=== PATIENT | female | born 1940 | race Caucasian/White ===

== ENCOUNTER 2016-09-03 09:16 | Day surgery (SDC) | payer OTHER ==
[~2016-09-03] VITALS: Ht 158.8 cm; Wt 51.3 kg
[~2016-09-03 09:16] MED LIST: ATEN50TA PO; CEFAZOLIN 2GM PREMIX 50 ML IV PRN; FENTANYL PF 100 MCG/2 ML VIAL. IV PRN; HYDROMORPHONE 2 MG/ML VIAL. IV PRN; IV RINGERS,LACTATED 1000ML 1,000 ML IV SCH; LIDOCAINE 1% 1 ML SYRINGE. ID PRN; MORPHINE SULFATE 2 MG/ML DISP.SYRIN. IV PRN; ONDANSETRON PF 4 MG/2 ML VIAL. IV PRN; PROCHLORPERAZINE 10 MG/2 ML VIAL. IV PRN
[2016-09-03] MEDS ORDERED: BUPIVAC MPF-EPI 0.5%-1:200000 30 ML VIAL. ONE (09:55)
[2016-09-03] MEDS ORDERED: BUPIVACAINE MPF 0.5% 30 ML VIAL. ONE (09:56)
[2016-09-03] MEDS ORDERED: PROPOFOL 20 ML IV ONE (10:29)
[2016-09-03] MEDS ORDERED: LIDOCAINE 2% 100 MG/5 ML DISP.SYRIN. ONE (10:29)
[2016-09-03] MEDS ORDERED: DEXAMETHASONE SOD PHOS 20 MG/5 ML VIAL. ONE (10:35)
[2016-09-03] MEDS ORDERED: ONDANSETRON PF 4 MG/2 ML VIAL. ONE (10:35)
[2016-09-03] MEDS ORDERED: FENTANYL PF 100 MCG/2 ML VIAL. ONE (10:36)
[2016-09-03] MEDS ORDERED: EPHEDRINE PF IN SALINE 50 MG/5 ML DISP.SYRIN. IV ONE (10:43)
[2016-09-03] MEDS ORDERED: SEVOFLURANE 31 TO 60 MINUTES. IH ONE (11:06)
[2016-09-03] MEDS: FENTANYL PF 100 MCG/2 ML VIAL. IV PRN ×3 (11:27→12:08)
--- NOTE | 2016-09-03 11:55 | PDOC ---
BRIEF OPERATIVE NOTE Date: Sep 03, 2016 Pre-Op Diagnosis skin lesion left forehead Post-Op Diagnosis same Procedure Performed excision Surgeon Rk Anesthesia Type: General Blood Loss 10cc IV Fluid 450cc Specimens Obtained skin 5x1.5x0.5 cm, lesion 1.5x0.8 cm Complications none Additional Remarks # [id number] ANNA LEE MD Sep 03, 2016 11:55
--- NOTE | 2016-09-03 11:56 | DISCH ---
DISCHARGE INSTRUCTIONS Condition on Discharge Condition on Discharge: Stable Activity After Discharge Activity Instructions for Disc: Activity as tolerated, Avoid exertion Lifting Instructions after Dis: No heavy lifting Driving Instructions after Dis: Do not drive today Diet after Discharge Diet after Discharge: Regular Wound Incision Care Wound/Incision Care: Ice to area for comfort Other wound/incision instructi: nancy showbehzad Follow-Up Follow up with: Rk next week ANNA LEE MD Sep 03, 2016 11:56
[2016-09-03] MEDS ORDERED: HYDR-971 PO (12:11)
[2016-09-03] MEDS ORDERED: HYDROCODONE/APAP 5/325MG TABLET. PO ONE (12:15)
--- NOTE | 2016-09-03 12:29 | OP ---
DATE OF SURGERY: 09/03/2016 PREOPERATIVE DIAGNOSIS: Chronic skin lesion, left side of her forehead. POSTOPERATIVE DIAGNOSIS: Chronic skin lesion, left side of her forehead. PROCEDURE: Excision of chronic skin lesion, left side of her forehead.. SURGEON: Anna Lee MD ANESTHESIA: General. ESTIMATED BLOOD LOSS: 10 mL. INTRAVENOUS FLUID: 450. SPECIMEN: 5 x 1.5 x 0.5 cm. The lesion itself is 1.5 x 0.8 cm. DESCRIPTION OF PROCEDURE: The patient was brought to the operating suite, given a general LMA and the forehead and left neck were prepped and draped in the usual sterile fashion. An elliptical incision was outlined with a marking pen to allow for adequate margins around the chronic skin lesion thought to represent a basal cell carcinoma. Marcaine 0.5% plain was infiltrated and the lesion was excised down to the skull. Hemostasis with 3-0 Vicryl stick tie and cautery. When a correct sponge count was obtained, we mobilized the inferior and superior skin flaps with cautery dissection. The wound was then closed with interrupted inverted 3-0 Vicryl in the subcutaneous tissue and a subcuticular 4-0 Monocryl with Steri-Strips in the skin. Sterile dressing applied. The patient awakened from her anesthetic and taken to the recovery room in satisfactory condition. ANNA LEE MD DR: SEBAS/alex JOB#: [id number] / [id number]
[2016-09-03 12:35] VITALS: BP 184/84
--- NOTE | 2016-09-04 16:31 | PATHOLOGY ---
PATHOLOGY REPORT * * * * * * * * FINAL DIAGNOSIS: Skin and subcutaneous adipose and skeletal muscle tissue, left forehead lesion excision: - ULCERATED BASAL CELL CARCINOMA-INKED HISTOLOGIC MARGINS OF EXCISION FREE OF NEOPLASM. (JPM:; d/t: 09/04/16) REPORT ELECTRONICALLY SIGNED BY: Stoney Steven M.D. DATE/TIME: 09/04/2016 16:30 * * * * * * * * GROSS PATHOLOGY: Received in formalin labeled "Ni Winn-skin lesion left forehead silk stitch at medial end," is a 4.8 x 1.7 x 0.5 cm ellipse of skin oriented with a black stitch placed at one tip designated as the medial end, which will be further designated as the 9:00 aspect. The specimen is inked as follows: 9:00 to 12:00-yellow, 12:00 to 3:00-blue, and 3:00 to 9:00 and deep margin-black. The epidermal surface displays a central 1.4 x 1.0 cm red-[place], partially crusted, and ulcer-like lesion. The specimen is sectioned into 17 pieces and entirely submitted in cassettes A1 through A4, with the tips placed in cassette A4. (TTL; 09/03/2016) INITIAL CPT CODE(S): A; 54812 Professional services performed [place] [address] Technical services performed by [facility] at [address] [place] [address]. SPECIMEN(S) RECEIVED: A.Skin lesion left forehead CLINICAL HISTORY: Non healing wound, forehead PATIENT: NI WINN /AGE: 8 1940 (Age: 76) PATIENT #: [id number] ALT CASE #: SPECIMEN COLLECTION DATE: 09/03/2016 SPECIMEN RECEIVED DATE: 09/03/2016 [facility] - [address] [place] [address] - PHONE: [phone] * * * END OF REPORT * * *
== END 2016-09-03 12:52 | disposition home or self-care (01) ==
LOC: SURG 09:16
PROVIDERS: ATTEND Surgery
DX: C44.319 Basal cell carcinoma of skin of other parts of face (principal); H40.9 Unspecified glaucoma; I10 Essential (primary) hypertension; M19.90 Unspecified osteoarthritis, unspecified site; F10.99 Alcohol use, unspecified with unspecified alcohol-induced disorder; Z90.710 Acquired absence of both cervix and uterus
CPT/HCPCS: 11646; 88305; J0690; J1100; J2405; J2704; J3010; J3490

== ENCOUNTER 2016-09-30 11:59 | Inpatient (IN) | payer OTHER ==
[~2016-09-30] VITALS: Ht 158.8 cm; Wt 53.6 kg
[~2016-09-30 11:59] MED LIST changes: -CEFAZOLIN 2GM PREMIX 50 ML IV PRN; -FENTANYL PF 100 MCG/2 ML VIAL. IV PRN; +HYDR-971 PO; -HYDROMORPHONE 2 MG/ML VIAL. IV PRN; -IV RINGERS,LACTATED 1000ML 1,000 ML IV SCH; -LIDOCAINE 1% 1 ML SYRINGE. ID PRN; -MORPHINE SULFATE 2 MG/ML DISP.SYRIN. IV PRN; -ONDANSETRON PF 4 MG/2 ML VIAL. IV PRN; -PROCHLORPERAZINE 10 MG/2 ML VIAL. IV PRN
[2016-09-30] MEDS ORDERED: IPRATRPIUM/ALBUTEROL 0.5/2.5MG 3 ML NEBU. NEB ONE (12:30)
--- NOTE | 2016-09-30 12:46 | RAD ---
Portable chest, 09/30/2016: History: Chest pain, shortness of breath, cough Comparison is made to a study from 02/06/2010. The heart is at the upper limits of normal in size. The pulmonary vascularity is normal. Mild infiltrate has developed laterally in the right upper chest. The left lung is clear. There is no evidence of pleural fluid. A right shoulder prosthesis is in place. IMPRESSION: New mild right upper lobe infiltrate suggesting pneumonia.
[2016-09-30 12:49] LABS: BASO % 0 % (0-3); EOS % 0 % (0-3); HEMATOCRIT 36.5 % (36.0-47.0); HEMOGLOBIN 12.1 g/dL (12.0-15.5); LYMPH % 8 % (24-48); MEAN CORPUSCULAR HEMOGLOBIN 33 pg (25-35); MEAN CORPUSCULAR HGB CONC 33 g/dL (31-37); MEAN CORPUSCULAR VOLUME 100 fL (79-100); MONO % 13 % (0-9); NEUT % 79 % (31-73); PLATELET COUNT 361 x10^3/uL (140-400); RED BLOOD COUNT 3.66 x10^6/uL (3.50-5.40); RED CELL DISTRIBUTION WIDTH 13.8 % (11.5-14.5); WHITE BLOOD COUNT 12.8 x10^3/uL (4.0-11.0)
[2016-09-30 12:59] LABS: CALCIUM 9.2 mg/dL (8.5-10.1); CREATININE 0.6 mg/dL (0.6-1.0); GFR 97.7
[2016-09-30] MEDS ORDERED: AZITHRMYCN 500MG IVPB FOR OMNI 250 ML IV ONE (13:00)
[2016-09-30] MEDS ORDERED: MORPHINE SULFATE 2 MG/ML DISP.SYRIN. IV PRN (13:00)
[2016-09-30] MEDS ORDERED: IV NORMAL SALINE 500ML BAG 500 ML IV ONE (13:00)
[2016-09-30] MEDS ORDERED: CEFTRIAXONE 1GM IVPB FOR OMNI 50 ML IV ONE (13:00)
[2016-09-30] MEDS ORDERED: ONDANSETRON PF 4 MG/2 ML VIAL. IV PRN (13:00)
--- NOTE | 2016-09-30 13:04 | PHYS DOC ---
Past Medical History Past Medical History: Hypertension Past Surgical History: Appendectomy, , Hysterectomy Alcohol Use: Heavy Drug Use: None Adult General Chief Complaint Chief Complaint: SHORTNESS OF BREATH HPI HPI 76-year-old female presenting to the emergency department with a productive cough for the last 3 weeks. She reports fevers chills and rhinorrhea as well. She has pain in her chest when she coughs and has a deep breath. She describes as sharp nonradiating and without alleviating factors. Location lungs. Duration intermittent. No alleviating or exacerbating factors. Worse at night. Review of systems is negative for abdominal pain nausea vomiting. All other review of systems is negative unless otherwise noted in history of present illness. Review of Systems Review of Systems SEE ABOVE. Current Medications Current Medications Current Medications Medications (Trade) Dose Ordered Sig/Chuckie Start Time Stop Time Status Last Admin Dose Admin Albuterol/ Ipratropium (Duoneb) 3 ml 1X ONCE 09/30/16 12:30 09/30/16 12:31 DC 09/30/16 12:43 3 ML Allergies Allergies Allergies Coded Allergies Type Severity Reaction Last Updated Verified ciprofloxacin Allergy Intermediate BROKE OUT WITH WELTS 09/30/16 Yes Physical Exam Physical Exam Constitutional: Well developed, well nourished, no acute distress, non-toxic appearance. HENT: Normocephalic, atraumatic, bilateral external ears normal, oropharynx moist, no oral exudates, nose normal. [] Eyes: PERRLA, EOMI, conjunctiva normal, no discharge. Neck: Normal range of motion, no tenderness, supple, no stridor. [] Cardiovascular:Heart rate regular rhythm, no murmur Lungs & Thorax: Patient has wheezing bilaterally with mild crackles. Not in respiratory distress. Abdomen: Bowel sounds normal, soft, no tenderness, no masses, no pulsatile masses. [] Skin: Warm, dry, no erythema, no rash. [] Back: No tenderness, no CVA tenderness. Extremities: No tenderness, no cyanosis, no clubbing, ROM intact, no edema. [] Neurologic: Alert and oriented X 3, normal motor function, normal sensory function, no focal deficits noted. [] Psychologic: Affect normal, judgement normal, mood normal. [] Current Patient Data Vital Signs Vital Signs Date Time Temp Pulse Resp B/P Pulse Ox O2 Delivery O2 Flow Rate FiO2 09/30/16 12:46 94 Nasal Cannula 2.0 09/30/16 12:05 99.6 86 24 156/73 99.6 Lab Values Laboratory Tests Test 09/30/16 12:30 White Blood Count 12.8x10^3/uL (4.0-11.0) H Red Blood Count 3.66x10^6/uL (3.50-5.40) Hemoglobin 12.1g/dL (12.0-15.5) Hematocrit 36.5% (36.0-47.0) Mean Corpuscular Volume 100fL (79-100) Mean Corpuscular Hemoglobin 33pg (25-35) Mean Corpuscular Hemoglobin Concent 33g/dL (31-37) Red Cell Distribution Width 13.8% (11.5-14.5) Platelet Count 361x10^3/uL (140-400) Neutrophils (%) (Auto) 79% (31-73) H Lymphocytes (%) (Auto) 8% (24-48) L Monocytes (%) (Auto) 13% (0-9) H Eosinophils (%) (Auto) 0% (0-3) Basophils (%) (Auto) 0% (0-3) Neutrophils # (Auto) 10.1x10^3uL (1.8-7.7) H Lymphocytes # (Auto) 1.0x10^3/uL (1.0-4.8) Monocytes # (Auto) 1.7x10^3/uL (0.0-1.1) H Eosinophils # (Auto) 0.0x10^3/uL (0.0-0.7) Basophils # (Auto) 0.0x10^3/uL (0.0-0.2) Laboratory Tests 09/30/16 12:30 EKG EKG EKG shows sinus rhythm with a regular rate. Cove is leftward. ST segments congruent. Intervals show mildly prolonged QRS. [] Radiology/Procedures Radiology/Procedures [] Course & Med Decision Making Course & Med Decision Making Pertinent Labs and Imaging studies reviewed. (See chart for details) [] 76-year-old female presenting to the emergency department today with signs and symptoms suggestive of pneumonia. X-ray confirms pneumonia. Patient was hypoxic in the emergency department and placed on 2 L nasal cannula. IV fluids and antibiotics ordered. Patient was admitted to the hospital for further evaluation treatment and workup and care. Patient also had wheezing on exam which improved with nebulizer. Dragon Disclaimer Dragon Disclaimer This electronic medical record was generated, in whole or in part, using a voice recognition dictation system. Departure Departure Impression: Primary Impression: Community acquired pneumonia Additional Impression: Hypoxia Disposition: ADMITTED INPATIENT Admitting Physician: Other (DR العلي) Condition: STABLE Referrals: ALEJANDRO JOINER MD (PCP) Problem Qualifiers VALERIO RAMÍREZ MD Sep 30, 2016 13:04
[2016-09-30 13:05] LABS: ALBUMIN 2.9 g/dL (3.4-5.0); DIRECT BILIRUBIN 0.4 mg/dL (0.0-0.2); TOTAL BILIRUBIN 1.3 mg/dL (0.2-1.0); TOTAL PROTEIN 7.6 g/dL (6.4-8.2)
--- NOTE | 2016-09-30 13:42 | ACF ---
Admission Forms Criteria PNEUMONIA, COMMUNITY ACQUIRED Clinical Indications for Admission to Inpatient Care ( Place 'X' for any and all applicable criteria): Admission is indicated for ANY ONE of the following (1)(2)(3): [ ]I. Hypoxemia indicated by ANY ONE of the following: [ ]a) Oxygen saturation less than 90% while breathing room air [ ]b) PO2 less than 60 mm Hg (8.0 kPa) while breathing room air [ ]c) Chronic lung disease with significant deterioration from baseline oxygenation [X]II. Appropriate diagnostic testing and treatment unavailable in outpatient or recovery facility (eg,testing or infection control measures unavailable(10) [ ]III. Moderate-risk or high-risk category patients (Pneumonia Severity Index (PSI) class IV or V, or CURB-65 score of 3 or greater). [ ]IV. Outpatient treatment failure as indicated by ANY ONE of the following(9) : [ ]a) Failure to respond to antibiotic (eg, resistant organism) [ ]b) Clinically significant adverse effects from medication (eg, vomiting) [ ]c) Complications of pneumonia (eg, empyema, bacteremia) [ ]d) Significant worsening of comorbid cond necessitating inpatient care (eg, chronic heart failure) [ ]V. Intermediate-risk category patients (eg, PSI class III or CURB-65 score 2) who do not improve with initial therapy and observation. [ ]. Immunocompromised patients (eg, AIDS, chronic steroid use) at moderate or high risk based on clinical evaluation. [ ]VII. Complicated pleural effusions (eg, exudative, loculated) [ ]VIII.Hemodynamic instability [ ] IX. Altered mental status that is severe or persistent. [ ]X. Dehydration that is severe or persistent. [ ]XI. Bacteremia [ ]XII. Respiratory finding (eg. tachypnea) that do not respond to outpatient or observation care treatment Extended stay beyond goal length of stay may be needed for (20) [ ]a) Unclear diagnosis [ ]b) Pleural disease [ ]c) Severe pneumonia or treatment failure (25 [ ]d) Respiratory failure (anticipate invasive or noninvasive ventilatory support) [ ]e) Abnormal serum electrolytes (serum Na concentration less than 135 mEq/L (mmol/L) (32)(33) [ ]f) Clinically significant comorbid illness (eg, heart failure, atrial fibrillation with rapid heart rate, alcohol withdrawal, renal insufficiency)(34)(35) [ ]g) Comorbid acute exacerbation of COPD(36) [ ]h) Concomitant diagnosis of malignancy that may be associated with malnutrition, immunologic impairment, or bronchial obstruction. [ ]i) Concomitant altered mental status [ ]j) Culture-identified Gram-negative or antibiotic-resistant organism (eg, Pseudomonas, methicillin-resistant Staphylococcus aureus)(30) [ ]k) Healthcare-associated pneumonia The original [facility] content created by [employer] has been revised. The portions of the content which have been revised are identified through the use of italic text or in bold, and [facility] has neither reviewed nor approved the modified material. All other unmodified content is copyright [facility]. Please see references footnoted in the original [facility] edition 2016 Admission Criteria Met?: Yes LAILA FIELD Sep 30, 2016 13:42
--- NOTE | 2016-09-30 14:21 | EKG ---
[facility] [address] [place] [address] Test Date: 2016-09-30 Test Time: 12:06:01 Pat Name: NI STAFFORD Department: Room: 582 1 Gender: F 3D Specialist: : 1940 Requested By: VALERIO RAMÍREZ Order Number: [id number] Reading MD: Sascha Gray Measurements Intervals [place] Rate: 87 P: 42 MO: 160 QRS: -31 QRSD: 102 T: -4 QT: 404 QTc: 487 Interpretive Statements SINUS RHYTHM ABNORMAL LEFT AXIS DEVIATION LEFT ANTERIOR FASCICULAR BLOCK LVH WITH REPOLARIZATION ABNORMALITY PROLONGED QT RI6.01 Unconfirmed report No previous ECG available for comparison Electronically Signed On 10-08-2016 10:21:07 AUTOMATIC EDGER by Sascha Gray
[2016-09-30] MEDS: IPRATRPIUM/ALBUTEROL 0.5/2.5MG 3 ML NEBU. NEB SCH ×2 (14:53→20:03)
[2016-09-30 15:12] VITALS: BP 165/82
[2016-09-30] MEDS: ATENOLOL 50 MG TABLET PO SCH (16:14)
[2016-09-30] MEDS: POTASSIUM CHLORIDE 30 MEQ in IV 1/2 NORMAL SALINE 1,000 ML IV SCH (16:33)
[2016-09-30] MEDS: POTASSIUM CHLORIDE 20 MEQ TABLET.ER. PO SCH (16:34)
--- NOTE | 2016-09-30 17:50 | HP ---
ADMIT DATE: 09/30/2016 CHIEF COMPLAINT: Shortness of breath, cough. HISTORY OF PRESENT ILLNESS: The patient is a 76-year-old woman in a very good state of health who presented to the Emergency Room with worsening shortness of breath and a productive cough. She relates that she actually had had upper respiratory symptoms for about 3 weeks and thought she was getting over it, when she suddenly took a turn for the worse over the past couple of days and finally decided to come to the Emergency Room. She reports significant cough with sputum production, had subjective fevers and chills for 1 day, significant rhinorrhea. She has discomfort in her right chest, especially with cough and deep breath. In the Emergency Room, chest x-ray did reveal right pneumonia and she was therefore admitted for IV antibiotics and management. PAST MEDICAL HISTORY: Hypertension. PAST SURGICAL HISTORY: She is status post appendectomy, hysterectomy and a . FAMILY HISTORY: COPD in mother, father had lung cancer. SOCIAL HISTORY: , living with her significant other, quit smoking, significant alcohol use, no drug use. ALLERGIES: Ciprofloxacin. MEDICATIONS: Atenolol at home. REVIEW OF SYSTEMS: Positive as per HPI. PHYSICAL EXAMINATION: VITAL SIGNS: From today show a blood pressure of 165/82, heart rate at 86, respiratory rate at 18, satting 92% on 2 liters, she is afebrile. GENERAL: This is a malnourished, pale-appearing woman, awake, alert, in no acute distress. HEENT: Shows no scleral icterus. NECK: Supple, without any lymphadenopathy. LUNGS: Have rales in right mid field to lower lung. Rest of lung is clear. HEART: Has regular rate and rhythm. ABDOMEN: Has positive bowel sounds, soft, nontender. Organs are within normal limits. EXTREMITIES: Show no edema, no clubbing, no cyanosis. SKIN: Warm, soft and dry without any rash. LABORATORY DATA: CBC from today shows a WBC of 12.8, hemoglobin 12.1, platelets of 369, differential with 79% neutrophils. Chemistries show BUN and creatinine of 5 and 0.6, potassium at 3.0, CO2 at 33, total bilirubin at 1.3. Rest of LFTs within normal limits. BNP at 2600. Initial troponin negative. Albumin 2.9. IMAGING: Chest x-ray shows mild right upper lobe infiltrate suggesting pneumonia. ASSESSMENT AND PLAN: The patient is a 76-year-old woman who had 3 weeks of upper respiratory symptoms, most likely viral in etiology. Now, however, she has clinical symptoms as well as radiographic findings consistent with pneumonia. This is suspicious for bacterial. We will try and obtain a sputum specimen JULIO C. We will start her on empiric antibiotics with azithromycin and ceftriaxone. She will receive supplemental O2, nebulizers and ancillary medications including Mucomyst, etc. Her blood pressure is indeed somewhat elevated. We will continue her home medications, if need be further adjustments will be taken. The patient does have a history of alcohol abuse. We will monitor closely, apparently has not been drinking significantly recently. Nevertheless, worrisome for withdrawal symptoms. The patient will be placed on a PPI prophylaxis as well as Lovenox here in the hospital. Hypokalemia will be repleted p.o. as well as IV. We will continue to monitor with creatinine. CHRISTOS ARGUETA MD DR: JOSEPH/nts JOB#: [id number] / [id number] ALEJANDRO Arriola MD
[2016-09-30 19:00] VITALS: BP 140/64
[2016-09-30] MEDS: GUAIFENESIN DM 600/30MG TAB.ER.12H. PO SCH (20:42)
[2016-09-30] MEDS ORDERED: TEMAZEPAM 15 MG CAPSULE PO PRN (22:30)
[2016-09-30 23:04] VITALS: BP 120/63
[2016-10-01 01:01] LABS: BASO # 0.1 x10^3/uL (0.0-0.2); BASO % 1 % (0-3); EOS % 1 % (0-3); HEMATOCRIT 30.9 % (36.0-47.0); HEMOGLOBIN 10.3 g/dL (12.0-15.5); LYMPH # 1.7 x10^3/uL (1.0-4.8); LYMPH % 15 % (24-48); MEAN CORPUSCULAR HEMOGLOBIN 34 pg (25-35); MEAN CORPUSCULAR HGB CONC 33 g/dL (31-37); MEAN CORPUSCULAR VOLUME 100 fL (79-100); MONO % 13 % (0-9); NEUT % 71 % (31-73); PLATELET COUNT 321 x10^3/uL (140-400); RED BLOOD COUNT 3.08 x10^6/uL (3.50-5.40); RED CELL DISTRIBUTION WIDTH 13.4 % (11.5-14.5); WHITE BLOOD COUNT 11.7 x10^3/uL (4.0-11.0)
[2016-10-01 01:15] LABS: CALCIUM 7.9 mg/dL (8.5-10.1); CREATININE 0.5 mg/dL (0.6-1.0); GFR 120.6; POTASSIUM 3.7 mmol/L (3.5-5.1)
[2016-10-01 03:00] VITALS: BP 144/80
[2016-10-01] MEDS: POTASSIUM CHLORIDE 30 MEQ in IV 1/2 NORMAL SALINE 1,000 ML IV SCH ×2 (06:30→21:22)
[2016-10-01 07:00] VITALS: BP 130/68
[2016-10-01 07:31] LABS: OBC FLU VALID
[2016-10-01] MEDS: IPRATRPIUM/ALBUTEROL 0.5/2.5MG 3 ML NEBU. NEB SCH ×3 (07:34→15:30)
[2016-10-01] MEDS: GUAIFENESIN DM 600/30MG TAB.ER.12H. PO SCH ×2 (08:56→21:22)
[2016-10-01] MEDS: POTASSIUM CHLORIDE 20 MEQ TABLET.ER. PO SCH (08:57)
[2016-10-01] MEDS: ATENOLOL 50 MG TABLET PO SCH (08:57)
[2016-10-01] MEDS ORDERED: ONDANSETRON PF 4 MG/2 ML VIAL. IV PRN (08:59)
[2016-10-01 11:03] VITALS: BP 130/71
--- NOTE | 2016-10-01 11:19 | PDOC ---
PROGRESS NOTES Chief Complaint Chief Complaint CAP SIRS POA no sepsis HTN History of Present Illness History of Present Illness Low grade temps STill coughing WBC 11 from 12 CXR shows RUL PNA BC prelim neg FLu A and B neg PLAN: COnt IV antibiotics PT/OT 6 MW sandrine Send sputum cx If better sandrine, then home sandrine on PO Vitals Vitals Vital Signs Date Time Temp Pulse Resp B/P Pulse Ox O2 Delivery O2 Flow Rate FiO2 10/01/16 11:03 97.7 82 16 130/71 93 Nasal Cannula 2.0 97.7 Labs LABS Laboratory Tests Test 09/30/16 12:04 09/30/16 12:30 09/30/16 13:05 09/30/16 15:00 Influenza Type A Antigen Negative (NEGATIVE) Influenza Type B Antigen Negative (NEGATIVE) White Blood Count 12.8x10^3/uL (4.0-11.0) Red Blood Count 3.66x10^6/uL (3.50-5.40) Hemoglobin 12.1g/dL (12.0-15.5) Hematocrit 36.5% (36.0-47.0) Mean Corpuscular Volume 100fL (79-100) Mean Corpuscular Hemoglobin 33pg (25-35) Mean Corpuscular Hemoglobin Concent 33g/dL (31-37) Red Cell Distribution Width 13.8% (11.5-14.5) Platelet Count 361x10^3/uL (140-400) Neutrophils (%) (Auto) 79% (31-73) Lymphocytes (%) (Auto) 8% (24-48) Monocytes (%) (Auto) 13% (0-9) Eosinophils (%) (Auto) 0% (0-3) Basophils (%) (Auto) 0% (0-3) Neutrophils # (Auto) 10.1x10^3uL (1.8-7.7) Lymphocytes # (Auto) 1.0x10^3/uL (1.0-4.8) Monocytes # (Auto) 1.7x10^3/uL (0.0-1.1) Eosinophils # (Auto) 0.0x10^3/uL (0.0-0.7) Basophils # (Auto) 0.0x10^3/uL (0.0-0.2) Sodium Level 137mmol/L (136-145) Potassium Level 3.0mmol/L (3.5-5.1) Chloride Level 94mmol/L (98-107) Carbon Dioxide Level 33mmol/L (21-32) Anion Gap 10 (6-14) Blood Urea Nitrogen 5mg/dL (7-20) Creatinine 0.6mg/dL (0.6-1.0) Estimated GFR (Cockcroft-Gault) 97.7 Glucose Level 113mg/dL (70-99) Calcium Level 9.2mg/dL (8.5-10.1) Total Bilirubin 1.3mg/dL (0.2-1.0) Direct Bilirubin 0.4mg/dL (0.0-0.2) Aspartate Amino Transf (AST/SGOT) 25U/L (15-37) Alanine Aminotransferase (ALT/SGPT) 24U/L (14-59) Alkaline Phosphatase 79U/L (46-116) Troponin I Quantitative < 0.017ng/mL (0.000-0.055) JR-[id number]-A-Type Natriuretic Peptide 2644pg/mL (0-124) Total Protein 7.6g/dL (6.4-8.2) Albumin 2.9g/dL (3.4-5.0) Lipase 292U/L (73-393) Lactic Acid Level 1.2mmol/L (0.4-2.0) 2.2mmol/L (0.4-2.0) Test 09/30/16 18:45 10/01/16 00:55 10/01/16 06:40 Troponin I Quantitative < 0.017ng/mL (0.000-0.055) < 0.017ng/mL (0.000-0.055) White Blood Count 11.7x10^3/uL (4.0-11.0) Red Blood Count 3.08x10^6/uL (3.50-5.40) Hemoglobin 10.3g/dL (12.0-15.5) Hematocrit 30.9% (36.0-47.0) Mean Corpuscular Volume 100fL (79-100) Mean Corpuscular Hemoglobin 34pg (25-35) Mean Corpuscular Hemoglobin Concent 33g/dL (31-37) Red Cell Distribution Width 13.4% (11.5-14.5) Platelet Count 321x10^3/uL (140-400) Neutrophils (%) (Auto) 71% (31-73) Lymphocytes (%) (Auto) 15% (24-48) Monocytes (%) (Auto) 13% (0-9) Eosinophils (%) (Auto) 1% (0-3) Basophils (%) (Auto) 1% (0-3) Neutrophils # (Auto) 8.3x10^3uL (1.8-7.7) Lymphocytes # (Auto) 1.7x10^3/uL (1.0-4.8) Monocytes # (Auto) 1.5x10^3/uL (0.0-1.1) Eosinophils # (Auto) 0.1x10^3/uL (0.0-0.7) Basophils # (Auto) 0.1x10^3/uL (0.0-0.2) Sodium Level 139mmol/L (136-145) Potassium Level 3.7mmol/L (3.5-5.1) Chloride Level 100mmol/L (98-107) Carbon Dioxide Level 31mmol/L (21-32) Anion Gap 8 (6-14) Blood Urea Nitrogen 4mg/dL (7-20) Creatinine 0.5mg/dL (0.6-1.0) Estimated GFR (Cockcroft-Gault) 120.6 Glucose Level 97mg/dL (70-99) Calcium Level 7.9mg/dL (8.5-10.1) Lactic Acid Level 0.9mmol/L (0.4-2.0) Review of Systems Review of Systems no fevers, positive cough, no inc in soa or cp Assessment and Plan Assessmemt and Plan Problems Medical Problems: (1) Community acquired pneumonia Status: Acute (2) Hypoxia Status: Acute Problems: Comment Review of Relevant I have reviewed the following items pavithra (where applicable) has been applied. Labs Laboratory Tests Test 09/30/16 12:04 09/30/16 12:30 09/30/16 13:05 09/30/16 15:00 Influenza Type A Antigen Negative (NEGATIVE) Influenza Type B Antigen Negative (NEGATIVE) White Blood Count 12.8x10^3/uL (4.0-11.0) Red Blood Count 3.66x10^6/uL (3.50-5.40) Hemoglobin 12.1g/dL (12.0-15.5) Hematocrit 36.5% (36.0-47.0) Mean Corpuscular Volume 100fL (79-100) Mean Corpuscular Hemoglobin 33pg (25-35) Mean Corpuscular Hemoglobin Concent 33g/dL (31-37) Red Cell Distribution Width 13.8% (11.5-14.5) Platelet Count 361x10^3/uL (140-400) Neutrophils (%) (Auto) 79% (31-73) Lymphocytes (%) (Auto) 8% (24-48) Monocytes (%) (Auto) 13% (0-9) Eosinophils (%) (Auto) 0% (0-3) Basophils (%) (Auto) 0% (0-3) Neutrophils # (Auto) 10.1x10^3uL (1.8-7.7) Lymphocytes # (Auto) 1.0x10^3/uL (1.0-4.8) Monocytes # (Auto) 1.7x10^3/uL (0.0-1.1) Eosinophils # (Auto) 0.0x10^3/uL (0.0-0.7) Basophils # (Auto) 0.0x10^3/uL (0.0-0.2) Sodium Level 137mmol/L (136-145) Potassium Level 3.0mmol/L (3.5-5.1) Chloride Level 94mmol/L (98-107) Carbon Dioxide Level 33mmol/L (21-32) Anion Gap 10 (6-14) Blood Urea Nitrogen 5mg/dL (7-20) Creatinine 0.6mg/dL (0.6-1.0) Estimated GFR (Cockcroft-Gault) 97.7 Glucose Level 113mg/dL (70-99) Calcium Level 9.2mg/dL (8.5-10.1) Total Bilirubin 1.3mg/dL (0.2-1.0) Direct Bilirubin 0.4mg/dL (0.0-0.2) Aspartate Amino Transf (AST/SGOT) 25U/L (15-37) Alanine Aminotransferase (ALT/SGPT) 24U/L (14-59) Alkaline Phosphatase 79U/L (46-116) Troponin I Quantitative < 0.017ng/mL (0.000-0.055) JQ-Oli-B-Type Natriuretic Peptide 2644pg/mL (0-124) Total Protein 7.6g/dL (6.4-8.2) Albumin 2.9g/dL (3.4-5.0) Lipase 292U/L (73-393) Lactic Acid Level 1.2mmol/L (0.4-2.0) 2.2mmol/L (0.4-2.0) Test 09/30/16 18:45 10/01/16 00:55 10/01/16 06:40 Troponin I Quantitative < 0.017ng/mL (0.000-0.055) < 0.017ng/mL (0.000-0.055) White Blood Count 11.7x10^3/uL (4.0-11.0) Red Blood Count 3.08x10^6/uL (3.50-5.40) Hemoglobin 10.3g/dL (12.0-15.5) Hematocrit 30.9% (36.0-47.0) Mean Corpuscular Volume 100fL (79-100) Mean Corpuscular Hemoglobin 34pg (25-35) Mean Corpuscular Hemoglobin Concent 33g/dL (31-37) Red Cell Distribution Width 13.4% (11.5-14.5) Platelet Count 321x10^3/uL (140-400) Neutrophils (%) (Auto) 71% (31-73) Lymphocytes (%) (Auto) 15% (24-48) Monocytes (%) (Auto) 13% (0-9) Eosinophils (%) (Auto) 1% (0-3) Basophils (%) (Auto) 1% (0-3) Neutrophils # (Auto) 8.3x10^3uL (1.8-7.7) Lymphocytes # (Auto) 1.7x10^3/uL (1.0-4.8) Monocytes # (Auto) 1.5x10^3/uL (0.0-1.1) Eosinophils # (Auto) 0.1x10^3/uL (0.0-0.7) Basophils # (Auto) 0.1x10^3/uL (0.0-0.2) Sodium Level 139mmol/L (136-145) Potassium Level 3.7mmol/L (3.5-5.1) Chloride Level 100mmol/L (98-107) Carbon Dioxide Level 31mmol/L (21-32) Anion Gap 8 (6-14) Blood Urea Nitrogen 4mg/dL (7-20) Creatinine 0.5mg/dL (0.6-1.0) Estimated GFR (Cockcroft-Gault) 120.6 Glucose Level 97mg/dL (70-99) Calcium Level 7.9mg/dL (8.5-10.1) Lactic Acid Level 0.9mmol/L (0.4-2.0) Laboratory Tests Test 09/30/16 12:04 09/30/16 12:30 09/30/16 13:05 09/30/16 15:00 Influenza Type A Antigen Negative (NEGATIVE) Influenza Type B Antigen Negative (NEGATIVE) White Blood Count 12.8x10^3/uL (4.0-11.0) Red Blood Count 3.66x10^6/uL (3.50-5.40) Hemoglobin 12.1g/dL (12.0-15.5) Hematocrit 36.5% (36.0-47.0) Mean Corpuscular Volume 100fL (79-100) Mean Corpuscular Hemoglobin 33pg (25-35) Mean Corpuscular Hemoglobin Concent 33g/dL (31-37) Red Cell Distribution Width 13.8% (11.5-14.5) Platelet Count 361x10^3/uL (140-400) Neutrophils (%) (Auto) 79% (31-73) Lymphocytes (%) (Auto) 8% (24-48) Monocytes (%) (Auto) 13% (0-9) Eosinophils (%) (Auto) 0% (0-3) Basophils (%) (Auto) 0% (0-3) Neutrophils # (Auto) 10.1x10^3uL (1.8-7.7) Lymphocytes # (Auto) 1.0x10^3/uL (1.0-4.8) Monocytes # (Auto) 1.7x10^3/uL (0.0-1.1) Eosinophils # (Auto) 0.0x10^3/uL (0.0-0.7) Basophils # (Auto) 0.0x10^3/uL (0.0-0.2) Sodium Level 137mmol/L (136-145) Potassium Level 3.0mmol/L (3.5-5.1) Chloride Level 94mmol/L (98-107) Carbon Dioxide Level 33mmol/L (21-32) Anion Gap 10 (6-14) Blood Urea Nitrogen 5mg/dL (7-20) Creatinine 0.6mg/dL (0.6-1.0) Estimated GFR (Cockcroft-Gault) 97.7 Glucose Level 113mg/dL (70-99) Calcium Level 9.2mg/dL (8.5-10.1) Total Bilirubin 1.3mg/dL (0.2-1.0) Direct Bilirubin 0.4mg/dL (0.0-0.2) Aspartate Amino Transf (AST/SGOT) 25U/L (15-37) Alanine Aminotransferase (ALT/SGPT) 24U/L (14-59) Alkaline Phosphatase 79U/L (46-116) Troponin I Quantitative < 0.017ng/mL (0.000-0.055) PE-Wln-C-Type Natriuretic Peptide 2644pg/mL (0-124) Total Protein 7.6g/dL (6.4-8.2) Albumin 2.9g/dL (3.4-5.0) Lipase 292U/L (73-393) Lactic Acid Level 1.2mmol/L (0.4-2.0) 2.2mmol/L (0.4-2.0) Test 09/30/16 18:45 10/01/16 00:55 10/01/16 06:40 Troponin I Quantitative < 0.017ng/mL (0.000-0.055) < 0.017ng/mL (0.000-0.055) White Blood Count 11.7x10^3/uL (4.0-11.0) Red Blood Count 3.08x10^6/uL (3.50-5.40) Hemoglobin 10.3g/dL (12.0-15.5) Hematocrit 30.9% (36.0-47.0) Mean Corpuscular Volume 100fL (79-100) Mean Corpuscular Hemoglobin 34pg (25-35) Mean Corpuscular Hemoglobin Concent 33g/dL (31-37) Red Cell Distribution Width 13.4% (11.5-14.5) Platelet Count 321x10^3/uL (140-400) Neutrophils (%) (Auto) 71% (31-73) Lymphocytes (%) (Auto) 15% (24-48) Monocytes (%) (Auto) 13% (0-9) Eosinophils (%) (Auto) 1% (0-3) Basophils (%) (Auto) 1% (0-3) Neutrophils # (Auto) 8.3x10^3uL (1.8-7.7) Lymphocytes # (Auto) 1.7x10^3/uL (1.0-4.8) Monocytes # (Auto) 1.5x10^3/uL (0.0-1.1) Eosinophils # (Auto) 0.1x10^3/uL (0.0-0.7) Basophils # (Auto) 0.1x10^3/uL (0.0-0.2) Sodium Level 139mmol/L (136-145) Potassium Level 3.7mmol/L (3.5-5.1) Chloride Level 100mmol/L (98-107) Carbon Dioxide Level 31mmol/L (21-32) Anion Gap 8 (6-14) Blood Urea Nitrogen 4mg/dL (7-20) Creatinine 0.5mg/dL (0.6-1.0) Estimated GFR (Cockcroft-Gault) 120.6 Glucose Level 97mg/dL (70-99) Calcium Level 7.9mg/dL (8.5-10.1) Lactic Acid Level 0.9mmol/L (0.4-2.0) Medications Current Medications Albuterol/ Ipratropium 3 ml 3 ml 1X ONCE NEB Last administered on 09/30/16 12 :43; Start 09/30/16 at 12:30; Stop 09/30/16 at 12:31; Status DC Sodium Chloride 500 ml @ 500 mls/hr 1X ONCE IV Last administered on 13:14; Start 09/30/16 at 13:00; Stop 09/30/16 at 13:59; Status DC Azithromycin 250 ml @ 250 mls/hr 1X ONCE IV Last administered on 09/30/16 14 :25; Start 09/30/16 at 13:00; Stop 09/30/16 at 13:59; Status DC Ceftriaxone Sodium (Rocephin 1gm Ivpb For Omni) 50 ml @ 100 mls/hr 1X ONCE IV Last administered on 09/30/16 13:21; Start 09/30/16 at 13:00; Stop 09/30/16 at 13:29; Status DC Ondansetron HCl (Zofran) 4 mg PRN Q8HRS PRN IV NAUSEA/VOMITING Last administered on 09/30/16 13:16; Start 09/30/16 at 13:00; Stop 10/01/16 at 09:01 ; Status DC Morphine Sulfate 2 mg PRN Q2HR PRN IV PAIN Last administered on 09/30/16 13:19 ; Start 09/30/16 at 13:00; Stop 10/01/16 at 12:59 Albuterol/ Ipratropium (Duoneb) 3 ml RTQID NEB Last administered on 10/01/16 07:34; Start 09/30/16 at 16:00; Stop 10/01/16 at 15:59 Atenolol (Tenormin) 50 mg DAILY PO Last administered on 10/01/16 08:57; Start 09/30/16 at 17:00 Guaifenesin (MUCINEX ER with DM) 1 tab BID PO Last administered on 10/01/16 08 :56; Start 09/30/16 at 21:00 Acetaminophen 650 mg 650 mg PRN Q6HRS PRN PO MILD PAIN / TEMP; Start 09/30/16 at 16:15 Potassium Chloride/Sodium Chloride (Iv Sodium Chloride 0.45%) 1,015 ml @ 75 mls /hr [id number] IV Last administered on 10/01/16 06:30; Start 09/30/16 at 16:15 Potassium Chloride (Klor-Con) 20 meq BIDWMEALS PO Last administered on 08:57; Start 09/30/16 at 17:00; Stop 10/01/16 at 16:59 Temazepam (Restoril) 15 mg PRN QHS PRN PO INSOMNIA; Start 09/30/16 at 22:30 Ondansetron HCl 4 mg 4 mg PRN Q6HRS PRN IV NAUSEA/VOMITING; Start 10/01/16 at 08:59 Ceftriaxone Sodium 1 gm/ Sodium Chloride 50 ml @ 100 mls/hr Q24H IV ; Start at 13:00 Azithromycin/ Sodium Chloride (Zithromax/Iv Sodium Chloride 0.9% 250ml) 250 ml @ 250 mls/hr Q24H IV ; Start 10/01/16 at 13:00 Active Scripts Active Reported Atenolol 50 Mg Tablet 1 Tab PO DAILY Vitals/I & O Vital Sign - Last 24 Hours 09/30/16 09/30/16 09/30/16 09/30/16 12:05 12:30 12:44 12:46 Temp 99.6 99.6 Pulse 86 82 Resp 24 24 B/P 156/73 167/74 Pulse Ox 93 93 92 94 O2 Delivery Nasal Cannula Nasal Cannula Nasal Cannula Nasal Cannula O2 Flow Rate 2 2 2.0 2.0 09/30/16 09/30/16 09/30/16 09/30/16 13:19 13:30 13:35 14:00 Pulse 80 Resp 20 18 B/P 152/72 Pulse Ox 94 94 94 O2 Delivery Nasal Cannula Nasal Cannula Nasal Cannula Nasal Cannula O2 Flow Rate 2.0 2 2.0 2.0 09/30/16 09/30/16 09/30/16 09/30/16 14:56 15:12 19:00 20:05 Temp 98.3 99.7 98.3 99.7 Pulse 86 84 Resp 18 16 B/P 165/82 140/64 Pulse Ox 96 92 94 93 O2 Delivery Nasal Cannula Nasal Cannula Nasal Cannula Nasal Cannula O2 Flow Rate 2.0 2.0 2.0 2.0 09/30/16 09/30/16 10/01/16 10/01/16 20:22 23:04 03:00 07:00 Temp 99.7 98.8 97.9 99.7 98.8 97.9 Pulse 85 91 78 Resp 19 20 16 B/P 120/63 144/80 130/68 Pulse Ox 95 92 92 O2 Delivery Nasal Cannula Nasal Cannula Nasal Cannula Nasal Cannula O2 Flow Rate 2.0 2.0 2.0 2.0 10/01/16 10/01/16 10/01/16 07:34 08:57 11:03 Temp 97.7 97.7 Pulse 78 82 Resp 16 B/P 130/68 130/71 Pulse Ox 92 93 O2 Delivery Nasal Cannula Nasal Cannula O2 Flow Rate 2.0 2.0 Intake and Output 09/30/16 09/30/16 10/01/16 15:01 23:01 07:01 Intake Total 480 ml 1020 ml Output Total 150 ml 500 ml Balance 330 ml 520 ml GREGORY LOZANO MD Oct 01, 2016 11:19
[2016-10-01] MEDS ORDERED: AZITHROMYCIN 250 MG in IV NORMAL SALINE 250ML 250 ML IV SCH (13:00)
[2016-10-01] MEDS: CEFTRIAXONE SODIUM 1 GM in IV NORMAL SALINE 50ML 50 ML IV SCH (13:17)
[2016-10-01 14:40] VITALS: BP 133/75
[2016-10-01 19:00] VITALS: BP 125/65
[2016-10-01 23:00] VITALS: BP 128/75
[2016-10-02 03:00] VITALS: BP 142/75
[2016-10-02 04:15] LABS: BASO # 0.1 x10^3/uL (0.0-0.2); BASO % 1 % (0-3); EOS % 1 % (0-3); HEMATOCRIT 30.3 % (36.0-47.0); LYMPH # 1.2 x10^3/uL (1.0-4.8); LYMPH % 10 % (24-48); MEAN CORPUSCULAR HEMOGLOBIN 33 pg (25-35); MEAN CORPUSCULAR HGB CONC 33 g/dL (31-37); MEAN CORPUSCULAR VOLUME 101 fL (79-100); MONO % 10 % (0-9); NEUT % 78 % (31-73); PLATELET COUNT 330 x10^3/uL (140-400); RED BLOOD COUNT 3.01 x10^6/uL (3.50-5.40); RED CELL DISTRIBUTION WIDTH 13.5 % (11.5-14.5); WHITE BLOOD COUNT 12.3 x10^3/uL (4.0-11.0)
[2016-10-02 07:00] VITALS: BP 151/81
[2016-10-02] MEDS: IPRATRPIUM/ALBUTEROL 0.5/2.5MG 3 ML NEBU. NEB SCH ×3 (08:25→16:58)
[2016-10-02] MEDS: POTASSIUM CHLORIDE 30 MEQ in IV 1/2 NORMAL SALINE 1,000 ML IV SCH ×2 (08:51→21:48)
[2016-10-02] MEDS: GUAIFENESIN DM 600/30MG TAB.ER.12H. PO SCH ×2 (09:01→21:47)
[2016-10-02] MEDS: ATENOLOL 50 MG TABLET PO SCH (09:02)
[2016-10-02 10:48] VITALS: BP 129/70
--- NOTE | 2016-10-02 12:39 | PDOC ---
PROGRESS NOTES Chief Complaint Chief Complaint CAP SIRS POA no sepsis HTN History of Present Illness History of Present Illness NOt feeling better Numbers also not better WBC up to 12 with predom of neutrophils NOt more soa though Just sent down sputum CXR shows RUL PNA BC prelim neg FLu A and B neg PLAN: COnsult pulmo Need to adjust antibiotics - inc azithro to 500 mg iV qD Rechck labs sandrine check lactate cont PT/OT Await sputum cx Vitals Vitals Vital Signs Date Time Temp Pulse Resp B/P Pulse Ox O2 Delivery O2 Flow Rate FiO2 10/02/16 10:48 97.7 79 16 129/70 93 Nasal Cannula 2.0 97.7 Labs LABS Laboratory Tests Test 10/02/16 03:58 White Blood Count 12.3x10^3/uL (4.0-11.0) Red Blood Count 3.01x10^6/uL (3.50-5.40) Hemoglobin 10.0g/dL (12.0-15.5) Hematocrit 30.3% (36.0-47.0) Mean Corpuscular Volume 101fL (79-100) Mean Corpuscular Hemoglobin 33pg (25-35) Mean Corpuscular Hemoglobin Concent 33g/dL (31-37) Red Cell Distribution Width 13.5% (11.5-14.5) Platelet Count 330x10^3/uL (140-400) Neutrophils (%) (Auto) 78% (31-73) Lymphocytes (%) (Auto) 10% (24-48) Monocytes (%) (Auto) 10% (0-9) Eosinophils (%) (Auto) 1% (0-3) Basophils (%) (Auto) 1% (0-3) Neutrophils # (Auto) 9.6x10^3uL (1.8-7.7) Lymphocytes # (Auto) 1.2x10^3/uL (1.0-4.8) Monocytes # (Auto) 1.3x10^3/uL (0.0-1.1) Eosinophils # (Auto) 0.1x10^3/uL (0.0-0.7) Basophils # (Auto) 0.1x10^3/uL (0.0-0.2) Review of Systems Review of Systems cough, weak, R back pain, site of PNA Assessment and Plan Assessmemt and Plan Problems Medical Problems: (1) Community acquired pneumonia Status: Acute (2) Hypoxia Status: Acute Problems: Comment Review of Relevant I have reviewed the following items pavithra (where applicable) has been applied. Labs Laboratory Tests Test 09/30/16 13:05 09/30/16 15:00 09/30/16 18:45 10/01/16 00:55 Lactic Acid Level 1.2mmol/L (0.4-2.0) 2.2mmol/L (0.4-2.0) Troponin I Quantitative < 0.017ng/mL (0.000-0.055) < 0.017ng/mL (0.000-0.055) White Blood Count 11.7x10^3/uL (4.0-11.0) Red Blood Count 3.08x10^6/uL (3.50-5.40) Hemoglobin 10.3g/dL (12.0-15.5) Hematocrit 30.9% (36.0-47.0) Mean Corpuscular Volume 100fL (79-100) Mean Corpuscular Hemoglobin 34pg (25-35) Mean Corpuscular Hemoglobin Concent 33g/dL (31-37) Red Cell Distribution Width 13.4% (11.5-14.5) Platelet Count 321x10^3/uL (140-400) Neutrophils (%) (Auto) 71% (31-73) Lymphocytes (%) (Auto) 15% (24-48) Monocytes (%) (Auto) 13% (0-9) Eosinophils (%) (Auto) 1% (0-3) Basophils (%) (Auto) 1% (0-3) Neutrophils # (Auto) 8.3x10^3uL (1.8-7.7) Lymphocytes # (Auto) 1.7x10^3/uL (1.0-4.8) Monocytes # (Auto) 1.5x10^3/uL (0.0-1.1) Eosinophils # (Auto) 0.1x10^3/uL (0.0-0.7) Basophils # (Auto) 0.1x10^3/uL (0.0-0.2) Sodium Level 139mmol/L (136-145) Potassium Level 3.7mmol/L (3.5-5.1) Chloride Level 100mmol/L (98-107) Carbon Dioxide Level 31mmol/L (21-32) Anion Gap 8 (6-14) Blood Urea Nitrogen 4mg/dL (7-20) Creatinine 0.5mg/dL (0.6-1.0) Estimated GFR (Cockcroft-Gault) 120.6 Glucose Level 97mg/dL (70-99) Calcium Level 7.9mg/dL (8.5-10.1) Test 10/01/16 06:40 10/02/16 03:58 Lactic Acid Level 0.9mmol/L (0.4-2.0) White Blood Count 12.3x10^3/uL (4.0-11.0) Red Blood Count 3.01x10^6/uL (3.50-5.40) Hemoglobin 10.0g/dL (12.0-15.5) Hematocrit 30.3% (36.0-47.0) Mean Corpuscular Volume 101fL (79-100) Mean Corpuscular Hemoglobin 33pg (25-35) Mean Corpuscular Hemoglobin Concent 33g/dL (31-37) Red Cell Distribution Width 13.5% (11.5-14.5) Platelet Count 330x10^3/uL (140-400) Neutrophils (%) (Auto) 78% (31-73) Lymphocytes (%) (Auto) 10% (24-48) Monocytes (%) (Auto) 10% (0-9) Eosinophils (%) (Auto) 1% (0-3) Basophils (%) (Auto) 1% (0-3) Neutrophils # (Auto) 9.6x10^3uL (1.8-7.7) Lymphocytes # (Auto) 1.2x10^3/uL (1.0-4.8) Monocytes # (Auto) 1.3x10^3/uL (0.0-1.1) Eosinophils # (Auto) 0.1x10^3/uL (0.0-0.7) Basophils # (Auto) 0.1x10^3/uL (0.0-0.2) Laboratory Tests Test 10/02/16 03:58 White Blood Count 12.3x10^3/uL (4.0-11.0) Red Blood Count 3.01x10^6/uL (3.50-5.40) Hemoglobin 10.0g/dL (12.0-15.5) Hematocrit 30.3% (36.0-47.0) Mean Corpuscular Volume 101fL (79-100) Mean Corpuscular Hemoglobin 33pg (25-35) Mean Corpuscular Hemoglobin Concent 33g/dL (31-37) Red Cell Distribution Width 13.5% (11.5-14.5) Platelet Count 330x10^3/uL (140-400) Neutrophils (%) (Auto) 78% (31-73) Lymphocytes (%) (Auto) 10% (24-48) Monocytes (%) (Auto) 10% (0-9) Eosinophils (%) (Auto) 1% (0-3) Basophils (%) (Auto) 1% (0-3) Neutrophils # (Auto) 9.6x10^3uL (1.8-7.7) Lymphocytes # (Auto) 1.2x10^3/uL (1.0-4.8) Monocytes # (Auto) 1.3x10^3/uL (0.0-1.1) Eosinophils # (Auto) 0.1x10^3/uL (0.0-0.7) Basophils # (Auto) 0.1x10^3/uL (0.0-0.2) Microbiology 09/30/16 Blood Culture - Preliminary, Resulted NO GROWTH AFTER 1 DAY Medications Current Medications Albuterol/ Ipratropium 3 ml 3 ml 1X ONCE NEB Last administered on 09/30/16 12 :43; Start 09/30/16 at 12:30; Stop 09/30/16 at 12:31; Status DC Sodium Chloride 500 ml @ 500 mls/hr 1X ONCE IV Last administered on 13:14; Start 09/30/16 at 13:00; Stop 09/30/16 at 13:59; Status DC Azithromycin 250 ml @ 250 mls/hr 1X ONCE IV Last administered on 09/30/16 14 :25; Start 09/30/16 at 13:00; Stop 09/30/16 at 13:59; Status DC Ceftriaxone Sodium (Rocephin 1gm Ivpb For Omni) 50 ml @ 100 mls/hr 1X ONCE IV Last administered on 09/30/16 13:21; Start 09/30/16 at 13:00; Stop 09/30/16 at 13:29; Status DC Ondansetron HCl (Zofran) 4 mg PRN Q8HRS PRN IV NAUSEA/VOMITING Last administered on 09/30/16 13:16; Start 09/30/16 at 13:00; Stop 10/01/16 at 09:01 ; Status DC Morphine Sulfate 2 mg PRN Q2HR PRN IV PAIN Last administered on 09/30/16 13:19 ; Start 09/30/16 at 13:00; Stop 10/01/16 at 12:59; Status DC Albuterol/ Ipratropium (Duoneb) 3 ml RTQID NEB Last administered on 10/01/16 15:30; Start 09/30/16 at 16:00; Stop 10/01/16 at 15:59; Status DC Atenolol (Tenormin) 50 mg DAILY PO Last administered on 10/02/16 09:02; Start 09/30/16 at 17:00 Guaifenesin (MUCINEX ER with DM) 1 tab BID PO Last administered on 10/02/16 09 :01; Start 09/30/16 at 21:00 Acetaminophen 650 mg 650 mg PRN Q6HRS PRN PO MILD PAIN / TEMP; Start 09/30/16 at 16:15 Potassium Chloride/Sodium Chloride (Iv Sodium Chloride 0.45%) 1,015 ml @ 75 mls /hr [id number] IV Last administered on 10/02/16 08:51; Start 09/30/16 at 16:15 Potassium Chloride (Klor-Con) 20 meq BIDWMEALS PO Last administered on 08:57; Start 09/30/16 at 17:00; Stop 10/01/16 at 16:59; Status DC Temazepam (Restoril) 15 mg PRN QHS PRN PO INSOMNIA; Start 09/30/16 at 22:30 Ondansetron HCl 4 mg 4 mg PRN Q6HRS PRN IV NAUSEA/VOMITING; Start 10/01/16 at 08:59 Ceftriaxone Sodium 1 gm/ Sodium Chloride 50 ml @ 100 mls/hr Q24H IV Last administered on 2/27/17at 13:17; Start 10/01/16 at 13:00 Azithromycin/ Sodium Chloride (Zithromax/Iv Sodium Chloride 0.9% 250ml) 250 ml @ 250 mls/hr Q24H IV Last administered on 10/01/16 14:11; Start 10/01/16 at 13:00; Stop 10/02/16 at 09:03; Status DC Albuterol/ Ipratropium 3 ml 3 ml RTQID NEB Last administered on 10/02/16 08:25 ; Start 10/02/16 at 08:00 Azithromycin/ Sodium Chloride (Zithromax/Iv Sodium Chloride 0.9% 250ml) 250 ml @ 250 mls/hr Q24H IV ; Start 10/02/16 at 13:00 Active Scripts Active Reported Atenolol 50 Mg Tablet 1 Tab PO DAILY Vitals/I & O Vital Sign - Last 24 Hours 10/01/16 10/01/16 10/01/16 10/01/16 13:34 14:40 15:30 19:00 Temp 97.7 99.8 97.7 99.8 Pulse 97 93 Resp 16 20 B/P 133/75 125/65 Pulse Ox 96 93 91 O2 Delivery Nasal Cannula Nasal Cannula Nasal Cannula Nasal Cannula O2 Flow Rate 2.0 2.0 2.0 2.0 10/01/16 10/01/16 10/02/16 10/02/16 19:53 23:00 03:00 07:00 Temp 99.5 100.1 97.7 99.5 100.1 97.7 Pulse 88 82 94 Resp 20 20 16 B/P 128/75 142/75 151/81 Pulse Ox 95 94 92 O2 Delivery Nasal Cannula Nasal Cannula Nasal Cannula Nasal Cannula O2 Flow Rate 2.0 2.0 2.0 2.0 10/02/16 10/02/16 10/02/16 10/02/16 08:00 08:26 09:02 10:48 Temp 97.7 97.7 Pulse 94 79 Resp 16 B/P 151/81 129/70 Pulse Ox 98 93 O2 Delivery Nasal Cannula Nasal Cannula Nasal Cannula O2 Flow Rate 2.0 2.0 2.0 Intake and Output 10/01/16 10/01/16 10/02/16 15:00 23:00 07:00 Intake Total 240 ml 660 ml 1020 ml Balance 240 ml 660 ml 1020 ml TERMULO,GREGORY Y MD Oct 02, 2016 12:39
[2016-10-02] MEDS: CEFTRIAXONE SODIUM 1 GM in IV NORMAL SALINE 50ML 50 ML IV SCH (13:01)
[2016-10-02] MEDS: AZITHROMYCIN 500 MG in IV NORMAL SALINE 250ML 250 ML IV SCH (13:41)
[2016-10-02 15:00] VITALS: BP 130/75
[2016-10-02 19:00] VITALS: BP 150/85
--- NOTE | 2016-10-02 19:14 | PDOC ---
PULMONARY PROGRESS NOTES Vitals Vital Signs Date Time Temp Pulse Resp B/P Pulse Ox O2 Delivery O2 Flow Rate FiO2 10/02/16 16:59 Nasal Cannula 2.0 10/02/16 15:00 97.7 80 16 130/75 100 97.7 Labs Laboratory Tests Test 10/01/16 00:55 10/01/16 06:40 10/02/16 03:58 White Blood Count 11.7x10^3/uL (4.0-11.0) 12.3x10^3/uL (4.0-11.0) Red Blood Count 3.08x10^6/uL (3.50-5.40) 3.01x10^6/uL (3.50-5.40) Hemoglobin 10.3g/dL (12.0-15.5) 10.0g/dL (12.0-15.5) Hematocrit 30.9% (36.0-47.0) 30.3% (36.0-47.0) Mean Corpuscular Volume 100fL (79-100) 101fL (79-100) Mean Corpuscular Hemoglobin 34pg (25-35) 33pg (25-35) Mean Corpuscular Hemoglobin Concent 33g/dL (31-37) 33g/dL (31-37) Red Cell Distribution Width 13.4% (11.5-14.5) 13.5% (11.5-14.5) Platelet Count 321x10^3/uL (140-400) 330x10^3/uL (140-400) Neutrophils (%) (Auto) 71% (31-73) 78% (31-73) Lymphocytes (%) (Auto) 15% (24-48) 10% (24-48) Monocytes (%) (Auto) 13% (0-9) 10% (0-9) Eosinophils (%) (Auto) 1% (0-3) 1% (0-3) Basophils (%) (Auto) 1% (0-3) 1% (0-3) Neutrophils # (Auto) 8.3x10^3uL (1.8-7.7) 9.6x10^3uL (1.8-7.7) Lymphocytes # (Auto) 1.7x10^3/uL (1.0-4.8) 1.2x10^3/uL (1.0-4.8) Monocytes # (Auto) 1.5x10^3/uL (0.0-1.1) 1.3x10^3/uL (0.0-1.1) Eosinophils # (Auto) 0.1x10^3/uL (0.0-0.7) 0.1x10^3/uL (0.0-0.7) Basophils # (Auto) 0.1x10^3/uL (0.0-0.2) 0.1x10^3/uL (0.0-0.2) Sodium Level 139mmol/L (136-145) Potassium Level 3.7mmol/L (3.5-5.1) Chloride Level 100mmol/L (98-107) Carbon Dioxide Level 31mmol/L (21-32) Anion Gap 8 (6-14) Blood Urea Nitrogen 4mg/dL (7-20) Creatinine 0.5mg/dL (0.6-1.0) Estimated GFR (Cockcroft-Gault) 120.6 Glucose Level 97mg/dL (70-99) Calcium Level 7.9mg/dL (8.5-10.1) Troponin I Quantitative < 0.017ng/mL (0.000-0.055) Lactic Acid Level 0.9mmol/L (0.4-2.0) Laboratory Tests Test 10/02/16 03:58 White Blood Count 12.3x10^3/uL (4.0-11.0) Red Blood Count 3.01x10^6/uL (3.50-5.40) Hemoglobin 10.0g/dL (12.0-15.5) Hematocrit 30.3% (36.0-47.0) Mean Corpuscular Volume 101fL (79-100) Mean Corpuscular Hemoglobin 33pg (25-35) Mean Corpuscular Hemoglobin Concent 33g/dL (31-37) Red Cell Distribution Width 13.5% (11.5-14.5) Platelet Count 330x10^3/uL (140-400) Neutrophils (%) (Auto) 78% (31-73) Lymphocytes (%) (Auto) 10% (24-48) Monocytes (%) (Auto) 10% (0-9) Eosinophils (%) (Auto) 1% (0-3) Basophils (%) (Auto) 1% (0-3) Neutrophils # (Auto) 9.6x10^3uL (1.8-7.7) Lymphocytes # (Auto) 1.2x10^3/uL (1.0-4.8) Monocytes # (Auto) 1.3x10^3/uL (0.0-1.1) Eosinophils # (Auto) 0.1x10^3/uL (0.0-0.7) Basophils # (Auto) 0.1x10^3/uL (0.0-0.2) Medications Active Scripts Medications Dose Route/Sig Days Date Category Atenolol 50 Mg Tablet 1 Tab PO DAILY 08/30/16 Reported Impression . consult dicated home in am if not febrile will check 6 min walk repeat cxr in 6-8 weeks follow up with CORBY Hinds MD Oct 02, 2016 19:14
[2016-10-02 23:00] VITALS: BP 142/81
[2016-10-03 03:00] VITALS: BP 140/82
[2016-10-03 07:00] VITALS: BP 148/66
[2016-10-03 07:27] LABS: BASO # 0.1 x10^3/uL (0.0-0.2); BASO % 1 % (0-3); EOS % 2 % (0-3); HEMOGLOBIN 10.1 g/dL (12.0-15.5); LYMPH # 1.1 x10^3/uL (1.0-4.8); LYMPH % 9 % (24-48); MEAN CORPUSCULAR HEMOGLOBIN 34 pg (25-35); MEAN CORPUSCULAR HGB CONC 34 g/dL (31-37); MEAN CORPUSCULAR VOLUME 100 fL (79-100); MONO % 9 % (0-9); NEUT % 79 % (31-73); PLATELET COUNT 346 x10^3/uL (140-400); RED CELL DISTRIBUTION WIDTH 13.3 % (11.5-14.5); WHITE BLOOD COUNT 12.2 x10^3/uL (4.0-11.0)
[2016-10-03] MEDS: ACETAMINOPHEN 325 MG TABLET. PO PRN ×2 (07:54→14:11)
[2016-10-03] MEDS: IPRATRPIUM/ALBUTEROL 0.5/2.5MG 3 ML NEBU. NEB SCH ×4 (08:42→19:51)
--- NOTE | 2016-10-03 08:42 | RAD ---
Right RIBS, 2 views, 10/03/2016: History: Fall, pain and bruising The bony structures are demineralized. No acute fracture or rib abnormality is detected. There is mild infiltrate in the right upper lobe abutting the minor fissure. This appears to have worsened since 09/30/2016. No pneumothorax or hemothorax is evident. A right shoulder prosthesis is in place. IMPRESSION: 1. No acute bony abnormality is detected. 2. Worsening mild right pulmonary infiltrate.
[2016-10-03] MEDS: GUAIFENESIN DM 600/30MG TAB.ER.12H. PO SCH ×2 (10:14→20:11)
[2016-10-03] MEDS: ATENOLOL 50 MG TABLET PO SCH (10:15)
[2016-10-03 11:00] VITALS: BP 154/58
--- NOTE | 2016-10-03 11:16 | RAD ---
PQRS Compliance Statement: One or more of the following individualized dose reduction techniques were utilized for this examination: 1. Automated exposure control 2. Adjustment of the mA and/or kV according to patient size 3. Use of iterative reconstruction technique CT of the head without contrast, 10/03/2016: History: Fall, head trauma Comparison is made to a study from 02/06/2010. The ventricles are within normal limits in size. There is no shift of the midline structures. There is no evidence of acute intracranial hemorrhage or mass effect. There is minimal mucosal thickening or fluid along the posterior wall of the left maxillary sinus. IMPRESSION: No acute intracranial abnormality is detected.
--- NOTE | 2016-10-03 12:24 | PDOC ---
PROGRESS NOTES Chief Complaint Chief Complaint a/p CAP SIRS POA no sepsis HTN Fevers Plans on Zithromax on Rocephin fevers this AM Blood cx no growth , if symptoms persists, call ID clinically better per pt fall last night CT head and cxr ribs pending spoke with son at bedside, all questions answered. History of Present Illness History of Present Illness fevers times 2 Vitals Vitals Vital Signs Date Time Temp Pulse Resp B/P Pulse Ox O2 Delivery O2 Flow Rate FiO2 10/03/16 11:43 Nasal Cannula 2.0 10/03/16 11:00 97.6 82 18 154/58 95 97.6 Physical Exam General: Alert, Oriented X3 Heart: Normal S1, Normal S2 Lungs: Clear Abdomen: Normal bowel sounds, Soft Extremities: No clubbing Labs LABS Laboratory Tests Test 10/03/16 06:50 10/03/16 06:55 White Blood Count 12.2x10^3/uL (4.0-11.0) Red Blood Count 3.00x10^6/uL (3.50-5.40) Hemoglobin 10.1g/dL (12.0-15.5) Hematocrit 30.0% (36.0-47.0) Mean Corpuscular Volume 100fL (79-100) Mean Corpuscular Hemoglobin 34pg (25-35) Mean Corpuscular Hemoglobin Concent 34g/dL (31-37) Red Cell Distribution Width 13.3% (11.5-14.5) Platelet Count 346x10^3/uL (140-400) Neutrophils (%) (Auto) 79% (31-73) Lymphocytes (%) (Auto) 9% (24-48) Monocytes (%) (Auto) 9% (0-9) Eosinophils (%) (Auto) 2% (0-3) Basophils (%) (Auto) 1% (0-3) Neutrophils # (Auto) 9.7x10^3uL (1.8-7.7) Lymphocytes # (Auto) 1.1x10^3/uL (1.0-4.8) Monocytes # (Auto) 1.1x10^3/uL (0.0-1.1) Eosinophils # (Auto) 0.3x10^3/uL (0.0-0.7) Basophils # (Auto) 0.1x10^3/uL (0.0-0.2) Lactic Acid Level 0.7mmol/L (0.4-2.0) Assessment and Plan Assessmemt and Plan Problems Medical Problems: (1) Community acquired pneumonia Status: Acute (2) Hypoxia Status: Acute Problems: Comment Review of Relevant I have reviewed the following items pavithra (where applicable) has been applied. Labs Laboratory Tests Test 10/02/16 03:58 10/03/16 06:50 10/03/16 06:55 White Blood Count 12.3x10^3/uL (4.0-11.0) 12.2x10^3/uL (4.0-11.0) Red Blood Count 3.01x10^6/uL (3.50-5.40) 3.00x10^6/uL (3.50-5.40) Hemoglobin 10.0g/dL (12.0-15.5) 10.1g/dL (12.0-15.5) Hematocrit 30.3% (36.0-47.0) 30.0% (36.0-47.0) Mean Corpuscular Volume 101fL (79-100) 100fL (79-100) Mean Corpuscular Hemoglobin 33pg (25-35) 34pg (25-35) Mean Corpuscular Hemoglobin Concent 33g/dL (31-37) 34g/dL (31-37) Red Cell Distribution Width 13.5% (11.5-14.5) 13.3% (11.5-14.5) Platelet Count 330x10^3/uL (140-400) 346x10^3/uL (140-400) Neutrophils (%) (Auto) 78% (31-73) 79% (31-73) Lymphocytes (%) (Auto) 10% (24-48) 9% (24-48) Monocytes (%) (Auto) 10% (0-9) 9% (0-9) Eosinophils (%) (Auto) 1% (0-3) 2% (0-3) Basophils (%) (Auto) 1% (0-3) 1% (0-3) Neutrophils # (Auto) 9.6x10^3uL (1.8-7.7) 9.7x10^3uL (1.8-7.7) Lymphocytes # (Auto) 1.2x10^3/uL (1.0-4.8) 1.1x10^3/uL (1.0-4.8) Monocytes # (Auto) 1.3x10^3/uL (0.0-1.1) 1.1x10^3/uL (0.0-1.1) Eosinophils # (Auto) 0.1x10^3/uL (0.0-0.7) 0.3x10^3/uL (0.0-0.7) Basophils # (Auto) 0.1x10^3/uL (0.0-0.2) 0.1x10^3/uL (0.0-0.2) Lactic Acid Level 0.7mmol/L (0.4-2.0) Laboratory Tests Test 10/03/16 06:50 10/03/16 06:55 White Blood Count 12.2x10^3/uL (4.0-11.0) Red Blood Count 3.00x10^6/uL (3.50-5.40) Hemoglobin 10.1g/dL (12.0-15.5) Hematocrit 30.0% (36.0-47.0) Mean Corpuscular Volume 100fL (79-100) Mean Corpuscular Hemoglobin 34pg (25-35) Mean Corpuscular Hemoglobin Concent 34g/dL (31-37) Red Cell Distribution Width 13.3% (11.5-14.5) Platelet Count 346x10^3/uL (140-400) Neutrophils (%) (Auto) 79% (31-73) Lymphocytes (%) (Auto) 9% (24-48) Monocytes (%) (Auto) 9% (0-9) Eosinophils (%) (Auto) 2% (0-3) Basophils (%) (Auto) 1% (0-3) Neutrophils # (Auto) 9.7x10^3uL (1.8-7.7) Lymphocytes # (Auto) 1.1x10^3/uL (1.0-4.8) Monocytes # (Auto) 1.1x10^3/uL (0.0-1.1) Eosinophils # (Auto) 0.3x10^3/uL (0.0-0.7) Basophils # (Auto) 0.1x10^3/uL (0.0-0.2) Lactic Acid Level 0.7mmol/L (0.4-2.0) Microbiology 09/30/16 Blood Culture - Preliminary, Resulted NO GROWTH AFTER 2 DAYS 10/02/16 Gram Stain - Final, Complete Medications Current Medications Albuterol/ Ipratropium 3 ml 3 ml 1X ONCE NEB Last administered on 09/30/16 12 :43; Start 09/30/16 at 12:30; Stop 09/30/16 at 12:31; Status DC Sodium Chloride 500 ml @ 500 mls/hr 1X ONCE IV Last administered on 13:14; Start 09/30/16 at 13:00; Stop 09/30/16 at 13:59; Status DC Azithromycin 250 ml @ 250 mls/hr 1X ONCE IV Last administered on 09/30/16 14 :25; Start 09/30/16 at 13:00; Stop 09/30/16 at 13:59; Status DC Ceftriaxone Sodium (Rocephin 1gm Ivpb For Omni) 50 ml @ 100 mls/hr 1X ONCE IV Last administered on 09/30/16 13:21; Start 09/30/16 at 13:00; Stop 09/30/16 at 13:29; Status DC Ondansetron HCl (Zofran) 4 mg PRN Q8HRS PRN IV NAUSEA/VOMITING Last administered on 09/30/16 13:16; Start 09/30/16 at 13:00; Stop 10/01/16 at 09:01 ; Status DC Morphine Sulfate 2 mg PRN Q2HR PRN IV PAIN Last administered on 09/30/16 13:19 ; Start 09/30/16 at 13:00; Stop 10/01/16 at 12:59; Status DC Albuterol/ Ipratropium (Duoneb) 3 ml RTQID NEB Last administered on 10/01/16 15:30; Start 09/30/16 at 16:00; Stop 10/01/16 at 15:59; Status DC Atenolol (Tenormin) 50 mg DAILY PO Last administered on 10/03/16 10:15; Start 09/30/16 at 17:00 Guaifenesin (MUCINEX ER with DM) 1 tab BID PO Last administered on 10/03/16 10: 14; Start 09/30/16 at 21:00 Acetaminophen 650 mg 650 mg PRN Q6HRS PRN PO MILD PAIN / TEMP Last administered on 10/03/16 07:54; Start 09/30/16 at 16:15 Potassium Chloride/Sodium Chloride (Iv Sodium Chloride 0.45%) 1,015 ml @ 75 mls /hr [id number] IV Last administered on 10/02/16 21:48; Start 09/30/16 at 16:15 Potassium Chloride (Klor-Con) 20 meq BIDWMEALS PO Last administered on 08:57; Start 09/30/16 at 17:00; Stop 10/01/16 at 16:59; Status DC Temazepam (Restoril) 15 mg PRN QHS PRN PO INSOMNIA Last administered on 23:20; Start 09/30/16 at 22:30 Ondansetron HCl 4 mg 4 mg PRN Q6HRS PRN IV NAUSEA/VOMITING; Start 10/01/16 at 08:59 Ceftriaxone Sodium 1 gm/ Sodium Chloride 50 ml @ 100 mls/hr Q24H IV Last administered on 10/02/16 13:01; Start 10/01/16 at 13:00 Azithromycin/ Sodium Chloride (Zithromax/Iv Sodium Chloride 0.9% 250ml) 250 ml @ 250 mls/hr Q24H IV Last administered on 10/01/16 14:11; Start 10/01/16 at 13:00; Stop 10/02/16 at 09:03; Status DC Albuterol/ Ipratropium 3 ml 3 ml RTQID NEB Last administered on 10/03/16 11:42 ; Start 10/02/16 at 08:00 Azithromycin/ Sodium Chloride (Zithromax/Iv Sodium Chloride 0.9% 250ml) 250 ml @ 250 mls/hr Q24H IV Last administered on 10/02/16 13:41; Start 10/02/16 at 13:00 Active Scripts Active Reported Atenolol 50 Mg Tablet 1 Tab PO DAILY Vitals/I & O Vital Sign - Last 24 Hours 10/02/16 10/02/16 10/02/16 10/02/16 12:40 15:00 16:59 19:00 Temp 97.7 99.5 97.7 99.5 Pulse 80 97 Resp 16 18 B/P 130/75 150/85 Pulse Ox 96 100 92 O2 Delivery Nasal Cannula Nasal Cannula Nasal Cannula O2 Flow Rate 2.0 2.0 2.0 10/02/16 10/02/16 10/03/16 10/03/16 20:00 23:00 03:00 07:00 Temp 100.7 100.4 98.9 100.7 100.4 98.9 Pulse 99 101 90 Resp 18 24 18 B/P 142/81 140/82 148/66 Pulse Ox 91 91 93 O2 Delivery Nasal Cannula Nasal Cannula O2 Flow Rate 2.0 2.0 10/03/16 10/03/16 10/03/16 10/03/16 08:44 10:15 11:00 11:43 Temp 97.6 97.6 Pulse 82 Resp 18 B/P 148/66 154/58 Pulse Ox 93 95 O2 Delivery Room Air Nasal Cannula Nasal Cannula O2 Flow Rate 2.0 2.0 Intake and Output 10/02/16 10/02/16 10/03/16 15:00 23:00 07:00 Intake Total 240 ml 870 ml 400 ml Balance 240 ml 870 ml 400 ml MAKENNA NORTON MD Oct 03, 2016 12:24
--- NOTE | 2016-10-03 14:36 | RAD ---
Indication shortness of air. Follow-up infiltrate. PA and lateral views of the chest were obtained. Comparison is made to a single film study 09/30/2016. Note is made that the patient had right rib films earlier today. Infiltrate in the right upper lobe persists and is worse than on the previous plain film examination 4 days earlier. There is now, additionally, volume loss in the left lower lobe. This may reflect atelectasis and pleural fluid although underlying pneumonia in the left lower lobe is not excluded. Heart size is unchanged. The pulmonary vasculature is within normal limits. IMPRESSION: Worsening infiltrate, compatible with pneumonia, in the right upper lobe. Volume loss in the left lower lobe, new relative to the previous exam, may reflect atelectasis and pleural fluid. Underlying pneumonia is not excluded.
[2016-10-03] MEDS: CEFTRIAXONE SODIUM 1 GM in IV NORMAL SALINE 50ML 50 ML IV SCH (14:49)
[2016-10-03 15:00] VITALS: BP 162/85
[2016-10-03] MEDS: AZITHROMYCIN 500 MG in IV NORMAL SALINE 250ML 250 ML IV SCH (15:37)
[2016-10-03] MEDS ORDERED: VANCOMYCIN PER PHARMACY MC PRN (16:00)
[2016-10-03] MEDS: HYDROCODONE/APAP 5/325MG TABLET. PO PRN ×2 (16:03→20:11)
[2016-10-03] MEDS ORDERED: VANCOMYCIN 1.25 GM in IV NORMAL SALINE 250ML 250 ML IV ONE (16:30)
[2016-10-03] MEDS: POTASSIUM CHLORIDE 30 MEQ in IV 1/2 NORMAL SALINE 1,000 ML IV SCH (16:43)
[2016-10-03] MEDS: PIPERACILLIN/TAZOBACTAM 3.375 GM in IV NORMAL SALINE 50ML 50 ML IV SCH (16:53)
--- NOTE | 2016-10-03 17:19 | PDOC ---
PULMONARY PROGRESS NOTES Subjective pt not more soa Vitals Vital Signs Date Time Temp Pulse Resp B/P Pulse Ox O2 Delivery O2 Flow Rate FiO2 10/03/16 16:03 Nasal Cannula 2.0 10/03/16 15:00 98.4 77 18 162/85 97 98.4 ROS: No Nausea, No Chest Pain, No Abdominal Pain, No Increase Cough Lungs: Crackles Cardiovascular: S1, S2 Abdomen: Soft Neuro Exam: Alert Extremities: No Edema Skin: Warm Labs Laboratory Tests Test 10/02/16 03:58 10/03/16 06:50 10/03/16 06:55 White Blood Count 12.3x10^3/uL (4.0-11.0) 12.2x10^3/uL (4.0-11.0) Red Blood Count 3.01x10^6/uL (3.50-5.40) 3.00x10^6/uL (3.50-5.40) Hemoglobin 10.0g/dL (12.0-15.5) 10.1g/dL (12.0-15.5) Hematocrit 30.3% (36.0-47.0) 30.0% (36.0-47.0) Mean Corpuscular Volume 101fL (79-100) 100fL (79-100) Mean Corpuscular Hemoglobin 33pg (25-35) 34pg (25-35) Mean Corpuscular Hemoglobin Concent 33g/dL (31-37) 34g/dL (31-37) Red Cell Distribution Width 13.5% (11.5-14.5) 13.3% (11.5-14.5) Platelet Count 330x10^3/uL (140-400) 346x10^3/uL (140-400) Neutrophils (%) (Auto) 78% (31-73) 79% (31-73) Lymphocytes (%) (Auto) 10% (24-48) 9% (24-48) Monocytes (%) (Auto) 10% (0-9) 9% (0-9) Eosinophils (%) (Auto) 1% (0-3) 2% (0-3) Basophils (%) (Auto) 1% (0-3) 1% (0-3) Neutrophils # (Auto) 9.6x10^3uL (1.8-7.7) 9.7x10^3uL (1.8-7.7) Lymphocytes # (Auto) 1.2x10^3/uL (1.0-4.8) 1.1x10^3/uL (1.0-4.8) Monocytes # (Auto) 1.3x10^3/uL (0.0-1.1) 1.1x10^3/uL (0.0-1.1) Eosinophils # (Auto) 0.1x10^3/uL (0.0-0.7) 0.3x10^3/uL (0.0-0.7) Basophils # (Auto) 0.1x10^3/uL (0.0-0.2) 0.1x10^3/uL (0.0-0.2) Lactic Acid Level 0.7mmol/L (0.4-2.0) Laboratory Tests Test 10/03/16 06:50 10/03/16 06:55 White Blood Count 12.2x10^3/uL (4.0-11.0) Red Blood Count 3.00x10^6/uL (3.50-5.40) Hemoglobin 10.1g/dL (12.0-15.5) Hematocrit 30.0% (36.0-47.0) Mean Corpuscular Volume 100fL (79-100) Mean Corpuscular Hemoglobin 34pg (25-35) Mean Corpuscular Hemoglobin Concent 34g/dL (31-37) Red Cell Distribution Width 13.3% (11.5-14.5) Platelet Count 346x10^3/uL (140-400) Neutrophils (%) (Auto) 79% (31-73) Lymphocytes (%) (Auto) 9% (24-48) Monocytes (%) (Auto) 9% (0-9) Eosinophils (%) (Auto) 2% (0-3) Basophils (%) (Auto) 1% (0-3) Neutrophils # (Auto) 9.7x10^3uL (1.8-7.7) Lymphocytes # (Auto) 1.1x10^3/uL (1.0-4.8) Monocytes # (Auto) 1.1x10^3/uL (0.0-1.1) Eosinophils # (Auto) 0.3x10^3/uL (0.0-0.7) Basophils # (Auto) 0.1x10^3/uL (0.0-0.2) Lactic Acid Level 0.7mmol/L (0.4-2.0) Medications Active Scripts Medications Dose Route/Sig Days Date Category Atenolol 50 Mg Tablet 1 Tab PO DAILY 08/30/16 Reported Impression . Pneumonia resp failure SIRS Plan . agree with current RX follow cultures cxr reviewed worse with IV hydration CORBY FULLER MD Oct 03, 2016 17:19
[2016-10-03 17:56] LABS: CALCIUM 8.6 mg/dL (8.5-10.1); CREATININE 0.5 mg/dL (0.6-1.0); GFR 120.6; POTASSIUM 4.9 mmol/L (3.5-5.1)
--- NOTE | 2016-10-03 18:44 | CONS ---
DATE OF CONSULTATION: 10/02/2016 ATTENDING PHYSICIAN: Dr. Casas. REASON FOR CONSULTATION: The patient is seen in pulmonary consultation at the request of Dr. Weeks for increasing shortness of breath and abnormal x-ray. HISTORY OF PRESENT ILLNESS: The patient is a 76-year-old female who presented to the Emergency Room with 2-3-weeks' history of increased shortness of breath. She reported some subjective fever, pain in chest with cough, yellow sputum. She had a chest x-ray revealing a right upper lobe infiltrate. I was asked to see her in consultation. The patient also felt like she had pleurisy. PAST MEDICAL HISTORY: Hypertension. PAST SURGICAL HISTORY: Appendectomy, hysterectomy and . FAMILY HISTORY: COPD in mother. Father had lung cancer. SOCIAL HISTORY: She is , living with her significant other. Quit tobacco and denies any alcohol intake. ALLERGIES: CIPROFLOXACIN. MEDICATIONS: List was reviewed. REVIEW OF SYSTEMS: As indicated above, otherwise, a 10-point system was reviewed and negative. PHYSICAL EXAMINATION: VITAL SIGNS: Stable. O2 saturation greater than 92%. Since admission, she has had a T-max of 100.1. HEENT: Eyes, the sclerae were nonicteric. NECK: Jugular venous distention was not elevated. No lymphadenopathy. CHEST: Full expansion. LUNGS: Rales on the right. No wheezes. CARDIOVASCULAR: Regular rate and rhythm with S1, S2, no S3. ABDOMEN: Soft, nontender, nondistended. EXTREMITIES: No clubbing, cyanosis or edema. NEUROLOGIC: The patient was awake, alert, following commands. A detailed neuro exam was not performed. LABORATORY DATA: Reviewed. White count was elevated. Chest x-ray as indicated above. Blood cultures negative so far. Sputum is pending. IMPRESSION: 1. Abnormal x-ray compatible with possibility of gram-positive pneumonia, possibly gram negative. 2. Acute exacerbation of chronic obstructive pulmonary disease. 3. Respiratory distress secondary to above. 4. Pleurisy. PLAN: 1. Recommend to continue current antibiotics. If she is afebrile for 24 hours, discharge home on Augmentin and doxycycline. 2. Nebulized treatments. 3. A 6-minute walk prior to discharge. I do appreciate the privilege in sharing in the patient's care. CORBY FULLER MD DR: Syd JOB#: [id number] / [id number]
[2016-10-03 19:00] VITALS: BP 126/70
[2016-10-03] MEDS ORDERED: CEFPODOXIME PROXETIL 200 MG TABLET PO SCH (21:00)
[2016-10-03 23:00] VITALS: BP 123/74
[2016-10-04] MEDS: PIPERACILLIN/TAZOBACTAM 3.375 GM in IV NORMAL SALINE 50ML 50 ML IV SCH ×4 (00:19→17:39)
[2016-10-04] MEDS: POTASSIUM CHLORIDE 30 MEQ in IV 1/2 NORMAL SALINE 1,000 ML IV SCH ×2 (01:27→12:30)
[2016-10-04 03:00] VITALS: BP 123/76
[2016-10-04] MEDS: HYDROCODONE/APAP 5/325MG TABLET. PO PRN ×5 (03:49→21:24)
[2016-10-04 07:00] VITALS: BP 133/74
[2016-10-04] MEDS: IPRATRPIUM/ALBUTEROL 0.5/2.5MG 3 ML NEBU. NEB SCH ×4 (07:56→21:29)
[2016-10-04] MEDS ORDERED: AZITHROMYCIN 250 MG TABLET PO SCH (09:00)
[2016-10-04] MEDS: GUAIFENESIN DM 600/30MG TAB.ER.12H. PO SCH ×2 (09:03→21:24)
[2016-10-04] MEDS: ATENOLOL 50 MG TABLET PO SCH (09:04)
[2016-10-04 10:57] VITALS: BP 134/68
--- NOTE | 2016-10-04 11:01 | PDOC ---
PROGRESS NOTES Chief Complaint Chief Complaint CAP SIRS POA no sepsis HTN Fevers NEVER Smoker History of Present Illness History of Present Illness Feels better today NO fevers so far SPutum and bC neg On broard spectrum now - upgraded bec of fevers and worsened CXR COncerned about the heart - but Trops x 3 neg, EKG ok, TAchy cardia sec to infection Dw her and RN PLAN: CPM MAybe interval CXR on Saturday WIll defer to pulmo NOt ready yet today for dc Vitals Vitals Vital Signs Date Time Temp Pulse Resp B/P Pulse Ox O2 Delivery O2 Flow Rate FiO2 10/04/16 10:57 97.7 83 18 134/68 92 Nasal Cannula 2.0 97.7 Physical Exam General: Alert, Oriented X3 Heart: Normal S1, Normal S2 Lungs: Crackles Abdomen: Normal bowel sounds, Soft Extremities: No clubbing Review of Systems Review of Systems weak, cough, no inc in SOA Assessment and Plan Assessmemt and Plan Problems Medical Problems: (1) Community acquired pneumonia Status: Acute (2) Hypoxia Status: Acute Problems: Comment Review of Relevant I have reviewed the following items pavithra (where applicable) has been applied. Labs Laboratory Tests Test 10/03/16 06:50 10/03/16 06:55 White Blood Count 12.2x10^3/uL (4.0-11.0) Red Blood Count 3.00x10^6/uL (3.50-5.40) Hemoglobin 10.1g/dL (12.0-15.5) Hematocrit 30.0% (36.0-47.0) Mean Corpuscular Volume 100fL (79-100) Mean Corpuscular Hemoglobin 34pg (25-35) Mean Corpuscular Hemoglobin Concent 34g/dL (31-37) Red Cell Distribution Width 13.3% (11.5-14.5) Platelet Count 346x10^3/uL (140-400) Neutrophils (%) (Auto) 79% (31-73) Lymphocytes (%) (Auto) 9% (24-48) Monocytes (%) (Auto) 9% (0-9) Eosinophils (%) (Auto) 2% (0-3) Basophils (%) (Auto) 1% (0-3) Neutrophils # (Auto) 9.7x10^3uL (1.8-7.7) Lymphocytes # (Auto) 1.1x10^3/uL (1.0-4.8) Monocytes # (Auto) 1.1x10^3/uL (0.0-1.1) Eosinophils # (Auto) 0.3x10^3/uL (0.0-0.7) Basophils # (Auto) 0.1x10^3/uL (0.0-0.2) Sodium Level 135mmol/L (136-145) Potassium Level 4.9mmol/L (3.5-5.1) Chloride Level 99mmol/L (98-107) Carbon Dioxide Level 28mmol/L (21-32) Anion Gap 8 (6-14) Blood Urea Nitrogen 3mg/dL (7-20) Creatinine 0.5mg/dL (0.6-1.0) Estimated GFR (Cockcroft-Gault) 120.6 Glucose Level 98mg/dL (70-99) Calcium Level 8.6mg/dL (8.5-10.1) Lactic Acid Level 0.7mmol/L (0.4-2.0) Microbiology 09/30/16 Blood Culture - Preliminary, Resulted NO GROWTH AFTER 3 DAYS 10/02/16 Sputum Culture - Preliminary, Resulted 10/02/16 Sputum Result 1 - Preliminary, Resulted Medications Current Medications Albuterol/ Ipratropium 3 ml 3 ml 1X ONCE NEB Last administered on 09/30/16 12 :43; Start 09/30/16 at 12:30; Stop 09/30/16 at 12:31; Status DC Sodium Chloride 500 ml @ 500 mls/hr 1X ONCE IV Last administered on 13:14; Start 09/30/16 at 13:00; Stop 09/30/16 at 13:59; Status DC Azithromycin 250 ml @ 250 mls/hr 1X ONCE IV Last administered on 09/30/16 14 :25; Start 09/30/16 at 13:00; Stop 09/30/16 at 13:59; Status DC Ceftriaxone Sodium (Rocephin 1gm Ivpb For Omni) 50 ml @ 100 mls/hr 1X ONCE IV Last administered on 09/30/16 13:21; Start 09/30/16 at 13:00; Stop 09/30/16 at 13:29; Status DC Ondansetron HCl (Zofran) 4 mg PRN Q8HRS PRN IV NAUSEA/VOMITING Last administered on 09/30/16 13:16; Start 09/30/16 at 13:00; Stop 10/01/16 at 09:01 ; Status DC Morphine Sulfate 2 mg PRN Q2HR PRN IV PAIN Last administered on 09/30/16 13:19 ; Start 09/30/16 at 13:00; Stop 10/01/16 at 12:59; Status DC Albuterol/ Ipratropium (Duoneb) 3 ml RTQID NEB Last administered on 10/01/16 15:30; Start 09/30/16 at 16:00; Stop 10/01/16 at 15:59; Status DC Atenolol (Tenormin) 50 mg DAILY PO Last administered on 10/04/16 09:04; Start 09/30/16 at 17:00 Guaifenesin (MUCINEX ER with DM) 1 tab BID PO Last administered on 10/04/16 09: 03; Start 09/30/16 at 21:00 Acetaminophen 650 mg 650 mg PRN Q6HRS PRN PO MILD PAIN / TEMP Last administered on 10/03/16 14:11; Start 09/30/16 at 16:15 Potassium Chloride/Sodium Chloride (Iv Sodium Chloride 0.45%) 1,015 ml @ 75 mls /hr [id number] IV Last administered on 10/03/16 16:43; Start 09/30/16 at 16:15 Potassium Chloride (Klor-Con) 20 meq BIDWMEALS PO Last administered on 08:57; Start 09/30/16 at 17:00; Stop 10/01/16 at 16:59; Status DC Temazepam (Restoril) 15 mg PRN QHS PRN PO INSOMNIA Last administered on 23:20; Start 09/30/16 at 22:30 Ondansetron HCl 4 mg 4 mg PRN Q6HRS PRN IV NAUSEA/VOMITING; Start 10/01/16 at 08:59 Ceftriaxone Sodium 1 gm/ Sodium Chloride 50 ml @ 100 mls/hr Q24H IV Last administered on 10/03/16 14:49; Start 10/01/16 at 13:00; Stop 10/03/16 at 16:00; Status DC Azithromycin/ Sodium Chloride (Zithromax/Iv Sodium Chloride 0.9% 250ml) 250 ml @ 250 mls/hr Q24H IV Last administered on 10/01/16 14:11; Start 10/01/16 at 13:00; Stop 10/02/16 at 09:03; Status DC Albuterol/ Ipratropium 3 ml 3 ml RTQID NEB Last administered on 10/04/16 07:56 ; Start 10/02/16 at 08:00 Azithromycin/ Sodium Chloride (Zithromax/Iv Sodium Chloride 0.9% 250ml) 250 ml @ 250 mls/hr Q24H IV Last administered on 10/03/16 15:37; Start 10/02/16 at 13 :00; Stop 10/03/16 at 16:00; Status DC Azithromycin (Zithromax) 500 mg DAILY PO ; Start 10/04/16 at 09:00; Stop 10/04/16 at 09:00; Status DC Cefpodoxime Proxetil (Vantin) 200 mg BID PO ; Start 10/03/16 at 21:00; Stop at 21:00; Status DC Acetaminophen/ Hydrocodone Bitart 1 tab 1 tab PRN Q4HRS PRN PO PAIN Last administered on 10/04/16 09:04; Start 10/03/16 at 16:00 Piperacillin Sod/ Tazobactam Sod/ Sodium Chloride (Zosyn/Iv Sodium Chloride 0.9 % 50ml) 50 ml @ 100 mls/hr Q6HRS IV Last administered on 10/04/16 06:09; Start 10/03/16 at 17:00 Vancomycin HCl 1 each 1 each PRN DAILY PRN MC SEE COMMENTS Last administered on 10/03/16 18:00; Start 10/03/16 at 16:00 Vancomycin HCl 1.25 gm/Sodium Chloride 250 ml @ 166.667 mls/hr 1X ONCE IV Last administered on 10/03/16 17:36; Start 10/03/16 at 16:30; Stop 10/03/16 at 17: 59; Status DC Vancomycin HCl/ Sodium Chloride (Iv Sodium Chloride 0.9% 250ml) 250 ml @ 250 mls/hr Q24H IV ; Start 10/04/16 at 17:30 Vancomycin HCl 1 each 1X ONCE MC ; Start 10/05/16 at 17:00; Stop 10/05/16 at 17: 01 Active Scripts Active Reported Atenolol 50 Mg Tablet 1 Tab PO DAILY Vitals/I & O Vital Sign - Last 24 Hours 10/03/16 10/03/16 10/03/16 10/03/16 11:00 11:43 15:00 15:50 Temp 97.6 98.4 97.6 98.4 Pulse 82 77 Resp 18 18 B/P 154/58 162/85 Pulse Ox 95 97 O2 Delivery Nasal Cannula Nasal Cannula Nasal Cannula Nasal Cannula O2 Flow Rate 2.0 2.0 2.0 2.0 10/03/16 10/03/16 10/03/16 10/03/16 16:03 19:00 19:52 20:00 Temp 97.7 97.7 Pulse 75 Resp 18 B/P 126/70 Pulse Ox 94 97 O2 Delivery Nasal Cannula Nasal Cannula Nasal Cannula O2 Flow Rate 2.0 2.0 2.0 10/03/16 10/03/16 10/04/16 10/04/16 20:11 23:00 03:00 03:49 Temp 98.2 99.0 98.2 99.0 Pulse 91 91 Resp 18 18 B/P 123/74 123/76 Pulse Ox 97 94 93 94 O2 Delivery Nasal Cannula Nasal Cannula O2 Flow Rate 2.0 2.0 10/04/16 10/04/16 10/04/16 10/04/16 04:49 07:00 07:59 09:04 Temp 97.7 97.7 Pulse 91 91 Resp 18 B/P 133/74 133/74 Pulse Ox 94 90 94 O2 Delivery Nasal Cannula Nasal Cannula Nasal Cannula O2 Flow Rate 2.0 2.0 2.0 10/04/16 10/04/16 09:04 10:57 Temp 97.7 97.7 Pulse 83 Resp 18 B/P 134/68 Pulse Ox 92 O2 Delivery Nasal Cannula Nasal Cannula O2 Flow Rate 2.0 2.0 Intake and Output 10/03/16 10/03/16 10/04/16 15:00 23:00 07:00 Intake Total 850 ml 1300 ml Output Total 2000 ml Balance -1150 ml 1300 ml GREGORY LOZANO MD Oct 04, 2016 11:01
[2016-10-04 15:00] VITALS: BP 133/65
[2016-10-04] MEDS ORDERED: VANCOMYCIN 750 MG in IV NORMAL SALINE 250ML 250 ML IV SCH (17:30)
--- NOTE | 2016-10-04 18:19 | PDOC ---
PULMONARY PROGRESS NOTES Subjective pt not more soa, feels better Vitals Vital Signs Date Time Temp Pulse Resp B/P Pulse Ox O2 Delivery O2 Flow Rate FiO2 10/04/16 17:40 Nasal Cannula 2.0 10/04/16 16:24 96 10/04/16 15:00 97.7 85 18 133/65 97.7 ROS: No Nausea, No Chest Pain, No Abdominal Pain, No Increase Cough Lungs: Clear Cardiovascular: S1, S2 Abdomen: Soft Neuro Exam: Alert Extremities: No Edema Skin: Warm Labs Laboratory Tests Test 10/03/16 06:50 10/03/16 06:55 White Blood Count 12.2x10^3/uL (4.0-11.0) Red Blood Count 3.00x10^6/uL (3.50-5.40) Hemoglobin 10.1g/dL (12.0-15.5) Hematocrit 30.0% (36.0-47.0) Mean Corpuscular Volume 100fL (79-100) Mean Corpuscular Hemoglobin 34pg (25-35) Mean Corpuscular Hemoglobin Concent 34g/dL (31-37) Red Cell Distribution Width 13.3% (11.5-14.5) Platelet Count 346x10^3/uL (140-400) Neutrophils (%) (Auto) 79% (31-73) Lymphocytes (%) (Auto) 9% (24-48) Monocytes (%) (Auto) 9% (0-9) Eosinophils (%) (Auto) 2% (0-3) Basophils (%) (Auto) 1% (0-3) Neutrophils # (Auto) 9.7x10^3uL (1.8-7.7) Lymphocytes # (Auto) 1.1x10^3/uL (1.0-4.8) Monocytes # (Auto) 1.1x10^3/uL (0.0-1.1) Eosinophils # (Auto) 0.3x10^3/uL (0.0-0.7) Basophils # (Auto) 0.1x10^3/uL (0.0-0.2) Sodium Level 135mmol/L (136-145) Potassium Level 4.9mmol/L (3.5-5.1) Chloride Level 99mmol/L (98-107) Carbon Dioxide Level 28mmol/L (21-32) Anion Gap 8 (6-14) Blood Urea Nitrogen 3mg/dL (7-20) Creatinine 0.5mg/dL (0.6-1.0) Estimated GFR (Cockcroft-Gault) 120.6 Glucose Level 98mg/dL (70-99) Calcium Level 8.6mg/dL (8.5-10.1) Lactic Acid Level 0.7mmol/L (0.4-2.0) Medications Active Scripts Medications Dose Route/Sig Days Date Category Atenolol 50 Mg Tablet 1 Tab PO DAILY 08/30/16 Reported Impression . 1. Abnormal x-ray compatible with possibility of gram-positive pneumonia, possibly gram negative. 2. Acute exacerbation of chronic obstructive pulmonary disease. 3. Respiratory distress secondary to above. 4. Pleurisy. Plan . narrow anitbx if improve in am may switch to Augmentin and d/c home cultures negative, not febrile cxr reviewed worse with IV hydration CORBY FULLER MD Oct 04, 2016 18:19
[2016-10-04 19:59] VITALS: BP 146/77
[2016-10-04 23:59] VITALS: BP 152/78
[2016-10-05] MEDS: PIPERACILLIN/TAZOBACTAM 3.375 GM in IV NORMAL SALINE 50ML 50 ML IV SCH ×3 (00:40→11:18)
[2016-10-05] MEDS: HYDROCODONE/APAP 5/325MG TABLET. PO PRN ×3 (01:28→11:19)
[2016-10-05] MEDS: POTASSIUM CHLORIDE 30 MEQ in IV 1/2 NORMAL SALINE 1,000 ML IV SCH (03:14)
[2016-10-05 03:59] VITALS: BP 146/83
[2016-10-05 07:00] VITALS: BP 104/78
[2016-10-05] MEDS: IPRATRPIUM/ALBUTEROL 0.5/2.5MG 3 ML NEBU. NEB SCH ×2 (07:47→11:43)
[2016-10-05] MEDS: ATENOLOL 50 MG TABLET PO SCH (07:54)
[2016-10-05] MEDS: GUAIFENESIN DM 600/30MG TAB.ER.12H. PO SCH (07:54)
[2016-10-05 10:54] VITALS: BP 147/83
--- NOTE | 2016-10-05 11:22 | PDOC ---
PROGRESS NOTES Chief Complaint Chief Complaint CAP SIRS POA no sepsis HTN Plans on Zosyn and Vancomycin, Clinically better. off oxygen Rib pain Blood cx no growth , clinically better per pt home with Augmentin follow up with pcp History of Present Illness History of Present Illness off oxygen no symptoms no fever Vitals Vitals Vital Signs Date Time Temp Pulse Resp B/P Pulse Ox O2 Delivery O2 Flow Rate FiO2 10/05/16 10:54 98.4 65 17 147/83 92 Room Air 98.4 10/05/16 08:00 2.0 Physical Exam General: Alert, Oriented X3 Heart: Normal S1, Normal S2 Lungs: Clear Abdomen: Normal bowel sounds, Soft Extremities: No clubbing Assessment and Plan Assessmemt and Plan Problems Medical Problems: (1) Community acquired pneumonia Status: Acute (2) Hypoxia Status: Acute Problems: Comment Review of Relevant I have reviewed the following items pavithra (where applicable) has been applied. Labs Microbiology 09/30/16 Blood Culture - Preliminary, Resulted NO GROWTH AFTER 4 DAYS 10/02/16 Sputum Culture - Final, Complete 10/02/16 Sputum Result 1 - Final, Complete Medications Current Medications Albuterol/ Ipratropium 3 ml 3 ml 1X ONCE NEB Last administered on 09/30/16 12 :43; Start 09/30/16 at 12:30; Stop 09/30/16 at 12:31; Status DC Sodium Chloride 500 ml @ 500 mls/hr 1X ONCE IV Last administered on 13:14; Start 09/30/16 at 13:00; Stop 09/30/16 at 13:59; Status DC Azithromycin 250 ml @ 250 mls/hr 1X ONCE IV Last administered on 09/30/16 14 :25; Start 09/30/16 at 13:00; Stop 09/30/16 at 13:59; Status DC Ceftriaxone Sodium (Rocephin 1gm Ivpb For Omni) 50 ml @ 100 mls/hr 1X ONCE IV Last administered on 09/30/16 13:21; Start 09/30/16 at 13:00; Stop 09/30/16 at 13:29; Status DC Ondansetron HCl (Zofran) 4 mg PRN Q8HRS PRN IV NAUSEA/VOMITING Last administered on 09/30/16 13:16; Start 09/30/16 at 13:00; Stop 10/01/16 at 09:01 ; Status DC Morphine Sulfate 2 mg PRN Q2HR PRN IV PAIN Last administered on 09/30/16 13:19 ; Start 09/30/16 at 13:00; Stop 10/01/16 at 12:59; Status DC Albuterol/ Ipratropium (Duoneb) 3 ml RTQID NEB Last administered on 10/01/16 15:30; Start 09/30/16 at 16:00; Stop 10/01/16 at 15:59; Status DC Atenolol (Tenormin) 50 mg DAILY PO Last administered on 10/05/16 07:54; Start 09/30/16 at 17:00 Guaifenesin (MUCINEX ER with DM) 1 tab BID PO Last administered on 10/05/16 07: 54; Start 09/30/16 at 21:00 Acetaminophen 650 mg 650 mg PRN Q6HRS PRN PO MILD PAIN / TEMP Last administered on 10/03/16 14:11; Start 09/30/16 at 16:15 Potassium Chloride/Sodium Chloride (Iv Sodium Chloride 0.45%) 1,015 ml @ 75 mls /hr [id number] IV Last administered on 10/05/16 03:14; Start 09/30/16 at 16:15 Potassium Chloride (Klor-Con) 20 meq BIDWMEALS PO Last administered on 08:57; Start 09/30/16 at 17:00; Stop 10/01/16 at 16:59; Status DC Temazepam (Restoril) 15 mg PRN QHS PRN PO INSOMNIA Last administered on 23:20; Start 09/30/16 at 22:30 Ondansetron HCl 4 mg 4 mg PRN Q6HRS PRN IV NAUSEA/VOMITING; Start 10/01/16 at 08:59 Ceftriaxone Sodium 1 gm/ Sodium Chloride 50 ml @ 100 mls/hr Q24H IV Last administered on 10/03/16 14:49; Start 10/01/16 at 13:00; Stop 10/03/16 at 16:00; Status DC Azithromycin/ Sodium Chloride (Zithromax/Iv Sodium Chloride 0.9% 250ml) 250 ml @ 250 mls/hr Q24H IV Last administered on 10/01/16 14:11; Start 10/01/16 at 13:00; Stop 10/02/16 at 09:03; Status DC Albuterol/ Ipratropium 3 ml 3 ml RTQID NEB Last administered on 10/05/16 07:47 ; Start 10/02/16 at 08:00 Azithromycin/ Sodium Chloride (Zithromax/Iv Sodium Chloride 0.9% 250ml) 250 ml @ 250 mls/hr Q24H IV Last administered on 10/03/16 15:37; Start 10/02/16 at 13 :00; Stop 10/03/16 at 16:00; Status DC Azithromycin (Zithromax) 500 mg DAILY PO ; Start 10/04/16 at 09:00; Stop 10/04/16 at 09:00; Status DC Cefpodoxime Proxetil (Vantin) 200 mg BID PO ; Start 10/03/16 at 21:00; Stop at 21:00; Status DC Acetaminophen/ Hydrocodone Bitart 1 tab 1 tab PRN Q4HRS PRN PO PAIN Last administered on 10/05/16 06:28; Start 10/03/16 at 16:00 Piperacillin Sod/ Tazobactam Sod/ Sodium Chloride (Zosyn/Iv Sodium Chloride 0.9 % 50ml) 50 ml @ 100 mls/hr Q6HRS IV Last administered on 10/05/16 05:37; Start 10/03/16 at 17:00 Vancomycin HCl 1 each 1 each PRN DAILY PRN MC SEE COMMENTS Last administered on 10/03/16 18:00; Start 10/03/16 at 16:00; Stop 10/04/16 at 18:20; Status DC Vancomycin HCl 1.25 gm/Sodium Chloride 250 ml @ 166.667 mls/hr 1X ONCE IV Last administered on 10/03/16 17:36; Start 10/03/16 at 16:30; Stop 10/03/16 at 17: 59; Status DC Vancomycin HCl/ Sodium Chloride (Iv Sodium Chloride 0.9% 250ml) 250 ml @ 250 mls/hr Q24H IV ; Start 10/04/16 at 17:30; Stop 10/04/16 at 18:20; Status DC Vancomycin HCl 1 each 1X ONCE MC ; Start 10/05/16 at 17:00; Stop 10/05/16 at 17: 01; Status Cancel Active Scripts Active Reported Atenolol 50 Mg Tablet 1 Tab PO DAILY Vitals/I & O Vital Sign - Last 24 Hours 10/04/16 10/04/16 10/04/16 10/04/16 11:56 13:06 15:00 16:24 Temp 97.7 97.7 Pulse 85 Resp 18 B/P 133/65 Pulse Ox 92 96 O2 Delivery Nasal Cannula Nasal Cannula Nasal Cannula Nasal Cannula O2 Flow Rate 2.0 2.0 2.0 2.0 10/04/16 10/04/16 10/04/16 10/04/16 17:40 19:59 20:00 21:24 Temp 98.5 98.5 Pulse 84 Resp 18 23 B/P 146/77 Pulse Ox 97 O2 Delivery Nasal Cannula Nasal Cannula Nasal Cannula Nasal Cannula O2 Flow Rate 2.0 2.0 2.0 2.0 10/04/16 10/04/16 10/05/16 10/05/16 21:29 23:59 01:28 02:39 Temp 99.3 99.3 Pulse 101 Resp 18 18 B/P 152/78 Pulse Ox 98 94 O2 Delivery Nasal Cannula Room Air Nasal Cannula Nasal Cannula O2 Flow Rate 2.0 2.0 2.0 10/05/16 10/05/16 10/05/16 10/05/16 03:59 06:28 07:00 07:33 Temp 99.0 98.1 99.0 98.1 Pulse 84 85 Resp 18 18 16 18 B/P 146/83 104/78 Pulse Ox 95 94 O2 Delivery Room Air Nasal Cannula Nasal Cannula O2 Flow Rate 2.0 2.0 10/05/16 10/05/16 10/05/16 10/05/16 07:44 07:54 08:00 10:54 Temp 98.4 98.4 Pulse 84 65 Resp 17 B/P 146/83 147/83 Pulse Ox 94 92 O2 Delivery Nasal Cannula Nasal Cannula Room Air O2 Flow Rate 2.0 2.0 Intake and Output 10/04/16 10/04/16 10/05/16 15:00 23:00 07:00 Intake Total 410 ml 740 ml Balance 410 ml 740 ml MAKENNA NORTON MD Oct 05, 2016 11:22
--- NOTE | 2016-10-05 13:34 | PDOC ---
PULMONARY PROGRESS NOTES Subjective pt not more soa, feels better Vitals Vital Signs Date Time Temp Pulse Resp B/P Pulse Ox O2 Delivery O2 Flow Rate FiO2 10/05/16 11:43 98 Nasal Cannula 2.0 10/05/16 10:54 98.4 65 17 147/83 98.4 ROS: No Nausea, No Chest Pain, No Abdominal Pain, No Increase Cough Lungs: Clear Cardiovascular: S1, S2 Abdomen: Soft Neuro Exam: Alert Extremities: No Edema Skin: Warm Medications Active Scripts Medications Dose Route/Sig Days Date Category Atenolol 50 Mg Tablet 1 Tab PO DAILY 08/30/16 Reported Impression . 1. Abnormal x-ray compatible with possibility of gram-positive pneumonia, possibly gram negative. 2. Acute exacerbation of chronic obstructive pulmonary disease. 3. Respiratory distress secondary to above. 4. Pleurisy. Plan . HOME TODAY WITH AUGMENTIN FOLLOW UP WITH ME IN 4-6 WEEKS CORBY FULLER MD Oct 05, 2016 13:34
--- NOTE | 2016-10-06 02:20 | DS ---
DATE OF DISCHARGE: 10/05/2016 DISCHARGE DIAGNOSES: 1. Community-acquired pneumonia, resolving. 2. Systemic inflammatory response, present on admission, no sepsis. 3. Hypertension, stable. 4. Acute respiratory distress. 5. Pleurisy. BRIEF HOSPITAL COURSE: A 76-year-old female who is admitted to the hospital for shortness of breath and she was started on broad-spectrum antibiotics such as Rocephin and Zithromax; however, symptoms did not improve and antibiotics have been changed to vancomycin and Zosyn and blood culture so far no growth seen and gram stain has no growth. She has been evaluated by Pulmonology who agreed with current recommendation. Today, the patient did walk without any shortness of breath. She was not requiring any oxygen. She has been sent home in stable condition, and she was recommended to have Augmentin, and after completion of dose, the patient is recommended to see either Pulmonology or primary care doctor to repeat chest x-ray. DISCHARGE PHYSICAL EXAMINATION: Please see my progress note. DISCHARGE CONDITION: Stable. PROGNOSIS: Good. FOLLOWUP: Follow up with primary care doctor after completion of antibiotic course. MEDICATIONS: Augmentin 875/125 p.o. b.i.d. for 7-10 days. Total time spent for discharge is 32 minutes for patient education, counseling, and coordination of care. MAKENNA NORTON MD DR: AUGUST/alex JOB#: [id number] / [id number] [place]
== END 2016-10-05 14:10 | disposition home or self-care (01) | DRG 193 ==
LOC: ER 11:59 → 5 SOUTH 13:05
PROVIDERS: ADMIT Internal Medicine Hematology & Oncology; ATTEND Internal Medicine Hematology & Oncology
DX: J15.9 Unspecified bacterial pneumonia (principal); J96.01 Acute respiratory failure with hypoxia; R65.10 Systemic inflammatory response syndrome (SIRS) of non-infectious origin without acute organ dysfunction; J44.0 Chronic obstructive pulmonary disease with (acute) lower respiratory infection; J44.1 Chronic obstructive pulmonary disease with (acute) exacerbation; E87.6 Hypokalemia; I10 Essential (primary) hypertension; Z90.49 Acquired absence of other specified parts of digestive tract; Z90.710 Acquired absence of both cervix and uterus; Z88.1 Allergy status to other antibiotic agents; Z80.1 Family history of malignant neoplasm of trachea, bronchus and lung; Z82.5 Family history of asthma and other chronic lower respiratory diseases; Z87.891 Personal history of nicotine dependence
CPT/HCPCS: 36415; 70450; 71010; 71020; 71100; 80048; 80076; 83605; 83690; 83880; 84484; 85027; 87040; 87070; 87205; 87804; 93005; 94250; 94620; 94640; 94760; 96374; 96375; J0456; J0690; J0696; J2270; J2405; J2543; J3370; J7040; J7050; J7620; 99285-25; J7030

== ENCOUNTER → 2016-10-16 | Outpatient (CLI) | payer OTHER ==
[2016-10-05 10:54] VITALS: BP 147/83
--- NOTE | 2016-10-16 12:28 | RAD ---
DATE: 10/16/2016 EXAM: DIGITAL SCREEN BILAT W/CAD HISTORY: Routine screening COMPARISON: 07/07/2015, 10/31/2011 This study was interpreted with the benefit of Computerized Aided Detection (CAD). FINDINGS: There are scattered fibroglandular densities in the breasts. On the cc view of the left breast there is a ill-defined area of increased density present at the midline. It appears to be more prominent than on older exams. No definite mammographic correlate is seen on the oblique view. This could be a summation shadow. No other new or enlarging breast densities are seen. Benign type calcifications are present in both breasts. IMPRESSION: Possible developing density in the left breast as described above. Diagnostic mammography to include spot compression and rolled cc views is suggested and if a suspicious density persists, sonographic evaluation would then be indicated. BI-RADS CATEGORY: 0 INCOMPLETE: NEEDS ADDITIONAL IMAGING EVALUATION AND/OR PRIOR MAMMOGRAMS FOR COMPARISON. RECOMMENDED FOLLOW-UP: ADD ADDITIONAL IMAGING PQRS compliance statement: Patient information was entered into a reminder system with a target due date for the next mammogram. Mammography is a sensitive method for finding small breast cancers, but it does not detect them all and is not a substitute for careful clinical examination. A negative mammogram does not negate a clinically suspicious finding and should not result in delay in biopsying a clinically suspicious abnormality. "Our facility is accredited by the [employer] Mammography Program."
== END | disposition home or self-care (01) ==
LOC: MAMMO 10:30
PROVIDERS: ATTEND Internal Medicine
DX: Z12.31 Encounter for screening mammogram for malignant neoplasm of breast (principal)
CPT/HCPCS: G0202; 77067

== ENCOUNTER → 2016-10-23 | Outpatient (CLI) | payer OTHER ==
[2016-10-05 10:54] VITALS: BP 147/83
--- NOTE | 2016-10-23 11:04 | RAD ---
DATE: 10/23/2016 EXAM: DIGITAL DIAGNOSTIC LT HISTORY: Possible developing nodule in the left breast COMPARISON: Screening examination one week earlier This study was interpreted with the benefit of Computerized Aided Detection (CAD). FINDINGS: The breast parenchyma unchanged relative to the screening exam. A coned compression view and rolled cc views were obtained. On the additional views no abnormality is seen and the findings on the screening examination are most compatible with summation artifact IMPRESSION: Benign findings BI-RADS CATEGORY: 2 BENIGN FINDING(S) RECOMMENDED FOLLOW-UP: 12M 12 MONTH FOLLOW-UP PQRS compliance statement: Patient information was entered into a reminder system with a target due date 10/16/2017 for the next mammogram. Mammography is a sensitive method for finding small breast cancers, but it does not detect them all and is not a substitute for careful clinical examination. A negative mammogram does not negate a clinically suspicious finding and should not result in delay in biopsying a clinically suspicious abnormality. "Our facility is accredited by the [employer] Mammography Program."
== END | disposition home or self-care (01) ==
LOC: MAMMO 10:05
PROVIDERS: ATTEND Internal Medicine
DX: R92.8 Other abnormal and inconclusive findings on diagnostic imaging of breast (principal)
CPT/HCPCS: G0206; 77065

== ENCOUNTER → 2016-11-20 | Outpatient (CLI) | payer OTHER ==
--- NOTE | 2016-11-20 16:08 | RAD ---
Chest, 2 views, 11/20/2016: History: Follow-up infiltrate Comparison is made to a study from 10/03/2016. The heart is mildly enlarged. The pulmonary vascularity is normal. Right upper lobe infiltrate has largely cleared. There is only minimal residual linear opacity in this region which is likely a scar. The lung bases have also partially cleared. There is a small amount of residual pleural fluid posteriorly. No significant basilar infiltrate is seen. No new pulmonary abnormality is detected. There is an unchanged vertebral compression fracture at L1. A right shoulder prosthesis is in place. IMPRESSION: 1. Nearly complete resolution of the pulmonary infiltrates. 2. Small residual bilateral pleural effusions
== END | disposition home or self-care (01) ==
LOC: RAD 12:18
PROVIDERS: ATTEND Internal Medicine Pulmonary Disease
DX: R91.8 Other nonspecific abnormal finding of lung field (principal)
CPT/HCPCS: 71020

== ENCOUNTER 2016-11-27 14:51 | Inpatient (IN) | payer OTHER ==
[2016-11-27] VITALS (7 sets, daily range): BP systolic 137–190; BP diastolic 82–99
[~2016-11-27] VITALS: Ht 158.8 cm; Wt 51.7 kg
--- NOTE | 2016-11-27 15:06 | EKG ---
[facility] [address] [place] [address] Test Date: 2016-11-27 Test Time: 14:57:23 Pat Name: NI STAFFORD Department: Room: Gender: F [employer]: : 1940 Requested By: ELDER KWONG Order Number: [id number] Reading MD: Marino Vieira Measurements Intervals [place] Rate: 85 P: 47 VA: 180 QRS: -23 QRSD: 102 T: -17 QT: 432 QTc: 520 Interpretive Statements SINUS RHYTHM LEFTWARD AXIS NON-SPECIFIC ST/T CHANGES Electronically Signed On 11-27-2016 16:10:28 CDT by Marino Vieira
[2016-11-27] MEDS ORDERED: IPRATRPIUM/ALBUTEROL 0.5/2.5MG 3 ML NEBU. NEB ONE (15:30)
[2016-11-27 15:47] LABS: BASO % 0 % (0-3); EOS % 0 % (0-3); HEMATOCRIT 34.2 % (36.0-47.0); HEMOGLOBIN 11.3 g/dL (12.0-15.5); LYMPH # 1.3 x10^3/uL (1.0-4.8); LYMPH % 9 % (24-48); MEAN CORPUSCULAR HEMOGLOBIN 33 pg (25-35); MEAN CORPUSCULAR HGB CONC 33 g/dL (31-37); MEAN CORPUSCULAR VOLUME 101 fL (79-100); MONO % 7 % (0-9); NEUT % 84 % (31-73); PLATELET COUNT 299 x10^3/uL (140-400); RED BLOOD COUNT 3.38 x10^6/uL (3.50-5.40); RED CELL DISTRIBUTION WIDTH 15.8 % (11.5-14.5); WHITE BLOOD COUNT 14.1 x10^3/uL (4.0-11.0)
--- NOTE | 2016-11-27 15:48 | RAD ---
Portable chest, 11/27/2016: History: Shortness of breath Comparison is made to a study from 11/20/2016. The previously seen small pleural effusions have increased markedly in size. There is now a moderate volume of bilateral pleural fluid. There is underlying atelectasis/infiltrate, more so on the right. The cardiac margins are obscured by the pleural fluid. IMPRESSION: Recurrent moderate-sized bilateral pleural effusions with underlying basilar atelectasis/infiltrate, right greater than left.
[2016-11-27 15:56] LABS: INR 1.4 (0.8-1.1); PROTHROMBIN TIME PATIENT 16.2 SEC (11.7-14.0)
[2016-11-27 16:04] LABS: ALBUMIN 3.1 g/dL (3.4-5.0); ALBUMIN/GLOBULIN RATIO 0.8 (1.0-1.7); CALCIUM 8.3 mg/dL (8.5-10.1); CREATININE 0.9 mg/dL (0.6-1.0); GFR 61.2; POTASSIUM 4.8 mmol/L (3.5-5.1); TOTAL BILIRUBIN 0.9 mg/dL (0.2-1.0); TOTAL PROTEIN 6.9 g/dL (6.4-8.2)
--- NOTE | 2016-11-27 16:08 | EKG ---
[facility] [address] [place] [address] Test Date: 2016-11-27 Test Time: 15:21:34 Pat Name: NI STAFFORD Department: Room: Gender: F Agent: : 1940 Requested By: ELDER KWONG Order Number: [id number] Reading MD: Marino Vieira Measurements Intervals [place] Rate: 78 P: 40 NV: 194 QRS: -21 QRSD: 100 T: -21 QT: 458 QTc: 526 Interpretive Statements SINUS RHYTHM LEFTWARD AXIS NON-SPECIFIC ST/T CHANGES JUSTIN-SEPTAL INFARCT Electronically Signed On 11-27-2016 16:11:14 CDT by Marino Vieira
[2016-11-27] MEDS ORDERED: IOHEXOL 300 MG/ML 75 ML VIAL IV ONE (16:45)
[2016-11-27] MEDS ORDERED: GENTAMICIN PER PHARMACY. MC PRN (16:45)
[2016-11-27] MEDS ORDERED: VANCOMYCIN PER PHARMACY MC PRN (16:45)
[2016-11-27] MEDS ORDERED: PIP/TAZO PER PHARMACY MC PRN (16:45)
[2016-11-27] MEDS ORDERED: VANCOMYCIN 1.25 GM in IV NORMAL SALINE 250ML 250 ML IV ONE (17:00)
[2016-11-27] MEDS ORDERED: PIPERACILLIN/TAZOBACTAM 3.375 GM in IV NORMAL SALINE 50ML 50 ML IV ONE (17:00)
[2016-11-27] MEDS ORDERED: NORMAL SALINE IV ONE (17:00)
[2016-11-27] MEDS ORDERED: CONTRAST GIVEN MC PRN (17:00)
[2016-11-27] MEDS ORDERED: GENTAMICIN SULFATE IV ONE (17:00)
--- NOTE | 2016-11-27 17:22 | RAD ---
Examination: CT angiography chest. HISTORY History of shortness of breath for 1 month, elevated D-dimer. COMPARISON None available. TECHNIQUE Axial CT images of the chest were performed with IV contrast. Coronal and sagittal 3D MIP reformats were performed. Exposure: One or more of the following dose reduction technique were utilized for this examination: 1. Automated exposure control. 2.Adjustment of MA and /or KV according to patient size. 3. Use of iterative reconstruction technique. Findings ; There is no evidence of filling defect identified in the main pulmonary arterial trunk and right and left main pulmonary arteries and visualized lobar, segmental branches of the pulmonary arteries. Moderate to large cardiomegaly identified. There is reflux of contrast into the IVC and the hepatic veins likely due to elevated right heart pressures. Moderate to large bilateral pleural effusions identified, right greater than left. Prominent appearing bilateral interstitial lung markings likely congestive changes with bibasilar airspace opacities and could be atelectasis /infiltrates. Few patchy airspace opacities identified in the right upper lobe along the fissure. Mild aortic atherosclerosis. Age indeterminate mild to moderate compression change of L1 vertebral body. IMPRESSION - No evidence of pulmonary embolism.. - Findings consistent with congestive heart failure changes with cardiomegaly and bilateral moderate to large pleural effusions . - Bibasilar lung airspace opacities with few patchy airspace opacities identified in the bilateral lungs likely pneumonia or atelectasis. Followup to resolution. Electronically signed by: Delvis Woodson (Nov 27, 2016 17:20:51)
[2016-11-27] MEDS ORDERED: CONIVAPTAN IV ONE ×2 (18:00→18:30)
[2016-11-27] MEDS ORDERED: FUROSEMIDE 40 MG/4 ML VIAL. IVP ONE (18:45)
--- NOTE | 2016-11-27 19:10 | ACF ---
Admission Forms Criteria HYPONATREMIA; HYPERNATREMIA; HYPOKALEMIA; HYPERKALEMIA; HYPOCALCEMIA; HYPERCALCEMIA Clinical Indications for Inpatient Care (Place 'X' for any and all applicable criteria): Ongoing inpatient care may be indicated for ANY ONE of the following [G](1)(2)(3 )(5): [X]I. Hyponatremia with ANY ONE of the following: [X]a) Sodium less than 130 mEq/L (mmol/L) (new) (6)(22) [ ]b) Sodium less than 135 mEq/L (mmol/L) with ANY ONE of the following: [ ]i) Severe medical etiology requiring inpatient management (eg, heart failure, hypovolemia) [ ]ii) Altered mental status [ ]iii) Seizures [ ]II. Hypernatremia with ANY ONE of the following: [ ]a) Sodium greater than 155 mEq/L (mmol/L) [ ]b) Sodium greater than 150 mEq/L (mmol/L) with ANY ONE of the following: [ ] i) Altered mental status [ ]ii) Seizures [ ]iii) Severe medical etiology (eg, hypovolemia, diabetes insipidus) [ ]iv) Severe weakness [ ]v) Severe medical etiology (eg, hemolysis, infection, drug overdose) [ ]III. Hypokalemia with ANY ONE of the following: [ ]a) Potassium less than 2.5 mEq/L (mmol/L) despite outpatient and emergency treatment [ ]b) Potassium less than 3.0 mEq/L (mmol/L) with ANY ONE of the following: [ ]i) Weakness [ ]ii) Cardiac abnormality (eg, arrhythmia, conduction disturbance) [ ]iii) Cardiac ischemia [ ]iv) Ileus [ ]v) Ongoing medical cause requiring inpatient management. ( e.g., acute renal wasting, SIADH) [ ]vi) Other severe symptoms [ ] IV. Hyperkalemia with ANY ONE of the following: [ ]a) Potassium greater than 6.5 mEq/L (mmol/L) [ ]b) Potassium greater than 5 mEq/L (mmol/L) with ANY ONE of the following: [ ]i) Severe ECG findings [H] [ ]ii) Acute worsening of renal failure (creatinine greater than 2.5 mg/dL (221 micromoles/L) or significant elevation for age and size) [ ] V. Hypocalcemia with ANY ONE of the following: [ ]a) Calcium less than 7 mg/dL (1.75 mmol/L) despite outpatient and emergency treatment(19) [ ]b) Calcium less than 8 mg/dL (2 mmol/L) with significant symptoms or findings; examples include: [ ]i) Cardiac abnormality (eg, arrhythmia or conduction disturbance) [ ]ii) Altered mental status [ ]iii) Seizures [ ]iv) Breathing difficulty [ ]v) Muscle spasms [ ]. Hypercalcemia with ANY ONE of the following: [ ]a) Calcium greater than 14 mg/dL (3.5 mmol/L) [ ]b) Calcium greater than 12 mg/dL (3 mmol/L) with ANY ONE of the following: [ ]i) Significant dehydration or hypovolemia as indicated by ANY ONE of the following(2): [ ]1. Clinically significant dehydration as indicated by ANY ONE of the following: [ ]A. Acute loss of weight from baseline (5% of body weight in adults, 9% in pediatric patients) [ ]B. Hemodynamic instability [ ]C. Acute renal failure [ ]D. Serum sodium greater than 150 mEq/L (mmol/L) [ ]2) Dehydration that is persistent indicated by ALL of the following: [ ]A. Oral rehydration therapy not tolerated or insufficient to adequately correct dehydration [ ]B. Appropriate intravenous treatment (eg, fluids ) does not readily correct dehydration ie, after 12 to 24 hours of treatment) [ ]ii) Significant symptoms or findings; examples include: [ ]1) Altered mental status [ ]2) Cardiac abnormality (eg, arrhythmia, conduction disturbance) [ ]3) Cardiac abnormality (eg, arrhythmia, conduction disturbance) The original [email or web address] content created by [email or web address] has been revised. The portions of the content which have been revised are identified through the use of italic text or in bold, and [facility] has neither reviewed nor approved the modified material. All other unmodified content is copyright [facility] [employer] Please see references footnoted in the original [facility] [employer] edition 2016 Admission Criteria Met?: Yes LAILA FIELD Nov 27, 2016 19:10
[2016-11-27 19:16] LABS: FREE T4 1.35 ng/dL (0.76-1.46)
[2016-11-27] MEDS ORDERED: ONDANSETRON PF 4 MG/2 ML VIAL. IV PRN (19:30)
[2016-11-27] MEDS ORDERED: MORPHINE SULFATE 2 MG/ML DISP.SYRIN. IV PRN (19:30)
[2016-11-27] MEDS ORDERED: ACETAMINOPHEN 325 MG TABLET. PO PRN (19:30)
[2016-11-27] MEDS: IPRATRPIUM/ALBUTEROL 0.5/2.5MG 3 ML NEBU. NEB SCH (20:09)
--- NOTE | 2016-11-27 20:46 | PHYS DOC ---
Past Medical History Past Medical History: Hypertension Additional Past Medical Histor: PNEUMONIA Past Surgical History: Appendectomy, , Hysterectomy Additional Past Surgical Histo: SKIN CA,TUMMY TUCK,RIGHT SHOULDER SURGERY Alcohol Use: Heavy Drug Use: None Adult General Chief Complaint Chief Complaint: CHEST PAIN HPI HPI Patient is a 76 year old female who presents with shortness of breath. The patient reports 2 day history of dry cough, dyspnea at rest, right sided chest pain. She denies fevers/chills, nausea, vomiting, diaphoresis. Chest pain radiates to right shoulder. Denies lower extremity pain/swelling. She has history of hypertension & pneumonia, denies use of tobacco. History of pneumonia in 09/2016, denies COPD, asthma, CAD, CHF. PCP is Dr. Ovalles. Review of Systems Review of Systems Constitutional: Denies fever or chills Eyes: Denies change in visual acuity HENT: Denies nasal congestion or sore throat Respiratory: Reports cough & shortness of breath Cardiovascular: Reports chest pain, denies edema GI: Denies abdominal pain, nausea, vomiting, bloody stools or diarrhea : Denies dysuria or hematuria Musculoskeletal: Denies back pain or joint pain Integument: Denies rash or skin lesions Neurologic: Denies headache, focal weakness or sensory changes Current Medications Current Medications Current Medications Medications (Trade) Dose Ordered Sig/Chuckie Start Time Stop Time Status Last Admin Dose Admin Albuterol/ Ipratropium (Duoneb) 3 ml 1X ONCE 11/27/16 15:30 11/27/16 15:35 DC 11/27/16 15:56 3 ML Gentamicin Sulfate 1 each 1 each PRN DAILY PRN 11/27/16 16:45 11/27/16 20:55 DC 11/27/16 19:41 1 EACH Gentamicin Sulfate/Sodium Chloride (Gentamicin Sulfate/Iv Sodium Chloride 0.9% 100ml) 106.25 ml @ 106.25 mls/hr 1X ONCE 11/27/16 17:00 11/27/16 17:59 DC 11/27/16 18:19 106.25 MLS/HR Info 1 each 1 each PRN DAILY PRN 11/27/16 17:00 11/29/16 16:59 Iohexol (Omnipaque 300 Mg/ml) 75 ml 1X ONCE 11/27/16 16:45 11/27/16 16:47 DC 11/27/16 17:01 75 ML Piperacillin Sod/ Tazobactam Sod (Zosyn Per Pharmacy) 1 each PRN DAILY PRN 11/27/16 16:45 11/27/16 20:57 DC Piperacillin Sod/ Tazobactam Sod 3.375 gm/Sodium Chloride 50 ml @ 100 mls/hr 1X ONCE 11/27/16 17:00 11/27/16 17:29 DC 11/27/16 17:24 100 MLS/HR Vancomycin HCl (Vanco Per Pharmacy) 1 each PRN DAILY PRN 11/27/16 16:45 11/27/16 19:17 1 EACH Vancomycin HCl/ Sodium Chloride (Iv Sodium Chloride 0.9% 250ml) 250 ml @ 166.667 mls/hr 1X ONCE 11/27/16 17:00 11/27/16 18:29 DC 11/27/16 19:09 166.667 MLS/HR Allergies Allergies Allergies Coded Allergies Type Severity Reaction Last Updated Verified ciprofloxacin Allergy Intermediate BROKE OUT WITH WELTS 09/30/16 Yes Physical Exam Physical Exam Constitutional: Well developed, well nourished, no acute distress, non-toxic appearance. HENT: Normocephalic, atraumatic, bilateral external ears normal, oropharynx moist, nose normal. Eyes: PERRLA, EOMI, conjunctiva normal, no discharge. Neck: supple, no stridor. Cardiovascular: RRR, no murmurs, no edema. Lungs & Thorax: diminished in bases bilaterally, no wheezing, no respiratory distress. 2L O2 by NC, oxygen saturation 93% during my exam. no reproducible tenderness with palpation over the right anterior chest wall. Abdomen: soft, nontender, nondistended. Skin: Warm, dry, no erythema, no rash. Back: No tenderness. Extremities: No tenderness, no edema. no calf tenderness or swelling. Neurologic: Alert and oriented X 3, no focal deficits noted. Psychologic: Affect normal, judgement normal, mood normal. Current Patient Data Vital Signs Vital Signs Date Time Temp Pulse Resp B/P Pulse Ox O2 Delivery O2 Flow Rate FiO2 11/27/16 16:39 78 158/79 97 Nasal Cannula 2 11/27/16 15:39 26 11/27/16 14:54 96.9 96.9 Lab Values Laboratory Tests Test 11/27/16 15:15 White Blood Count 14.1x10^3/uL (4.0-11.0) H Red Blood Count 3.38x10^6/uL (3.50-5.40) L Hemoglobin 11.3g/dL (12.0-15.5) L Hematocrit 34.2% (36.0-47.0) L Mean Corpuscular Volume 101fL (79-100) H Mean Corpuscular Hemoglobin 33pg (25-35) Mean Corpuscular Hemoglobin Concent 33g/dL (31-37) Red Cell Distribution Width 15.8% (11.5-14.5) H Platelet Count 299x10^3/uL (140-400) Neutrophils (%) (Auto) 84% (31-73) H Lymphocytes (%) (Auto) 9% (24-48) L Monocytes (%) (Auto) 7% (0-9) Eosinophils (%) (Auto) 0% (0-3) Basophils (%) (Auto) 0% (0-3) Neutrophils # (Auto) 11.8x10^3uL (1.8-7.7) H Lymphocytes # (Auto) 1.3x10^3/uL (1.0-4.8) Monocytes # (Auto) 1.0x10^3/uL (0.0-1.1) Eosinophils # (Auto) 0.0x10^3/uL (0.0-0.7) Basophils # (Auto) 0.0x10^3/uL (0.0-0.2) Prothrombin Time 16.2SEC (11.7-14.0) H Prothrombin Time INR 1.4 (0.8-1.1) H PTT 40SEC (24-38) H D-Dimer (Hailey) 8.12ug/mlFEU (0.00-0.50) H Sodium Level 116mmol/L (136-145) *L Potassium Level 4.8mmol/L (3.5-5.1) Chloride Level 79mmol/L (98-107) L Carbon Dioxide Level 27mmol/L (21-32) Anion Gap 10 (6-14) Blood Urea Nitrogen 11mg/dL (7-20) Creatinine 0.9mg/dL (0.6-1.0) Estimated GFR (Cockcroft-Gault) 61.2 BUN/Creatinine Ratio 12 (6-20) Glucose Level 154mg/dL (70-99) H Calcium Level 8.3mg/dL (8.5-10.1) L Total Bilirubin 0.9mg/dL (0.2-1.0) Aspartate Amino Transferase (AST) 130U/L (15-37) H Alanine Aminotransferase (ALT) 56U/L (14-59) Alkaline Phosphatase 132U/L (46-116) H Troponin I Quantitative < 0.017ng/mL (0.000-0.055) ZT-Rnc-F-Type Natriuretic Peptide 35833mi/mL (0-124) H Total Protein 6.9g/dL (6.4-8.2) Albumin 3.1g/dL (3.4-5.0) L Albumin/Globulin Ratio 0.8 (1.0-1.7) L Thyroid Stimulating Hormone (TSH) 5.587uIU/mL (0.358-3.74) H Free Thyroxine 1.35ng/dL (0.76-1.46) Free Triiodothyronine (T3) pg/mL 2.28pg/mL (2.18-3.98) Laboratory Tests 11/27/16 15:15 Laboratory Tests 11/27/16 15:15 EKG EKG interpreted by me: 1457 NSR rate 85, no ST elevation, T waves inverted without depression in 3 & aVF, Q waves in V1-V2, QTc prolonged 520 ms, no ectopy, artifact is significant repeat interpreted by me: 1521 NSR rate 78, no acute ST/T wave changes from previous, QTc prolonged 520 ms, no ectopy, still some artifact in V4-V6 Radiology/Procedures Radiology/Procedures PROCEDURE: CHEST AP ONLY Portable chest, 11/27/2016: History: Shortness of breath Comparison is made to a study from 11/20/2016. The previously seen small pleural effusions have increased markedly in size. There is now a moderate volume of bilateral pleural fluid. There is underlying atelectasis/infiltrate, more so on the right. The cardiac margins are obscured by the pleural fluid. IMPRESSION: Recurrent moderate-sized bilateral pleural effusions with underlying basilar atelectasis/infiltrate, right greater than left. DICTATED and SIGNED BY: TAY WOO MD DATE: 11/27/16 1543 PROCEDURE: CT ANGIOGRAPHY CHEST Examination: CT angiography chest. HISTORY History of shortness of breath for 1 month, elevated D-dimer. COMPARISON None available. TECHNIQUE Axial CT images of the chest were performed with IV contrast. Coronal and sagittal 3D MIP reformats were performed. Exposure: One or more of the following dose reduction technique were utilized for this examination: 1. Automated exposure control. 2.Adjustment of MA and /or KV according to patient size. 3. Use of iterative reconstruction technique. Findings ; There is no evidence of filling defect identified in the main pulmonary arterial trunk and right and left main pulmonary arteries and visualized lobar, segmental branches of the pulmonary arteries. Moderate to large cardiomegaly identified. There is reflux of contrast into the IVC and the hepatic veins likely due to elevated right heart pressures. Moderate to large bilateral pleural effusions identified, right greater than left. Prominent appearing bilateral interstitial lung markings likely congestive changes with bibasilar airspace opacities and could be atelectasis /infiltrates. Few patchy airspace opacities identified in the right upper lobe along the fissure. Mild aortic atherosclerosis. Age indeterminate mild to moderate compression change of L1 vertebral body. IMPRESSION - No evidence of pulmonary embolism.. - Findings consistent with congestive heart failure changes with cardiomegaly and bilateral moderate to large pleural effusions . - Bibasilar lung airspace opacities with few patchy airspace opacities identified in the bilateral lungs likely pneumonia or atelectasis. Followup to resolution. Electronically signed by: Delvis Woodson (Nov 27, 2016 17:20:51) DICTATED and SIGNED BY: DELVIS WOODSON MD DATE: 11/27/16 1720[] Course & Med Decision Making Course & Med Decision Making Pertinent Labs and Imaging studies reviewed. (See chart for details) The patient presents with shortness of breath. Requiring oxygen by nasal cannula to maintain oxygen saturation > 90%. Diminished breath sounds on exam. Gave duoneb treatment. CXR shows bilateral effusions, possible infiltrate. BNP elevated at 30,000. Hyponatremia with sodium of 116. D dimer positive, obtained CTA chest which confirms pleural effusions with CHF vs. infectious cause. Gave antibiotics for healthcare associated pneumonia due to recent admission. Consulted Dr. Wu of nephrology, recommends vapristol 20 mg now followed by 20 mg over [address] Lopez of cardiology, requested echo & we will give 60 mg of lasix now. Discussed with Dr. العلي who agrees to accept for admission to inpatient status, to the ICU. Also consulted Dr. Cook of pulmonary medicine. Discussed the results with the patient who agrees with plan of care. She is being admitted in critical condition. Critical care time: 40 minutes [] Dragon Disclaimer Dragon Disclaimer This electronic medical record was generated, in whole or in part, using a voice recognition dictation system. Departure Departure Impression: Primary Impression: Hyponatremia Additional Impressions: Healthcare associated bacterial pneumonia Pleural effusion Congestive heart failure, acute Hypochloremia Hypoxia Essential hypertension Leukocytosis Anemia Disposition: ADMITTED INPATIENT Condition: CRITICAL Problem Qualifiers ELDER KWONG MD Nov 27, 2016 20:46
[2016-11-27] MEDS ORDERED: CONIVAPTAN IV PRN (21:00)
[2016-11-27] MEDS ORDERED: ZOLPIDEM 5 MG TABLET. PO PRN (21:30)
[2016-11-27] MEDS ORDERED: LORAZEPAM 1 MG TABLET. PO SCH (21:30)
--- NOTE | 2016-11-27 22:10 | HP ---
ADMIT DATE: 11/27/2016 CHIEF COMPLAINT: Shortness of breath. HISTORY OF PRESENT ILLNESS: The patient is a 76-year-old woman with past medical history of hypertension and recent admission for pneumonia in September of this year. She relates that she had never come back to her baseline breathing since her discharge from the hospital in early October. She actually had a followup appointment with Dr. Cook last week at which time she was felt to be in fairly stable respiratory status. However, over the weekend, she became significantly short of breath. She finally decided to come to the Emergency Room and she also noted swelling in both lower legs, right greater than left. She is unable to speak in full sentences. She denies any current chest pain or palpitations. She denies any history of heart disease. In the Emergency Room, she was found with a sodium of 116 with a chloride of 79. Calcium at 8.3 and a proBNP of 29,736. CTA of the chest was obtained not revealing any PE. However, there are [id number] bilateral pleural effusions, right greater than left, prominent appearing bilateral interstitial lung markings, likely congestive changes with bibasilar airspace opacities. The patient is now admitted for further management and care, admitted to the ICU. PAST MEDICAL HISTORY: Hypertension and recent pneumonia. FAMILY HISTORY: COPD in mother who had never smoked, her father had lung cancer. SOCIAL HISTORY: , currently living with her significant other, quit smoking. Denies any significant alcohol or drug use. ALLERGIES: CIPROFLOXACIN. MEDICATIONS: Atenolol. REVIEW OF SYSTEMS: Positive as per HPI. She denies any fevers, chills, any sputum production, any abdominal complaints. Rest of organ system review is negative. PHYSICAL EXAMINATION: VITAL SIGNS: From today show blood pressure of 145/87, heart rate of 84, respiratory rate recorded at 37, pulse ox 95% on 2 liters. Of note, earlier it dipped down into the 80s, even as low as 77 on 2 liters of nasal oxygen. GENERAL: This is a 76-year-old pale-appearing woman, awake, alert, in moderate respiratory distress, unable to speak in full sentences. HEENT: Shows no scleral icterus. NECK: Supple, without any lymphadenopathy. LUNGS: Have crackles bilaterally. CARDIOVASCULAR: Heart has regular rate and rhythm. ABDOMEN: Positive bowel sounds, soft, nontender. EXTREMITIES: Show no edema, no clubbing, no cyanosis. Distal extremities are cool. SKIN: Warm, soft and dry without any rash. LABORATORY DATA: CBC with a WBC of 14.1 with 84% neutrophils, hemoglobin at 11.3, MCV at 100.1, platelets at 299. Chemistries with sodium of 116, chloride at 79, potassium at 4.8, glucose at 154. AST elevated at 130, ALT at 56, alkaline phosphatase at 132, proBNP almost 30,000. Albumin 3.1. TSH 5.587. Of note, previous admission had normal LFTs and a proBNP of 2644. RADIOGRAPHIC IMAGING: Please see above. ASSESSMENT AND PLAN: The patient is a 76-year-old woman who appears to have a newly developed congestive heart failure. A diuresis is somewhat tricky given her current electrolyte status. Dr. Wu from Nephrology has been consulted and will try and correct her sodium level first. She will also have an echo done in the a.m. and see Dr. Lopez from Cardiology. Dr. Cook, her account technician has been notified as well. We will continue cautiously on beta serge for the time being. Monitor her electrolytes closely. She has been admitted to the ICU. CHRISTOS ARGUETA MD DR: JOSEPH/nts JOB#: [id number] / [id number] ALEJANDRO Arriola MD MTDFadia
[2016-11-28] VITALS (27 sets, daily range): BP systolic 104–157; BP diastolic 51–88
[2016-11-28] MEDS ORDERED: PIPERACILLIN/TAZOBACTAM 4.5 GM in IV NORMAL SALINE 100ML 100 ML IV SCH ×2
[2016-11-28] MEDS ORDERED: GENTAMICIN RANDOM LEVEL. MC ONE (04:00)
[2016-11-28 07:23] LABS: BASO % 0 % (0-3); EOS % 0 % (0-3); HEMATOCRIT 33.3 % (36.0-47.0); HEMOGLOBIN 10.9 g/dL (12.0-15.5); LYMPH # 1.2 x10^3/uL (1.0-4.8); LYMPH % 10 % (24-48); MEAN CORPUSCULAR HEMOGLOBIN 33 pg (25-35); MEAN CORPUSCULAR HGB CONC 33 g/dL (31-37); MEAN CORPUSCULAR VOLUME 102 fL (79-100); MONO % 7 % (0-9); NEUT % 82 % (31-73); PLATELET COUNT 229 x10^3/uL (140-400); RED BLOOD COUNT 3.28 x10^6/uL (3.50-5.40); RED CELL DISTRIBUTION WIDTH 16.2 % (11.5-14.5); WHITE BLOOD COUNT 11.2 x10^3/uL (4.0-11.0)
--- NOTE | 2016-11-28 07:58 | PDOC2 ---
CONSULT Date of Consult Date of Consult DATE: 11/28/16 TIME: 07:54 Reason for Consult Reason for Consult: HypoNateremia Referring Physician Referring Physician: Dr Perez Identification/Chief Complaint Chief Complaint SOB Problems: Source Source: Chart review, Patient History of Present Illness Reason for Visit: as dictated Current Problem List Problem List Problems Medical Problems: (1) Anemia Status: Acute (2) Congestive heart failure, acute Status: Acute (3) Essential hypertension Status: Acute (4) Healthcare associated bacterial pneumonia Status: Acute (5) Hypochloremia Status: Acute (6) Hyponatremia Status: Acute (7) Hypoxia Status: Acute (8) Leukocytosis Status: Acute (9) Pleural effusion Status: Acute Current Medications Current Medications Current Medications Albuterol/ Ipratropium (Duoneb) 3 ml 1X ONCE NEB Last administered on 15:56; Start 11/27/16 at 15:30; Stop 11/27/16 at 15:35; Status DC Vancomycin HCl (Vanco Per Pharmacy) 1 each PRN DAILY PRN MC SEE COMMENTS Last administered on 11/27/16 19:17; Start 11/27/16 at 16:45; Stop 11/28/16 at 07:13 ; Status DC Piperacillin Sod/ Tazobactam Sod (Zosyn Per Pharmacy) 1 each PRN DAILY PRN MC SEE COMMENTS; Start 11/27/16 at 16:45; Stop 11/27/16 at 20:57; Status DC Gentamicin Sulfate 1 each 1 each PRN DAILY PRN MC SEE COMMENTS Last administered on 11/27/16 19:41; Start 11/27/16 at 16:45; Stop 11/27/16 at 20:55 ; Status DC Piperacillin Sod/ Tazobactam Sod 3.375 gm/Sodium Chloride 50 ml @ 100 mls/hr 1X ONCE IV Last administered on 11/27/16 17:24; Start 11/27/16 at 17:00; Stop 11/27/16 at 17:29; Status DC Vancomycin HCl/ Sodium Chloride (Iv Sodium Chloride 0.9% 250ml) 250 ml @ 166.667 mls/hr 1X ONCE IV Last administered on 11/27/16 19:09; Start at 17:00; Stop 11/27/16 at 18:29; Status DC Iohexol (Omnipaque 300 Mg/ml) 75 ml 1X ONCE IV Last administered on 11/27/16 17:01; Start 11/27/16 at 16:45; Stop 11/27/16 at 16:47; Status DC Info 1 each 1 each PRN DAILY PRN MC SEE COMMENTS; Start 11/27/16 at 17:00; Stop 11/29/16 at 16:59 Gentamicin Sulfate 250 mg/ Sodium Chloride 106.25 ml @ 106.25 mls/hr 1X ONCE IV Last administered on 11/27/16 18:19; Start 11/27/16 at 17:00; Stop at 17:59; Status DC Conivaptan/ Dextrose 100 ml @ 200 mls/hr 1X ONCE IV Last administered on 11/27 21:14; Start 11/27/16 at 18:00; Stop 11/27/16 at 18:29; Status DC Conivaptan/ Dextrose 100 ml @ 4.167 mls/ hr 1X ONCE IV ; Start 11/27/16 at 18: 30; Stop 11/27/16 at 17:45; Status Cancel Conivaptan/ Dextrose (Vaprisol 20 Mg Premix) 100 ml @ 4.167 mls/ hr CONT PRN PRN IV HYPONATREMIA; Start 11/27/16 at 21:00 Furosemide 60 mg 60 mg 1X ONCE IVP ; Start 11/27/16 at 18:45; Stop 11/27/16 at 18:46; Status DC Piperacillin Sod/ Tazobactam Sod 4.5 gm/Sodium Chloride 100 ml @ 200 mls/hr Q6HRS IV ; Start 11/28/16 at 00:00; Stop 11/28/16 at 00:00; Status DC Vancomycin HCl/ Sodium Chloride (Iv Sodium Chloride 0.9% 250ml) 250 ml @ 250 mls/hr Q24H IV ; Start 11/28/16 at 17:00; Stop 11/28/16 at 17:00; Status DC Vancomycin HCl 1 each 1X ONCE MC ; Start 11/29/16 at 16:30; Stop 11/29/16 at 16 :30; Status DC Ondansetron HCl (Zofran) 4 mg PRN Q8HRS PRN IV NAUSEA/VOMITING; Start 11/27/16 at 19:30; Stop 11/28/16 at 19:29 Morphine Sulfate 2 mg PRN Q2HR PRN IV PAIN; Start 11/27/16 at 19:30; Stop 11/28 at 19:29 Acetaminophen (Tylenol) 650 mg PRN Q4HRS PRN PO FEVER; Start 11/27/16 at 19:30 ; Stop 11/28/16 at 19:29 Albuterol/ Ipratropium (Duoneb) 3 ml RTQID NEB Last administered on 11/27/16 20:09; Start 11/27/16 at 20:00; Stop 11/28/16 at 19:59 Gentamicin Sulfate 1 each 1X ONCE MC ; Start 11/28/16 at 04:00; Stop 11/28/16 at 04:00; Status DC Zolpidem Tartrate (Ambien) 5 mg PRN QHS PRN PO INSOMNIA Last administered on 21:39; Start 11/27/16 at 21:30 Multivitamins (Thera M Plus) 1 tab DAILY PO ; Start 11/28/16 at 09:00 Folic Acid 1 mg 1 mg DAILY PO ; Start 11/28/16 at 09:00 Thiamine HCl/ Sodium Chloride (Iv Sodium Chloride 0.9% 50ml) 51 ml @ 100 mls/ hr DAILY IV ; Start 11/28/16 at 09:00; Stop 12/03/16 at 08:59 Lorazepam (Ativan) 2 mg Q6H PO ; Start 11/27/16 at 21:30; Stop 11/27/16 at 21:34 ; Status DC Lorazepam (Ativan) 2 mg PRN Q6HRS PRN PO ALCOCHOL WITHDRAWAL PREVENTION; Start 11/28/16 at 21:30 Active Scripts Active Reported Atenolol 50 Mg Tablet 1 Tab PO DAILY Allergies Allergies: Coded Allergies: ciprofloxacin (Verified Allergy, Intermediate, BROKE OUT WITH WELTS, ) PATIENT NOT SURE IF IT'S CIPRO ? THAT WAS GIVEN ROS Review of System GEN: no Fevers no Chills + Anorexia EYES: no Visual Complaints ENT: no EN Drainage no Hearing deficiets CVS: min Orthopnea no CP RESP: + SOB ? LINARES GI: no Nausea no Vomiting : no Dysuria no Urgency HEME: no easy bruising no Palp Ly Nodes NEURO no Focal Weakness no Sz PSYCH: no Suicidal Ideation ? Depression SKIN: no Rashes ENDO: no Polyuria or Polydipsia no Hot/Cold Intolerance MU SK: no Arthraigia no Myalgia Physical Exam Physical Exam General Appearance: Awake Alert Oriented x 3 In no Distress Eyes: VIsion Unchanged Conjunctiva Normal EN: No EN Drainage Mucous Memb. moist Neck: + JVD + JVP Supple no Thyromegaly CVS: S1 S2 + Murmur No Gallop No Rub tr Edema Resp: few Rales no Rhonchi no Acc. Muscle use GI: BAS +ve NO Bruit Non Tender Non Distended : no CVA tenderness; no Suprapubic Tenderness SKIN: no Rashes Breast Exam deferred Mu.Sk: Adequate ROM no Muscle Atrophy Heme: Unable to palpate Obvious LAD no palp Splenomegaly NEURO: Good Strength and Tone Cranial Nerves II - XII grossly intact Psych: ? Depressed no Active hallucination Vital Signs Vital Signs Date Time Temp Pulse Resp B/P Pulse Ox O2 Delivery O2 Flow Rate FiO2 11/28/16 07:00 75 27 139/77 95 Nasal Cannula 3.0 11/28/16 04:00 98.5 98.5 Assessment & Plan HypoNatremia - suspect asso with ^ed Water intake, Poor PO intake and fluid overload asso with ? Cmypathy. Min ^ed TSH may be contributing too. Ct With Vaprisol for now ^ed Lactic Acid (no ABG yet) - have not used IVF due to fl Overloaded state suggesting that she has some cardiogenic component to this. Anemia: cehck [place], suspect due to recent Pn and hospitalization HTN: R/o Rv Compoennet. Current BP meds reviewed. See orders for changes. Discussed Plan of Care and prognosis etc. at length with family. Labs Labs Laboratory Tests Test 11/27/16 15:15 11/27/16 20:18 11/28/16 00:15 11/28/16 07:15 White Blood Count 14.1x10^3/uL (4.0-11.0) 11.2x10^3/uL (4.0-11.0) Red Blood Count 3.38x10^6/uL (3.50-5.40) 3.28x10^6/uL (3.50-5.40) Hemoglobin 11.3g/dL (12.0-15.5) 10.9g/dL (12.0-15.5) Hematocrit 34.2% (36.0-47.0) 33.3% (36.0-47.0) Mean Corpuscular Volume 101fL (79-100) 102fL (79-100) Mean Corpuscular Hemoglobin 33pg (25-35) 33pg (25-35) Mean Corpuscular Hemoglobin Concent 33g/dL (31-37) 33g/dL (31-37) Red Cell Distribution Width 15.8% (11.5-14.5) 16.2% (11.5-14.5) Platelet Count 299x10^3/uL (140-400) 229x10^3/uL (140-400) Neutrophils (%) (Auto) 84% (31-73) 82% (31-73) Lymphocytes (%) (Auto) 9% (24-48) 10% (24-48) Monocytes (%) (Auto) 7% (0-9) 7% (0-9) Eosinophils (%) (Auto) 0% (0-3) 0% (0-3) Basophils (%) (Auto) 0% (0-3) 0% (0-3) Neutrophils # (Auto) 11.8x10^3uL (1.8-7.7) 9.2x10^3uL (1.8-7.7) Lymphocytes # (Auto) 1.3x10^3/uL (1.0-4.8) 1.2x10^3/uL (1.0-4.8) Monocytes # (Auto) 1.0x10^3/uL (0.0-1.1) 0.8x10^3/uL (0.0-1.1) Eosinophils # (Auto) 0.0x10^3/uL (0.0-0.7) 0.0x10^3/uL (0.0-0.7) Basophils # (Auto) 0.0x10^3/uL (0.0-0.2) 0.0x10^3/uL (0.0-0.2) Prothrombin Time 16.2SEC (11.7-14.0) Prothromb Time International Ratio 1.4 (0.8-1.1) Activated Partial Thromboplast Time 40SEC (24-38) D-Dimer (Hailey) 8.12ug/mlFEU (0.00-0.50) Sodium Level 116mmol/L (136-145) 118mmol/L (136-145) Potassium Level 4.8mmol/L (3.5-5.1) Chloride Level 79mmol/L (98-107) Carbon Dioxide Level 27mmol/L (21-32) Anion Gap 10 (6-14) Blood Urea Nitrogen 11mg/dL (7-20) Creatinine 0.9mg/dL (0.6-1.0) Estimated GFR (Cockcroft-Gault) 61.2 BUN/Creatinine Ratio 12 (6-20) Glucose Level 154mg/dL (70-99) Calcium Level 8.3mg/dL (8.5-10.1) Total Bilirubin 0.9mg/dL (0.2-1.0) Aspartate Amino Transf (AST/SGOT) 130U/L (15-37) Alanine Aminotransferase (ALT/SGPT) 56U/L (14-59) Alkaline Phosphatase 132U/L (46-116) Troponin I Quantitative < 0.017ng/mL (0.000-0.055) < 0.017ng/mL (0.000-0.055) < 0.017ng/mL (0.000-0.055) VS-Kca-J-Type Natriuretic Peptide 19006xq/mL (0-124) Total Protein 6.9g/dL (6.4-8.2) Albumin 3.1g/dL (3.4-5.0) Albumin/Globulin Ratio 0.8 (1.0-1.7) Thyroid Stimulating Hormone (TSH) 5.587uIU/mL (0.358-3.74) Free Thyroxine 1.35ng/dL (0.76-1.46) Free Triiodothyronine (T3) pg/mL 2.28pg/mL (2.18-3.98) Lactic Acid Level 5.3mmol/L (0.4-2.0) 4.0mmol/L (0.4-2.0) 3.2mmol/L (0.4-2.0) Laboratory Tests Test 11/27/16 15:15 11/27/16 20:18 11/28/16 00:15 11/28/16 07:15 White Blood Count 14.1x10^3/uL (4.0-11.0) 11.2x10^3/uL (4.0-11.0) Red Blood Count 3.38x10^6/uL (3.50-5.40) 3.28x10^6/uL (3.50-5.40) Hemoglobin 11.3g/dL (12.0-15.5) 10.9g/dL (12.0-15.5) Hematocrit 34.2% (36.0-47.0) 33.3% (36.0-47.0) Mean Corpuscular Volume 101fL (79-100) 102fL (79-100) Mean Corpuscular Hemoglobin 33pg (25-35) 33pg (25-35) Mean Corpuscular Hemoglobin Concent 33g/dL (31-37) 33g/dL (31-37) Red Cell Distribution Width 15.8% (11.5-14.5) 16.2% (11.5-14.5) Platelet Count 299x10^3/uL (140-400) 229x10^3/uL (140-400) Neutrophils (%) (Auto) 84% (31-73) 82% (31-73) Lymphocytes (%) (Auto) 9% (24-48) 10% (24-48) Monocytes (%) (Auto) 7% (0-9) 7% (0-9) Eosinophils (%) (Auto) 0% (0-3) 0% (0-3) Basophils (%) (Auto) 0% (0-3) 0% (0-3) Neutrophils # (Auto) 11.8x10^3uL (1.8-7.7) 9.2x10^3uL (1.8-7.7) Lymphocytes # (Auto) 1.3x10^3/uL (1.0-4.8) 1.2x10^3/uL (1.0-4.8) Monocytes # (Auto) 1.0x10^3/uL (0.0-1.1) 0.8x10^3/uL (0.0-1.1) Eosinophils # (Auto) 0.0x10^3/uL (0.0-0.7) 0.0x10^3/uL (0.0-0.7) Basophils # (Auto) 0.0x10^3/uL (0.0-0.2) 0.0x10^3/uL (0.0-0.2) Prothrombin Time 16.2SEC (11.7-14.0) Prothromb Time International Ratio 1.4 (0.8-1.1) Activated Partial Thromboplast Time 40SEC (24-38) D-Dimer (Hailey) 8.12ug/mlFEU (0.00-0.50) Sodium Level 116mmol/L (136-145) 118mmol/L (136-145) Potassium Level 4.8mmol/L (3.5-5.1) Chloride Level 79mmol/L (98-107) Carbon Dioxide Level 27mmol/L (21-32) Anion Gap 10 (6-14) Blood Urea Nitrogen 11mg/dL (7-20) Creatinine 0.9mg/dL (0.6-1.0) Estimated GFR (Cockcroft-Gault) 61.2 BUN/Creatinine Ratio 12 (6-20) Glucose Level 154mg/dL (70-99) Calcium Level 8.3mg/dL (8.5-10.1) Total Bilirubin 0.9mg/dL (0.2-1.0) Aspartate Amino Transf (AST/SGOT) 130U/L (15-37) Alanine Aminotransferase (ALT/SGPT) 56U/L (14-59) Alkaline Phosphatase 132U/L (46-116) Troponin I Quantitative < 0.017ng/mL (0.000-0.055) < 0.017ng/mL (0.000-0.055) < 0.017ng/mL (0.000-0.055) RF-Xss-J-Type Natriuretic Peptide 44450tp/mL (0-124) Total Protein 6.9g/dL (6.4-8.2) Albumin 3.1g/dL (3.4-5.0) Albumin/Globulin Ratio 0.8 (1.0-1.7) Thyroid Stimulating Hormone (TSH) 5.587uIU/mL (0.358-3.74) Free Thyroxine 1.35ng/dL (0.76-1.46) Free Triiodothyronine (T3) pg/mL 2.28pg/mL (2.18-3.98) Lactic Acid Level 5.3mmol/L (0.4-2.0) 4.0mmol/L (0.4-2.0) 3.2mmol/L (0.4-2.0) Images Images - No evidence of pulmonary embolism.. - Findings consistent with congestive heart failure changes with cardiomegaly and bilateral moderate to large pleural effusions . - Bibasilar lung airspace opacities with few patchy airspace opacities identified in the bilateral lungs likely pneumonia or atelectasis. Followup to resolution. TRINY MENDEZ MD Nov 28, 2016 07:58
[2016-11-28] MEDS: IPRATRPIUM/ALBUTEROL 0.5/2.5MG 3 ML NEBU. NEB SCH ×4 (08:01→20:47)
[2016-11-28 08:22] LABS: CALCIUM 8.1 mg/dL (8.5-10.1); CREATININE 0.7 mg/dL (0.6-1.0); GFR 81.8; POTASSIUM 4.2 mmol/L (3.5-5.1)
[2016-11-28 08:24] LABS: % SAT IRON 12 % (15-34); IRON,SERUM 33 ug/dL (50-170)
[2016-11-28] MEDS: THIAMINE 100 MG in IV NORMAL SALINE 50ML 50 ML IV SCH (09:15)
[2016-11-28] MEDS: MULTIVITAMIN with MINERAL TABLET. PO SCH (09:15)
[2016-11-28] MEDS: FOLIC ACID 1 MG TABLET. PO SCH (09:15)
--- NOTE | 2016-11-28 10:14 | RAD ---
Renal ultrasound with renal arterial Doppler History: Hypertension, fluid overload. Comparison: None. Technique: Grayscale, color Doppler, spectral Doppler imaging was performed of both kidneys, aorta, and renal vessels. Findings: Grayscale imaging of the kidneys demonstrates that the right kidney measures 11.6 cm in length. The left kidney measures 11.6 cm in length. Both kidneys are without evidence of obstruction or stone. Visualized portions of the aorta demonstrate normal caliber. Urinary bladder demonstrates presence of Cabrera catheter. Evaluation of bladder wall is limited. Incidental imaging of the gallbladder demonstrates marked gallbladder wall thickening and edema measuring up to 11 mm cyst. Common bile duct is borderline dilated at 7 mm. Peak systolic velocity of the abdominal aorta is 59 cm/s. Peak systolic velocity of the proximal right renal artery is 85 cm/s. Peak systolic velocity of the mid right renal artery is 97 cm/s. Peak systolic velocity of the distal right renal artery is 34 cm/s. Maximum RA/AO ratio is 1.7. Peak systolic velocity of the proximal left renal artery is 53 cm/s. Peak systolic velocity of the mid left renal artery is 61 cm/s. Peak systolic velocity of distal left renal artery is 25 cm/s. Maximum left RA/AO ratio is 1.0. Impression: 1. No evidence of renal artery stenosis. 2. Unremarkable grayscale appearance of both kidneys. 3. Cabrera catheter is present in the urinary bladder. 4. Marked wall thickening and edema of the gallbladder. Recommend correlation for signs and symptoms of cholecystitis. 5. Borderline common bile ductal dilatation.
--- NOTE | 2016-11-28 12:50 | PDOC2 ---
CONSULT Date of Consult Date of Consult DATE: 11/28/16 TIME: 12:39 Reason for Consult Reason for Consult: CHF Identification/Chief Complaint Chief Complaint SOB Source Source: Chart review, Patient History of Present Illness Reason for Visit: 76 yo F presents to ED with SOB. PMH is significant for HTN and recent hospitalization for pneumonia in September 2016. She has had 2 days of dry cough , dyspnea worse at night, and some R sided chest pain radiating to R shoulder. She was recently seen by Dr. Ramirez last week and was in a stable respiratory status. In the ED, labs were drawn with Na 116, Cl 79, Calcium 8.3 and proBNP 66077. CTA did not reveal a PE. CXR revealed bilateral large pleural effusions. Since admission, patient reports SOB and edema is much improved, though she still needs to catch her breath when speaking. Past Medical History Cardiovascular: HTN Pulmonary: Pneumonia Current Problem List Problem List Problems Medical Problems: (1) Anemia Status: Acute (2) Congestive heart failure, acute Status: Acute (3) Essential hypertension Status: Acute (4) Healthcare associated bacterial pneumonia Status: Acute (5) Hypochloremia Status: Acute (6) Hyponatremia Status: Acute (7) Hypoxia Status: Acute (8) Leukocytosis Status: Acute (9) Pleural effusion Status: Acute Current Medications Current Medications Current Medications Albuterol/ Ipratropium (Duoneb) 3 ml 1X ONCE NEB Last administered on 15:56; Start 11/27/16 at 15:30; Stop 11/27/16 at 15:35; Status DC Vancomycin HCl (Vanco Per Pharmacy) 1 each PRN DAILY PRN MC SEE COMMENTS Last administered on 11/27/16 19:17; Start 11/27/16 at 16:45; Stop 11/28/16 at 07:13 ; Status DC Piperacillin Sod/ Tazobactam Sod (Zosyn Per Pharmacy) 1 each PRN DAILY PRN MC SEE COMMENTS; Start 11/27/16 at 16:45; Stop 11/27/16 at 20:57; Status DC Gentamicin Sulfate 1 each 1 each PRN DAILY PRN MC SEE COMMENTS Last administered on 11/27/16 19:41; Start 11/27/16 at 16:45; Stop 11/27/16 at 20:55 ; Status DC Piperacillin Sod/ Tazobactam Sod 3.375 gm/Sodium Chloride 50 ml @ 100 mls/hr 1X ONCE IV Last administered on 11/27/16 17:24; Start 11/27/16 at 17:00; Stop 11/27/16 at 17:29; Status DC Vancomycin HCl/ Sodium Chloride (Iv Sodium Chloride 0.9% 250ml) 250 ml @ 166.667 mls/hr 1X ONCE IV Last administered on 11/27/16 19:09; Start at 17:00; Stop 11/27/16 at 18:29; Status DC Iohexol (Omnipaque 300 Mg/ml) 75 ml 1X ONCE IV Last administered on 11/27/16 17:01; Start 11/27/16 at 16:45; Stop 11/27/16 at 16:47; Status DC Info 1 each 1 each PRN DAILY PRN MC SEE COMMENTS; Start 11/27/16 at 17:00; Stop 11/29/16 at 16:59 Gentamicin Sulfate 250 mg/ Sodium Chloride 106.25 ml @ 106.25 mls/hr 1X ONCE IV Last administered on 11/27/16 18:19; Start 11/27/16 at 17:00; Stop at 17:59; Status DC Conivaptan/ Dextrose 100 ml @ 200 mls/hr 1X ONCE IV Last administered on 11/27 21:14; Start 11/27/16 at 18:00; Stop 11/27/16 at 18:29; Status DC Conivaptan/ Dextrose 100 ml @ 4.167 mls/ hr 1X ONCE IV ; Start 11/27/16 at 18: 30; Stop 11/27/16 at 17:45; Status Cancel Conivaptan/ Dextrose (Vaprisol 20 Mg Premix) 100 ml @ 4.167 mls/ hr CONT PRN PRN IV HYPONATREMIA; Start 11/27/16 at 21:00 Furosemide 60 mg 60 mg 1X ONCE IVP ; Start 11/27/16 at 18:45; Stop 11/27/16 at 18:46; Status DC Piperacillin Sod/ Tazobactam Sod 4.5 gm/Sodium Chloride 100 ml @ 200 mls/hr Q6HRS IV ; Start 11/28/16 at 00:00; Stop 11/28/16 at 00:00; Status DC Vancomycin HCl/ Sodium Chloride (Iv Sodium Chloride 0.9% 250ml) 250 ml @ 250 mls/hr Q24H IV ; Start 11/28/16 at 17:00; Stop 11/28/16 at 17:00; Status DC Vancomycin HCl 1 each 1X ONCE MC ; Start 11/29/16 at 16:30; Stop 11/29/16 at 16 :30; Status DC Ondansetron HCl (Zofran) 4 mg PRN Q8HRS PRN IV NAUSEA/VOMITING; Start 11/27/16 at 19:30; Stop 11/28/16 at 19:29 Morphine Sulfate 2 mg PRN Q2HR PRN IV PAIN; Start 11/27/16 at 19:30; Stop 11/28 at 19:29 Acetaminophen (Tylenol) 650 mg PRN Q4HRS PRN PO FEVER; Start 11/27/16 at 19:30 ; Stop 11/28/16 at 19:29 Albuterol/ Ipratropium (Duoneb) 3 ml RTQID NEB Last administered on 11/28/16 11:36; Start 11/27/16 at 20:00; Stop 11/28/16 at 19:59 Gentamicin Sulfate 1 each 1X ONCE MC ; Start 11/28/16 at 04:00; Stop 11/28/16 at 04:00; Status DC Zolpidem Tartrate (Ambien) 5 mg PRN QHS PRN PO INSOMNIA Last administered on 21:39; Start 11/27/16 at 21:30 Multivitamins (Thera M Plus) 1 tab DAILY PO Last administered on 11/28/16 09: 15; Start 11/28/16 at 09:00 Folic Acid 1 mg 1 mg DAILY PO Last administered on 11/28/16 09:15; Start 11/28 at 09:00 Thiamine HCl/ Sodium Chloride (Iv Sodium Chloride 0.9% 50ml) 51 ml @ 100 mls/ hr DAILY IV Last administered on 11/28/16 09:15; Start 11/28/16 at 09:00; Stop 12/03/16 at 08:59 Lorazepam (Ativan) 2 mg Q6H PO Last administered on 11/27/16 21:30; Start at 21:30; Stop 11/27/16 at 21:34; Status DC Lorazepam (Ativan) 2 mg PRN Q6HRS PRN PO ALCOCHOL WITHDRAWAL PREVENTION; Start 11/28/16 at 21:30 Active Scripts Active Reported Atenolol 50 Mg Tablet 1 Tab PO DAILY Allergies Allergies: Coded Allergies: ciprofloxacin (Verified Allergy, Intermediate, BROKE OUT WITH WELTS, ) PATIENT NOT SURE IF IT'S CIPRO ? THAT WAS GIVEN Physical Exam General: Alert, Oriented X3, Cooperative, mild distress HEENT: Atraumatic, EOMI Lungs: Other (Minimal air movement) Heart: Regular rate, Normal S1, Normal S2, Other (2/6 systolic murmur and a 1/ 6 diastolic murmur) Abdomen: Soft Extremities: No clubbing, Other (In compression stockings with SCD's bilaterally) Skin: No significant lesion Neuro: Normal speech Psych/Mental Status: Mental status NL Vitals VITALS Vital Signs Date Time Temp Pulse Resp B/P Pulse Ox O2 Delivery O2 Flow Rate FiO2 11/28/16 12:00 Nasal Cannula 3.0 11/28/16 12:00 98.7 97 29 135/70 97 98.7 Labs Labs Laboratory Tests Test 11/27/16 15:15 11/27/16 20:00 11/27/16 20:18 11/28/16 00:15 White Blood Count 14.1x10^3/uL (4.0-11.0) Red Blood Count 3.38x10^6/uL (3.50-5.40) Hemoglobin 11.3g/dL (12.0-15.5) Hematocrit 34.2% (36.0-47.0) Mean Corpuscular Volume 101fL (79-100) Mean Corpuscular Hemoglobin 33pg (25-35) Mean Corpuscular Hemoglobin Concent 33g/dL (31-37) Red Cell Distribution Width 15.8% (11.5-14.5) Platelet Count 299x10^3/uL (140-400) Neutrophils (%) (Auto) 84% (31-73) Lymphocytes (%) (Auto) 9% (24-48) Monocytes (%) (Auto) 7% (0-9) Eosinophils (%) (Auto) 0% (0-3) Basophils (%) (Auto) 0% (0-3) Neutrophils # (Auto) 11.8x10^3uL (1.8-7.7) Lymphocytes # (Auto) 1.3x10^3/uL (1.0-4.8) Monocytes # (Auto) 1.0x10^3/uL (0.0-1.1) Eosinophils # (Auto) 0.0x10^3/uL (0.0-0.7) Basophils # (Auto) 0.0x10^3/uL (0.0-0.2) Prothrombin Time 16.2SEC (11.7-14.0) Prothromb Time International Ratio 1.4 (0.8-1.1) Activated Partial Thromboplast Time 40SEC (24-38) D-Dimer (Hailey) 8.12ug/mlFEU (0.00-0.50) Sodium Level 116mmol/L (136-145) 118mmol/L (136-145) Potassium Level 4.8mmol/L (3.5-5.1) Chloride Level 79mmol/L (98-107) Carbon Dioxide Level 27mmol/L (21-32) Anion Gap 10 (6-14) Blood Urea Nitrogen 11mg/dL (7-20) Creatinine 0.9mg/dL (0.6-1.0) Estimated GFR (Cockcroft-Gault) 61.2 BUN/Creatinine Ratio 12 (6-20) Glucose Level 154mg/dL (70-99) Calcium Level 8.3mg/dL (8.5-10.1) Total Bilirubin 0.9mg/dL (0.2-1.0) Aspartate Amino Transf (AST/SGOT) 130U/L (15-37) Alanine Aminotransferase (ALT/SGPT) 56U/L (14-59) Alkaline Phosphatase 132U/L (46-116) Troponin I Quantitative < 0.017ng/mL (0.000-0.055) < 0.017ng/mL (0.000-0.055) NZ-Oas-A-Type Natriuretic Peptide 31374vk/mL (0-124) Total Protein 6.9g/dL (6.4-8.2) Albumin 3.1g/dL (3.4-5.0) Albumin/Globulin Ratio 0.8 (1.0-1.7) Thyroid Stimulating Hormone (TSH) 5.587uIU/mL (0.358-3.74) Free Thyroxine 1.35ng/dL (0.76-1.46) Free Triiodothyronine (T3) pg/mL 2.28pg/mL (2.18-3.98) Nasal Screen MRSA (PCR) Negative (Negative) Lactic Acid Level 5.3mmol/L (0.4-2.0) 4.0mmol/L (0.4-2.0) Test 11/28/16 07:15 11/28/16 11:40 White Blood Count 11.2x10^3/uL (4.0-11.0) Red Blood Count 3.28x10^6/uL (3.50-5.40) Hemoglobin 10.9g/dL (12.0-15.5) Hematocrit 33.3% (36.0-47.0) Mean Corpuscular Volume 102fL (79-100) Mean Corpuscular Hemoglobin 33pg (25-35) Mean Corpuscular Hemoglobin Concent 33g/dL (31-37) Red Cell Distribution Width 16.2% (11.5-14.5) Platelet Count 229x10^3/uL (140-400) Neutrophils (%) (Auto) 82% (31-73) Lymphocytes (%) (Auto) 10% (24-48) Monocytes (%) (Auto) 7% (0-9) Eosinophils (%) (Auto) 0% (0-3) Basophils (%) (Auto) 0% (0-3) Neutrophils # (Auto) 9.2x10^3uL (1.8-7.7) Lymphocytes # (Auto) 1.2x10^3/uL (1.0-4.8) Monocytes # (Auto) 0.8x10^3/uL (0.0-1.1) Eosinophils # (Auto) 0.0x10^3/uL (0.0-0.7) Basophils # (Auto) 0.0x10^3/uL (0.0-0.2) Reticulocyte Count (auto) 2.2% (0.5-2.5) Sodium Level 122mmol/L (136-145) 122mmol/L (136-145) Potassium Level 4.2mmol/L (3.5-5.1) Chloride Level 85mmol/L (98-107) Carbon Dioxide Level 29mmol/L (21-32) Anion Gap 8 (6-14) Blood Urea Nitrogen 11mg/dL (7-20) Creatinine 0.7mg/dL (0.6-1.0) Estimated GFR (Cockcroft-Gault) 81.8 Glucose Level 102mg/dL (70-99) Lactic Acid Level 3.2mmol/L (0.4-2.0) Calcium Level 8.1mg/dL (8.5-10.1) Iron Level 33ug/dL (50-170) Total Iron Binding Capacity 284ug/dL (250-450) Iron Saturation 12% (15-34) Ferritin 809ng/mL (8-252) Troponin I Quantitative < 0.017ng/mL (0.000-0.055) Laboratory Tests Test 11/27/16 15:15 11/27/16 20:00 11/27/16 20:18 11/28/16 00:15 White Blood Count 14.1x10^3/uL (4.0-11.0) Red Blood Count 3.38x10^6/uL (3.50-5.40) Hemoglobin 11.3g/dL (12.0-15.5) Hematocrit 34.2% (36.0-47.0) Mean Corpuscular Volume 101fL (79-100) Mean Corpuscular Hemoglobin 33pg (25-35) Mean Corpuscular Hemoglobin Concent 33g/dL (31-37) Red Cell Distribution Width 15.8% (11.5-14.5) Platelet Count 299x10^3/uL (140-400) Neutrophils (%) (Auto) 84% (31-73) Lymphocytes (%) (Auto) 9% (24-48) Monocytes (%) (Auto) 7% (0-9) Eosinophils (%) (Auto) 0% (0-3) Basophils (%) (Auto) 0% (0-3) Neutrophils # (Auto) 11.8x10^3uL (1.8-7.7) Lymphocytes # (Auto) 1.3x10^3/uL (1.0-4.8) Monocytes # (Auto) 1.0x10^3/uL (0.0-1.1) Eosinophils # (Auto) 0.0x10^3/uL (0.0-0.7) Basophils # (Auto) 0.0x10^3/uL (0.0-0.2) Prothrombin Time 16.2SEC (11.7-14.0) Prothromb Time International Ratio 1.4 (0.8-1.1) Activated Partial Thromboplast Time 40SEC (24-38) D-Dimer (Hailey) 8.12ug/mlFEU (0.00-0.50) Sodium Level 116mmol/L (136-145) 118mmol/L (136-145) Potassium Level 4.8mmol/L (3.5-5.1) Chloride Level 79mmol/L (98-107) Carbon Dioxide Level 27mmol/L (21-32) Anion Gap 10 (6-14) Blood Urea Nitrogen 11mg/dL (7-20) Creatinine 0.9mg/dL (0.6-1.0) Estimated GFR (Cockcroft-Gault) 61.2 BUN/Creatinine Ratio 12 (6-20) Glucose Level 154mg/dL (70-99) Calcium Level 8.3mg/dL (8.5-10.1) Total Bilirubin 0.9mg/dL (0.2-1.0) Aspartate Amino Transf (AST/SGOT) 130U/L (15-37) Alanine Aminotransferase (ALT/SGPT) 56U/L (14-59) Alkaline Phosphatase 132U/L (46-116) Troponin I Quantitative < 0.017ng/mL (0.000-0.055) < 0.017ng/mL (0.000-0.055) ZG-Tzo-N-Type Natriuretic Peptide 43966qo/mL (0-124) Total Protein 6.9g/dL (6.4-8.2) Albumin 3.1g/dL (3.4-5.0) Albumin/Globulin Ratio 0.8 (1.0-1.7) Thyroid Stimulating Hormone (TSH) 5.587uIU/mL (0.358-3.74) Free Thyroxine 1.35ng/dL (0.76-1.46) Free Triiodothyronine (T3) pg/mL 2.28pg/mL (2.18-3.98) Nasal Screen MRSA (PCR) Negative (Negative) Lactic Acid Level 5.3mmol/L (0.4-2.0) 4.0mmol/L (0.4-2.0) Test 11/28/16 07:15 11/28/16 11:40 White Blood Count 11.2x10^3/uL (4.0-11.0) Red Blood Count 3.28x10^6/uL (3.50-5.40) Hemoglobin 10.9g/dL (12.0-15.5) Hematocrit 33.3% (36.0-47.0) Mean Corpuscular Volume 102fL (79-100) Mean Corpuscular Hemoglobin 33pg (25-35) Mean Corpuscular Hemoglobin Concent 33g/dL (31-37) Red Cell Distribution Width 16.2% (11.5-14.5) Platelet Count 229x10^3/uL (140-400) Neutrophils (%) (Auto) 82% (31-73) Lymphocytes (%) (Auto) 10% (24-48) Monocytes (%) (Auto) 7% (0-9) Eosinophils (%) (Auto) 0% (0-3) Basophils (%) (Auto) 0% (0-3) Neutrophils # (Auto) 9.2x10^3uL (1.8-7.7) Lymphocytes # (Auto) 1.2x10^3/uL (1.0-4.8) Monocytes # (Auto) 0.8x10^3/uL (0.0-1.1) Eosinophils # (Auto) 0.0x10^3/uL (0.0-0.7) Basophils # (Auto) 0.0x10^3/uL (0.0-0.2) Reticulocyte Count (auto) 2.2% (0.5-2.5) Sodium Level 122mmol/L (136-145) 122mmol/L (136-145) Potassium Level 4.2mmol/L (3.5-5.1) Chloride Level 85mmol/L (98-107) Carbon Dioxide Level 29mmol/L (21-32) Anion Gap 8 (6-14) Blood Urea Nitrogen 11mg/dL (7-20) Creatinine 0.7mg/dL (0.6-1.0) Estimated GFR (Cockcroft-Gault) 81.8 Glucose Level 102mg/dL (70-99) Lactic Acid Level 3.2mmol/L (0.4-2.0) Calcium Level 8.1mg/dL (8.5-10.1) Iron Level 33ug/dL (50-170) Total Iron Binding Capacity 284ug/dL (250-450) Iron Saturation 12% (15-34) Ferritin 809ng/mL (8-252) Troponin I Quantitative < 0.017ng/mL (0.000-0.055) Assessment/Plan Assessment/Plan Assessment: New onset CHF HTN Hyponatremia This patient became decompensated with a large pleural effusion and has a murmur of mitral insufficiency and possible aortic insufficiency. Need to get an echocardiogram to further evaluate the patient, need to see both the valves as well as the left ventricular function. Depending on the findings we will have further recommendations. Plan: Echocardiogram Stay in ICU for continued monitoring Thoracentesis today Await further stabilization before more cardiac tests Agree with primary team's plan Appreciate nephrology plan Thank you very much for asking me to participate in the care of this patient ELVA CANO MD Nov 28, 2016 12:50
--- NOTE | 2016-11-28 13:28 | PDOC ---
PULMONARY PROGRESS NOTES Vitals Vital Signs Date Time Temp Pulse Resp B/P Pulse Ox O2 Delivery O2 Flow Rate FiO2 11/28/16 13:00 98 35 127/85 92 Nasal Cannula 3.0 11/28/16 12:00 98.7 98.7 Lungs: Clear Cardiovascular: S1, S2 Abdomen: Soft Extremities: No Edema Labs Laboratory Tests Test 11/27/16 15:15 11/27/16 20:00 11/27/16 20:18 11/28/16 00:15 White Blood Count 14.1x10^3/uL (4.0-11.0) Red Blood Count 3.38x10^6/uL (3.50-5.40) Hemoglobin 11.3g/dL (12.0-15.5) Hematocrit 34.2% (36.0-47.0) Mean Corpuscular Volume 101fL (79-100) Mean Corpuscular Hemoglobin 33pg (25-35) Mean Corpuscular Hemoglobin Concent 33g/dL (31-37) Red Cell Distribution Width 15.8% (11.5-14.5) Platelet Count 299x10^3/uL (140-400) Neutrophils (%) (Auto) 84% (31-73) Lymphocytes (%) (Auto) 9% (24-48) Monocytes (%) (Auto) 7% (0-9) Eosinophils (%) (Auto) 0% (0-3) Basophils (%) (Auto) 0% (0-3) Neutrophils # (Auto) 11.8x10^3uL (1.8-7.7) Lymphocytes # (Auto) 1.3x10^3/uL (1.0-4.8) Monocytes # (Auto) 1.0x10^3/uL (0.0-1.1) Eosinophils # (Auto) 0.0x10^3/uL (0.0-0.7) Basophils # (Auto) 0.0x10^3/uL (0.0-0.2) Prothrombin Time 16.2SEC (11.7-14.0) Prothromb Time International Ratio 1.4 (0.8-1.1) Activated Partial Thromboplast Time 40SEC (24-38) D-Dimer (Hailey) 8.12ug/mlFEU (0.00-0.50) Sodium Level 116mmol/L (136-145) 118mmol/L (136-145) Potassium Level 4.8mmol/L (3.5-5.1) Chloride Level 79mmol/L (98-107) Carbon Dioxide Level 27mmol/L (21-32) Anion Gap 10 (6-14) Blood Urea Nitrogen 11mg/dL (7-20) Creatinine 0.9mg/dL (0.6-1.0) Estimated GFR (Cockcroft-Gault) 61.2 BUN/Creatinine Ratio 12 (6-20) Glucose Level 154mg/dL (70-99) Calcium Level 8.3mg/dL (8.5-10.1) Total Bilirubin 0.9mg/dL (0.2-1.0) Aspartate Amino Transf (AST/SGOT) 130U/L (15-37) Alanine Aminotransferase (ALT/SGPT) 56U/L (14-59) Alkaline Phosphatase 132U/L (46-116) Troponin I Quantitative < 0.017ng/mL (0.000-0.055) < 0.017ng/mL (0.000-0.055) SJ-Ykd-R-Type Natriuretic Peptide 60604zn/mL (0-124) Total Protein 6.9g/dL (6.4-8.2) Albumin 3.1g/dL (3.4-5.0) Albumin/Globulin Ratio 0.8 (1.0-1.7) Thyroid Stimulating Hormone (TSH) 5.587uIU/mL (0.358-3.74) Free Thyroxine 1.35ng/dL (0.76-1.46) Free Triiodothyronine (T3) pg/mL 2.28pg/mL (2.18-3.98) Nasal Screen MRSA (PCR) Negative (Negative) Lactic Acid Level 5.3mmol/L (0.4-2.0) 4.0mmol/L (0.4-2.0) Test 11/28/16 07:15 11/28/16 11:40 White Blood Count 11.2x10^3/uL (4.0-11.0) Red Blood Count 3.28x10^6/uL (3.50-5.40) Hemoglobin 10.9g/dL (12.0-15.5) Hematocrit 33.3% (36.0-47.0) Mean Corpuscular Volume 102fL (79-100) Mean Corpuscular Hemoglobin 33pg (25-35) Mean Corpuscular Hemoglobin Concent 33g/dL (31-37) Red Cell Distribution Width 16.2% (11.5-14.5) Platelet Count 229x10^3/uL (140-400) Neutrophils (%) (Auto) 82% (31-73) Lymphocytes (%) (Auto) 10% (24-48) Monocytes (%) (Auto) 7% (0-9) Eosinophils (%) (Auto) 0% (0-3) Basophils (%) (Auto) 0% (0-3) Neutrophils # (Auto) 9.2x10^3uL (1.8-7.7) Lymphocytes # (Auto) 1.2x10^3/uL (1.0-4.8) Monocytes # (Auto) 0.8x10^3/uL (0.0-1.1) Eosinophils # (Auto) 0.0x10^3/uL (0.0-0.7) Basophils # (Auto) 0.0x10^3/uL (0.0-0.2) Reticulocyte Count (auto) 2.2% (0.5-2.5) Sodium Level 122mmol/L (136-145) 122mmol/L (136-145) Potassium Level 4.2mmol/L (3.5-5.1) Chloride Level 85mmol/L (98-107) Carbon Dioxide Level 29mmol/L (21-32) Anion Gap 8 (6-14) Blood Urea Nitrogen 11mg/dL (7-20) Creatinine 0.7mg/dL (0.6-1.0) Estimated GFR (Cockcroft-Gault) 81.8 Glucose Level 102mg/dL (70-99) Lactic Acid Level 3.2mmol/L (0.4-2.0) Calcium Level 8.1mg/dL (8.5-10.1) Iron Level 33ug/dL (50-170) Total Iron Binding Capacity 284ug/dL (250-450) Iron Saturation 12% (15-34) Ferritin 809ng/mL (8-252) Troponin I Quantitative < 0.017ng/mL (0.000-0.055) Laboratory Tests Test 11/27/16 15:15 11/27/16 20:00 11/27/16 20:18 11/28/16 00:15 White Blood Count 14.1x10^3/uL (4.0-11.0) Red Blood Count 3.38x10^6/uL (3.50-5.40) Hemoglobin 11.3g/dL (12.0-15.5) Hematocrit 34.2% (36.0-47.0) Mean Corpuscular Volume 101fL (79-100) Mean Corpuscular Hemoglobin 33pg (25-35) Mean Corpuscular Hemoglobin Concent 33g/dL (31-37) Red Cell Distribution Width 15.8% (11.5-14.5) Platelet Count 299x10^3/uL (140-400) Neutrophils (%) (Auto) 84% (31-73) Lymphocytes (%) (Auto) 9% (24-48) Monocytes (%) (Auto) 7% (0-9) Eosinophils (%) (Auto) 0% (0-3) Basophils (%) (Auto) 0% (0-3) Neutrophils # (Auto) 11.8x10^3uL (1.8-7.7) Lymphocytes # (Auto) 1.3x10^3/uL (1.0-4.8) Monocytes # (Auto) 1.0x10^3/uL (0.0-1.1) Eosinophils # (Auto) 0.0x10^3/uL (0.0-0.7) Basophils # (Auto) 0.0x10^3/uL (0.0-0.2) Prothrombin Time 16.2SEC (11.7-14.0) Prothromb Time International Ratio 1.4 (0.8-1.1) Activated Partial Thromboplast Time 40SEC (24-38) D-Dimer (Hailey) 8.12ug/mlFEU (0.00-0.50) Sodium Level 116mmol/L (136-145) 118mmol/L (136-145) Potassium Level 4.8mmol/L (3.5-5.1) Chloride Level 79mmol/L (98-107) Carbon Dioxide Level 27mmol/L (21-32) Anion Gap 10 (6-14) Blood Urea Nitrogen 11mg/dL (7-20) Creatinine 0.9mg/dL (0.6-1.0) Estimated GFR (Cockcroft-Gault) 61.2 BUN/Creatinine Ratio 12 (6-20) Glucose Level 154mg/dL (70-99) Calcium Level 8.3mg/dL (8.5-10.1) Total Bilirubin 0.9mg/dL (0.2-1.0) Aspartate Amino Transf (AST/SGOT) 130U/L (15-37) Alanine Aminotransferase (ALT/SGPT) 56U/L (14-59) Alkaline Phosphatase 132U/L (46-116) Troponin I Quantitative < 0.017ng/mL (0.000-0.055) < 0.017ng/mL (0.000-0.055) XD-Szd-S-Type Natriuretic Peptide 31140bl/mL (0-124) Total Protein 6.9g/dL (6.4-8.2) Albumin 3.1g/dL (3.4-5.0) Albumin/Globulin Ratio 0.8 (1.0-1.7) Thyroid Stimulating Hormone (TSH) 5.587uIU/mL (0.358-3.74) Free Thyroxine 1.35ng/dL (0.76-1.46) Free Triiodothyronine (T3) pg/mL 2.28pg/mL (2.18-3.98) Nasal Screen MRSA (PCR) Negative (Negative) Lactic Acid Level 5.3mmol/L (0.4-2.0) 4.0mmol/L (0.4-2.0) Test 11/28/16 07:15 11/28/16 11:40 White Blood Count 11.2x10^3/uL (4.0-11.0) Red Blood Count 3.28x10^6/uL (3.50-5.40) Hemoglobin 10.9g/dL (12.0-15.5) Hematocrit 33.3% (36.0-47.0) Mean Corpuscular Volume 102fL (79-100) Mean Corpuscular Hemoglobin 33pg (25-35) Mean Corpuscular Hemoglobin Concent 33g/dL (31-37) Red Cell Distribution Width 16.2% (11.5-14.5) Platelet Count 229x10^3/uL (140-400) Neutrophils (%) (Auto) 82% (31-73) Lymphocytes (%) (Auto) 10% (24-48) Monocytes (%) (Auto) 7% (0-9) Eosinophils (%) (Auto) 0% (0-3) Basophils (%) (Auto) 0% (0-3) Neutrophils # (Auto) 9.2x10^3uL (1.8-7.7) Lymphocytes # (Auto) 1.2x10^3/uL (1.0-4.8) Monocytes # (Auto) 0.8x10^3/uL (0.0-1.1) Eosinophils # (Auto) 0.0x10^3/uL (0.0-0.7) Basophils # (Auto) 0.0x10^3/uL (0.0-0.2) Reticulocyte Count (auto) 2.2% (0.5-2.5) Sodium Level 122mmol/L (136-145) 122mmol/L (136-145) Potassium Level 4.2mmol/L (3.5-5.1) Chloride Level 85mmol/L (98-107) Carbon Dioxide Level 29mmol/L (21-32) Anion Gap 8 (6-14) Blood Urea Nitrogen 11mg/dL (7-20) Creatinine 0.7mg/dL (0.6-1.0) Estimated GFR (Cockcroft-Gault) 81.8 Glucose Level 102mg/dL (70-99) Lactic Acid Level 3.2mmol/L (0.4-2.0) Calcium Level 8.1mg/dL (8.5-10.1) Iron Level 33ug/dL (50-170) Total Iron Binding Capacity 284ug/dL (250-450) Iron Saturation 12% (15-34) Ferritin 809ng/mL (8-252) Troponin I Quantitative < 0.017ng/mL (0.000-0.055) Medications Active Scripts Medications Dose Route/Sig Days Date Category Atenolol 50 Mg Tablet 1 Tab PO DAILY 08/30/16 Reported Impression . [id number] Acute resp failure Pleural Effusion see orders CORBY FULLER MD Nov 28, 2016 13:28
--- NOTE | 2016-11-28 13:36 | PDOC2 ---
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 Seen in room w/ humble. Pulm, renal, cardiology following. Significant labs: Na 116 (now 122), Hgb 11.3 (now 10.9) w/ elevated MCV, low iron/sat w/ normal TIBC, INR 1.4, BNP >35344, D-dimer 8.12, TSH 5.5, lactic acid 5.5 (now 3.2), bili 0.9, AST 130, ALT 56, Alk Phos 132. Imaging w/o PE, c/ w CHF w/ cardiomegaly and moderate to large pleural effusions bilaterally. Renal doppler noted gallbladder wall thickening and edema of the gallbladder w/ borderline common bile ductal dilatation. GI consult requested for ?cirrhosis. Per humble MADDEN reported to ER physician that the pt is a heavy vodka drinker ( drinks vodka and water starting in the early mornings, usually doesn't eat much) . To me, the patient reports drinking three beers weekly, occasionally vodka at parties, denies heavy alcohol consumption. Reports a h/o elevated LFTs w/o specific diagnosis, monitored by her PCP. Currently w/o GI complaints. H/o diarrhea after eating greasy foods; unchanged. Reports previous EGD and colonoscopy by Dr. Yang ~5-6 years ago, believes bother were normal. PMH: PMH: HTN, pneumonia, basal cell carcinoma (removed from left forehead), D&C, C- section x 5, partial hysterectomy, abdominoplasty, right shoulder ORIF and replacement FH: Family History: Cancer (lung), Other (COPD) Social History: Smoke: No ALCOHOL: other (see HPI) Drugs: None ROS: GEN: Denies fevers, chills, sweats HEENT: Denies blurred vision, sore throat CV: Denies chest pain RESP: +SOA GI: Per HPI : Denies hematuria, dysuria ENDO: Denies weight changes NEURO: Denies confusion, dizziness MSK: +BLE swelling SKIN: Denies jaundice, pruritus VItals: Vitals: Vital Signs Date Time Temp Pulse Resp B/P Pulse Ox O2 Delivery O2 Flow Rate FiO2 11/28/16 13:00 98 35 127/85 92 Nasal Cannula 3.0 11/28/16 12:00 98.7 98.7 Labs: Labs: Laboratory Tests Test 11/27/16 15:15 11/27/16 20:00 11/27/16 20:18 11/28/16 00:15 White Blood Count 14.1x10^3/uL (4.0-11.0) Red Blood Count 3.38x10^6/uL (3.50-5.40) Hemoglobin 11.3g/dL (12.0-15.5) Hematocrit 34.2% (36.0-47.0) Mean Corpuscular Volume 101fL (79-100) Mean Corpuscular Hemoglobin 33pg (25-35) Mean Corpuscular Hemoglobin Concent 33g/dL (31-37) Red Cell Distribution Width 15.8% (11.5-14.5) Platelet Count 299x10^3/uL (140-400) Neutrophils (%) (Auto) 84% (31-73) Lymphocytes (%) (Auto) 9% (24-48) Monocytes (%) (Auto) 7% (0-9) Eosinophils (%) (Auto) 0% (0-3) Basophils (%) (Auto) 0% (0-3) Neutrophils # (Auto) 11.8x10^3uL (1.8-7.7) Lymphocytes # (Auto) 1.3x10^3/uL (1.0-4.8) Monocytes # (Auto) 1.0x10^3/uL (0.0-1.1) Eosinophils # (Auto) 0.0x10^3/uL (0.0-0.7) Basophils # (Auto) 0.0x10^3/uL (0.0-0.2) Prothrombin Time 16.2SEC (11.7-14.0) Prothromb Time International Ratio 1.4 (0.8-1.1) Activated Partial Thromboplast Time 40SEC (24-38) D-Dimer (Hailey) 8.12ug/mlFEU (0.00-0.50) Sodium Level 116mmol/L (136-145) 118mmol/L (136-145) Potassium Level 4.8mmol/L (3.5-5.1) Chloride Level 79mmol/L (98-107) Carbon Dioxide Level 27mmol/L (21-32) Anion Gap 10 (6-14) Blood Urea Nitrogen 11mg/dL (7-20) Creatinine 0.9mg/dL (0.6-1.0) Estimated GFR (Cockcroft-Gault) 61.2 BUN/Creatinine Ratio 12 (6-20) Glucose Level 154mg/dL (70-99) Calcium Level 8.3mg/dL (8.5-10.1) Total Bilirubin 0.9mg/dL (0.2-1.0) Aspartate Amino Transf (AST/SGOT) 130U/L (15-37) Alanine Aminotransferase (ALT/SGPT) 56U/L (14-59) Alkaline Phosphatase 132U/L (46-116) Troponin I Quantitative < 0.017ng/mL (0.000-0.055) < 0.017ng/mL (0.000-0.055) KN-Xof-O-Type Natriuretic Peptide 96845sx/mL (0-124) Total Protein 6.9g/dL (6.4-8.2) Albumin 3.1g/dL (3.4-5.0) Albumin/Globulin Ratio 0.8 (1.0-1.7) Thyroid Stimulating Hormone (TSH) 5.587uIU/mL (0.358-3.74) Free Thyroxine 1.35ng/dL (0.76-1.46) Free Triiodothyronine (T3) pg/mL 2.28pg/mL (2.18-3.98) Nasal Screen MRSA (PCR) Negative (Negative) Lactic Acid Level 5.3mmol/L (0.4-2.0) 4.0mmol/L (0.4-2.0) Test 11/28/16 07:15 11/28/16 11:40 White Blood Count 11.2x10^3/uL (4.0-11.0) Red Blood Count 3.28x10^6/uL (3.50-5.40) Hemoglobin 10.9g/dL (12.0-15.5) Hematocrit 33.3% (36.0-47.0) Mean Corpuscular Volume 102fL (79-100) Mean Corpuscular Hemoglobin 33pg (25-35) Mean Corpuscular Hemoglobin Concent 33g/dL (31-37) Red Cell Distribution Width 16.2% (11.5-14.5) Platelet Count 229x10^3/uL (140-400) Neutrophils (%) (Auto) 82% (31-73) Lymphocytes (%) (Auto) 10% (24-48) Monocytes (%) (Auto) 7% (0-9) Eosinophils (%) (Auto) 0% (0-3) Basophils (%) (Auto) 0% (0-3) Neutrophils # (Auto) 9.2x10^3uL (1.8-7.7) Lymphocytes # (Auto) 1.2x10^3/uL (1.0-4.8) Monocytes # (Auto) 0.8x10^3/uL (0.0-1.1) Eosinophils # (Auto) 0.0x10^3/uL (0.0-0.7) Basophils # (Auto) 0.0x10^3/uL (0.0-0.2) Reticulocyte Count (auto) 2.2% (0.5-2.5) Sodium Level 122mmol/L (136-145) 122mmol/L (136-145) Potassium Level 4.2mmol/L (3.5-5.1) Chloride Level 85mmol/L (98-107) Carbon Dioxide Level 29mmol/L (21-32) Anion Gap 8 (6-14) Blood Urea Nitrogen 11mg/dL (7-20) Creatinine 0.7mg/dL (0.6-1.0) Estimated GFR (Cockcroft-Gault) 81.8 Glucose Level 102mg/dL (70-99) Lactic Acid Level 3.2mmol/L (0.4-2.0) Calcium Level 8.1mg/dL (8.5-10.1) Iron Level 33ug/dL (50-170) Total Iron Binding Capacity 284ug/dL (250-450) Iron Saturation 12% (15-34) Ferritin 809ng/mL (8-252) Troponin I Quantitative < 0.017ng/mL (0.000-0.055) Allergies: Coded Allergies: ciprofloxacin (Verified Allergy, Intermediate, BROKE OUT WITH WELTS, ) PATIENT NOT SURE IF IT'S CIPRO ? THAT WAS GIVEN Medications: Current Medications Medications (Trade) Dose Ordered Sig/Chuckie Route PRN Reason Start Time Stop Time Status Last Admin Dose Admin Albuterol/ Ipratropium (Duoneb) 3 ml 1X ONCE NEB 11/27/16 15:30 11/27/16 15:35 DC 11/27/16 15:56 Vancomycin HCl (Vanco Per Pharmacy) 1 each PRN DAILY PRN MC SEE COMMENTS 11/27/16 16:45 11/28/16 07:13 DC 11/27/16 19:17 Gentamicin Sulfate 1 each 1 each PRN DAILY PRN MC SEE COMMENTS 11/27/16 16:45 11/27/16 20:55 DC 11/27/16 19:41 Piperacillin Sod/ Tazobactam Sod 3.375 gm/Sodium Chloride 50 ml @ 100 mls/hr 1X ONCE IV 11/27/16 17:00 11/27/16 17:29 DC 11/27/16 17:24 Vancomycin HCl/ Sodium Chloride (Iv Sodium Chloride 0.9% 250ml) 250 ml @ 166.667 mls/hr 1X ONCE IV 11/27/16 17:00 11/27/16 18:29 DC 11/27/16 19:09 Iohexol 75 ml 75 ml 1X ONCE IV 11/27/16 16:45 11/27/16 16:47 DC 11/27/16 17:01 Gentamicin Sulfate 250 mg/ Sodium Chloride 106.25 ml @ 106.25 mls/hr 1X ONCE IV 11/27/16 17:00 11/27/16 17:59 DC 11/27/16 18:19 Conivaptan/ Dextrose (Vaprisol 20 Mg Premix) 100 ml @ 200 mls/hr 1X ONCE IV 11/27/16 18:00 11/27/16 18:29 DC 11/27/16 21:14 Albuterol/ Ipratropium (Duoneb) 3 ml RTQID NEB 11/27/16 20:00 11/28/16 19:59 11/28/16 11:36 Zolpidem Tartrate (Ambien) 5 mg PRN QHS PRN PO INSOMNIA 11/27/16 21:30 11/27/16 21:39 Multivitamins (Thera M Plus) 1 tab DAILY PO 11/28/16 09:00 11/28/16 09:15 Folic Acid 1 mg 1 mg DAILY PO 11/28/16 09:00 11/28/16 09:15 Thiamine HCl/ Sodium Chloride (Iv Sodium Chloride 0.9% 50ml) 51 ml @ 100 mls/hr DAILY IV 11/28/16 09:00 12/03/16 08:59 11/28/16 09:15 Lorazepam (Ativan) 2 mg Q6H PO 11/27/16 21:30 11/27/16 21:34 DC 11/27/16 21:30 Imaging: Imaging: CXR 11/27/16 IMPRESSION: Recurrent moderate-sized bilateral pleural effusions with underlying basilar atelectasis/infiltrate, right greater than left. Chest CTA 11/27/16 IMPRESSION - No evidence of pulmonary embolism.. - Findings consistent with congestive heart failure changes with cardiomegaly and bilateral moderate to large pleural effusions. - Bibasilar lung airspace opacities with few patchy airspace opacities identified in the bilateral lungs likely pneumonia or atelectasis. Followup to resolution. Renal Artery Duplex 11/28/16 Impression: 1. No evidence of renal artery stenosis. 2. Unremarkable grayscale appearance of both kidneys. 3. Cabrera catheter is present in the urinary bladder. 4. Marked wall thickening and edema of the gallbladder. Recommend correlation for signs and symptoms of cholecystitis. 5. Borderline common bile ductal dilatation. PE: GEN: NAD, undergoing breathing treatment when I walked in HEENT: atraumatic, PERRL LUNGS: decreased anteriorly, obvious SOA w/ speaking, tachypneic HEART: tachycardic ABD: NABS, non-tender EXTREMITY: compression devices SKIN: No jaundice NEURO/PSYCH: A & O 3 A/P: A/P: Hyponatremia Bilateral pleural effusions CHF Anemia -low iron, elevated MCV Alcoholism -pt denies, significant other has reported to staff Elevated TSH CRC screen -reports normal EGD and colonoscopy ~5 years ago -- Pulm, renal, cardio following - thoracentesis planned. Abd US for further assessment of liver w/ h/o alcohol abuse. JORGE JONES Nov 28, 2016 13:36
[2016-11-28] MEDS ORDERED: LIDOCAINE 1% / SOD BICARB 8.4% 20 ML VIAL. IJ ONE ×2 (14:19→14:30)
--- NOTE | 2016-11-28 14:26 | PDOC ---
PROGRESS NOTES Chief Complaint Chief Complaint cc: Shortness of breath -Congestive heart failure -Hx of pneumonia -Hypertension -Macrocytic anemia -Skin cancer -Blood transfusions -Glaucoma -Hysterectomy - section -Arthritis -Right shoulder orthopedic surgery -Alcohol use -Weight loss -Basal cell carcinoma History of Present Illness History of Present Illness Ms. Winn was lying in bed when he visited her. We discussed her case with the nurse and the patient's sister who was present in the room. The patient told us about how she was having difficulty breathing at home, and that she had subsequently came to the hospital to seek treatment. She told us she was NPO at the time because of an upcoming bilateral thoracentesis. She had thiamine and conivaptan hanging from the IV rack. She had a N/C on that was running at 3L of O2. Vitals Vitals Vital Signs Date Time Temp Pulse Resp B/P Pulse Ox O2 Delivery O2 Flow Rate FiO2 11/28/16 13:00 98 35 127/85 92 Nasal Cannula 3.0 11/28/16 12:00 98.7 98.7 Physical Exam General: Alert, Oriented X3 Heart: Regular rate, Normal S1, Normal S2 Lungs: Clear, Other (No chest retractions or obvious signs of difficulty with breathing) Abdomen: Soft, No tenderness Extremities: No clubbing, No edema Skin: No rashes, No significant lesion Labs LABS Laboratory Tests Test 11/27/16 15:15 11/27/16 20:00 11/27/16 20:18 11/28/16 00:15 White Blood Count 14.1x10^3/uL (4.0-11.0) Red Blood Count 3.38x10^6/uL (3.50-5.40) Hemoglobin 11.3g/dL (12.0-15.5) Hematocrit 34.2% (36.0-47.0) Mean Corpuscular Volume 101fL (79-100) Mean Corpuscular Hemoglobin 33pg (25-35) Mean Corpuscular Hemoglobin Concent 33g/dL (31-37) Red Cell Distribution Width 15.8% (11.5-14.5) Platelet Count 299x10^3/uL (140-400) Neutrophils (%) (Auto) 84% (31-73) Lymphocytes (%) (Auto) 9% (24-48) Monocytes (%) (Auto) 7% (0-9) Eosinophils (%) (Auto) 0% (0-3) Basophils (%) (Auto) 0% (0-3) Neutrophils # (Auto) 11.8x10^3uL (1.8-7.7) Lymphocytes # (Auto) 1.3x10^3/uL (1.0-4.8) Monocytes # (Auto) 1.0x10^3/uL (0.0-1.1) Eosinophils # (Auto) 0.0x10^3/uL (0.0-0.7) Basophils # (Auto) 0.0x10^3/uL (0.0-0.2) Prothrombin Time 16.2SEC (11.7-14.0) Prothromb Time International Ratio 1.4 (0.8-1.1) Activated Partial Thromboplast Time 40SEC (24-38) D-Dimer (Hailey) 8.12ug/mlFEU (0.00-0.50) Sodium Level 116mmol/L (136-145) 118mmol/L (136-145) Potassium Level 4.8mmol/L (3.5-5.1) Chloride Level 79mmol/L (98-107) Carbon Dioxide Level 27mmol/L (21-32) Anion Gap 10 (6-14) Blood Urea Nitrogen 11mg/dL (7-20) Creatinine 0.9mg/dL (0.6-1.0) Estimated GFR (Cockcroft-Gault) 61.2 BUN/Creatinine Ratio 12 (6-20) Glucose Level 154mg/dL (70-99) Calcium Level 8.3mg/dL (8.5-10.1) Total Bilirubin 0.9mg/dL (0.2-1.0) Aspartate Amino Transf (AST/SGOT) 130U/L (15-37) Alanine Aminotransferase (ALT/SGPT) 56U/L (14-59) Alkaline Phosphatase 132U/L (46-116) Troponin I Quantitative < 0.017ng/mL (0.000-0.055) < 0.017ng/mL (0.000-0.055) ZA-Jdt-Q-Type Natriuretic Peptide 62764ts/mL (0-124) Total Protein 6.9g/dL (6.4-8.2) Albumin 3.1g/dL (3.4-5.0) Albumin/Globulin Ratio 0.8 (1.0-1.7) Thyroid Stimulating Hormone (TSH) 5.587uIU/mL (0.358-3.74) Free Thyroxine 1.35ng/dL (0.76-1.46) Free Triiodothyronine (T3) pg/mL 2.28pg/mL (2.18-3.98) Nasal Screen MRSA (PCR) Negative (Negative) Lactic Acid Level 5.3mmol/L (0.4-2.0) 4.0mmol/L (0.4-2.0) Test 11/28/16 07:15 11/28/16 11:40 White Blood Count 11.2x10^3/uL (4.0-11.0) Red Blood Count 3.28x10^6/uL (3.50-5.40) Hemoglobin 10.9g/dL (12.0-15.5) Hematocrit 33.3% (36.0-47.0) Mean Corpuscular Volume 102fL (79-100) Mean Corpuscular Hemoglobin 33pg (25-35) Mean Corpuscular Hemoglobin Concent 33g/dL (31-37) Red Cell Distribution Width 16.2% (11.5-14.5) Platelet Count 229x10^3/uL (140-400) Neutrophils (%) (Auto) 82% (31-73) Lymphocytes (%) (Auto) 10% (24-48) Monocytes (%) (Auto) 7% (0-9) Eosinophils (%) (Auto) 0% (0-3) Basophils (%) (Auto) 0% (0-3) Neutrophils # (Auto) 9.2x10^3uL (1.8-7.7) Lymphocytes # (Auto) 1.2x10^3/uL (1.0-4.8) Monocytes # (Auto) 0.8x10^3/uL (0.0-1.1) Eosinophils # (Auto) 0.0x10^3/uL (0.0-0.7) Basophils # (Auto) 0.0x10^3/uL (0.0-0.2) Reticulocyte Count (auto) 2.2% (0.5-2.5) Sodium Level 122mmol/L (136-145) 122mmol/L (136-145) Potassium Level 4.2mmol/L (3.5-5.1) Chloride Level 85mmol/L (98-107) Carbon Dioxide Level 29mmol/L (21-32) Anion Gap 8 (6-14) Blood Urea Nitrogen 11mg/dL (7-20) Creatinine 0.7mg/dL (0.6-1.0) Estimated GFR (Cockcroft-Gault) 81.8 Glucose Level 102mg/dL (70-99) Lactic Acid Level 3.2mmol/L (0.4-2.0) Calcium Level 8.1mg/dL (8.5-10.1) Iron Level 33ug/dL (50-170) Total Iron Binding Capacity 284ug/dL (250-450) Iron Saturation 12% (15-34) Ferritin 809ng/mL (8-252) Troponin I Quantitative < 0.017ng/mL (0.000-0.055) Review of Systems Review of Systems The patient was not feeling any signs of fever or nausea. She had not had any episodes of emesis. Assessment and Plan Assessmemt and Plan Problems Medical Problems: (1) Anemia Status: Acute (2) Congestive heart failure, acute Status: Acute (3) Essential hypertension Status: Acute (4) Healthcare associated bacterial pneumonia Status: Acute (5) Hypochloremia Status: Acute (6) Hyponatremia Status: Acute (7) Hypoxia Status: Acute (8) Leukocytosis Status: Acute (9) Pleural effusion Status: Acute Assessment: Ms. Winn is a 76 year old female who presented with shortness of breath. -Congestive heart failure -Hx of pneumonia -Hypertension -Macrocytic anemia -Skin cancer -Blood transfusions -Glaucoma -Hysterectomy - section -Arthritis -Right shoulder orthopedic surgery -Alcohol use -Weight loss -Basal cell carcinoma Plan: 1. Check for signs of cholecystitis per the Duplex imaging 2. Continue conivaptan per renal for hypervolemia 3. Continue breathing treatments with albuterol/ipratropium 4. Monitor BNP levels for resolution of acute HF 5. Address macrocytic anemia with folate supplementation 6. PT/OT 7. Recheck labs 8. Appreciate consultation from GI, pulmonology, cardiology, and nephrology Her prognosis is guarded. Problems: Comment Review of Relevant I have reviewed the following items pavithra (where applicable) has been applied. Labs Laboratory Tests Test 11/27/16 15:15 11/27/16 20:00 11/27/16 20:18 11/28/16 00:15 White Blood Count 14.1x10^3/uL (4.0-11.0) Red Blood Count 3.38x10^6/uL (3.50-5.40) Hemoglobin 11.3g/dL (12.0-15.5) Hematocrit 34.2% (36.0-47.0) Mean Corpuscular Volume 101fL (79-100) Mean Corpuscular Hemoglobin 33pg (25-35) Mean Corpuscular Hemoglobin Concent 33g/dL (31-37) Red Cell Distribution Width 15.8% (11.5-14.5) Platelet Count 299x10^3/uL (140-400) Neutrophils (%) (Auto) 84% (31-73) Lymphocytes (%) (Auto) 9% (24-48) Monocytes (%) (Auto) 7% (0-9) Eosinophils (%) (Auto) 0% (0-3) Basophils (%) (Auto) 0% (0-3) Neutrophils # (Auto) 11.8x10^3uL (1.8-7.7) Lymphocytes # (Auto) 1.3x10^3/uL (1.0-4.8) Monocytes # (Auto) 1.0x10^3/uL (0.0-1.1) Eosinophils # (Auto) 0.0x10^3/uL (0.0-0.7) Basophils # (Auto) 0.0x10^3/uL (0.0-0.2) Prothrombin Time 16.2SEC (11.7-14.0) Prothromb Time International Ratio 1.4 (0.8-1.1) Activated Partial Thromboplast Time 40SEC (24-38) D-Dimer (Hailye) 8.12ug/mlFEU (0.00-0.50) Sodium Level 116mmol/L (136-145) 118mmol/L (136-145) Potassium Level 4.8mmol/L (3.5-5.1) Chloride Level 79mmol/L (98-107) Carbon Dioxide Level 27mmol/L (21-32) Anion Gap 10 (6-14) Blood Urea Nitrogen 11mg/dL (7-20) Creatinine 0.9mg/dL (0.6-1.0) Estimated GFR (Cockcroft-Gault) 61.2 BUN/Creatinine Ratio 12 (6-20) Glucose Level 154mg/dL (70-99) Calcium Level 8.3mg/dL (8.5-10.1) Total Bilirubin 0.9mg/dL (0.2-1.0) Aspartate Amino Transf (AST/SGOT) 130U/L (15-37) Alanine Aminotransferase (ALT/SGPT) 56U/L (14-59) Alkaline Phosphatase 132U/L (46-116) Troponin I Quantitative < 0.017ng/mL (0.000-0.055) < 0.017ng/mL (0.000-0.055) QX-Kjl-B-Type Natriuretic Peptide 52308cr/mL (0-124) Total Protein 6.9g/dL (6.4-8.2) Albumin 3.1g/dL (3.4-5.0) Albumin/Globulin Ratio 0.8 (1.0-1.7) Thyroid Stimulating Hormone (TSH) 5.587uIU/mL (0.358-3.74) Free Thyroxine 1.35ng/dL (0.76-1.46) Free Triiodothyronine (T3) pg/mL 2.28pg/mL (2.18-3.98) Nasal Screen MRSA (PCR) Negative (Negative) Lactic Acid Level 5.3mmol/L (0.4-2.0) 4.0mmol/L (0.4-2.0) Test 11/28/16 07:15 11/28/16 11:40 White Blood Count 11.2x10^3/uL (4.0-11.0) Red Blood Count 3.28x10^6/uL (3.50-5.40) Hemoglobin 10.9g/dL (12.0-15.5) Hematocrit 33.3% (36.0-47.0) Mean Corpuscular Volume 102fL (79-100) Mean Corpuscular Hemoglobin 33pg (25-35) Mean Corpuscular Hemoglobin Concent 33g/dL (31-37) Red Cell Distribution Width 16.2% (11.5-14.5) Platelet Count 229x10^3/uL (140-400) Neutrophils (%) (Auto) 82% (31-73) Lymphocytes (%) (Auto) 10% (24-48) Monocytes (%) (Auto) 7% (0-9) Eosinophils (%) (Auto) 0% (0-3) Basophils (%) (Auto) 0% (0-3) Neutrophils # (Auto) 9.2x10^3uL (1.8-7.7) Lymphocytes # (Auto) 1.2x10^3/uL (1.0-4.8) Monocytes # (Auto) 0.8x10^3/uL (0.0-1.1) Eosinophils # (Auto) 0.0x10^3/uL (0.0-0.7) Basophils # (Auto) 0.0x10^3/uL (0.0-0.2) Reticulocyte Count (auto) 2.2% (0.5-2.5) Sodium Level 122mmol/L (136-145) 122mmol/L (136-145) Potassium Level 4.2mmol/L (3.5-5.1) Chloride Level 85mmol/L (98-107) Carbon Dioxide Level 29mmol/L (21-32) Anion Gap 8 (6-14) Blood Urea Nitrogen 11mg/dL (7-20) Creatinine 0.7mg/dL (0.6-1.0) Estimated GFR (Cockcroft-Gault) 81.8 Glucose Level 102mg/dL (70-99) Lactic Acid Level 3.2mmol/L (0.4-2.0) Calcium Level 8.1mg/dL (8.5-10.1) Iron Level 33ug/dL (50-170) Total Iron Binding Capacity 284ug/dL (250-450) Iron Saturation 12% (15-34) Ferritin 809ng/mL (8-252) Troponin I Quantitative < 0.017ng/mL (0.000-0.055) Laboratory Tests Test 11/27/16 15:15 4/25/17 20:00 11/27/16 20:18 11/28/16 00:15 White Blood Count 14.1x10^3/uL (4.0-11.0) Red Blood Count 3.38x10^6/uL (3.50-5.40) Hemoglobin 11.3g/dL (12.0-15.5) Hematocrit 34.2% (36.0-47.0) Mean Corpuscular Volume 101fL (79-100) Mean Corpuscular Hemoglobin 33pg (25-35) Mean Corpuscular Hemoglobin Concent 33g/dL (31-37) Red Cell Distribution Width 15.8% (11.5-14.5) Platelet Count 299x10^3/uL (140-400) Neutrophils (%) (Auto) 84% (31-73) Lymphocytes (%) (Auto) 9% (24-48) Monocytes (%) (Auto) 7% (0-9) Eosinophils (%) (Auto) 0% (0-3) Basophils (%) (Auto) 0% (0-3) Neutrophils # (Auto) 11.8x10^3uL (1.8-7.7) Lymphocytes # (Auto) 1.3x10^3/uL (1.0-4.8) Monocytes # (Auto) 1.0x10^3/uL (0.0-1.1) Eosinophils # (Auto) 0.0x10^3/uL (0.0-0.7) Basophils # (Auto) 0.0x10^3/uL (0.0-0.2) Prothrombin Time 16.2SEC (11.7-14.0) Prothromb Time International Ratio 1.4 (0.8-1.1) Activated Partial Thromboplast Time 40SEC (24-38) D-Dimer (Hailey) 8.12ug/mlFEU (0.00-0.50) Sodium Level 116mmol/L (136-145) 118mmol/L (136-145) Potassium Level 4.8mmol/L (3.5-5.1) Chloride Level 79mmol/L (98-107) Carbon Dioxide Level 27mmol/L (21-32) Anion Gap 10 (6-14) Blood Urea Nitrogen 11mg/dL (7-20) Creatinine 0.9mg/dL (0.6-1.0) Estimated GFR (Cockcroft-Gault) 61.2 BUN/Creatinine Ratio 12 (6-20) Glucose Level 154mg/dL (70-99) Calcium Level 8.3mg/dL (8.5-10.1) Total Bilirubin 0.9mg/dL (0.2-1.0) Aspartate Amino Transf (AST/SGOT) 130U/L (15-37) Alanine Aminotransferase (ALT/SGPT) 56U/L (14-59) Alkaline Phosphatase 132U/L (46-116) Troponin I Quantitative < 0.017ng/mL (0.000-0.055) < 0.017ng/mL (0.000-0.055) PY-Pst-Z-Type Natriuretic Peptide 85579fv/mL (0-124) Total Protein 6.9g/dL (6.4-8.2) Albumin 3.1g/dL (3.4-5.0) Albumin/Globulin Ratio 0.8 (1.0-1.7) Thyroid Stimulating Hormone (TSH) 5.587uIU/mL (0.358-3.74) Free Thyroxine 1.35ng/dL (0.76-1.46) Free Triiodothyronine (T3) pg/mL 2.28pg/mL (2.18-3.98) Nasal Screen MRSA (PCR) Negative (Negative) Lactic Acid Level 5.3mmol/L (0.4-2.0) 4.0mmol/L (0.4-2.0) Test 11/28/16 07:15 11/28/16 11:40 White Blood Count 11.2x10^3/uL (4.0-11.0) Red Blood Count 3.28x10^6/uL (3.50-5.40) Hemoglobin 10.9g/dL (12.0-15.5) Hematocrit 33.3% (36.0-47.0) Mean Corpuscular Volume 102fL (79-100) Mean Corpuscular Hemoglobin 33pg (25-35) Mean Corpuscular Hemoglobin Concent 33g/dL (31-37) Red Cell Distribution Width 16.2% (11.5-14.5) Platelet Count 229x10^3/uL (140-400) Neutrophils (%) (Auto) 82% (31-73) Lymphocytes (%) (Auto) 10% (24-48) Monocytes (%) (Auto) 7% (0-9) Eosinophils (%) (Auto) 0% (0-3) Basophils (%) (Auto) 0% (0-3) Neutrophils # (Auto) 9.2x10^3uL (1.8-7.7) Lymphocytes # (Auto) 1.2x10^3/uL (1.0-4.8) Monocytes # (Auto) 0.8x10^3/uL (0.0-1.1) Eosinophils # (Auto) 0.0x10^3/uL (0.0-0.7) Basophils # (Auto) 0.0x10^3/uL (0.0-0.2) Reticulocyte Count (auto) 2.2% (0.5-2.5) Sodium Level 122mmol/L (136-145) 122mmol/L (136-145) Potassium Level 4.2mmol/L (3.5-5.1) Chloride Level 85mmol/L (98-107) Carbon Dioxide Level 29mmol/L (21-32) Anion Gap 8 (6-14) Blood Urea Nitrogen 11mg/dL (7-20) Creatinine 0.7mg/dL (0.6-1.0) Estimated GFR (Cockcroft-Gault) 81.8 Glucose Level 102mg/dL (70-99) Lactic Acid Level 3.2mmol/L (0.4-2.0) Calcium Level 8.1mg/dL (8.5-10.1) Iron Level 33ug/dL (50-170) Total Iron Binding Capacity 284ug/dL (250-450) Iron Saturation 12% (15-34) Ferritin 809ng/mL (8-252) Troponin I Quantitative < 0.017ng/mL (0.000-0.055) Medications Current Medications Albuterol/ Ipratropium (Duoneb) 3 ml 1X ONCE NEB Last administered on t 15:56; Start 11/27/16 at 15:30; Stop 11/27/16 at 15:35; Status DC Vancomycin HCl (Vanco Per Pharmacy) 1 each PRN DAILY PRN MC SEE COMMENTS Last administered on 11/27/16 19:17; Start 11/27/16 at 16:45; Stop 11/28/16 at 07:13 ; Status DC Piperacillin Sod/ Tazobactam Sod (Zosyn Per Pharmacy) 1 each PRN DAILY PRN MC SEE COMMENTS; Start 11/27/16 at 16:45; Stop 11/27/16 at 20:57; Status DC Gentamicin Sulfate 1 each 1 each PRN DAILY PRN MC SEE COMMENTS Last administered on 11/27/16 19:41; Start 11/27/16 at 16:45; Stop 11/27/16 at 20:55 ; Status DC Piperacillin Sod/ Tazobactam Sod 3.375 gm/Sodium Chloride 50 ml @ 100 mls/hr 1X ONCE IV Last administered on 11/27/16 17:24; Start 11/27/16 at 17:00; Stop 11/27/16 at 17:29; Status DC Vancomycin HCl/ Sodium Chloride (Iv Sodium Chloride 0.9% 250ml) 250 ml @ 166.667 mls/hr 1X ONCE IV Last administered on 11/27/16 19:09; Start at 17:00; Stop 11/27/16 at 18:29; Status DC Iohexol (Omnipaque 300 Mg/ml) 75 ml 1X ONCE IV Last administered on 11/27/16 17:01; Start 11/27/16 at 16:45; Stop 11/27/16 at 16:47; Status DC Info 1 each 1 each PRN DAILY PRN MC SEE COMMENTS; Start 11/27/16 at 17:00; Stop 11/29/16 at 16:59 Gentamicin Sulfate 250 mg/ Sodium Chloride 106.25 ml @ 106.25 mls/hr 1X ONCE IV Last administered on 11/27/16 18:19; Start 11/27/16 at 17:00; Stop at 17:59; Status DC Conivaptan/ Dextrose 100 ml @ 200 mls/hr 1X ONCE IV Last administered on 11/27 21:14; Start 11/27/16 at 18:00; Stop 11/27/16 at 18:29; Status DC Conivaptan/ Dextrose 100 ml @ 4.167 mls/ hr 1X ONCE IV ; Start 11/27/16 at 18: 30; Stop 11/27/16 at 17:45; Status Cancel Conivaptan/ Dextrose (Vaprisol 20 Mg Premix) 100 ml @ 4.167 mls/ hr CONT PRN PRN IV HYPONATREMIA; Start 11/27/16 at 21:00 Furosemide 60 mg 60 mg 1X ONCE IVP ; Start 11/27/16 at 18:45; Stop 11/27/16 at 18:46; Status DC Piperacillin Sod/ Tazobactam Sod 4.5 gm/Sodium Chloride 100 ml @ 200 mls/hr Q6HRS IV ; Start 11/28/16 at 00:00; Stop 11/28/16 at 00:00; Status DC Vancomycin HCl/ Sodium Chloride (Iv Sodium Chloride 0.9% 250ml) 250 ml @ 250 mls/hr Q24H IV ; Start 11/28/16 at 17:00; Stop 11/28/16 at 17:00; Status DC Vancomycin HCl 1 each 1X ONCE MC ; Start 11/29/16 at 16:30; Stop 11/29/16 at 16 :30; Status DC Ondansetron HCl (Zofran) 4 mg PRN Q8HRS PRN IV NAUSEA/VOMITING; Start 11/27/16 at 19:30; Stop 11/28/16 at 19:29 Morphine Sulfate 2 mg PRN Q2HR PRN IV PAIN; Start 11/27/16 at 19:30; Stop 11/28 at 19:29 Acetaminophen (Tylenol) 650 mg PRN Q4HRS PRN PO FEVER; Start 11/27/16 at 19:30 ; Stop 11/28/16 at 19:29 Albuterol/ Ipratropium (Duoneb) 3 ml RTQID NEB Last administered on 11/28/16t 11:36; Start 11/27/16 at 20:00; Stop 11/28/16 at 19:59 Gentamicin Sulfate 1 each 1X ONCE MC ; Start 11/28/16 at 04:00; Stop 11/28/16 at 04:00; Status DC Zolpidem Tartrate (Ambien) 5 mg PRN QHS PRN PO INSOMNIA Last administered on 21:39; Start 11/27/16 at 21:30 Multivitamins (Thera M Plus) 1 tab DAILY PO Last administered on 11/28/16 09: 15; Start 11/28/16 at 09:00 Folic Acid 1 mg 1 mg DAILY PO Last administered on 11/28/16 09:15; Start 11/28 at 09:00 Thiamine HCl/ Sodium Chloride (Iv Sodium Chloride 0.9% 50ml) 51 ml @ 100 mls/ hr DAILY IV Last administered on 11/28/16 09:15; Start 11/28/16 at 09:00; Stop 12/03/16 at 08:59 Lorazepam (Ativan) 2 mg Q6H PO Last administered on 11/27/16 21:30; Start at 21:30; Stop 11/27/16 at 21:34; Status DC Lorazepam (Ativan) 2 mg PRN Q6HRS PRN PO ALCOCHOL WITHDRAWAL PREVENTION; Start 11/28/16 at 21:30 Lidocaine/Sodium Bicarbonate (Buffered Lidocaine 1%) 20 ml STK-MED ONCE IJ ; Start 11/28/16 at 14:19; Stop 11/28/16 at 14:20; Status DC Active Scripts Active Reported Atenolol 50 Mg Tablet 1 Tab PO DAILY Vitals/I & O Vital Sign - Last 24 Hours 11/27/16 11/27/16 11/27/16 11/27/16 14:54 14:56 15:39 15:56 Temp 96.9 96.9 Pulse 74 85 74 Resp 34 39 26 B/P 171/109 171/109 156/80 Pulse Ox 90 86 97 94 O2 Delivery Room Air Room Air Nasal Cannula Nasal Cannula O2 Flow Rate 2 3.0 11/27/16 11/27/16 11/27/16 11/27/16 16:09 16:39 17:21 17:23 Pulse 79 78 84 84 B/P 163/90 158/79 191/92 164/80 Pulse Ox 97 97 91 85 O2 Delivery Nasal Cannula Nasal Cannula Nasal Cannula Nasal Cannula O2 Flow Rate 2 2 2 2 11/27/16 11/27/16 11/27/16 11/27/16 17:53 18:23 18:53 19:23 Pulse 85 82 78 84 Resp 42 37 B/P 161/98 156/78 145/96 145/87 Pulse Ox 77 95 95 O2 Delivery Nasal Cannula Nasal Cannula Nasal Cannula Nasal Cannula O2 Flow Rate 2 2 2 2 11/27/16 11/27/16 11/27/16 11/27/16 20:00 20:09 20:15 20:45 Temp 98.0 98.0 Pulse 80 80 80 Resp B/P 168/86 190/82 145/87 Pulse Ox 96 96 96 96 O2 Delivery Nasal Cannula Nasal Cannula Nasal Cannula Nasal Cannula O2 Flow Rate 3.0 3.0 3.0 3.0 11/27/16 11/27/16 11/27/16 11/27/16 21:00 21:30 22:00 23:00 Pulse 80 80 80 80 Resp B/P 144/91 145/99 140/92 137/92 Pulse Ox 96 96 97 96 O2 Delivery Nasal Cannula Nasal Cannula Nasal Cannula Nasal Cannula O2 Flow Rate 3.0 3.0 3.0 3.0 11/27/16 11/28/16 11/28/16 11/28/16 23:15 00:00 01:00 02:00 Temp 98.7 98.7 Pulse 78 76 75 Resp B/P 139/84 134/82 147/88 Pulse Ox 96 96 96 O2 Delivery Nasal Cannula Nasal Cannula Nasal Cannula Nasal Cannula O2 Flow Rate 2.0 3.0 3.0 3.0 11/28/16 11/28/16 11/28/16 11/28/16 03:00 04:00 04:00 05:00 Temp 98.5 98.5 Pulse 75 78 76 Resp B/P 143/83 117/85 137/74 Pulse Ox 96 98 96 O2 Delivery Nasal Cannula Nasal Cannula Nasal Cannula Nasal Cannula O2 Flow Rate 3.0 2.0 3.0 3.0 11/28/16 11/28/16 11/28/16 11/28/16 06:00 07:00 08:00 08:00 Temp 97.4 97.4 Pulse 73 75 79 Resp B/P 144/77 139/77 141/74 Pulse Ox 96 95 95 O2 Delivery Nasal Cannula Nasal Cannula Nasal Cannula Nasal Cannula O2 Flow Rate 3.0 3.0 3.0 2.0 11/28/16 11/28/16 11/28/16 11/28/16 08:04 09:00 10:00 11:00 Pulse 88 90 90 Resp 30 B/P 157/81 124/57 143/82 Pulse Ox 94 96 90 91 O2 Delivery Nasal Cannula Nasal Cannula Nasal Cannula Nasal Cannula O2 Flow Rate 2.0 2.0 3.0 3.0 11/28/16 11/28/16 11/28/16 11/28/16 11:37 12:00 12:00 13:00 Temp 98.7 98.7 Pulse 97 98 Resp 29 35 B/P 135/70 127/85 Pulse Ox 97 97 92 O2 Delivery Nasal Cannula Nasal Cannula Nasal Cannula Nasal Cannula O2 Flow Rate 3.0 3.0 3.0 3.0 Intake and Output 11/27/16 11/27/16 11/28/16 15:00 23:00 07:00 Intake Total 50 ml 422 ml Output Total 950 ml Balance 50 ml -528 ml Nutrition Consultation Dietary Evaluation: Recommendations by RD: Increase Calorie Intake, Protein supplementation Comments: Discussed current cardiac diet restriction 1200 cc fluid restriction per MD Provided alternate menu Add magic cup at lunch (290 calories/9 grams protein per serving) Expected Outcomes/Goals: meet 75% estimated nutrition needs Interpretation of weight loss: >5% in 1 month Malnutrition Findings: Malnutrition related to morbid: No Weight Status: Appropriate CASTLE,NIAL K III DO Nov 28, 2016 14:26
[2016-11-28] MEDS ORDERED: fentaNYL PF VIAL 100 MCG/2 ML VIAL ONE (14:27)
[2016-11-28] MEDS ORDERED: MIDAZOLAM HCL/PF 2 MG/2 ML VIAL. ONE (14:27)
[2016-11-28] MEDS ORDERED: MIDAZOLAM HCL/PF 2 MG/2 ML VIAL. IV ONE (14:30)
[2016-11-28] MEDS ORDERED: fentaNYL PF VIAL 100 MCG/2 ML VIAL IV ONE (14:30)
--- NOTE | 2016-11-28 15:48 | PDOC ---
Exam Baker Bread Baker Bread Domenic Information And Referral Director Information And Referral Director Dat Hunt Pre-Procedure Diagnosis Pre-Procedure Diagnosis 76 YO female ICU patient with HTN, hyponatremia, CHF, bilateral pleural effusions, and SOA. Post-Procedure Diagnosis Post-Procedure Diagnosis Same Procedure Performed Procedure Performed Bilateral sono guided thoracentesis Type of Anesthesia Type of Anesthesia Local + Fentanyl analgesia---no mod sedation Estimated Blood Loss EBL: Trace Specimens Specimans Right: 550 cc straw-hazy pleural fluid removed---samples to lab per Dr Cook Left: 550 cc straw-slightly hazy pleural fluid removed---samples to lab per Dr Cook Condition of Patient Condition of Patient Stable. No apparent complication. Disposition Disposition From IR to U/S for abdominal sonogram, then return to ICU. 1 hr post bilateral thoracentesis pCXR requested. F/u with [facility], Cardiology, and Pulmonary. Full report to follow. ALETA DOMINGO MD Nov 28, 2016 15:48
--- NOTE | 2016-11-28 16:14 | RAD ---
Right upper quadrant abdominal ultrasound, 11/28/2016: History: Possible cirrhosis The gallbladder demonstrates marked diffuse bladder wall thickening. It is not well distended. No gallstones are seen. There is a trace amount of adjacent free fluid extending into the region of Morison's pouch. The common hepatic duct measures 5-6 mm which is at the upper limits of normal. No intrahepatic bile ductal dilatation is seen. The hepatic echogenicity is prominent. There is no evidence of a hepatic mass. Limited views of the pancreas and right kidney show no abnormality. IMPRESSION: 1. Marked thickening of the gallbladder anderson. This is a nonspecific appearance which can be due to liver disease, cardiac disease, renal disease, hypoproteinemia or cholecystitis. 2. No gallstones are identified. 3. Trace amount of free fluid adjacent to the gallbladder in Velasco's pouch. 4. Increased hepatic echogenicity, most commonly due to fatty change.
--- NOTE | 2016-11-28 16:24 | RAD ---
AP chest, 2 views, 11/28/2016: History: Follow-up bilateral thoracenteses Comparison is made to yesterday's study. AP inspiration and expiration views were obtained. The bilateral pleural effusions have been drained. There is mild residual streaky atelectasis in the lung bases and the lateral aspect of the right mid lung. No significant pneumothorax is seen. The heart is mildly enlarged. The pulmonary vascularity is within normal limits. IMPRESSION: 1. Interval drainage of the bilateral pleural effusions with no evidence of complication. 2. Mild residual bilateral atelectasis. 3. Cardiomegaly without vascular congestion.
[2016-11-28] MEDS ORDERED: VANCOMYCIN 750 MG in IV NORMAL SALINE 250ML 250 ML IV SCH (17:00)
--- NOTE | 2016-11-28 18:50 | CARD ---
APPROVED REPORT EXAM: Two-dimensional and M-mode echocardiogram with Doppler and color Doppler. Other Information Quality : GoodHR: 84bpm Rhythm : NSR INDICATION Congestive Heart Failure 2D DIMENSIONS RVDd3.2 (2.9-3.5cm)Left Atrium(2D)4.5 (1.6-4.0cm) IVSd0.9 (0.7-1.1cm)Aortic Root(2D)2.0 (2.0-3.7cm) LVDd4.4 (3.9-5.9cm)LVOT Diameter2.2 (1.8-2.4cm) PWd0.8 (0.7-1.1cm)LVDs3.9 (2.5-4.0cm) FS (%) 11.7 %SV22.4 ml LVEF(%)25.0 (>50%) Aortic Valve AoV Peak Timoteo.118.6cm/sAoV VTI20.2cm AO Peak GR.5.6mmHgLVOT VTI 12.70cm AO Mean GR.3mmHgAI P 1/2 [id number] Mitral Valve MV E Gthuermf363.0cm/sMV E Peak Gr.5mmHg MV DECEL [id number] A Vzwddxxj16.0cm/s MV E Mean Gr.3mmHgE/A Ratio1.3 MV A [id number] TDI Lateral E' P. V3.96cm/sMedial E' P. V3.30cm/s E/Lateral E'28.3E/Medial E'33.9 Tricuspid Valve TR P. Qdhdftjc329xu/sRAP TWZMAHYY10zxHq TR Peak Gr.51ojZrSPDM05eaWq Pulmonary Vein S1 Rhwytuxl08.1cm/sS2 Suwlvrkr81.46cm/s D2 Tgaqfdjx28.5cm/sPVa etvvuubo52oxku LEFT VENTRICLE The left ventricle is normal size. There is normal left ventricular wall thickness. Left ventricle sy stolic function is moderately to severely impaired. The Ejection Fraction is 25%. There is moderate t o severe global hypokinesis of the left ventricle. There is akinesis in the basal and mid anterosepta l anderson. Akinesis in the basal and mid interventricular septal anderson. There is moderate hypokinesis i n the basal and mid-inferior anderson. Transmitral Doppler flow pattern is Grade IV-fixed restrictive di astolic dysfunction. No left ventricle thrombus noted on this study. RIGHT VENTRICLE The right ventricle is normal size. There is normal right ventricular wall thickness. The right ventr icular systolic function is normal. ATRIA The left atrium is dilated. The right atrium is mildly dilated. The interatrial septum is intact with no evidence for an atrial septal defect or patent foramen ovale as noted on 2-D or Doppler imaging. AORTIC VALVE The aortic valve is mildly thickened. The aortic valve is trileaflet. Doppler and Color Flow revealed mild aortic regurgitation. There is no significant aortic valvular stenosis. MITRAL VALVE The mitral valve leaflets are thickened. There is no evidence of mitral valve prolapse. There is no m itral valve stenosis. Doppler and Color Flow revealed moderate to severe mitral regurgitation. TRICUSPID VALVE Doppler and Color Flow revealed moderate tricuspid regurgitation. The pulmonary artery systolic press ure is estimated at 42 mmHg. There is mild pulmonary hypertension. PULMONIC VALVE Doppler and Color Flow revealed trace pulmonic valvular regurgitation. There is no pulmonic valvular stenosis. GREAT VESSELS The aortic root is normal in size. The ascending aorta is normal in size. The pulmonary artery is nor mal. The IVC is dilated and does not collapse. PERICARDIAL EFFUSION A large left pleural effusion is noted. There is a trace circumferential pericardial effusion. Critical Notification Date: 11/28/2016 Time: 10:08 Physician Name:John Critical Value: Yes <Conclusion> Left ventricle systolic function is moderately to severely impaired. The Ejection Fraction is 25%. There is moderate to severe global hypokinesis of the left ventricle. There is akinesis in the basal and mid anteroseptal anderson. Akinesis in the basal and mid interventri cular septal anderson. There is moderate hypokinesis in the basal and mid-inferior anderson. Transmitral Doppler flow pattern is Grade IV-fixed restrictive diastolic dysfunction. The left atrium is dilated. The right atrium is mildly dilated. The aortic valve is mildly thickened. The aortic valve is trileaflet. Doppler and Color Flow revealed mild aortic regurgitation. Doppler and Color Flow revealed moderate to severe mitral regurgitation. The mitral valve leaflets are thickened. Doppler and Color Flow revealed moderate tricuspid regurgitation. The pulmonary artery systolic pressure is estimated at 42 mmHg. There is mild pulmonary hypertension. Doppler and Color Flow revealed trace pulmonic valvular regurgitation. The aortic root is normal in size. The IVC is dilated and does not collapse. A large left pleural effusion is noted. There is a trace circumferential pericardial effusion.
[2016-11-29] VITALS (12 sets, daily range): BP systolic 112–163; BP diastolic 58–79
--- NOTE | 2016-11-29 00:47 | CONS ---
DATE OF CONSULTATION: 11/28/2016 HISTORY OF PRESENT ILLNESS: The patient is a 76-year-old female who has been relatively healthy overall. She was, however, recently admitted to this facility in late September early October with a history of pneumonia. She was seen in followup by Dr. Cook and was felt to be doing well; however, over the weekend, she decompensated to where she began to have increasing shortness of breath. She has also noticed some swelling in her lower extremities, right greater than left. She was noted to have some amount of hypoxemia as well as inability to complete her sentences. In the ER, she admits she was not eating well for the last few weeks. She has been drinking water in order to keep herself hydrated. Her home medication only includes atenolol at this time. She was noted to have bilateral pleural effusions and a sodium of [address] Vivar called me regarding management of her sodium given her fluid overloaded state. We opted to use omeprazole. Her sodium is gradually trending upwards from 116 to 118 at midnight. Labs from this morning are pending. She is also noted to have lactic acidemia. Interestingly, she had a CTA of her chest, which shows reflux of the contrast material into her IVC suggesting elevated right-sided pressures and echocardiogram is currently being awaited. PAST MEDICAL HISTORY: Hypertension and recent pneumonia. FAMILY HISTORY: COPD in her mother, thyroid problems in her grandson, father had lung cancer. SOCIAL HISTORY: She is , lives with her significant other. Quit smoking. Denies alcohol or drug use. ALLERGIES: CIPRO. For rest of details, see electronic records. TRINY MENDEZ MD DR: VITALY/laex JOB#: [id number] / [id number]
--- NOTE | 2016-11-29 04:07 | CONS ---
DATE OF CONSULTATION: 11/28/2016 ATTENDING PHYSICIAN: Josseline العلي MD. DICTATING PHYSICIAN: Corby Fuller MD REASON FOR CONSULTATION: The patient is seen in pulmonary consultation at the request of Dr. العلي for respiratory failure and abnormal chest x-ray. HISTORY OF PRESENT ILLNESS: The patient is a 76-year-old that was actually seen in my office last week, showed a previous history of community acquired pneumonia, was treated and discharged home from previous admission ____. She is followed up in my office; at that time, she was complaining of continued shortness of air and I actually repeated her x-ray on 11/20/2016 which was totally normal. There were no effusions. Yesterday, the patient presented with feeling short of breath. She had a chest x-ray, revealing bilateral pleural effusions. The patient was also evaluated with CT angiogram, I reviewed the CT. There was no evidence of pulmonary embolism. There are bilateral pleural effusions with some atelectasis. There is also evidence of pulmonary hypertension with influx of contrast into the IVC. The patient is having short of breath. She denied fever, chills or night sweats. She did notice some paroxysmal nocturnal dyspnea. She was also found to have sodium of 116. She states that she has been drinking lots of water, no emesis; denies nausea, vomiting, or diarrhea. PAST MEDICAL HISTORY: 1. Recent hospitalization for pneumonia. She was discharged home on no medication. She followed up in my office on the 11/20/2016 had a normal chest x-ray at that time. 2. Hypertension. 3. Alcohol abuse. 4. History of tobacco use. PAST SURGICAL HISTORY: Status post appendectomy, hysterectomy and . FAMILY HISTORY: Mother with COPD. Father had lung cancer. SOCIAL HISTORY: She is ; worked here at [employer] in the ____. She denies any current use of tobacco or alcohol. REVIEW OF SYSTEMS: As indicated above, otherwise 10-point system was reviewed and negative. ALLERGIES: CIPROFLOXACIN. PHYSICAL EXAMINATION: GENERAL: The patient was in the Intensive Care Unit. VITAL SIGNS: Stable. O2 saturation currently on 2 liters was greater than 92%. She has been afebrile since she has been here. HEENT: Eyes; the sclerae were nonicteric. NECK: Jugular venous distention was not elevated. No lymphadenopathy. CHEST: Full expansion. LUNGS: Diminished breath sounds in the bases. No wheezes. CARDIOVASCULAR: Regular rate and rhythm with S1, S2, no S3. ABDOMEN: Soft, nontender, nondistended. EXTREMITIES: No clubbing, cyanosis; some edema. NEUROLOGIC: The patient was awake, alert, following commands. A detailed neuro exam was not performed. LABORATORY DATA: White count was elevated. Hemoglobin and hematocrit were noted. Electrolytes were noted. Sodium upon admission was 116, BUN was normal. Creatinine was normal. AST was elevated. Alkaline phosphatase was elevated. BNP was 29,000. Albumin was low. TSH was high. Free T4 was normal range. Free T3 was normal range. Lactic acid level initially elevated at 5.3, repeat was 4.0. Troponin was not elevated. Repeat sodium was 122 this morning, repeat lactic acid 3.2. MICROBIOLOGY DATA: None available during this admission. IMAGING: Chest x-ray, CT as indicated above, the renal artery Doppler revealed no evidence of renal artery stenosis. IMPRESSION: 1. Acute respiratory failure secondary to acute bilateral pleural effusions. 2. Bilateral pleural effusions, etiology unclear; suspect possibly related to cirrhosis with portal hypertension and secondary pulmonary hypertension. 3. Secondary pulmonary hypertension. 4. Hyponatremia. 5. Hypothyroidism. CT with no evidence of pulmonary embolism. 6. History of alcohol and tobacco use. 7. Lactic acidosis. 8. Leukocytosis. PLAN: 1. The patient will undergo thoracentesis. 2. Follow Nephrology input. 3. Consult Cardiology, already performed. 4. Echocardiogram pending. 5. We will defer any further treatment of her hypothyroidism to the PCP. 6. Follow up labs. I do appreciate the privilege in sharing in the patient's care. CORBY FULLER MD DR: MACARIO/alex JOB#: [id number] / [id number] ALEJANDRO Arriola MD
--- NOTE | 2016-11-29 06:27 | RAD ---
Ultrasound-guided bilateral thoracentesis Indication: 76-year-old female ICU patient with CHF, hypertension, hyponatremia, and bilateral pleural effusions with shortness of air. Image guided bilateral thoracentesis has been requested. Anesthesia: Local plus fentanyl analgesia only. Procedure: Informed consent was obtained from the patient. The patient was placed in the upright sitting position. Analgesia was provided with IV fentanyl. No moderate sedation was utilized. Left side: Preliminary ultrasound examination over posterior left chest confirmed the presence of a moderately large left pleural effusion, with underlying left lung atelectasis/infiltrate. This was documented with a single hard copy ultrasound image. An overlying skin site suitable for ultrasound-guided thoracentesis was selected and marked. That area was prepped and draped in the usual sterile fashion. Using aseptic technique, local anesthesia, and direct ultrasound guidance, a small micropuncture sheath was successfully introduced into left posterior pleural space. The micropuncture sheath was exchanged over a guidewire for a 6 Gu[place] drainage catheter. 550 cc of straw-clear left pleural fluid was then evacuated, samples which were submitted to the clinical laboratory per referring physician's request. The drainage catheter was removed and a sterile dressing was applied. Right side: Preliminary ultrasound examination over posterior right chest confirmed the presence of a moderately large right pleural effusion, with underlying right lung atelectasis/infiltrate. This was documented with a single hard copy ultrasound image. An overlying skin site suitable for ultrasound-guided thoracentesis was selected and marked. That area was prepped and draped in the usual sterile fashion. Using aseptic technique, local anesthesia, and direct ultrasound guidance, a small micropuncture sheath was successfully introduced into right posterior pleural space. The micropuncture sheath was exchanged over a guidewire for a 6 Gu[place] drainage catheter. Approximately 550 cc of straw-hazy right pleural fluid was easily removed, samples which were submitted to the clinical laboratory per referring physician's request. The drainage catheter was removed and a sterile dressing was applied. Patient tolerated the procedures well without apparent complication. Impression: Successful, uneventful ultrasound-guided bilateral thoracentesis, as described.
[2016-11-29 07:31] LABS: BASO % 0 % (0-3); EOS % 1 % (0-3); HEMATOCRIT 34.3 % (36.0-47.0); HEMOGLOBIN 11.5 g/dL (12.0-15.5); LYMPH # 1.1 x10^3/uL (1.0-4.8); LYMPH % 11 % (24-48); MEAN CORPUSCULAR HEMOGLOBIN 34 pg (25-35); MEAN CORPUSCULAR HGB CONC 33 g/dL (31-37); MEAN CORPUSCULAR VOLUME 101 fL (79-100); MONO % 7 % (0-9); NEUT % 82 % (31-73); PLATELET COUNT 261 x10^3/uL (140-400); WHITE BLOOD COUNT 9.7 x10^3/uL (4.0-11.0)
--- NOTE | 2016-11-29 07:46 | PDOC ---
SUBJECTIVE ROS HypoNatremia Feeling better today x for IV related issues CVS: no Orthopnea, no CP RESP: no SOB, no LINARES GI: no Nausea, no Vomiting : no Dysuria, no Urgency OBJECTIVE Vital Signs Vital Signs Date Time Temp Pulse Resp B/P Pulse Ox O2 Delivery O2 Flow Rate FiO2 11/29/16 06:00 83 16 116/65 98 Nasal Cannula 3.0 11/29/16 04:00 98.1 98.1 I & 0 Intake and Output 11/29/16 07:00 Intake Total 744 ml Output Total 3755 ml Balance -3011 ml Intake Oral 700 ml IV Total 44 ml Output Urine Total 2655 ml Other 1100 ml PHYSICAL EXAM Physical Exam General Appearance: Awake Alert Oriented x 3 In no Distress Eyes: VIsion Unchanged Conjunctiva Normal EN: No EN Drainage Mucous Memb. moist Neck: + JVD + JVP Supple no Thyromegaly CVS: S1 S2 + Murmur No Gallop No Rub tr Edema Resp: few Rales no Rhonchi no Acc. Muscle use GI: BS +ve NO Bruit Non Tender Non Distended : no CVA tenderness; no Suprapubic Tenderness Assessment & Plan HypoNatremia - suspect asso with ^ed Water intake, Poor PO intake and fluid overload asso with ? Cmypathy. Min ^ed TSH may be contributing too. watch off of Vaprisol. ^ed Lactic Acid (no ABG yet) - Most likely Cardiogenic. recheck level toda Fe Def Anemia: IV Fe as ordered HTN: no BEATRICE NOTed on Dupelex Cmyopahty, VHDz and Fl Overload - Lasix as ordered COMMENT/RELEVANT DATA Meds Current Medications Medications (Trade) Dose Ordered Sig/Chuckie Start Time Stop Time Status Last Admin Dose Admin Acetaminophen (Tylenol) 650 mg PRN Q4HRS PRN 11/27/16 19:30 11/28/16 19:29 DC Albuterol/ Ipratropium (Duoneb) 3 ml RTQID 11/28/16 21:00 11/28/16 20:47 3 ML Conivaptan/ Dextrose (Vaprisol 20 Mg Premix) 100 ml @ 4.167 mls/ hr CONT PRN PRN 11/27/16 21:00 Fentanyl Citrate (Fentanyl 2ml Vial) 100 mcg 1X ONCE 11/28/16 14:30 11/28/16 14:31 DC 11/28/16 15:00 50 MCG Folic Acid 1 mg 1 mg DAILY 11/28/16 09:00 11/28/16 09:15 1 MG Furosemide 60 mg 60 mg 1X ONCE 11/27/16 18:45 11/27/16 18:46 DC Gentamicin Sulfate 1 each 1 each PRN DAILY PRN 11/27/16 16:45 11/27/16 20:55 DC 11/27/16 19:41 1 EACH Gentamicin Sulfate 250 mg/ Sodium Chloride 106.25 ml @ 106.25 mls/hr 1X ONCE 11/27/16 17:00 11/27/16 17:59 DC 11/27/16 18:19 106.25 MLS/HR Gentamicin Sulfate 1 each 1X ONCE 11/28/16 04:00 11/28/16 04:00 DC Info 1 each 1 each PRN DAILY PRN 11/27/16 17:00 11/29/16 16:59 Iohexol (Omnipaque 300 Mg/ml) 75 ml 1X ONCE 11/27/16 16:45 11/27/16 16:47 DC 11/27/16 17:01 75 ML Lidocaine/Sodium Bicarbonate (Buffered Lidocaine 1%) 20 ml 1X ONCE 11/28/16 14:30 11/28/16 14:31 DC 11/28/16 15:00 12 ML Lorazepam (Ativan) 2 mg PRN Q6HRS PRN 11/28/16 21:30 Midazolam HCl (Versed) 2 mg 1X ONCE 11/28/16 14:30 11/28/16 14:31 DC Morphine Sulfate 2 mg PRN Q2HR PRN 11/27/16 19:30 11/28/16 19:29 DC Multivitamins (Thera M Plus) 1 tab DAILY 11/28/16 09:00 11/28/16 09:15 1 TAB Ondansetron HCl (Zofran) 4 mg PRN Q8HRS PRN 11/27/16 19:30 11/28/16 19:29 DC Piperacillin Sod/ Tazobactam Sod (Zosyn Per Pharmacy) 1 each PRN DAILY PRN 11/27/16 16:45 11/27/16 20:57 DC Piperacillin Sod/ Tazobactam Sod 4.5 gm/Sodium Chloride 100 ml @ 200 mls/hr Q6HRS 11/28/16 00:00 11/28/16 00:00 DC Piperacillin Sod/ Tazobactam Sod/ Sodium Chloride (Zosyn/Iv Sodium Chloride 0.9% 50ml) 50 ml @ 100 mls/hr 1X ONCE 11/27/16 17:00 11/27/16 17:29 DC 11/27/16 17:24 100 MLS/HR Thiamine HCl/ Sodium Chloride (Iv Sodium Chloride 0.9% 50ml) 51 ml @ 100 mls/hr DAILY 11/28/16 09:00 12/03/16 08:59 11/28/16 09:15 100 MLS/HR Vancomycin HCl 1 each 1X ONCE 11/29/16 16:30 11/29/16 16:30 DC Vancomycin HCl (Vanco Per Pharmacy) 1 each PRN DAILY PRN 11/27/16 16:45 11/28/16 07:13 DC 11/27/16 19:17 1 EACH Vancomycin HCl/ Sodium Chloride (Iv Sodium Chloride 0.9% 250ml) 250 ml @ 250 mls/hr Q24H 11/28/16 17:00 11/28/16 17:00 DC Zolpidem Tartrate (Ambien) 5 mg PRN QHS PRN 11/27/16 21:30 11/27/16 21:39 5 MG Lab Laboratory Tests Test 11/28/16 11:40 11/28/16 15:15 11/28/16 17:30 11/29/16 00:25 Sodium Level 122mmol/L (136-145) 124mmol/L (136-145) 129mmol/L (136-145) Body Fluid pH 7.4 Other Left ventricle systolic function is moderately to severely impaired. The Ejection Fraction is 25%. There is moderate to severe global hypokinesis of the left ventricle. There is akinesis in the basal and mid anteroseptal anderson. Akinesis in the basal and mid interventricular septal anderson. There is moderate hypokinesis in the basal and mid-inferior anderson. Transmitral Doppler flow pattern is Grade IV-fixed restrictive diastolic dysfunction. The left atrium is dilated. The right atrium is mildly dilated. The aortic valve is mildly thickened. The aortic valve is trileaflet. Doppler and Color Flow revealed mild aortic regurgitation. Doppler and Color Flow revealed moderate to severe mitral regurgitation. The mitral valve leaflets are thickened. Doppler and Color Flow revealed moderate tricuspid regurgitation. The pulmonary artery systolic pressure is estimated at 42 mmHg. There is mild pulmonary hypertension. Doppler and Color Flow revealed trace pulmonic valvular regurgitation. The aortic root is normal in size. The IVC is dilated and does not collapse. A large left pleural effusion is noted. There is a trace circumferential pericardial effusion. CXR 11/28: 1. Interval drainage of the bilateral pleural effusions with no evidence of complication. 2. Mild residual bilateral atelectasis. 3. Cardiomegaly without vascular congestion. TRINY MENDEZ MD Nov 29, 2016 07:46
[2016-11-29 07:53] LABS: CALCIUM 8.2 mg/dL (8.5-10.1); CREATININE 0.6 mg/dL (0.6-1.0); GFR 97.7; POTASSIUM 3.8 mmol/L (3.5-5.1)
[2016-11-29] MEDS ORDERED: IPRATRPIUM/ALBUTEROL 0.5/2.5MG 3 ML NEBU. NEB SCH (08:00)
--- NOTE | 2016-11-29 08:17 | RAD ---
Portable chest, 11/29/2016: History: Congestive heart failure Comparison is made to yesterday's study. The heart is enlarged. The pulmonary vascularity is within normal limits. There is mild bibasilar atelectasis/infiltrate. The basilar opacities appear to have worsened slightly. There is no evidence of pneumothorax. No large residual pleural effusion is seen. IMPRESSION: 1. Mild cardiomegaly. 2. Slight interval worsening of the mild bibasilar atelectasis/infiltrate.
[2016-11-29] MEDS: FUROSEMIDE 40 MG TABLET. PO SCH ×2 (08:18→21:48)
[2016-11-29] MEDS: FOLIC ACID 1 MG TABLET. PO SCH (08:18)
[2016-11-29] MEDS: MULTIVITAMIN with MINERAL TABLET. PO SCH (08:18)
[2016-11-29] MEDS: IPRATRPIUM/ALBUTEROL 0.5/2.5MG 3 ML NEBU. NEB SCH ×4 (08:51→20:52)
[2016-11-29] MEDS: THIAMINE 100 MG in IV NORMAL SALINE 50ML 50 ML IV SCH (10:33)
[2016-11-29] MEDS: IRON SUCROSE COMPLEX 200 MG in IV NORMAL SALINE 100ML 100 ML IV SCH (10:33)
--- NOTE | 2016-11-29 10:51 | PDOC ---
PROGRESS NOTES Chief Complaint Chief Complaint cc: Shortness of breath -Congestive heart failure -Hx of pneumonia -Hypertension -Macrocytic anemia -Skin cancer -Blood transfusions -Glaucoma -Hysterectomy - section -Arthritis -Right shoulder orthopedic surgery -Alcohol use -Weight loss -Basal cell carcinoma History of Present Illness History of Present Illness Ms. Winn was sitting in her chair when we visited her and was able to converse with us without any difficulty. She described how she had had a bilateral thoracentesis. She says she is breathing much better since that operation. She had a N/C in when we saw her and it was running at 2.5L O2. Vitals Vitals Vital Signs Date Time Temp Pulse Resp B/P Pulse Ox O2 Delivery O2 Flow Rate FiO2 11/29/16 08:51 95 Room Air 11/29/16 08:00 3.0 11/29/16 08:00 22 126/66 11/29/16 07:00 98.6 86 98.6 Physical Exam General: Alert, Cooperative Heart: Regular rate, Normal S1, Normal S2 Lungs: Clear, Other (There were diminished breath sounds on the left side.) Abdomen: Soft, No tenderness Extremities: No clubbing, No cyanosis Skin: No breakdown, No significant lesion Labs LABS Laboratory Tests Test 11/28/16 11:40 11/28/16 15:15 11/28/16 17:30 11/29/16 00:25 Sodium Level 122mmol/L (136-145) 124mmol/L (136-145) 129mmol/L (136-145) Body Fluid pH 7.4 Test 11/29/16 06:40 White Blood Count 9.7x10^3/uL (4.0-11.0) Red Blood Count 3.40x10^6/uL (3.50-5.40) Hemoglobin 11.5g/dL (12.0-15.5) Hematocrit 34.3% (36.0-47.0) Mean Corpuscular Volume 101fL (79-100) Mean Corpuscular Hemoglobin 34pg (25-35) Mean Corpuscular Hemoglobin Concent 33g/dL (31-37) Red Cell Distribution Width 16.0% (11.5-14.5) Platelet Count 261x10^3/uL (140-400) Neutrophils (%) (Auto) 82% (31-73) Lymphocytes (%) (Auto) 11% (24-48) Monocytes (%) (Auto) 7% (0-9) Eosinophils (%) (Auto) 1% (0-3) Basophils (%) (Auto) 0% (0-3) Neutrophils # (Auto) 7.9x10^3uL (1.8-7.7) Lymphocytes # (Auto) 1.1x10^3/uL (1.0-4.8) Monocytes # (Auto) 0.6x10^3/uL (0.0-1.1) Eosinophils # (Auto) 0.1x10^3/uL (0.0-0.7) Basophils # (Auto) 0.0x10^3/uL (0.0-0.2) Sodium Level 132mmol/L (136-145) Potassium Level 3.8mmol/L (3.5-5.1) Chloride Level 95mmol/L (98-107) Carbon Dioxide Level 33mmol/L (21-32) Anion Gap 4 (6-14) Blood Urea Nitrogen 9mg/dL (7-20) Creatinine 0.6mg/dL (0.6-1.0) Estimated GFR (Cockcroft-Gault) 97.7 Glucose Level 96mg/dL (70-99) Calcium Level 8.2mg/dL (8.5-10.1) Review of Systems Review of Systems Ms. Winn reports having right upper quadrant pain. She is not sure if this pain is associated with eating. She does not have any other pain in the abdominal area. Assessment and Plan Assessmemt and Plan Problems Medical Problems: (1) Anemia Status: Acute (2) Congestive heart failure, acute Status: Acute (3) Essential hypertension Status: Acute (4) Healthcare associated bacterial pneumonia Status: Acute (5) Hypochloremia Status: Acute (6) Hyponatremia Status: Acute (7) Hypoxia Status: Acute (8) Leukocytosis Status: Acute (9) Pleural effusion Status: Acute Assessment: Ms. Winn is a 76 year old woman who presented with shortness of breath. -Congestive heart failure -Hx of pneumonia -Hypertension -Macrocytic anemia -Skin cancer -Blood transfusions -Glaucoma -Hysterectomy - section -Arthritis -Right shoulder orthopedic surgery -Alcohol use -Weight loss -Basal cell carcinoma Plan: 1. Lasix begun per nephrology 2. Decreasing conivaptan per nephrology 3. Continue breathing treatments with albuterol/ipratropium 4. Monitor BNP levels for resolution of acute HF 5. Begin iron sucrose per nephrology for anemia 6. PT/OT 7. Recheck labs 8. Continue multivitamin, folate, thiamin 9. Echo results noted 10. Appreciate consultation from subspecialists Her prognosis is guarded. Problems: Comment Review of Relevant I have reviewed the following items pavithra (where applicable) has been applied. Labs Laboratory Tests Test 11/27/16 15:15 11/27/16 20:00 11/27/16 20:18 11/28/16 00:15 White Blood Count 14.1x10^3/uL (4.0-11.0) Red Blood Count 3.38x10^6/uL (3.50-5.40) Hemoglobin 11.3g/dL (12.0-15.5) Hematocrit 34.2% (36.0-47.0) Mean Corpuscular Volume 101fL (79-100) Mean Corpuscular Hemoglobin 33pg (25-35) Mean Corpuscular Hemoglobin Concent 33g/dL (31-37) Red Cell Distribution Width 15.8% (11.5-14.5) Platelet Count 299x10^3/uL (140-400) Neutrophils (%) (Auto) 84% (31-73) Lymphocytes (%) (Auto) 9% (24-48) Monocytes (%) (Auto) 7% (0-9) Eosinophils (%) (Auto) 0% (0-3) Basophils (%) (Auto) 0% (0-3) Neutrophils # (Auto) 11.8x10^3uL (1.8-7.7) Lymphocytes # (Auto) 1.3x10^3/uL (1.0-4.8) Monocytes # (Auto) 1.0x10^3/uL (0.0-1.1) Eosinophils # (Auto) 0.0x10^3/uL (0.0-0.7) Basophils # (Auto) 0.0x10^3/uL (0.0-0.2) Prothrombin Time 16.2SEC (11.7-14.0) Prothromb Time International Ratio 1.4 (0.8-1.1) Activated Partial Thromboplast Time 40SEC (24-38) D-Dimer (Hailey) 8.12ug/mlFEU (0.00-0.50) Sodium Level 116mmol/L (136-145) 118mmol/L (136-145) Potassium Level 4.8mmol/L (3.5-5.1) Chloride Level 79mmol/L (98-107) Carbon Dioxide Level 27mmol/L (21-32) Anion Gap 10 (6-14) Blood Urea Nitrogen 11mg/dL (7-20) Creatinine 0.9mg/dL (0.6-1.0) Estimated GFR (Cockcroft-Gault) 61.2 BUN/Creatinine Ratio 12 (6-20) Glucose Level 154mg/dL (70-99) Calcium Level 8.3mg/dL (8.5-10.1) Total Bilirubin 0.9mg/dL (0.2-1.0) Aspartate Amino Transf (AST/SGOT) 130U/L (15-37) Alanine Aminotransferase (ALT/SGPT) 56U/L (14-59) Alkaline Phosphatase 132U/L (46-116) Troponin I Quantitative < 0.017ng/mL (0.000-0.055) < 0.017ng/mL (0.000-0.055) KB-Mvh-T-Type Natriuretic Peptide 20808xw/mL (0-124) Total Protein 6.9g/dL (6.4-8.2) Albumin 3.1g/dL (3.4-5.0) Albumin/Globulin Ratio 0.8 (1.0-1.7) Thyroid Stimulating Hormone (TSH) 5.587uIU/mL (0.358-3.74) Free Thyroxine 1.35ng/dL (0.76-1.46) Free Triiodothyronine (T3) pg/mL 2.28pg/mL (2.18-3.98) Nasal Screen MRSA (PCR) Negative (Negative) Lactic Acid Level 5.3mmol/L (0.4-2.0) 4.0mmol/L (0.4-2.0) Test 11/28/16 07:15 11/28/16 11:40 11/28/16 15:15 11/28/16 17:30 White Blood Count 11.2x10^3/uL (4.0-11.0) Red Blood Count 3.28x10^6/uL (3.50-5.40) Hemoglobin 10.9g/dL (12.0-15.5) Hematocrit 33.3% (36.0-47.0) Mean Corpuscular Volume 102fL (79-100) Mean Corpuscular Hemoglobin 33pg (25-35) Mean Corpuscular Hemoglobin Concent 33g/dL (31-37) Red Cell Distribution Width 16.2% (11.5-14.5) Platelet Count 229x10^3/uL (140-400) Neutrophils (%) (Auto) 82% (31-73) Lymphocytes (%) (Auto) 10% (24-48) Monocytes (%) (Auto) 7% (0-9) Eosinophils (%) (Auto) 0% (0-3) Basophils (%) (Auto) 0% (0-3) Neutrophils # (Auto) 9.2x10^3uL (1.8-7.7) Lymphocytes # (Auto) 1.2x10^3/uL (1.0-4.8) Monocytes # (Auto) 0.8x10^3/uL (0.0-1.1) Eosinophils # (Auto) 0.0x10^3/uL (0.0-0.7) Basophils # (Auto) 0.0x10^3/uL (0.0-0.2) Reticulocyte Count (auto) 2.2% (0.5-2.5) Sodium Level 122mmol/L (136-145) 122mmol/L (136-145) 124mmol/L (136-145) Potassium Level 4.2mmol/L (3.5-5.1) Chloride Level 85mmol/L (98-107) Carbon Dioxide Level 29mmol/L (21-32) Anion Gap 8 (6-14) Blood Urea Nitrogen 11mg/dL (7-20) Creatinine 0.7mg/dL (0.6-1.0) Estimated GFR (Cockcroft-Gault) 81.8 Glucose Level 102mg/dL (70-99) Lactic Acid Level 3.2mmol/L (0.4-2.0) Calcium Level 8.1mg/dL (8.5-10.1) Iron Level 33ug/dL (50-170) Total Iron Binding Capacity 284ug/dL (250-450) Iron Saturation 12% (15-34) Ferritin 809ng/mL (8-252) Troponin I Quantitative < 0.017ng/mL (0.000-0.055) Body Fluid pH 7.4 Test 11/29/16 00:25 11/29/16 06:40 Sodium Level 129mmol/L (136-145) 132mmol/L (136-145) White Blood Count 9.7x10^3/uL (4.0-11.0) Red Blood Count 3.40x10^6/uL (3.50-5.40) Hemoglobin 11.5g/dL (12.0-15.5) Hematocrit 34.3% (36.0-47.0) Mean Corpuscular Volume 101fL (79-100) Mean Corpuscular Hemoglobin 34pg (25-35) Mean Corpuscular Hemoglobin Concent 33g/dL (31-37) Red Cell Distribution Width 16.0% (11.5-14.5) Platelet Count 261x10^3/uL (140-400) Neutrophils (%) (Auto) 82% (31-73) Lymphocytes (%) (Auto) 11% (24-48) Monocytes (%) (Auto) 7% (0-9) Eosinophils (%) (Auto) 1% (0-3) Basophils (%) (Auto) 0% (0-3) Neutrophils # (Auto) 7.9x10^3uL (1.8-7.7) Lymphocytes # (Auto) 1.1x10^3/uL (1.0-4.8) Monocytes # (Auto) 0.6x10^3/uL (0.0-1.1) Eosinophils # (Auto) 0.1x10^3/uL (0.0-0.7) Basophils # (Auto) 0.0x10^3/uL (0.0-0.2) Potassium Level 3.8mmol/L (3.5-5.1) Chloride Level 95mmol/L (98-107) Carbon Dioxide Level 33mmol/L (21-32) Anion Gap 4 (6-14) Blood Urea Nitrogen 9mg/dL (7-20) Creatinine 0.6mg/dL (0.6-1.0) Estimated GFR (Cockcroft-Gault) 97.7 Glucose Level 96mg/dL (70-99) Calcium Level 8.2mg/dL (8.5-10.1) Laboratory Tests Test 11/28/16 11:40 11/28/16 15:15 11/28/16 17:30 11/29/16 00:25 Sodium Level 122mmol/L (136-145) 124mmol/L (136-145) 129mmol/L (136-145) Body Fluid pH 7.4 Test 11/29/16 06:40 White Blood Count 9.7x10^3/uL (4.0-11.0) Red Blood Count 3.40x10^6/uL (3.50-5.40) Hemoglobin 11.5g/dL (12.0-15.5) Hematocrit 34.3% (36.0-47.0) Mean Corpuscular Volume 101fL (79-100) Mean Corpuscular Hemoglobin 34pg (25-35) Mean Corpuscular Hemoglobin Concent 33g/dL (31-37) Red Cell Distribution Width 16.0% (11.5-14.5) Platelet Count 261x10^3/uL (140-400) Neutrophils (%) (Auto) 82% (31-73) Lymphocytes (%) (Auto) 11% (24-48) Monocytes (%) (Auto) 7% (0-9) Eosinophils (%) (Auto) 1% (0-3) Basophils (%) (Auto) 0% (0-3) Neutrophils # (Auto) 7.9x10^3uL (1.8-7.7) Lymphocytes # (Auto) 1.1x10^3/uL (1.0-4.8) Monocytes # (Auto) 0.6x10^3/uL (0.0-1.1) Eosinophils # (Auto) 0.1x10^3/uL (0.0-0.7) Basophils # (Auto) 0.0x10^3/uL (0.0-0.2) Sodium Level 132mmol/L (136-145) Potassium Level 3.8mmol/L (3.5-5.1) Chloride Level 95mmol/L (98-107) Carbon Dioxide Level 33mmol/L (21-32) Anion Gap 4 (6-14) Blood Urea Nitrogen 9mg/dL (7-20) Creatinine 0.6mg/dL (0.6-1.0) Estimated GFR (Cockcroft-Gault) 97.7 Glucose Level 96mg/dL (70-99) Calcium Level 8.2mg/dL (8.5-10.1) Microbiology 11/27/16 Blood Culture - Preliminary, Resulted NO GROWTH AFTER 1 DAY Medications Current Medications Albuterol/ Ipratropium (Duoneb) 3 ml 1X ONCE NEB Last administered on 15:56; Start 11/27/16 at 15:30; Stop 11/27/16 at 15:35; Status DC Vancomycin HCl (Vanco Per Pharmacy) 1 each PRN DAILY PRN MC SEE COMMENTS Last administered on 11/27/16 19:17; Start 11/27/16 at 16:45; Stop 11/28/16 at 07:13 ; Status DC Piperacillin Sod/ Tazobactam Sod (Zosyn Per Pharmacy) 1 each PRN DAILY PRN MC SEE COMMENTS; Start 11/27/16 at 16:45; Stop 11/27/16 at 20:57; Status DC Gentamicin Sulfate 1 each 1 each PRN DAILY PRN MC SEE COMMENTS Last administered on 11/27/16 19:41; Start 11/27/16 at 16:45; Stop 11/27/16 at 20:55 ; Status DC Piperacillin Sod/ Tazobactam Sod 3.375 gm/Sodium Chloride 50 ml @ 100 mls/hr 1X ONCE IV Last administered on 11/27/16 17:24; Start 11/27/16 at 17:00; Stop 11/27/16 at 17:29; Status DC Vancomycin HCl/ Sodium Chloride (Iv Sodium Chloride 0.9% 250ml) 250 ml @ 166.667 mls/hr 1X ONCE IV Last administered on 11/27/16 19:09; Start at 17:00; Stop 11/27/16 at 18:29; Status DC Iohexol (Omnipaque 300 Mg/ml) 75 ml 1X ONCE IV Last administered on 11/27/16 17:01; Start 11/27/16 at 16:45; Stop 11/27/16 at 16:47; Status DC Info 1 each 1 each PRN DAILY PRN MC SEE COMMENTS; Start 11/27/16 at 17:00; Stop 11/29/16 at 16:59 Gentamicin Sulfate 250 mg/ Sodium Chloride 106.25 ml @ 106.25 mls/hr 1X ONCE IV Last administered on 11/27/16 18:19; Start 11/27/16 at 17:00; Stop at 17:59; Status DC Conivaptan/ Dextrose 100 ml @ 200 mls/hr 1X ONCE IV Last administered on 11/27 21:14; Start 11/27/16 at 18:00; Stop 11/27/16 at 18:29; Status DC Conivaptan/ Dextrose 100 ml @ 4.167 mls/ hr 1X ONCE IV ; Start 11/27/16 at 18: 30; Stop 11/27/16 at 17:45; Status Cancel Conivaptan/ Dextrose (Vaprisol 20 Mg Premix) 100 ml @ 4.167 mls/ hr CONT PRN PRN IV HYPONATREMIA; Start 11/27/16 at 21:00; Stop 11/29/16 at 07:52; Status DC Furosemide 60 mg 60 mg 1X ONCE IVP ; Start 11/27/16 at 18:45; Stop 11/27/16 at 18:46; Status DC Piperacillin Sod/ Tazobactam Sod 4.5 gm/Sodium Chloride 100 ml @ 200 mls/hr Q6HRS IV ; Start 11/28/16 at 00:00; Stop 11/28/16 at 00:00; Status DC Vancomycin HCl/ Sodium Chloride (Iv Sodium Chloride 0.9% 250ml) 250 ml @ 250 mls/hr Q24H IV ; Start 11/28/16 at 17:00; Stop 11/28/16 at 17:00; Status DC Vancomycin HCl 1 each 1X ONCE MC ; Start 11/29/16 at 16:30; Stop 11/29/16 at 16 :30; Status DC Ondansetron HCl (Zofran) 4 mg PRN Q8HRS PRN IV NAUSEA/VOMITING; Start 11/27/16 at 19:30; Stop 11/28/16 at 19:29; Status DC Morphine Sulfate 2 mg PRN Q2HR PRN IV PAIN; Start 11/27/16 at 19:30; Stop 11/28 at 19:29; Status DC Acetaminophen (Tylenol) 650 mg PRN Q4HRS PRN PO FEVER; Start 11/27/16 at 19:30 ; Stop 11/28/16 at 19:29; Status DC Albuterol/ Ipratropium (Duoneb) 3 ml RTQID NEB Last administered on 11/28/16 16:25; Start 11/27/16 at 20:00; Stop 11/28/16 at 19:59; Status DC Gentamicin Sulfate 1 each 1X ONCE MC ; Start 11/28/16 at 04:00; Stop 11/28/16 at 04:00; Status DC Zolpidem Tartrate (Ambien) 5 mg PRN QHS PRN PO INSOMNIA Last administered on 21:39; Start 11/27/16 at 21:30 Multivitamins (Thera M Plus) 1 tab DAILY PO Last administered on 11/29/16 08: 18; Start 11/28/16 at 09:00 Folic Acid 1 mg 1 mg DAILY PO Last administered on 11/29/16 08:18; Start 11/28 at 09:00 Thiamine HCl/ Sodium Chloride (Iv Sodium Chloride 0.9% 50ml) 51 ml @ 100 mls/ hr DAILY IV Last administered on 11/29/16 10:33; Start 11/28/16 at 09:00; Stop 12/03/16 at 08:59 Lorazepam (Ativan) 2 mg Q6H PO Last administered on 11/27/16 21:30; Start at 21:30; Stop 11/27/16 at 21:34; Status DC Lorazepam (Ativan) 2 mg PRN Q6HRS PRN PO ALCOCHOL WITHDRAWAL PREVENTION; Start 11/28/16 at 21:30 Lidocaine/Sodium Bicarbonate (Buffered Lidocaine 1%) 20 ml STK-MED ONCE IJ ; Start 11/28/16 at 14:19; Stop 11/28/16 at 14:20; Status DC Fentanyl Citrate (Fentanyl 2ml Vial) 100 mcg STK-MED ONCE .ROUTE ; Start at 14:27; Stop 11/28/16 at 14:28; Status DC Midazolam HCl (Versed) 2 mg STK-MED ONCE .ROUTE ; Start 11/28/16 at 14:27; Stop 11/28/16 at 14:28; Status DC Lidocaine/Sodium Bicarbonate (Buffered Lidocaine 1%) 20 ml 1X ONCE IJ Last administered on 11/28/16 15:00; Start 11/28/16 at 14:30; Stop 11/28/16 at 14:31 ; Status DC Midazolam HCl (Versed) 2 mg 1X ONCE IV ; Start 11/28/16 at 14:30; Stop at 14:31; Status DC Fentanyl Citrate (Fentanyl 2ml Vial) 100 mcg 1X ONCE IV Last administered on 15:00; Start 11/28/16 at 14:30; Stop 11/28/16 at 14:31; Status DC Albuterol/ Ipratropium (Duoneb) 3 ml RTQID NEB ; Start 11/29/16 at 08:00; Stop 11/29/16 at 08:00; Status DC Albuterol/ Ipratropium 3 ml 3 ml RTQID NEB Last administered on 11/29/16 08:51 ; Start 11/28/16 at 21:00 Iron Sucrose/ Sodium Chloride (Venofer/Iv Sodium Chloride 0.9% 100ml) 110 ml @ 55 mls/hr 3X/WEEK IV Last administered on 11/29/16 10:33; Start 11/29/16 at 09 :00; Stop 12/07/16 at 10:59 Furosemide (Lasix) 40 mg BID PO Last administered on 11/29/16 08:18; Start at 09:00 Active Scripts Active Reported Atenolol 50 Mg Tablet 1 Tab PO DAILY Vitals/I & O Vital Sign - Last 24 Hours 11/28/16 11/28/16 11/28/16 11/28/16 11:00 11:37 12:00 12:00 Temp 98.7 98.7 Pulse 90 97 Resp 30 29 B/P 143/82 135/70 Pulse Ox 91 97 97 O2 Delivery Nasal Cannula Nasal Cannula Nasal Cannula Nasal Cannula O2 Flow Rate 3.0 3.0 3.0 3.0 11/28/16 11/28/16 11/28/16 11/28/16 13:00 14:00 14:30 14:45 Pulse 98 90 90 89 Resp 35 25 25 B/P 127/85 138/79 138/79 141/77 Pulse Ox 92 95 95 98 O2 Delivery Nasal Cannula Nasal Cannula Nasal Cannula Nasal Cannula O2 Flow Rate 3.0 4.0 4.0 4.0 11/28/16 11/28/16 11/28/16 11/28/16 15:00 15:00 15:54 16:00 Pulse 89 Resp 20 22 B/P 133/79 Pulse Ox 95 98 88 O2 Delivery Nasal Cannula Nasal Cannula Nasal Cannula Nasal Cannula O2 Flow Rate 4.0 4.0 3.0 3.0 11/28/16 11/28/16 11/28/16 11/28/16 16:00 16:27 17:00 18:00 Temp 98.9 98.9 Pulse 83 99 106 Resp B/P 114/71 104/54 127/51 Pulse Ox 98 96 89 O2 Delivery Nasal Cannula Nasal Cannula Nasal Cannula Nasal Cannula O2 Flow Rate 3.0 3.0 3.0 3.0 11/28/16 11/28/16 11/28/16 11/28/16 19:00 20:00 20:00 20:48 Temp 98.0 98.0 Pulse 96 94 Resp 29 24 B/P 107/56 121/66 Pulse Ox 98 99 99 O2 Delivery Nasal Cannula Nasal Cannula Nasal Cannula Nasal Cannula O2 Flow Rate 3.0 3.0 3.0 3.0 11/28/16 11/28/16 11/28/16 11/28/16 21:00 22:00 23:00 23:59 Pulse 97 99 93 Resp 30 16 B/P 120/55 110/57 119/61 Pulse Ox 98 97 99 O2 Delivery Nasal Cannula Nasal Cannula Nasal Cannula Nasal Cannula O2 Flow Rate 3.0 3.0 3.0 3.0 11/28/16 11/29/16 11/29/16 11/29/16 23:59 01:00 02:00 03:00 Temp 98.3 98.3 Pulse 92 86 89 88 Resp 15 18 B/P 119/62 125/63 129/65 115/66 Pulse Ox 100 100 100 100 O2 Delivery Nasal Cannula Nasal Cannula Nasal Cannula Nasal Cannula O2 Flow Rate 3.0 3.0 3.0 3.0 11/29/16 11/29/16 11/29/16 11/29/16 04:00 04:00 05:00 06:00 Temp 98.1 98.1 Pulse 92 96 83 Resp 28 19 16 B/P 137/62 112/58 116/65 Pulse Ox 100 100 98 O2 Delivery Nasal Cannula Nasal Cannula Nasal Cannula Nasal Cannula O2 Flow Rate 3.0 3.0 3.0 3.0 11/29/16 11/29/16 11/29/16 11/29/16 07:00 08:00 08:00 08:51 Temp 98.6 98.6 Pulse 86 Resp 18 22 B/P 123/64 126/66 Pulse Ox 100 99 95 O2 Delivery Nasal Cannula Nasal Cannula Room Air O2 Flow Rate 3.0 3.0 Intake and Output 11/28/16 11/28/16 11/29/16 15:00 23:00 07:00 Intake Total 200 ml 200 ml 344 ml Output Total 600 ml 1730 ml 1425 ml Balance -400 ml -1530 ml -1081 ml Nutrition Consultation Dietary Evaluation: Recommendations by RD: Increase Calorie Intake, Protein supplementation Comments: Discussed current cardiac diet restriction 1200 cc fluid restriction per MD Provided alternate menu Add magic cup at lunch (290 calories/9 grams protein per serving) Expected Outcomes/Goals: meet 75% estimated nutrition needs Interpretation of weight loss: >5% in 1 month Malnutrition Findings: Malnutrition related to morbid: No Weight Status: Appropriate ILEANA INGRAM III DO Nov 29, 2016 10:51
--- NOTE | 2016-11-29 13:14 | PDOC ---
Subjective: Subjective: Feels better after thoracentesis. No GI complaints. Objective: Objective: No GI concerns per RN. Vital Signs: Vital Signs Date Time Temp Pulse Resp B/P Pulse Ox O2 Delivery O2 Flow Rate FiO2 11/29/16 12:00 93 Nasal Cannula 2.0 11/29/16 08:00 22 126/66 11/29/16 07:00 98.6 86 98.6 Labs: Laboratory Tests Test 11/28/16 15:15 11/28/16 17:30 11/29/16 00:25 11/29/16 06:40 Body Fluid pH 7.4 Sodium Level 124mmol/L 129mmol/L 132mmol/L White Blood Count 9.7x10^3/uL Red Blood Count 3.40x10^6/uL Hemoglobin 11.5g/dL Hematocrit 34.3% Mean Corpuscular Volume 101fL Mean Corpuscular Hemoglobin 34pg Mean Corpuscular Hemoglobin Concent 33g/dL Red Cell Distribution Width 16.0% Platelet Count 261x10^3/uL Neutrophils (%) (Auto) 82% Lymphocytes (%) (Auto) 11% Monocytes (%) (Auto) 7% Eosinophils (%) (Auto) 1% Basophils (%) (Auto) 0% Neutrophils # (Auto) 7.9x10^3uL Lymphocytes # (Auto) 1.1x10^3/uL Monocytes # (Auto) 0.6x10^3/uL Eosinophils # (Auto) 0.1x10^3/uL Basophils # (Auto) 0.0x10^3/uL Potassium Level 3.8mmol/L Chloride Level 95mmol/L Carbon Dioxide Level 33mmol/L Anion Gap 4 Blood Urea Nitrogen 9mg/dL Creatinine 0.6mg/dL Estimated GFR (Cockcroft-Gault) 97.7 Glucose Level 96mg/dL Calcium Level 8.2mg/dL Imaging: [facility] IMPRESSION: 1. Marked thickening of the gallbladder anderson. This is a nonspecific appearance which can be due to liver disease, cardiac disease, renal disease, hypoproteinemia or cholecystitis. 2. No gallstones are identified. 3. Trace amount of free fluid adjacent to the gallbladder in Velasco's pouch. 4. Increased hepatic echogenicity, most commonly due to fatty change. CXR IMPRESSION: 1. Mild cardiomegaly. 2. Slight interval worsening of the mild bibasilar atelectasis/infiltrate. Echocardiogram <Conclusion> Left ventricle systolic function is moderately to severely impaired. The Ejection Fraction is 25%. There is moderate to severe global hypokinesis of the left ventricle. There is akinesis in the basal and mid anteroseptal anderson. Akinesis in the basal and mid interventricular septal anderson. There is moderate hypokinesis in the basal and mid-inferior anderson. Transmitral Doppler flow pattern is Grade IV-fixed restrictive diastolic dysfunction. The left atrium is dilated. The right atrium is mildly dilated. The aortic valve is mildly thickened. The aortic valve is trileaflet. Doppler and Color Flow revealed mild aortic regurgitation. Doppler and Color Flow revealed moderate to severe mitral regurgitation. The mitral valve leaflets are thickened. Doppler and Color Flow revealed moderate tricuspid regurgitation. The pulmonary artery systolic pressure is estimated at 42 mmHg. There is mild pulmonary hypertension. Doppler and Color Flow revealed trace pulmonic valvular regurgitation. The aortic root is normal in size. The IVC is dilated and does not collapse. A large left pleural effusion is noted. There is a trace circumferential pericardial effusion. PE: GEN: NAD, up to chair LUNGS: decreased HEART: RRR ABD: S/ND/NT NEURO/PSYCH: A & O 3 A/P: Hyponatremia - improved Bilateral pleural effusions s/p thoracentesis CHF Anemia - Hgb improved, on IV iron Alcoholism, probable cirrhosis -US as above, abnorm. likely 2/2 cirrhosis -- Continue same per GI. JORGE JONES Nov 29, 2016 13:14
--- NOTE | 2016-11-29 14:58 | PDOC ---
PROGRESS NOTES Subjective Subjective Patient reports feeling much better. SOB resolved. Objective Objective Vital Signs Date Time Temp Pulse Resp B/P Pulse Ox O2 Delivery O2 Flow Rate FiO2 11/29/16 12:00 93 Nasal Cannula 2.0 11/29/16 08:00 22 126/66 11/29/16 07:00 98.6 86 98.6 Intake and Output 11/29/16 07:00 Intake Total 744 ml Output Total 3755 ml Balance -3011 ml Intake Oral 700 ml IV Total 44 ml Output Urine Total 2655 ml Other 1100 ml Physical Exam Physical Exam No changes to cardiac exam Assessment Assessment New onset CHF HTN Hyponatremia This patient became decompensated with a large pleural effusion and has a murmur of mitral insufficiency and possible aortic insufficiency. Thoracentesis removed over 550 cc of fluid. Plan Plan of Care Transfer to floor for further monitoring Echocardiogram revealed EF of 25%, with global hypokinesis of LV, akinesis in anteroseptal and interventricular septal anderson, grade IV-fixed restrictive diastolic dysfunction, dilation in L and R atrium, aortic regurgitation, mitral regurgitation, tricuspid regurgitation, mild pulmonary HTN. Await further stabilization before more cardiac tests Would suggest cardiac cath on an outpatient basis once patient is more stabilized Agree with primary team's plan Appreciate nephrology plan Thank you very much for asking me to participate in the care of this patient. Comment Review of Relevant I have reviewed the following items pavithra (where applicable) has been applied. Labs Laboratory Tests Test 11/27/16 15:15 11/27/16 20:00 11/27/16 20:18 11/28/16 00:15 White Blood Count 14.1x10^3/uL (4.0-11.0) Red Blood Count 3.38x10^6/uL (3.50-5.40) Hemoglobin 11.3g/dL (12.0-15.5) Hematocrit 34.2% (36.0-47.0) Mean Corpuscular Volume 101fL (79-100) Mean Corpuscular Hemoglobin 33pg (25-35) Mean Corpuscular Hemoglobin Concent 33g/dL (31-37) Red Cell Distribution Width 15.8% (11.5-14.5) Platelet Count 299x10^3/uL (140-400) Neutrophils (%) (Auto) 84% (31-73) Lymphocytes (%) (Auto) 9% (24-48) Monocytes (%) (Auto) 7% (0-9) Eosinophils (%) (Auto) 0% (0-3) Basophils (%) (Auto) 0% (0-3) Neutrophils # (Auto) 11.8x10^3uL (1.8-7.7) Lymphocytes # (Auto) 1.3x10^3/uL (1.0-4.8) Monocytes # (Auto) 1.0x10^3/uL (0.0-1.1) Eosinophils # (Auto) 0.0x10^3/uL (0.0-0.7) Basophils # (Auto) 0.0x10^3/uL (0.0-0.2) Prothrombin Time 16.2SEC (11.7-14.0) Prothromb Time International Ratio 1.4 (0.8-1.1) Activated Partial Thromboplast Time 40SEC (24-38) D-Dimer (Hailey) 8.12ug/mlFEU (0.00-0.50) Sodium Level 116mmol/L (136-145) 118mmol/L (136-145) Potassium Level 4.8mmol/L (3.5-5.1) Chloride Level 79mmol/L (98-107) Carbon Dioxide Level 27mmol/L (21-32) Anion Gap 10 (6-14) Blood Urea Nitrogen 11mg/dL (7-20) Creatinine 0.9mg/dL (0.6-1.0) Estimated GFR (Cockcroft-Gault) 61.2 BUN/Creatinine Ratio 12 (6-20) Glucose Level 154mg/dL (70-99) Calcium Level 8.3mg/dL (8.5-10.1) Total Bilirubin 0.9mg/dL (0.2-1.0) Aspartate Amino Transf (AST/SGOT) 130U/L (15-37) Alanine Aminotransferase (ALT/SGPT) 56U/L (14-59) Alkaline Phosphatase 132U/L (46-116) Troponin I Quantitative < 0.017ng/mL (0.000-0.055) < 0.017ng/mL (0.000-0.055) MD-Vus-Y-Type Natriuretic Peptide 60104oo/mL (0-124) Total Protein 6.9g/dL (6.4-8.2) Albumin 3.1g/dL (3.4-5.0) Albumin/Globulin Ratio 0.8 (1.0-1.7) Thyroid Stimulating Hormone (TSH) 5.587uIU/mL (0.358-3.74) Free Thyroxine 1.35ng/dL (0.76-1.46) Free Triiodothyronine (T3) pg/mL 2.28pg/mL (2.18-3.98) Nasal Screen MRSA (PCR) Negative (Negative) Lactic Acid Level 5.3mmol/L (0.4-2.0) 4.0mmol/L (0.4-2.0) Test 11/28/16 07:15 11/28/16 11:40 11/28/16 15:15 11/28/16 17:30 White Blood Count 11.2x10^3/uL (4.0-11.0) Red Blood Count 3.28x10^6/uL (3.50-5.40) Hemoglobin 10.9g/dL (12.0-15.5) Hematocrit 33.3% (36.0-47.0) Mean Corpuscular Volume 102fL (79-100) Mean Corpuscular Hemoglobin 33pg (25-35) Mean Corpuscular Hemoglobin Concent 33g/dL (31-37) Red Cell Distribution Width 16.2% (11.5-14.5) Platelet Count 229x10^3/uL (140-400) Neutrophils (%) (Auto) 82% (31-73) Lymphocytes (%) (Auto) 10% (24-48) Monocytes (%) (Auto) 7% (0-9) Eosinophils (%) (Auto) 0% (0-3) Basophils (%) (Auto) 0% (0-3) Neutrophils # (Auto) 9.2x10^3uL (1.8-7.7) Lymphocytes # (Auto) 1.2x10^3/uL (1.0-4.8) Monocytes # (Auto) 0.8x10^3/uL (0.0-1.1) Eosinophils # (Auto) 0.0x10^3/uL (0.0-0.7) Basophils # (Auto) 0.0x10^3/uL (0.0-0.2) Reticulocyte Count (auto) 2.2% (0.5-2.5) Sodium Level 122mmol/L (136-145) 122mmol/L (136-145) 124mmol/L (136-145) Potassium Level 4.2mmol/L (3.5-5.1) Chloride Level 85mmol/L (98-107) Carbon Dioxide Level 29mmol/L (21-32) Anion Gap 8 (6-14) Blood Urea Nitrogen 11mg/dL (7-20) Creatinine 0.7mg/dL (0.6-1.0) Estimated GFR (Cockcroft-Gault) 81.8 Glucose Level 102mg/dL (70-99) Lactic Acid Level 3.2mmol/L (0.4-2.0) Calcium Level 8.1mg/dL (8.5-10.1) Iron Level 33ug/dL (50-170) Total Iron Binding Capacity 284ug/dL (250-450) Iron Saturation 12% (15-34) Ferritin 809ng/mL (8-252) Troponin I Quantitative < 0.017ng/mL (0.000-0.055) Body Fluid pH 7.4 Test 11/29/16 00:25 11/29/16 06:40 Sodium Level 129mmol/L (136-145) 132mmol/L (136-145) White Blood Count 9.7x10^3/uL (4.0-11.0) Red Blood Count 3.40x10^6/uL (3.50-5.40) Hemoglobin 11.5g/dL (12.0-15.5) Hematocrit 34.3% (36.0-47.0) Mean Corpuscular Volume 101fL (79-100) Mean Corpuscular Hemoglobin 34pg (25-35) Mean Corpuscular Hemoglobin Concent 33g/dL (31-37) Red Cell Distribution Width 16.0% (11.5-14.5) Platelet Count 261x10^3/uL (140-400) Neutrophils (%) (Auto) 82% (31-73) Lymphocytes (%) (Auto) 11% (24-48) Monocytes (%) (Auto) 7% (0-9) Eosinophils (%) (Auto) 1% (0-3) Basophils (%) (Auto) 0% (0-3) Neutrophils # (Auto) 7.9x10^3uL (1.8-7.7) Lymphocytes # (Auto) 1.1x10^3/uL (1.0-4.8) Monocytes # (Auto) 0.6x10^3/uL (0.0-1.1) Eosinophils # (Auto) 0.1x10^3/uL (0.0-0.7) Basophils # (Auto) 0.0x10^3/uL (0.0-0.2) Potassium Level 3.8mmol/L (3.5-5.1) Chloride Level 95mmol/L (98-107) Carbon Dioxide Level 33mmol/L (21-32) Anion Gap 4 (6-14) Blood Urea Nitrogen 9mg/dL (7-20) Creatinine 0.6mg/dL (0.6-1.0) Estimated GFR (Cockcroft-Gault) 97.7 Glucose Level 96mg/dL (70-99) Calcium Level 8.2mg/dL (8.5-10.1) Laboratory Tests Test 11/28/16 15:15 11/28/16 17:30 11/29/16 00:25 11/29/16 06:40 Body Fluid pH 7.4 Sodium Level 124mmol/L (136-145) 129mmol/L (136-145) 132mmol/L (136-145) White Blood Count 9.7x10^3/uL (4.0-11.0) Red Blood Count 3.40x10^6/uL (3.50-5.40) Hemoglobin 11.5g/dL (12.0-15.5) Hematocrit 34.3% (36.0-47.0) Mean Corpuscular Volume 101fL (79-100) Mean Corpuscular Hemoglobin 34pg (25-35) Mean Corpuscular Hemoglobin Concent 33g/dL (31-37) Red Cell Distribution Width 16.0% (11.5-14.5) Platelet Count 261x10^3/uL (140-400) Neutrophils (%) (Auto) 82% (31-73) Lymphocytes (%) (Auto) 11% (24-48) Monocytes (%) (Auto) 7% (0-9) Eosinophils (%) (Auto) 1% (0-3) Basophils (%) (Auto) 0% (0-3) Neutrophils # (Auto) 7.9x10^3uL (1.8-7.7) Lymphocytes # (Auto) 1.1x10^3/uL (1.0-4.8) Monocytes # (Auto) 0.6x10^3/uL (0.0-1.1) Eosinophils # (Auto) 0.1x10^3/uL (0.0-0.7) Basophils # (Auto) 0.0x10^3/uL (0.0-0.2) Potassium Level 3.8mmol/L (3.5-5.1) Chloride Level 95mmol/L (98-107) Carbon Dioxide Level 33mmol/L (21-32) Anion Gap 4 (6-14) Blood Urea Nitrogen 9mg/dL (7-20) Creatinine 0.6mg/dL (0.6-1.0) Estimated GFR (Cockcroft-Gault) 97.7 Glucose Level 96mg/dL (70-99) Calcium Level 8.2mg/dL (8.5-10.1) Microbiology 11/27/16 Blood Culture - Preliminary, Resulted NO GROWTH AFTER 1 DAY Medications Current Medications Albuterol/ Ipratropium (Duoneb) 3 ml 1X ONCE NEB Last administered on 15:56; Start 11/27/16 at 15:30; Stop 11/27/16 at 15:35; Status DC Vancomycin HCl (Vanco Per Pharmacy) 1 each PRN DAILY PRN MC SEE COMMENTS Last administered on 11/27/16 19:17; Start 11/27/16 at 16:45; Stop 11/28/16 at 07:13 ; Status DC Piperacillin Sod/ Tazobactam Sod (Zosyn Per Pharmacy) 1 each PRN DAILY PRN MC SEE COMMENTS; Start 11/27/16 at 16:45; Stop 11/27/16 at 20:57; Status DC Gentamicin Sulfate 1 each 1 each PRN DAILY PRN MC SEE COMMENTS Last administered on 11/27/16 19:41; Start 11/27/16 at 16:45; Stop 11/27/16 at 20:55 ; Status DC Piperacillin Sod/ Tazobactam Sod 3.375 gm/Sodium Chloride 50 ml @ 100 mls/hr 1X ONCE IV Last administered on 11/27/16 17:24; Start 11/27/16 at 17:00; Stop 11/27/16 at 17:29; Status DC Vancomycin HCl/ Sodium Chloride (Iv Sodium Chloride 0.9% 250ml) 250 ml @ 166.667 mls/hr 1X ONCE IV Last administered on 11/27/16 19:09; Start at 17:00; Stop 11/27/16 at 18:29; Status DC Iohexol (Omnipaque 300 Mg/ml) 75 ml 1X ONCE IV Last administered on 11/27/16 17:01; Start 11/27/16 at 16:45; Stop 11/27/16 at 16:47; Status DC Info 1 each 1 each PRN DAILY PRN MC SEE COMMENTS; Start 11/27/16 at 17:00; Stop 11/29/16 at 16:59 Gentamicin Sulfate 250 mg/ Sodium Chloride 106.25 ml @ 106.25 mls/hr 1X ONCE IV Last administered on 11/27/16 18:19; Start 11/27/16 at 17:00; Stop at 17:59; Status DC Conivaptan/ Dextrose 100 ml @ 200 mls/hr 1X ONCE IV Last administered on 11/27 21:14; Start 11/27/16 at 18:00; Stop 11/27/16 at 18:29; Status DC Conivaptan/ Dextrose 100 ml @ 4.167 mls/ hr 1X ONCE IV ; Start 11/27/16 at 18: 30; Stop 11/27/16 at 17:45; Status Cancel Conivaptan/ Dextrose (Vaprisol 20 Mg Premix) 100 ml @ 4.167 mls/ hr CONT PRN PRN IV HYPONATREMIA; Start 11/27/16 at 21:00; Stop 11/29/16 at 07:52; Status DC Furosemide 60 mg 60 mg 1X ONCE IVP ; Start 11/27/16 at 18:45; Stop 11/27/16 at 18:46; Status DC Piperacillin Sod/ Tazobactam Sod 4.5 gm/Sodium Chloride 100 ml @ 200 mls/hr Q6HRS IV ; Start 11/28/16 at 00:00; Stop 11/28/16 at 00:00; Status DC Vancomycin HCl/ Sodium Chloride (Iv Sodium Chloride 0.9% 250ml) 250 ml @ 250 mls/hr Q24H IV ; Start 11/28/16 at 17:00; Stop 11/28/16 at 17:00; Status DC Vancomycin HCl 1 each 1X ONCE MC ; Start 11/29/16 at 16:30; Stop 11/29/16 at 16 :30; Status DC Ondansetron HCl (Zofran) 4 mg PRN Q8HRS PRN IV NAUSEA/VOMITING; Start 11/27/16 at 19:30; Stop 11/28/16 at 19:29; Status DC Morphine Sulfate 2 mg PRN Q2HR PRN IV PAIN; Start 11/27/16 at 19:30; Stop 11/28 at 19:29; Status DC Acetaminophen (Tylenol) 650 mg PRN Q4HRS PRN PO FEVER; Start 11/27/16 at 19:30 ; Stop 11/28/16 at 19:29; Status DC Albuterol/ Ipratropium (Duoneb) 3 ml RTQID NEB Last administered on 11/28/16 16:25; Start 11/27/16 at 20:00; Stop 11/28/16 at 19:59; Status DC Gentamicin Sulfate 1 each 1X ONCE MC ; Start 11/28/16 at 04:00; Stop 11/28/16 at 04:00; Status DC Zolpidem Tartrate (Ambien) 5 mg PRN QHS PRN PO INSOMNIA Last administered on 21:39; Start 11/27/16 at 21:30 Multivitamins (Thera M Plus) 1 tab DAILY PO Last administered on 11/29/16 08: 18; Start 11/28/16 at 09:00 Folic Acid 1 mg 1 mg DAILY PO Last administered on 11/29/16 08:18; Start 11/28 at 09:00 Thiamine HCl/ Sodium Chloride (Iv Sodium Chloride 0.9% 50ml) 51 ml @ 100 mls/ hr DAILY IV Last administered on 11/29/16 10:33; Start 11/28/16 at 09:00; Stop 12/03/16 at 08:59 Lorazepam (Ativan) 2 mg Q6H PO Last administered on 11/27/16 21:30; Start at 21:30; Stop 11/27/16 at 21:34; Status DC Lorazepam (Ativan) 2 mg PRN Q6HRS PRN PO ALCOCHOL WITHDRAWAL PREVENTION; Start 11/28/16 at 21:30 Lidocaine/Sodium Bicarbonate (Buffered Lidocaine 1%) 20 ml STK-MED ONCE IJ ; Start 11/28/16 at 14:19; Stop 11/28/16 at 14:20; Status DC Fentanyl Citrate (Fentanyl 2ml Vial) 100 mcg STK-MED ONCE .ROUTE ; Start at 14:27; Stop 11/28/16 at 14:28; Status DC Midazolam HCl (Versed) 2 mg STK-MED ONCE .ROUTE ; Start 11/28/16 at 14:27; Stop 11/28/16 at 14:28; Status DC Lidocaine/Sodium Bicarbonate (Buffered Lidocaine 1%) 20 ml 1X ONCE IJ Last administered on 11/28/16 15:00; Start 11/28/16 at 14:30; Stop 11/28/16 at 14:31 ; Status DC Midazolam HCl (Versed) 2 mg 1X ONCE IV ; Start 11/28/16 at 14:30; Stop at 14:31; Status DC Fentanyl Citrate (Fentanyl 2ml Vial) 100 mcg 1X ONCE IV Last administered on 15:00; Start 11/28/16 at 14:30; Stop 11/28/16 at 14:31; Status DC Albuterol/ Ipratropium (Duoneb) 3 ml RTQID NEB ; Start 11/29/16 at 08:00; Stop 11/29/16 at 08:00; Status DC Albuterol/ Ipratropium 3 ml 3 ml RTQID NEB Last administered on 11/29/16 12:00 ; Start 11/28/16 at 21:00 Iron Sucrose/ Sodium Chloride (Venofer/Iv Sodium Chloride 0.9% 100ml) 110 ml @ 55 mls/hr 3X/WEEK IV Last administered on 11/29/16 10:33; Start 11/29/16 at 09 :00; Stop 12/07/16 at 10:59 Furosemide (Lasix) 40 mg BID PO Last administered on 11/29/16t 08:18; Start at 09:00 Active Scripts Active Reported Atenolol 50 Mg Tablet 1 Tab PO DAILY Vitals/I & O Vital Sign - Last 24 Hours 11/28/16 11/28/16 11/28/16 11/28/16 15:00 15:00 15:54 16:00 Pulse 89 Resp B/P 133/79 Pulse Ox 95 98 88 O2 Delivery Nasal Cannula Nasal Cannula Nasal Cannula Nasal Cannula O2 Flow Rate 4.0 4.0 3.0 3.0 11/28/16 11/28/16 11/28/16 11/28/16 16:00 16:27 17:00 18:00 Temp 98.9 98.9 Pulse 83 99 106 Resp B/P 114/71 104/54 127/51 Pulse Ox 98 96 89 O2 Delivery Nasal Cannula Nasal Cannula Nasal Cannula Nasal Cannula O2 Flow Rate 3.0 3.0 3.0 3.0 11/28/16 11/28/16 11/28/16 11/28/16 19:00 20:00 20:00 20:48 Temp 98.0 98.0 Pulse 96 94 Resp B/P 107/56 121/66 Pulse Ox 98 99 99 O2 Delivery Nasal Cannula Nasal Cannula Nasal Cannula Nasal Cannula O2 Flow Rate 3.0 3.0 3.0 3.0 11/28/16 11/28/16 11/28/16 11/28/16 21:00 22:00 23:00 23:59 Pulse 97 99 93 Resp B/P 120/55 110/57 119/61 Pulse Ox 98 97 99 O2 Delivery Nasal Cannula Nasal Cannula Nasal Cannula Nasal Cannula O2 Flow Rate 3.0 3.0 3.0 3.0 11/28/16 11/29/16 11/29/16 11/29/16 23:59 01:00 02:00 03:00 Temp 98.3 98.3 Pulse 92 86 89 88 Resp B/P 119/62 125/63 129/65 115/66 Pulse Ox 100 100 100 100 O2 Delivery Nasal Cannula Nasal Cannula Nasal Cannula Nasal Cannula O2 Flow Rate 3.0 3.0 3.0 3.0 411/29/16 11/29/16 11/29/16 04:00 04:00 05:00 06:00 Temp 98.1 98.1 Pulse 92 96 83 Resp 28 19 16 B/P 137/62 112/58 116/65 Pulse Ox 100 100 98 O2 Delivery Nasal Cannula Nasal Cannula Nasal Cannula Nasal Cannula O2 Flow Rate 3.0 3.0 3.0 3.0 11/29/16 11/29/16 11/29/16 11/29/16 07:00 08:00 08:00 08:51 Temp 98.6 98.6 Pulse 86 Resp 18 22 B/P 123/64 126/66 Pulse Ox 100 99 95 O2 Delivery Nasal Cannula Nasal Cannula Room Air O2 Flow Rate 3.0 3.0 11/29/16 12:00 Pulse Ox 93 O2 Delivery Nasal Cannula O2 Flow Rate 2.0 Intake and Output 11/28/16 11/28/16 11/29/16 15:00 23:00 07:00 Intake Total 200 ml 200 ml 344 ml Output Total 600 ml 1730 ml 1425 ml Balance -400 ml -1530 ml -1081 ml Nutrition Consultation Dietary Evaluation: Recommendations by RD: Increase Calorie Intake, Protein supplementation Comments: Discussed current cardiac diet restriction 1200 cc fluid restriction per MD Provided alternate menu Add magic cup at lunch (290 calories/9 grams protein per serving) Expected Outcomes/Goals: meet 75% estimated nutrition needs Interpretation of weight loss: >5% in 1 month Malnutrition Findings: Malnutrition related to morbid: No Weight Status: Appropriate ELVA CANO MD Nov 29, 2016 14:58
[2016-11-29] MEDS: ATENOLOL 50 MG TABLET. PO SCH (19:04)
--- NOTE | 2016-11-29 19:12 | PDOC ---
PULMONARY PROGRESS NOTES Subjective pt less soa Vitals Vital Signs Date Time Temp Pulse Resp B/P Pulse Ox O2 Delivery O2 Flow Rate FiO2 11/29/16 19:04 115 163/75 11/29/16 16:17 92 Room Air 11/29/16 16:00 98.6 98.6 11/29/16 12:00 2.0 11/29/16 08:00 22 ROS: No Nausea, No Chest Pain, No Abdominal Pain, No Increase Cough Lungs: Clear Cardiovascular: S1, S2 Abdomen: Soft, Non-tender Neuro Exam: Alert Extremities: No Edema Labs Laboratory Tests Test 11/27/16 20:00 11/27/16 20:18 11/28/16 00:15 11/28/16 07:15 Nasal Screen MRSA (PCR) Negative (Negative) Lactic Acid Level 5.3mmol/L (0.4-2.0) 4.0mmol/L (0.4-2.0) 3.2mmol/L (0.4-2.0) Sodium Level 118mmol/L (136-145) 122mmol/L (136-145) Troponin I Quantitative < 0.017ng/mL (0.000-0.055) < 0.017ng/mL (0.000-0.055) White Blood Count 11.2x10^3/uL (4.0-11.0) Red Blood Count 3.28x10^6/uL (3.50-5.40) Hemoglobin 10.9g/dL (12.0-15.5) Hematocrit 33.3% (36.0-47.0) Mean Corpuscular Volume 102fL (79-100) Mean Corpuscular Hemoglobin 33pg (25-35) Mean Corpuscular Hemoglobin Concent 33g/dL (31-37) Red Cell Distribution Width 16.2% (11.5-14.5) Platelet Count 229x10^3/uL (140-400) Neutrophils (%) (Auto) 82% (31-73) Lymphocytes (%) (Auto) 10% (24-48) Monocytes (%) (Auto) 7% (0-9) Eosinophils (%) (Auto) 0% (0-3) Basophils (%) (Auto) 0% (0-3) Neutrophils # (Auto) 9.2x10^3uL (1.8-7.7) Lymphocytes # (Auto) 1.2x10^3/uL (1.0-4.8) Monocytes # (Auto) 0.8x10^3/uL (0.0-1.1) Eosinophils # (Auto) 0.0x10^3/uL (0.0-0.7) Basophils # (Auto) 0.0x10^3/uL (0.0-0.2) Reticulocyte Count (auto) 2.2% (0.5-2.5) Potassium Level 4.2mmol/L (3.5-5.1) Chloride Level 85mmol/L (98-107) Carbon Dioxide Level 29mmol/L (21-32) Anion Gap 8 (6-14) Blood Urea Nitrogen 11mg/dL (7-20) Creatinine 0.7mg/dL (0.6-1.0) Estimated GFR (Cockcroft-Gault) 81.8 Glucose Level 102mg/dL (70-99) Calcium Level 8.1mg/dL (8.5-10.1) Iron Level 33ug/dL (50-170) Total Iron Binding Capacity 284ug/dL (250-450) Iron Saturation 12% (15-34) Ferritin 809ng/mL (8-252) Test 11/28/16 11:40 11/28/16 15:15 11/28/16 17:30 11/29/16 00:25 Sodium Level 122mmol/L (136-145) 124mmol/L (136-145) 129mmol/L (136-145) Body Fluid pH 7.4 Test 11/29/16 06:40 White Blood Count 9.7x10^3/uL (4.0-11.0) Red Blood Count 3.40x10^6/uL (3.50-5.40) Hemoglobin 11.5g/dL (12.0-15.5) Hematocrit 34.3% (36.0-47.0) Mean Corpuscular Volume 101fL (79-100) Mean Corpuscular Hemoglobin 34pg (25-35) Mean Corpuscular Hemoglobin Concent 33g/dL (31-37) Red Cell Distribution Width 16.0% (11.5-14.5) Platelet Count 261x10^3/uL (140-400) Neutrophils (%) (Auto) 82% (31-73) Lymphocytes (%) (Auto) 11% (24-48) Monocytes (%) (Auto) 7% (0-9) Eosinophils (%) (Auto) 1% (0-3) Basophils (%) (Auto) 0% (0-3) Neutrophils # (Auto) 7.9x10^3uL (1.8-7.7) Lymphocytes # (Auto) 1.1x10^3/uL (1.0-4.8) Monocytes # (Auto) 0.6x10^3/uL (0.0-1.1) Eosinophils # (Auto) 0.1x10^3/uL (0.0-0.7) Basophils # (Auto) 0.0x10^3/uL (0.0-0.2) Sodium Level 132mmol/L (136-145) Potassium Level 3.8mmol/L (3.5-5.1) Chloride Level 95mmol/L (98-107) Carbon Dioxide Level 33mmol/L (21-32) Anion Gap 4 (6-14) Blood Urea Nitrogen 9mg/dL (7-20) Creatinine 0.6mg/dL (0.6-1.0) Estimated GFR (Cockcroft-Gault) 97.7 Glucose Level 96mg/dL (70-99) Calcium Level 8.2mg/dL (8.5-10.1) Laboratory Tests Test 11/29/16 00:25 11/29/16 06:40 Sodium Level 129mmol/L (136-145) 132mmol/L (136-145) White Blood Count 9.7x10^3/uL (4.0-11.0) Red Blood Count 3.40x10^6/uL (3.50-5.40) Hemoglobin 11.5g/dL (12.0-15.5) Hematocrit 34.3% (36.0-47.0) Mean Corpuscular Volume 101fL (79-100) Mean Corpuscular Hemoglobin 34pg (25-35) Mean Corpuscular Hemoglobin Concent 33g/dL (31-37) Red Cell Distribution Width 16.0% (11.5-14.5) Platelet Count 261x10^3/uL (140-400) Neutrophils (%) (Auto) 82% (31-73) Lymphocytes (%) (Auto) 11% (24-48) Monocytes (%) (Auto) 7% (0-9) Eosinophils (%) (Auto) 1% (0-3) Basophils (%) (Auto) 0% (0-3) Neutrophils # (Auto) 7.9x10^3uL (1.8-7.7) Lymphocytes # (Auto) 1.1x10^3/uL (1.0-4.8) Monocytes # (Auto) 0.6x10^3/uL (0.0-1.1) Eosinophils # (Auto) 0.1x10^3/uL (0.0-0.7) Basophils # (Auto) 0.0x10^3/uL (0.0-0.2) Potassium Level 3.8mmol/L (3.5-5.1) Chloride Level 95mmol/L (98-107) Carbon Dioxide Level 33mmol/L (21-32) Anion Gap 4 (6-14) Blood Urea Nitrogen 9mg/dL (7-20) Creatinine 0.6mg/dL (0.6-1.0) Estimated GFR (Cockcroft-Gault) 97.7 Glucose Level 96mg/dL (70-99) Calcium Level 8.2mg/dL (8.5-10.1) Medications Active Scripts Medications Dose Route/Sig Days Date Category Atenolol 50 Mg Tablet 1 Tab PO DAILY 08/30/16 Reported Impression . IMPRESSION: 1. Acute respiratory failure secondary to acute bilateral pleural effusions, acute CHF 2. Bilateral pleural effusions, 3. Secondary pulmonary hypertension. 42 4. Hyponatremia. 5. Hypothyroidism. 6. CT with no evidence of pulmonary embolism. 6. History of alcohol and tobacco use. 7. Lactic acidosis. 8. Leukocytosis. 9. Cardiomyopathy EF 25% Echo Left ventricle systolic function is moderately to severely impaired. The Ejection Fraction is 25%. There is moderate to severe global hypokinesis of the left ventricle. There is akinesis in the basal and mid anteroseptal anderson. Akinesis in the basal and mid interventricular septal anderson. There is moderate hypokinesis in the basal and mid-inferior anderson. Transmitral Doppler flow pattern is Grade IV-fixed restrictive diastolic dysfunction. The left atrium is dilated. The right atrium is mildly dilated. The aortic valve is mildly thickened. The aortic valve is trileaflet. Doppler and Color Flow revealed mild aortic regurgitation. Doppler and Color Flow revealed moderate to severe mitral regurgitation. The mitral valve leaflets are thickened. Doppler and Color Flow revealed moderate tricuspid regurgitation. The pulmonary artery systolic pressure is estimated at 42 mmHg. There is mild pulmonary hypertension. Doppler and Color Flow revealed trace pulmonic valvular regurgitation. The aortic root is normal in size. The IVC is dilated and does not collapse. A large left pleural effusion is noted. There is a trace circumferential pericardial effusion. Plan . Less soa today 1. S/P Thoracentesis follow labs 2. Follow Nephrology input. 3. needs cath in future 4. Echocardiogram noted 5. We will defer any further treatment of her hypothyroidism to the PCP. 6. Follow up labs. CORBY FULLER MD Nov 29, 2016 19:12
[2016-11-29] MEDS: LORAZEPAM 1 MG TABLET. PO PRN (23:00)
[2016-11-29] MEDS ORDERED: DIGOXIN IV 500 MCG/2 ML AMPUL. IV ONE (23:30)
[2016-11-30] MEDS ORDERED: DIGOXIN IV 500 MCG/2 ML AMPUL. IV ONE (01:00)
[2016-11-30 03:00] VITALS: BP 117/68
[2016-11-30 05:21] LABS: BASO % 0 % (0-3); EOS % 2 % (0-3); HEMOGLOBIN 11.6 g/dL (12.0-15.5); LYMPH # 1.3 x10^3/uL (1.0-4.8); LYMPH % 13 % (24-48); MEAN CORPUSCULAR HEMOGLOBIN 34 pg (25-35); MEAN CORPUSCULAR HGB CONC 33 g/dL (31-37); MEAN CORPUSCULAR VOLUME 101 fL (79-100); MONO % 11 % (0-9); NEUT % 74 % (31-73); PLATELET COUNT 316 x10^3/uL (140-400); RED BLOOD COUNT 3.47 x10^6/uL (3.50-5.40); RED CELL DISTRIBUTION WIDTH 15.9 % (11.5-14.5); WHITE BLOOD COUNT 9.8 x10^3/uL (4.0-11.0)
[2016-11-30 05:38] LABS: CALCIUM 8.5 mg/dL (8.5-10.1); CREATININE 0.7 mg/dL (0.6-1.0); GFR 81.8; POTASSIUM 3.7 mmol/L (3.5-5.1)
[2016-11-30] MEDS: IPRATRPIUM/ALBUTEROL 0.5/2.5MG 3 ML NEBU. NEB SCH ×4 (07:58→21:05)
[2016-11-30 08:00] VITALS: BP 130/79
[2016-11-30] MEDS: MULTIVITAMIN with MINERAL TABLET. PO SCH (08:38)
[2016-11-30] MEDS: FUROSEMIDE 40 MG TABLET. PO SCH ×2 (08:38→21:03)
[2016-11-30] MEDS: FOLIC ACID 1 MG TABLET. PO SCH (08:38)
[2016-11-30] MEDS: ATENOLOL 50 MG TABLET. PO SCH (08:39)
[2016-11-30] MEDS: THIAMINE 100 MG in IV NORMAL SALINE 50ML 50 ML IV SCH (09:00)
--- NOTE | 2016-11-30 09:43 | PDOC ---
Subjective: Subjective: Out of ICU, feeling better but drowsy. No GI complaints. Objective: Objective: No GI concerns per RN. Plans for outpt cardiac cath. Vital Signs: Vital Signs Date Time Temp Pulse Resp B/P Pulse Ox O2 Delivery O2 Flow Rate FiO2 11/30/16 08:39 94 130/79 11/30/16 08:00 98.3 20 87 Room Air 98.3 11/29/16 12:00 2.0 Labs: Laboratory Tests Test 11/30/16 04:30 11/30/16 08:39 White Blood Count 9.8x10^3/uL Red Blood Count 3.47x10^6/uL Hemoglobin 11.6g/dL Hematocrit 35.0% Mean Corpuscular Volume 101fL Mean Corpuscular Hemoglobin 34pg Mean Corpuscular Hemoglobin Concent 33g/dL Red Cell Distribution Width 15.9% Platelet Count 316x10^3/uL Neutrophils (%) (Auto) 74% Lymphocytes (%) (Auto) 13% Monocytes (%) (Auto) 11% Eosinophils (%) (Auto) 2% Basophils (%) (Auto) 0% Neutrophils # (Auto) 7.2x10^3uL Lymphocytes # (Auto) 1.3x10^3/uL Monocytes # (Auto) 1.1x10^3/uL Eosinophils # (Auto) 0.2x10^3/uL Basophils # (Auto) 0.0x10^3/uL Sodium Level 134mmol/L Potassium Level 3.7mmol/L Chloride Level 96mmol/L Carbon Dioxide Level 36mmol/L Anion Gap 2 Blood Urea Nitrogen 10mg/dL Creatinine 0.7mg/dL Estimated GFR (Cockcroft-Gault) 81.8 Glucose Level 90mg/dL Lactic Acid Level 1.0mmol/L Calcium Level 8.5mg/dL Glucose (Fingerstick) 86mg/dL PE: GEN: NAD LUNGS: clear anteriorly HEART: S1S2 ABD: S/ND/NT NEURO/PSYCH: A & O 3 A/P: Hyponatremia - improved Bilateral pleural effusions s/p thoracentesis CHF Alcoholism, probable cirrhosis -- Stable GI-jones. JORGE JONES Nov 30, 2016 09:42
[2016-11-30] MEDS: IRON SUCROSE COMPLEX 200 MG in IV NORMAL SALINE 100ML 100 ML IV SCH (10:23)
--- NOTE | 2016-11-30 10:31 | PDOC ---
SUBJECTIVE ROS f/u p of HypNatremia doign and feeling better today OBJECTIVE Vital Signs Vital Signs Date Time Temp Pulse Resp B/P Pulse Ox O2 Delivery O2 Flow Rate FiO2 11/30/16 08:39 94 130/79 11/30/16 08:00 98.3 20 87 Room Air 98.3 11/29/16 12:00 2.0 I & 0 Intake and Output 11/30/16 07:00 Intake Total 920 ml Output Total 5520 ml Balance -4600 ml Intake Oral 920 ml Output Urine Total 5520 ml PHYSICAL EXAM Physical Exam General Appearance: Awake and alert Neck: min JVD +JVP Chest: CTA Julio x rare basal rales Heart: S1 S2 SYS murmur Abdomen - Soft NTND Extremities - No Edema DIAGNOSIS/ASSESSMENT Assessment & Plan Hyponatremia due to Fl overload - now better fl Ovload, CHF, VHDz - diuresis as ordered to optimize Cardio/pulm status will sign off - pl call with Qs Problems: COMMENT/RELEVANT DATA Meds Current Medications Medications (Trade) Dose Ordered Sig/Chuckie Start Time Stop Time Status Last Admin Dose Admin Acetaminophen (Tylenol) 650 mg PRN Q4HRS PRN 11/27/16 19:30 11/28/16 19:29 DC Albuterol/ Ipratropium (Duoneb) 3 ml RTQID 11/29/16 08:00 11/29/16 08:00 DC Albuterol/ Ipratropium 3 ml 3 ml RTQID 11/28/16 21:00 11/30/16 07:58 3 ML Atenolol (Tenormin) 50 mg DAILY 11/29/16 17:30 11/30/16 08:39 50 MG Conivaptan/ Dextrose (Vaprisol 20 Mg Premix) 100 ml @ 4.167 mls/ hr CONT PRN PRN 11/27/16 21:00 11/29/16 07:52 DC Digoxin (Lanoxin) 250 mcg 1X ONCE 11/30/16 01:00 11/30/16 01:01 DC 11/30/16 00:53 250 MCG Fentanyl Citrate (Fentanyl 2ml Vial) 100 mcg 1X ONCE 11/28/16 14:30 11/28/16 14:31 DC 11/28/16 15:00 50 MCG Folic Acid 1 mg 1 mg DAILY 11/28/16 09:00 11/30/16 08:38 1 MG Furosemide (Lasix) 40 mg BID 11/29/16 09:00 11/30/16 08:38 40 MG Furosemide 60 mg 60 mg 1X ONCE 11/27/16 18:45 11/27/16 18:46 DC Gentamicin Sulfate 1 each 1 each PRN DAILY PRN 11/27/16 16:45 11/27/16 20:55 DC 11/27/16 19:41 1 EACH Gentamicin Sulfate 250 mg/ Sodium Chloride 106.25 ml @ 106.25 mls/hr 1X ONCE 11/27/16 17:00 11/27/16 17:59 DC 11/27/16 18:19 106.25 MLS/HR Gentamicin Sulfate 1 each 1X ONCE 11/28/16 04:00 11/28/16 04:00 DC Info 1 each 1 each PRN DAILY PRN 11/27/16 17:00 11/29/16 16:59 DC Iohexol (Omnipaque 300 Mg/ml) 75 ml 1X ONCE 11/27/16 16:45 11/27/16 16:47 DC 11/27/16 17:01 75 ML Iron Sucrose/ Sodium Chloride (Venofer/Iv Sodium Chloride 0.9% 100ml) 110 ml @ 55 mls/hr 3X/WEEK 11/29/16 09:00 12/07/16 10:59 11/30/16 10:23 55 MLS/HR Lidocaine/Sodium Bicarbonate (Buffered Lidocaine 1%) 20 ml 1X ONCE 11/28/16 14:30 11/28/16 14:31 DC 11/28/16 15:00 12 ML Lorazepam (Ativan) 2 mg PRN Q6HRS PRN 11/28/16 21:30 11/29/16 23:00 2 MG Midazolam HCl (Versed) 2 mg 1X ONCE 11/28/16 14:30 11/28/16 14:31 DC Morphine Sulfate 2 mg PRN Q2HR PRN 11/27/16 19:30 11/28/16 19:29 DC Multivitamins (Thera M Plus) 1 tab DAILY 11/28/16 09:00 11/30/16 08:38 1 TAB Ondansetron HCl (Zofran) 4 mg PRN Q8HRS PRN 11/27/16 19:30 11/28/16 19:29 DC Piperacillin Sod/ Tazobactam Sod (Zosyn Per Pharmacy) 1 each PRN DAILY PRN 11/27/16 16:45 11/27/16 20:57 DC Piperacillin Sod/ Tazobactam Sod 4.5 gm/Sodium Chloride 100 ml @ 200 mls/hr Q6HRS 11/28/16 00:00 11/28/16 00:00 DC Piperacillin Sod/ Tazobactam Sod/ Sodium Chloride (Zosyn/Iv Sodium Chloride 0.9% 50ml) 50 ml @ 100 mls/hr 1X ONCE 11/27/16 17:00 11/27/16 17:29 DC 11/27/16 17:24 100 MLS/HR Thiamine HCl/ Sodium Chloride (Iv Sodium Chloride 0.9% 50ml) 51 ml @ 100 mls/hr DAILY 11/28/16 09:00 12/03/16 08:59 11/29/16 10:33 100 MLS/HR Vancomycin HCl 1 each 1X ONCE 11/29/16 16:30 11/29/16 16:30 DC Vancomycin HCl (Vanco Per Pharmacy) 1 each PRN DAILY PRN 11/27/16 16:45 11/28/16 07:13 DC 11/27/16 19:17 1 EACH Vancomycin HCl/ Sodium Chloride (Iv Sodium Chloride 0.9% 250ml) 250 ml @ 250 mls/hr Q24H 11/28/16 17:00 11/28/16 17:00 DC Zolpidem Tartrate (Ambien) 5 mg PRN QHS PRN 11/27/16 21:30 11/27/16 21:39 5 MG Lab Laboratory Tests Test 11/30/16 04:30 11/30/16 08:39 White Blood Count 9.8x10^3/uL (4.0-11.0) Red Blood Count 3.47x10^6/uL (3.50-5.40) Hemoglobin 11.6g/dL (12.0-15.5) Hematocrit 35.0% (36.0-47.0) Mean Corpuscular Volume 101fL (79-100) Mean Corpuscular Hemoglobin 34pg (25-35) Mean Corpuscular Hemoglobin Concent 33g/dL (31-37) Red Cell Distribution Width 15.9% (11.5-14.5) Platelet Count 316x10^3/uL (140-400) Neutrophils (%) (Auto) 74% (31-73) Lymphocytes (%) (Auto) 13% (24-48) Monocytes (%) (Auto) 11% (0-9) Eosinophils (%) (Auto) 2% (0-3) Basophils (%) (Auto) 0% (0-3) Neutrophils # (Auto) 7.2x10^3uL (1.8-7.7) Lymphocytes # (Auto) 1.3x10^3/uL (1.0-4.8) Monocytes # (Auto) 1.1x10^3/uL (0.0-1.1) Eosinophils # (Auto) 0.2x10^3/uL (0.0-0.7) Basophils # (Auto) 0.0x10^3/uL (0.0-0.2) Sodium Level 134mmol/L (136-145) Potassium Level 3.7mmol/L (3.5-5.1) Chloride Level 96mmol/L (98-107) Carbon Dioxide Level 36mmol/L (21-32) Anion Gap 2 (6-14) Blood Urea Nitrogen 10mg/dL (7-20) Creatinine 0.7mg/dL (0.6-1.0) Estimated GFR (Cockcroft-Gault) 81.8 Glucose Level 90mg/dL (70-99) Lactic Acid Level 1.0mmol/L (0.4-2.0) Calcium Level 8.5mg/dL (8.5-10.1) Glucose (Fingerstick) 86mg/dL (70-99) TRINY MENDEZ MD Nov 30, 2016 10:31
[2016-11-30 11:29] VITALS: BP 117/71
--- NOTE | 2016-11-30 11:52 | PDOC ---
PROGRESS NOTES Chief Complaint Chief Complaint cc: Shortness of breath -Congestive heart failure acute systolic HTN Hypertension PLAN clinically improving, continue diuresis HR controlled On digoxin monitor renal functions intake and out put appreciate cardiology input PT/OT History of Present Illness History of Present Illness NO FEVER NO CHEST PAIN BREATHING BETTER Vitals Vitals Vital Signs Date Time Temp Pulse Resp B/P Pulse Ox O2 Delivery O2 Flow Rate FiO2 11/30/16 11:37 94 Room Air 11/30/16 11:29 98.0 104 16 117/71 98.0 11/29/16 12:00 2.0 Physical Exam General: Alert, Oriented X3, Cooperative Heart: Regular rate, Normal S1, Normal S2 Lungs: Clear Abdomen: Soft, No tenderness Extremities: No clubbing, No cyanosis Skin: No breakdown, No significant lesion Labs LABS Laboratory Tests Test 11/30/16 04:30 11/30/16 08:39 11/30/16 10:54 White Blood Count 9.8x10^3/uL (4.0-11.0) Red Blood Count 3.47x10^6/uL (3.50-5.40) Hemoglobin 11.6g/dL (12.0-15.5) Hematocrit 35.0% (36.0-47.0) Mean Corpuscular Volume 101fL (79-100) Mean Corpuscular Hemoglobin 34pg (25-35) Mean Corpuscular Hemoglobin Concent 33g/dL (31-37) Red Cell Distribution Width 15.9% (11.5-14.5) Platelet Count 316x10^3/uL (140-400) Neutrophils (%) (Auto) 74% (31-73) Lymphocytes (%) (Auto) 13% (24-48) Monocytes (%) (Auto) 11% (0-9) Eosinophils (%) (Auto) 2% (0-3) Basophils (%) (Auto) 0% (0-3) Neutrophils # (Auto) 7.2x10^3uL (1.8-7.7) Lymphocytes # (Auto) 1.3x10^3/uL (1.0-4.8) Monocytes # (Auto) 1.1x10^3/uL (0.0-1.1) Eosinophils # (Auto) 0.2x10^3/uL (0.0-0.7) Basophils # (Auto) 0.0x10^3/uL (0.0-0.2) Sodium Level 134mmol/L (136-145) Potassium Level 3.7mmol/L (3.5-5.1) Chloride Level 96mmol/L (98-107) Carbon Dioxide Level 36mmol/L (21-32) Anion Gap 2 (6-14) Blood Urea Nitrogen 10mg/dL (7-20) Creatinine 0.7mg/dL (0.6-1.0) Estimated GFR (Cockcroft-Gault) 81.8 Glucose Level 90mg/dL (70-99) Lactic Acid Level 1.0mmol/L (0.4-2.0) Calcium Level 8.5mg/dL (8.5-10.1) Glucose (Fingerstick) 86mg/dL (70-99) 121mg/dL (70-99) Assessment and Plan Assessmemt and Plan Problems Medical Problems: (1) Anemia Status: Acute (2) Congestive heart failure, acute Status: Acute (3) Essential hypertension Status: Acute (4) Healthcare associated bacterial pneumonia Status: Acute (5) Hypochloremia Status: Acute (6) Hyponatremia Status: Acute (7) Hypoxia Status: Acute (8) Leukocytosis Status: Acute (9) Pleural effusion Status: Acute Problems: Comment Review of Relevant I have reviewed the following items pavithra (where applicable) has been applied. Labs Laboratory Tests Test 11/28/16 15:15 11/28/16 17:30 11/29/16 00:25 11/29/16 06:40 Body Fluid pH 7.4 Sodium Level 124mmol/L (136-145) 129mmol/L (136-145) 132mmol/L (136-145) White Blood Count 9.7x10^3/uL (4.0-11.0) Red Blood Count 3.40x10^6/uL (3.50-5.40) Hemoglobin 11.5g/dL (12.0-15.5) Hematocrit 34.3% (36.0-47.0) Mean Corpuscular Volume 101fL (79-100) Mean Corpuscular Hemoglobin 34pg (25-35) Mean Corpuscular Hemoglobin Concent 33g/dL (31-37) Red Cell Distribution Width 16.0% (11.5-14.5) Platelet Count 261x10^3/uL (140-400) Neutrophils (%) (Auto) 82% (31-73) Lymphocytes (%) (Auto) 11% (24-48) Monocytes (%) (Auto) 7% (0-9) Eosinophils (%) (Auto) 1% (0-3) Basophils (%) (Auto) 0% (0-3) Neutrophils # (Auto) 7.9x10^3uL (1.8-7.7) Lymphocytes # (Auto) 1.1x10^3/uL (1.0-4.8) Monocytes # (Auto) 0.6x10^3/uL (0.0-1.1) Eosinophils # (Auto) 0.1x10^3/uL (0.0-0.7) Basophils # (Auto) 0.0x10^3/uL (0.0-0.2) Potassium Level 3.8mmol/L (3.5-5.1) Chloride Level 95mmol/L (98-107) Carbon Dioxide Level 33mmol/L (21-32) Anion Gap 4 (6-14) Blood Urea Nitrogen 9mg/dL (7-20) Creatinine 0.6mg/dL (0.6-1.0) Estimated GFR (Cockcroft-Gault) 97.7 Glucose Level 96mg/dL (70-99) Calcium Level 8.2mg/dL (8.5-10.1) Test 11/30/16 04:30 11/30/16 08:39 11/30/16 10:54 White Blood Count 9.8x10^3/uL (4.0-11.0) Red Blood Count 3.47x10^6/uL (3.50-5.40) Hemoglobin 11.6g/dL (12.0-15.5) Hematocrit 35.0% (36.0-47.0) Mean Corpuscular Volume 101fL (79-100) Mean Corpuscular Hemoglobin 34pg (25-35) Mean Corpuscular Hemoglobin Concent 33g/dL (31-37) Red Cell Distribution Width 15.9% (11.5-14.5) Platelet Count 316x10^3/uL (140-400) Neutrophils (%) (Auto) 74% (31-73) Lymphocytes (%) (Auto) 13% (24-48) Monocytes (%) (Auto) 11% (0-9) Eosinophils (%) (Auto) 2% (0-3) Basophils (%) (Auto) 0% (0-3) Neutrophils # (Auto) 7.2x10^3uL (1.8-7.7) Lymphocytes # (Auto) 1.3x10^3/uL (1.0-4.8) Monocytes # (Auto) 1.1x10^3/uL (0.0-1.1) Eosinophils # (Auto) 0.2x10^3/uL (0.0-0.7) Basophils # (Auto) 0.0x10^3/uL (0.0-0.2) Sodium Level 134mmol/L (136-145) Potassium Level 3.7mmol/L (3.5-5.1) Chloride Level 96mmol/L (98-107) Carbon Dioxide Level 36mmol/L (21-32) Anion Gap 2 (6-14) Blood Urea Nitrogen 10mg/dL (7-20) Creatinine 0.7mg/dL (0.6-1.0) Estimated GFR (Cockcroft-Gault) 81.8 Glucose Level 90mg/dL (70-99) Lactic Acid Level 1.0mmol/L (0.4-2.0) Calcium Level 8.5mg/dL (8.5-10.1) Glucose (Fingerstick) 86mg/dL (70-99) 121mg/dL (70-99) Laboratory Tests Test 11/30/16 04:30 11/30/16 08:39 11/30/16 10:54 White Blood Count 9.8x10^3/uL (4.0-11.0) Red Blood Count 3.47x10^6/uL (3.50-5.40) Hemoglobin 11.6g/dL (12.0-15.5) Hematocrit 35.0% (36.0-47.0) Mean Corpuscular Volume 101fL (79-100) Mean Corpuscular Hemoglobin 34pg (25-35) Mean Corpuscular Hemoglobin Concent 33g/dL (31-37) Red Cell Distribution Width 15.9% (11.5-14.5) Platelet Count 316x10^3/uL (140-400) Neutrophils (%) (Auto) 74% (31-73) Lymphocytes (%) (Auto) 13% (24-48) Monocytes (%) (Auto) 11% (0-9) Eosinophils (%) (Auto) 2% (0-3) Basophils (%) (Auto) 0% (0-3) Neutrophils # (Auto) 7.2x10^3uL (1.8-7.7) Lymphocytes # (Auto) 1.3x10^3/uL (1.0-4.8) Monocytes # (Auto) 1.1x10^3/uL (0.0-1.1) Eosinophils # (Auto) 0.2x10^3/uL (0.0-0.7) Basophils # (Auto) 0.0x10^3/uL (0.0-0.2) Sodium Level 134mmol/L (136-145) Potassium Level 3.7mmol/L (3.5-5.1) Chloride Level 96mmol/L (98-107) Carbon Dioxide Level 36mmol/L (21-32) Anion Gap 2 (6-14) Blood Urea Nitrogen 10mg/dL (7-20) Creatinine 0.7mg/dL (0.6-1.0) Estimated GFR (Cockcroft-Gault) 81.8 Glucose Level 90mg/dL (70-99) Lactic Acid Level 1.0mmol/L (0.4-2.0) Calcium Level 8.5mg/dL (8.5-10.1) Glucose (Fingerstick) 86mg/dL (70-99) 121mg/dL (70-99) Microbiology 11/27/16 Blood Culture - Preliminary, Resulted NO GROWTH AFTER 2 DAYS 11/28/16 Gram Stain - Final, Complete Medications Current Medications Albuterol/ Ipratropium (Duoneb) 3 ml 1X ONCE NEB Last administered on 15:56; Start 11/27/16 at 15:30; Stop 11/27/16 at 15:35; Status DC Vancomycin HCl (Vanco Per Pharmacy) 1 each PRN DAILY PRN MC SEE COMMENTS Last administered on 11/27/16 19:17; Start 11/27/16 at 16:45; Stop 11/28/16 at 07:13 ; Status DC Piperacillin Sod/ Tazobactam Sod (Zosyn Per Pharmacy) 1 each PRN DAILY PRN MC SEE COMMENTS; Start 11/27/16 at 16:45; Stop 11/27/16 at 20:57; Status DC Gentamicin Sulfate 1 each 1 each PRN DAILY PRN MC SEE COMMENTS Last administered on 11/27/16 19:41; Start 11/27/16 at 16:45; Stop 11/27/16 at 20:55 ; Status DC Piperacillin Sod/ Tazobactam Sod 3.375 gm/Sodium Chloride 50 ml @ 100 mls/hr 1X ONCE IV Last administered on 11/27/16 17:24; Start 11/27/16 at 17:00; Stop 11/27/16 at 17:29; Status DC Vancomycin HCl/ Sodium Chloride (Iv Sodium Chloride 0.9% 250ml) 250 ml @ 166.667 mls/hr 1X ONCE IV Last administered on 11/27/16 19:09; Start at 17:00; Stop 11/27/16 at 18:29; Status DC Iohexol (Omnipaque 300 Mg/ml) 75 ml 1X ONCE IV Last administered on 11/27/16 17:01; Start 11/27/16 at 16:45; Stop 11/27/16 at 16:47; Status DC Info 1 each 1 each PRN DAILY PRN MC SEE COMMENTS; Start 11/27/16 at 17:00; Stop 11/29/16 at 16:59; Status DC Gentamicin Sulfate 250 mg/ Sodium Chloride 106.25 ml @ 106.25 mls/hr 1X ONCE IV Last administered on 11/27/16 18:19; Start 11/27/16 at 17:00; Stop at 17:59; Status DC Conivaptan/ Dextrose 100 ml @ 200 mls/hr 1X ONCE IV Last administered on 11/27 21:14; Start 11/27/16 at 18:00; Stop 11/27/16 at 18:29; Status DC Conivaptan/ Dextrose 100 ml @ 4.167 mls/ hr 1X ONCE IV ; Start 11/27/16 at 18: 30; Stop 11/27/16 at 17:45; Status Cancel Conivaptan/ Dextrose (Vaprisol 20 Mg Premix) 100 ml @ 4.167 mls/ hr CONT PRN PRN IV HYPONATREMIA; Start 11/27/16 at 21:00; Stop 11/29/16 at 07:52; Status DC Furosemide 60 mg 60 mg 1X ONCE IVP ; Start 11/27/16 at 18:45; Stop 11/27/16 at 18:46; Status DC Piperacillin Sod/ Tazobactam Sod 4.5 gm/Sodium Chloride 100 ml @ 200 mls/hr Q6HRS IV ; Start 11/28/16 at 00:00; Stop 11/28/16 at 00:00; Status DC Vancomycin HCl/ Sodium Chloride (Iv Sodium Chloride 0.9% 250ml) 250 ml @ 250 mls/hr Q24H IV ; Start 11/28/16 at 17:00; Stop 11/28/16 at 17:00; Status DC Vancomycin HCl 1 each 1X ONCE MC ; Start 11/29/16 at 16:30; Stop 11/29/16 at 16 :30; Status DC Ondansetron HCl (Zofran) 4 mg PRN Q8HRS PRN IV NAUSEA/VOMITING; Start 11/27/16 at 19:30; Stop 11/28/16 at 19:29; Status DC Morphine Sulfate 2 mg PRN Q2HR PRN IV PAIN; Start 11/27/16 at 19:30; Stop 11/28 at 19:29; Status DC Acetaminophen (Tylenol) 650 mg PRN Q4HRS PRN PO FEVER; Start 11/27/16 at 19:30 ; Stop 11/28/16 at 19:29; Status DC Albuterol/ Ipratropium (Duoneb) 3 ml RTQID NEB Last administered on 11/28/16 16:25; Start 11/27/16 at 20:00; Stop 11/28/16 at 19:59; Status DC Gentamicin Sulfate 1 each 1X ONCE MC ; Start 11/28/16 at 04:00; Stop 11/28/16 at 04:00; Status DC Zolpidem Tartrate (Ambien) 5 mg PRN QHS PRN PO INSOMNIA Last administered on 21:39; Start 11/27/16 at 21:30 Multivitamins (Thera M Plus) 1 tab DAILY PO Last administered on 11/30/16 08: 38; Start 11/28/16 at 09:00 Folic Acid 1 mg 1 mg DAILY PO Last administered on 11/30/16 08:38; Start 11/28 at 09:00 Thiamine HCl/ Sodium Chloride (Iv Sodium Chloride 0.9% 50ml) 51 ml @ 100 mls/ hr DAILY IV Last administered on 11/29/16 10:33; Start 11/28/16 at 09:00; Stop 12/03/16 at 08:59 Lorazepam (Ativan) 2 mg Q6H PO Last administered on 11/27/16 21:30; Start at 21:30; Stop 11/27/16 at 21:34; Status DC Lorazepam (Ativan) 2 mg PRN Q6HRS PRN PO ALCOCHOL WITHDRAWAL PREVENTION Last administered on 11/29/16 23:00; Start 11/28/16 at 21:30 Lidocaine/Sodium Bicarbonate (Buffered Lidocaine 1%) 20 ml STK-MED ONCE IJ ; Start 11/28/16 at 14:19; Stop 11/28/16 at 14:20; Status DC Fentanyl Citrate (Fentanyl 2ml Vial) 100 mcg STK-MED ONCE .ROUTE ; Start at 14:27; Stop 11/28/16 at 14:28; Status DC Midazolam HCl (Versed) 2 mg STK-MED ONCE .ROUTE ; Start 11/28/16 at 14:27; Stop 11/28/16 at 14:28; Status DC Lidocaine/Sodium Bicarbonate (Buffered Lidocaine 1%) 20 ml 1X ONCE IJ Last administered on 11/28/16 15:00; Start 11/28/16 at 14:30; Stop 11/28/16 at 14:31 ; Status DC Midazolam HCl (Versed) 2 mg 1X ONCE IV ; Start 11/28/16 at 14:30; Stop at 14:31; Status DC Fentanyl Citrate (Fentanyl 2ml Vial) 100 mcg 1X ONCE IV Last administered on 15:00; Start 11/28/16 at 14:30; Stop 11/28/16 at 14:31; Status DC Albuterol/ Ipratropium (Duoneb) 3 ml RTQID NEB ; Start 11/29/16 at 08:00; Stop 11/29/16 at 08:00; Status DC Albuterol/ Ipratropium 3 ml 3 ml RTQID NEB Last administered on 11/30/16 11:37 ; Start 11/28/16 at 21:00 Iron Sucrose/ Sodium Chloride (Venofer/Iv Sodium Chloride 0.9% 100ml) 110 ml @ 55 mls/hr 3X/WEEK IV Last administered on 11/30/16 10:23; Start 11/29/16 at 09 :00; Stop 12/07/16 at 10:59 Furosemide (Lasix) 40 mg BID PO Last administered on 11/30/16 08:38; Start at 09:00 Atenolol (Tenormin) 50 mg DAILY PO Last administered on 11/30/16 08:39; Start 11/29/16 at 17:30 Digoxin (Lanoxin) 250 mcg 1X ONCE IV Last administered on 11/29/16 23:32; Start 11/29/16 at 23:30; Stop 11/29/16 at 23:31; Status DC Digoxin (Lanoxin) 250 mcg 1X ONCE IV Last administered on 11/30/16 00:53; Start 11/30/16 at 01:00; Stop 11/30/16 at 01:01; Status DC Active Scripts Active Reported Atenolol 50 Mg Tablet 1 Tab PO DAILY Vitals/I & O Vital Sign - Last 24 Hours 11/29/16 11/29/16 11/29/16 11/29/16 12:00 12:00 16:00 16:17 Temp 98.6 98.6 98.6 98.6 Pulse 94 112 B/P 138/78 163/75 Pulse Ox 93 93 91 92 O2 Delivery Nasal Cannula Nasal Cannula Room Air Room Air O2 Flow Rate 2.0 11/29/16 11/29/16 11/29/16 11/29/16 19:04 20:00 20:00 20:52 Temp 98.9 98.9 Pulse 115 110 Resp 20 B/P 163/75 159/79 Pulse Ox 92 91 O2 Delivery Room Air Room Air 11/29/16 11/29/16 11/30/16 11/30/16 23:00 23:32 00:53 03:00 Temp 98.9 98.9 98.9 98.9 Pulse 122 130 120 96 Resp 18 16 B/P 119/69 117/68 Pulse Ox 90 90 11/30/16 11/30/16 11/30/16 11/30/16 07:59 08:00 08:39 11:29 Temp 98.3 98.0 98.3 98.0 Pulse 94 94 104 Resp 20 16 B/P 130/79 130/79 117/71 Pulse Ox 93 87 89 O2 Delivery Room Air Room Air Room Air 11/30/16 11:37 Pulse Ox 94 O2 Delivery Room Air Intake and Output 11/29/16 11/29/16 11/30/16 15:00 23:00 07:00 Intake Total 300 ml 500 ml 120 ml Output Total 2820 ml 2000 ml 700 ml Balance -2520 ml -1500 ml -580 ml Nutrition Consultation Dietary Evaluation: Recommendations by RD: Increase Calorie Intake, Protein supplementation Comments: Discussed current cardiac diet restriction 1200 cc fluid restriction per MD Provided alternate menu Add magic cup at lunch (290 calories/9 grams protein per serving) Expected Outcomes/Goals: meet 75% estimated nutrition needs Interpretation of weight loss: >5% in 1 month Malnutrition Findings: Malnutrition related to morbid: No Weight Status: Appropriate MAKENNA NORTON MD Nov 30, 2016 11:52
--- NOTE | 2016-11-30 14:13 | PDOC ---
PULMONARY PROGRESS NOTES Subjective pt less soa Vitals Vital Signs Date Time Temp Pulse Resp B/P Pulse Ox O2 Delivery O2 Flow Rate FiO2 11/30/16 11:37 94 Room Air 11/30/16 11:29 98.0 104 16 117/71 98.0 11/29/16 12:00 2.0 ROS: No Nausea, No Chest Pain, No Abdominal Pain, No Increase Cough Lungs: Clear Cardiovascular: S1, S2 Abdomen: Soft, Non-tender Neuro Exam: Alert Extremities: No Edema Labs Laboratory Tests Test 11/28/16 15:15 11/28/16 17:30 11/29/16 00:25 11/29/16 06:40 Body Fluid pH 7.4 Sodium Level 124mmol/L (136-145) 129mmol/L (136-145) 132mmol/L (136-145) White Blood Count 9.7x10^3/uL (4.0-11.0) Red Blood Count 3.40x10^6/uL (3.50-5.40) Hemoglobin 11.5g/dL (12.0-15.5) Hematocrit 34.3% (36.0-47.0) Mean Corpuscular Volume 101fL (79-100) Mean Corpuscular Hemoglobin 34pg (25-35) Mean Corpuscular Hemoglobin Concent 33g/dL (31-37) Red Cell Distribution Width 16.0% (11.5-14.5) Platelet Count 261x10^3/uL (140-400) Neutrophils (%) (Auto) 82% (31-73) Lymphocytes (%) (Auto) 11% (24-48) Monocytes (%) (Auto) 7% (0-9) Eosinophils (%) (Auto) 1% (0-3) Basophils (%) (Auto) 0% (0-3) Neutrophils # (Auto) 7.9x10^3uL (1.8-7.7) Lymphocytes # (Auto) 1.1x10^3/uL (1.0-4.8) Monocytes # (Auto) 0.6x10^3/uL (0.0-1.1) Eosinophils # (Auto) 0.1x10^3/uL (0.0-0.7) Basophils # (Auto) 0.0x10^3/uL (0.0-0.2) Potassium Level 3.8mmol/L (3.5-5.1) Chloride Level 95mmol/L (98-107) Carbon Dioxide Level 33mmol/L (21-32) Anion Gap 4 (6-14) Blood Urea Nitrogen 9mg/dL (7-20) Creatinine 0.6mg/dL (0.6-1.0) Estimated GFR (Cockcroft-Gault) 97.7 Glucose Level 96mg/dL (70-99) Calcium Level 8.2mg/dL (8.5-10.1) Test 11/30/16 04:30 11/30/16 08:39 11/30/16 10:54 White Blood Count 9.8x10^3/uL (4.0-11.0) Red Blood Count 3.47x10^6/uL (3.50-5.40) Hemoglobin 11.6g/dL (12.0-15.5) Hematocrit 35.0% (36.0-47.0) Mean Corpuscular Volume 101fL (79-100) Mean Corpuscular Hemoglobin 34pg (25-35) Mean Corpuscular Hemoglobin Concent 33g/dL (31-37) Red Cell Distribution Width 15.9% (11.5-14.5) Platelet Count 316x10^3/uL (140-400) Neutrophils (%) (Auto) 74% (31-73) Lymphocytes (%) (Auto) 13% (24-48) Monocytes (%) (Auto) 11% (0-9) Eosinophils (%) (Auto) 2% (0-3) Basophils (%) (Auto) 0% (0-3) Neutrophils # (Auto) 7.2x10^3uL (1.8-7.7) Lymphocytes # (Auto) 1.3x10^3/uL (1.0-4.8) Monocytes # (Auto) 1.1x10^3/uL (0.0-1.1) Eosinophils # (Auto) 0.2x10^3/uL (0.0-0.7) Basophils # (Auto) 0.0x10^3/uL (0.0-0.2) Sodium Level 134mmol/L (136-145) Potassium Level 3.7mmol/L (3.5-5.1) Chloride Level 96mmol/L (98-107) Carbon Dioxide Level 36mmol/L (21-32) Anion Gap 2 (6-14) Blood Urea Nitrogen 10mg/dL (7-20) Creatinine 0.7mg/dL (0.6-1.0) Estimated GFR (Cockcroft-Gault) 81.8 Glucose Level 90mg/dL (70-99) Lactic Acid Level 1.0mmol/L (0.4-2.0) Calcium Level 8.5mg/dL (8.5-10.1) Glucose (Fingerstick) 86mg/dL (70-99) 121mg/dL (70-99) Laboratory Tests Test 11/30/16 04:30 11/30/16 08:39 11/30/16 10:54 White Blood Count 9.8x10^3/uL (4.0-11.0) Red Blood Count 3.47x10^6/uL (3.50-5.40) Hemoglobin 11.6g/dL (12.0-15.5) Hematocrit 35.0% (36.0-47.0) Mean Corpuscular Volume 101fL (79-100) Mean Corpuscular Hemoglobin 34pg (25-35) Mean Corpuscular Hemoglobin Concent 33g/dL (31-37) Red Cell Distribution Width 15.9% (11.5-14.5) Platelet Count 316x10^3/uL (140-400) Neutrophils (%) (Auto) 74% (31-73) Lymphocytes (%) (Auto) 13% (24-48) Monocytes (%) (Auto) 11% (0-9) Eosinophils (%) (Auto) 2% (0-3) Basophils (%) (Auto) 0% (0-3) Neutrophils # (Auto) 7.2x10^3uL (1.8-7.7) Lymphocytes # (Auto) 1.3x10^3/uL (1.0-4.8) Monocytes # (Auto) 1.1x10^3/uL (0.0-1.1) Eosinophils # (Auto) 0.2x10^3/uL (0.0-0.7) Basophils # (Auto) 0.0x10^3/uL (0.0-0.2) Sodium Level 134mmol/L (136-145) Potassium Level 3.7mmol/L (3.5-5.1) Chloride Level 96mmol/L (98-107) Carbon Dioxide Level 36mmol/L (21-32) Anion Gap 2 (6-14) Blood Urea Nitrogen 10mg/dL (7-20) Creatinine 0.7mg/dL (0.6-1.0) Estimated GFR (Cockcroft-Gault) 81.8 Glucose Level 90mg/dL (70-99) Lactic Acid Level 1.0mmol/L (0.4-2.0) Calcium Level 8.5mg/dL (8.5-10.1) Glucose (Fingerstick) 86mg/dL (70-99) 121mg/dL (70-99) Medications Active Scripts Medications Dose Route/Sig Days Date Category Atenolol 50 Mg Tablet 1 Tab PO DAILY 08/30/16 Reported Impression . IMPRESSION: 1. Acute respiratory failure secondary to acute bilateral pleural effusions, acute CHF 2. Bilateral pleural effusions, 3. Secondary pulmonary hypertension. 42 4. Hyponatremia. 5. Hypothyroidism. 6. CT with no evidence of pulmonary embolism. 6. History of alcohol and tobacco use. 7. Lactic acidosis. 8. Leukocytosis. 9. Cardiomyopathy EF 25% Echo Left ventricle systolic function is moderately to severely impaired. The Ejection Fraction is 25%. There is moderate to severe global hypokinesis of the left ventricle. There is akinesis in the basal and mid anteroseptal anderson. Akinesis in the basal and mid interventricular septal anderson. There is moderate hypokinesis in the basal and mid-inferior anderson. Transmitral Doppler flow pattern is Grade IV-fixed restrictive diastolic dysfunction. The left atrium is dilated. The right atrium is mildly dilated. The aortic valve is mildly thickened. The aortic valve is trileaflet. Doppler and Color Flow revealed mild aortic regurgitation. Doppler and Color Flow revealed moderate to severe mitral regurgitation. The mitral valve leaflets are thickened. Doppler and Color Flow revealed moderate tricuspid regurgitation. The pulmonary artery systolic pressure is estimated at 42 mmHg. There is mild pulmonary hypertension. Doppler and Color Flow revealed trace pulmonic valvular regurgitation. The aortic root is normal in size. The IVC is dilated and does not collapse. A large left pleural effusion is noted. There is a trace circumferential pericardial effusion. Plan . Less soa today heart rate at times high will continue the same 1. S/P Thoracentesis follow labs 2. Follow Nephrology input. 3. needs cath in future 4. Echocardiogram noted 5. We will defer any further treatment of her hypothyroidism to the PCP. 6. Follow up labs. CORBY FULLER MD Nov 30, 2016 14:13
[2016-11-30 14:29] LABS: BODY FLUID CREATININE 0.5 mg/dL (.)
[2016-11-30 16:00] VITALS: BP 124/76
--- NOTE | 2016-11-30 16:00 | PDOC ---
PROGRESS NOTES Subjective Subjective Patient doing well. No complaints. Objective Objective Vital Signs Date Time Temp Pulse Resp B/P Pulse Ox O2 Delivery O2 Flow Rate FiO2 11/30/16 15:50 Room Air 11/30/16 11:37 94 11/30/16 11:29 98.0 104 16 117/71 98.0 11/29/16 12:00 2.0 Intake and Output 11/30/16 07:00 Intake Total 920 ml Output Total 5520 ml Balance -4600 ml Intake Oral 920 ml Output Urine Total 5520 ml Physical Exam Physical Exam No changes to cardiac exam. Assessment Assessment New onset CHF HTN Hyponatremia This patient became decompensated with a large pleural effusion and has a murmur of mitral insufficiency and possible aortic insufficiency. Thoracentesis removed over 550 cc of fluid. Plan Plan of Care Echocardiogram revealed EF of 25%, with global hypokinesis of LV, akinesis in anteroseptal and interventricular septal anderson, grade IV-fixed restrictive diastolic dysfunction, dilation in L and R atrium, aortic regurgitation, mitral regurgitation, tricuspid regurgitation, mild pulmonary HTN. Await further stabilization before more cardiac tests Would suggest cardiac cath on an outpatient basis once patient is more stabilized Agree with primary team's plan Appreciate nephrology plan Thank you very much for asking me to participate in the care of this patient. Comment Review of Relevant I have reviewed the following items pavithra (where applicable) has been applied. Labs Laboratory Tests Test 11/28/16 17:30 11/29/16 00:25 11/29/16 06:40 11/30/16 04:30 Sodium Level 124mmol/L (136-145) 129mmol/L (136-145) 132mmol/L (136-145) 134mmol/L (136-145) White Blood Count 9.7x10^3/uL (4.0-11.0) 9.8x10^3/uL (4.0-11.0) Red Blood Count 3.40x10^6/uL (3.50-5.40) 3.47x10^6/uL (3.50-5.40) Hemoglobin 11.5g/dL (12.0-15.5) 11.6g/dL (12.0-15.5) Hematocrit 34.3% (36.0-47.0) 35.0% (36.0-47.0) Mean Corpuscular Volume 101fL (79-100) 101fL (79-100) Mean Corpuscular Hemoglobin 34pg (25-35) 34pg (25-35) Mean Corpuscular Hemoglobin Concent 33g/dL (31-37) 33g/dL (31-37) Red Cell Distribution Width 16.0% (11.5-14.5) 15.9% (11.5-14.5) Platelet Count 261x10^3/uL (140-400) 316x10^3/uL (140-400) Neutrophils (%) (Auto) 82% (31-73) 74% (31-73) Lymphocytes (%) (Auto) 11% (24-48) 13% (24-48) Monocytes (%) (Auto) 7% (0-9) 11% (0-9) Eosinophils (%) (Auto) 1% (0-3) 2% (0-3) Basophils (%) (Auto) 0% (0-3) 0% (0-3) Neutrophils # (Auto) 7.9x10^3uL (1.8-7.7) 7.2x10^3uL (1.8-7.7) Lymphocytes # (Auto) 1.1x10^3/uL (1.0-4.8) 1.3x10^3/uL (1.0-4.8) Monocytes # (Auto) 0.6x10^3/uL (0.0-1.1) 1.1x10^3/uL (0.0-1.1) Eosinophils # (Auto) 0.1x10^3/uL (0.0-0.7) 0.2x10^3/uL (0.0-0.7) Basophils # (Auto) 0.0x10^3/uL (0.0-0.2) 0.0x10^3/uL (0.0-0.2) Potassium Level 3.8mmol/L (3.5-5.1) 3.7mmol/L (3.5-5.1) Chloride Level 95mmol/L (98-107) 96mmol/L (98-107) Carbon Dioxide Level 33mmol/L (21-32) 36mmol/L (21-32) Anion Gap 4 (6-14) 2 (6-14) Blood Urea Nitrogen 9mg/dL (7-20) 10mg/dL (7-20) Creatinine 0.6mg/dL (0.6-1.0) 0.7mg/dL (0.6-1.0) Estimated GFR (Cockcroft-Gault) 97.7 81.8 Glucose Level 96mg/dL (70-99) 90mg/dL (70-99) Calcium Level 8.2mg/dL (8.5-10.1) 8.5mg/dL (8.5-10.1) Lactic Acid Level 1.0mmol/L (0.4-2.0) Test 11/30/16 08:39 11/30/16 10:54 Glucose (Fingerstick) 86mg/dL (70-99) 121mg/dL (70-99) Laboratory Tests Test 11/30/16 04:30 11/30/16 08:39 11/30/16 10:54 White Blood Count 9.8x10^3/uL (4.0-11.0) Red Blood Count 3.47x10^6/uL (3.50-5.40) Hemoglobin 11.6g/dL (12.0-15.5) Hematocrit 35.0% (36.0-47.0) Mean Corpuscular Volume 101fL (79-100) Mean Corpuscular Hemoglobin 34pg (25-35) Mean Corpuscular Hemoglobin Concent 33g/dL (31-37) Red Cell Distribution Width 15.9% (11.5-14.5) Platelet Count 316x10^3/uL (140-400) Neutrophils (%) (Auto) 74% (31-73) Lymphocytes (%) (Auto) 13% (24-48) Monocytes (%) (Auto) 11% (0-9) Eosinophils (%) (Auto) 2% (0-3) Basophils (%) (Auto) 0% (0-3) Neutrophils # (Auto) 7.2x10^3uL (1.8-7.7) Lymphocytes # (Auto) 1.3x10^3/uL (1.0-4.8) Monocytes # (Auto) 1.1x10^3/uL (0.0-1.1) Eosinophils # (Auto) 0.2x10^3/uL (0.0-0.7) Basophils # (Auto) 0.0x10^3/uL (0.0-0.2) Sodium Level 134mmol/L (136-145) Potassium Level 3.7mmol/L (3.5-5.1) Chloride Level 96mmol/L (98-107) Carbon Dioxide Level 36mmol/L (21-32) Anion Gap 2 (6-14) Blood Urea Nitrogen 10mg/dL (7-20) Creatinine 0.7mg/dL (0.6-1.0) Estimated GFR (Cockcroft-Gault) 81.8 Glucose Level 90mg/dL (70-99) Lactic Acid Level 1.0mmol/L (0.4-2.0) Calcium Level 8.5mg/dL (8.5-10.1) Glucose (Fingerstick) 86mg/dL (70-99) 121mg/dL (70-99) Microbiology 11/27/16 Blood Culture - Preliminary, Resulted NO GROWTH AFTER 2 DAYS 11/28/16 Gram Stain - Final, Complete Medications Current Medications Albuterol/ Ipratropium (Duoneb) 3 ml 1X ONCE NEB Last administered on 15:56; Start 11/27/16 at 15:30; Stop 11/27/16 at 15:35; Status DC Vancomycin HCl (Vanco Per Pharmacy) 1 each PRN DAILY PRN MC SEE COMMENTS Last administered on 11/27/16 19:17; Start 11/27/16 at 16:45; Stop 11/28/16 at 07:13 ; Status DC Piperacillin Sod/ Tazobactam Sod (Zosyn Per Pharmacy) 1 each PRN DAILY PRN MC SEE COMMENTS; Start 11/27/16 at 16:45; Stop 11/27/16 at 20:57; Status DC Gentamicin Sulfate 1 each 1 each PRN DAILY PRN MC SEE COMMENTS Last administered on 11/27/16 19:41; Start 11/27/16 at 16:45; Stop 11/27/16 at 20:55 ; Status DC Piperacillin Sod/ Tazobactam Sod 3.375 gm/Sodium Chloride 50 ml @ 100 mls/hr 1X ONCE IV Last administered on 11/27/16 17:24; Start 11/27/16 at 17:00; Stop 11/27/16 at 17:29; Status DC Vancomycin HCl/ Sodium Chloride (Iv Sodium Chloride 0.9% 250ml) 250 ml @ 166.667 mls/hr 1X ONCE IV Last administered on 11/27/16 19:09; Start at 17:00; Stop 11/27/16 at 18:29; Status DC Iohexol (Omnipaque 300 Mg/ml) 75 ml 1X ONCE IV Last administered on 11/27/16 17:01; Start 11/27/16 at 16:45; Stop 11/27/16 at 16:47; Status DC Info 1 each 1 each PRN DAILY PRN MC SEE COMMENTS; Start 11/27/16 at 17:00; Stop 11/29/16 at 16:59; Status DC Gentamicin Sulfate 250 mg/ Sodium Chloride 106.25 ml @ 106.25 mls/hr 1X ONCE IV Last administered on 11/27/16 18:19; Start 11/27/16 at 17:00; Stop at 17:59; Status DC Conivaptan/ Dextrose 100 ml @ 200 mls/hr 1X ONCE IV Last administered on 11/27 21:14; Start 11/27/16 at 18:00; Stop 11/27/16 at 18:29; Status DC Conivaptan/ Dextrose 100 ml @ 4.167 mls/ hr 1X ONCE IV ; Start 11/27/16 at 18: 30; Stop 11/27/16 at 17:45; Status Cancel Conivaptan/ Dextrose (Vaprisol 20 Mg Premix) 100 ml @ 4.167 mls/ hr CONT PRN PRN IV HYPONATREMIA; Start 11/27/16 at 21:00; Stop 11/29/16 at 07:52; Status DC Furosemide 60 mg 60 mg 1X ONCE IVP ; Start 11/27/16 at 18:45; Stop 11/27/16 at 18:46; Status DC Piperacillin Sod/ Tazobactam Sod 4.5 gm/Sodium Chloride 100 ml @ 200 mls/hr Q6HRS IV ; Start 11/28/16 at 00:00; Stop 11/28/16 at 00:00; Status DC Vancomycin HCl/ Sodium Chloride (Iv Sodium Chloride 0.9% 250ml) 250 ml @ 250 mls/hr Q24H IV ; Start 11/28/16 at 17:00; Stop 11/28/16 at 17:00; Status DC Vancomycin HCl 1 each 1X ONCE MC ; Start 11/29/16 at 16:30; Stop 11/29/16 at 16 :30; Status DC Ondansetron HCl (Zofran) 4 mg PRN Q8HRS PRN IV NAUSEA/VOMITING; Start 11/27/16 at 19:30; Stop 11/28/16 at 19:29; Status DC Morphine Sulfate 2 mg PRN Q2HR PRN IV PAIN; Start 11/27/16 at 19:30; Stop 11/28 at 19:29; Status DC Acetaminophen (Tylenol) 650 mg PRN Q4HRS PRN PO FEVER; Start 11/27/16 at 19:30 ; Stop 11/28/16 at 19:29; Status DC Albuterol/ Ipratropium (Duoneb) 3 ml RTQID NEB Last administered on 11/28/16 16:25; Start 11/27/16 at 20:00; Stop 11/28/16 at 19:59; Status DC Gentamicin Sulfate 1 each 1X ONCE MC ; Start 11/28/16 at 04:00; Stop 11/28/16 at 04:00; Status DC Zolpidem Tartrate (Ambien) 5 mg PRN QHS PRN PO INSOMNIA Last administered on 21:39; Start 11/27/16 at 21:30 Multivitamins (Thera M Plus) 1 tab DAILY PO Last administered on 11/30/16 08: 38; Start 11/28/16 at 09:00 Folic Acid 1 mg 1 mg DAILY PO Last administered on 11/30/16 08:38; Start 11/28 at 09:00 Thiamine HCl/ Sodium Chloride (Iv Sodium Chloride 0.9% 50ml) 51 ml @ 100 mls/ hr DAILY IV Last administered on 11/29/16 10:33; Start 11/28/16 at 09:00; Stop 12/03/16 at 08:59 Lorazepam (Ativan) 2 mg Q6H PO Last administered on 11/27/16 21:30; Start at 21:30; Stop 11/27/16 at 21:34; Status DC Lorazepam (Ativan) 2 mg PRN Q6HRS PRN PO ALCOCHOL WITHDRAWAL PREVENTION Last administered on 11/29/16 23:00; Start 11/28/16 at 21:30 Lidocaine/Sodium Bicarbonate (Buffered Lidocaine 1%) 20 ml STK-MED ONCE IJ ; Start 11/28/16 at 14:19; Stop 11/28/16 at 14:20; Status DC Fentanyl Citrate (Fentanyl 2ml Vial) 100 mcg STK-MED ONCE .ROUTE ; Start at 14:27; Stop 11/28/16 at 14:28; Status DC Midazolam HCl (Versed) 2 mg STK-MED ONCE .ROUTE ; Start 11/28/16 at 14:27; Stop 11/28/16 at 14:28; Status DC Lidocaine/Sodium Bicarbonate (Buffered Lidocaine 1%) 20 ml 1X ONCE IJ Last administered on 11/28/16 15:00; Start 11/28/16 at 14:30; Stop 11/28/16 at 14:31 ; Status DC Midazolam HCl (Versed) 2 mg 1X ONCE IV ; Start 11/28/16 at 14:30; Stop at 14:31; Status DC Fentanyl Citrate (Fentanyl 2ml Vial) 100 mcg 1X ONCE IV Last administered on 15:00; Start 11/28/16 at 14:30; Stop 11/28/16 at 14:31; Status DC Albuterol/ Ipratropium (Duoneb) 3 ml RTQID NEB ; Start 11/29/16 at 08:00; Stop 11/29/16 at 08:00; Status DC Albuterol/ Ipratropium 3 ml 3 ml RTQID NEB Last administered on 11/30/16 15:49 ; Start 11/28/16 at 21:00 Iron Sucrose/ Sodium Chloride (Venofer/Iv Sodium Chloride 0.9% 100ml) 110 ml @ 55 mls/hr 3X/WEEK IV Last administered on 11/30/16 10:23; Start 11/29/16 at 09 :00; Stop 12/07/16 at 10:59 Furosemide (Lasix) 40 mg BID PO Last administered on 11/30/16 08:38; Start at 09:00 Atenolol (Tenormin) 50 mg DAILY PO Last administered on 11/30/16 08:39; Start 11/29/16 at 17:30 Digoxin (Lanoxin) 250 mcg 1X ONCE IV Last administered on 11/29/16 23:32; Start 11/29/16 at 23:30; Stop 11/29/16 at 23:31; Status DC Digoxin (Lanoxin) 250 mcg 1X ONCE IV Last administered on 11/30/16 00:53; Start 11/30/16 at 01:00; Stop 11/30/16 at 01:01; Status DC Active Scripts Active Reported Atenolol 50 Mg Tablet 1 Tab PO DAILY Vitals/I & O Vital Sign - Last 24 Hours 11/29/16 11/29/16 11/29/16 11/29/16 16:00 16:17 19:04 20:00 Temp 98.6 98.6 Pulse 112 115 B/P 163/75 163/75 Pulse Ox 91 92 O2 Delivery Room Air Room Air Room Air 11/29/16 11/29/16 11/29/16 11/29/16 20:00 20:52 23:00 23:32 Temp 98.9 98.9 98.9 98.9 Pulse 110 122 130 Resp 20 18 B/P 159/79 119/69 Pulse Ox 92 91 90 O2 Delivery Room Air 11/30/16 11/30/16 11/30/16 11/30/16 00:53 03:00 07:59 08:00 Temp 98.9 98.3 98.9 98.3 Pulse 120 96 94 Resp 16 20 B/P 117/68 130/79 Pulse Ox 90 93 87 O2 Delivery Room Air Room Air 11/30/16 11/30/16 11/30/16 11/30/16 08:39 11:29 11:37 15:50 Temp 98.0 98.0 Pulse 94 104 Resp 16 B/P 130/79 117/71 Pulse Ox 89 94 O2 Delivery Room Air Room Air Room Air Intake and Output 11/29/16 11/29/16 11/30/16 15:00 23:00 07:00 Intake Total 300 ml 500 ml 120 ml Output Total 2820 ml 2000 ml 700 ml Balance -2520 ml -1500 ml -580 ml Nutrition Consultation Dietary Evaluation: Recommendations by RD: Increase Calorie Intake, Protein supplementation Comments: Supplement changed to Ensure q day per pt FR d/c on 11/29. Expected Outcomes/Goals: meet 75% estimated nutrition needs- met, goal ongoing Interpretation of weight loss: >5% in 1 month Malnutrition Findings: Malnutrition related to morbid: No Weight Status: Appropriate ELVA CANO MD Nov 30, 2016 16:00
[2016-11-30 19:00] VITALS: BP 129/81
[2016-11-30] MEDS: LORAZEPAM 1 MG TABLET. PO PRN (21:03)
[2016-11-30 23:41] VITALS: BP 132/81
[2016-12-01 03:59] VITALS: BP 140/81
[2016-12-01 06:51] LABS: BASO # 0.1 x10^3/uL (0.0-0.2); BASO % 1 % (0-3); EOS % 4 % (0-3); HEMATOCRIT 38.8 % (36.0-47.0); HEMOGLOBIN 13.2 g/dL (12.0-15.5); LYMPH # 1.8 x10^3/uL (1.0-4.8); LYMPH % 16 % (24-48); MEAN CORPUSCULAR HEMOGLOBIN 34 pg (25-35); MEAN CORPUSCULAR HGB CONC 34 g/dL (31-37); MEAN CORPUSCULAR VOLUME 99 fL (79-100); MONO % 11 % (0-9); NEUT % 69 % (31-73); PLATELET COUNT 407 x10^3/uL (140-400); RED BLOOD COUNT 3.92 x10^6/uL (3.50-5.40); RED CELL DISTRIBUTION WIDTH 16.2 % (11.5-14.5); WHITE BLOOD COUNT 11.2 x10^3/uL (4.0-11.0)
[2016-12-01 07:06] LABS: CALCIUM 8.5 mg/dL (8.5-10.1); CREATININE 0.6 mg/dL (0.6-1.0); GFR 97.7; POTASSIUM 3.8 mmol/L (3.5-5.1)
[2016-12-01 07:45] VITALS: BP 129/74
[2016-12-01] MEDS: IPRATRPIUM/ALBUTEROL 0.5/2.5MG 3 ML NEBU. NEB SCH ×4 (07:50→20:48)
[2016-12-01] MEDS: FOLIC ACID 1 MG TABLET. PO SCH (08:44)
[2016-12-01] MEDS: ATENOLOL 50 MG TABLET. PO SCH (08:45)
[2016-12-01] MEDS: FUROSEMIDE 40 MG TABLET. PO SCH ×2 (08:45→20:42)
[2016-12-01] MEDS: MULTIVITAMIN with MINERAL TABLET. PO SCH (08:45)
[2016-12-01] MEDS: THIAMINE 100 MG in IV NORMAL SALINE 50ML 50 ML IV SCH (09:24)
[2016-12-01 11:08] VITALS: BP 142/79
--- NOTE | 2016-12-01 11:13 | RAD ---
Two-view chest x-ray History: Follow-up of pleural effusion. History of CHF. Comparison: November 29, 2016 Findings: Small posterior pleural effusions are seen bilaterally. No increase in pleural effusion is seen. Elevation of the right hemidiaphragm is again noted with associated right lung base atelectasis. No new parahilar pulmonary edema is seen. No pneumothorax is seen. The heart size is mildly enlarged but stable. There is a compression fracture of what appears to be L1 which is unchanged from chest x-ray dated November 20, 2016. IMPRESSION: stable small bilateral pleural effusions.
[2016-12-01 15:00] VITALS: BP 126/85
--- NOTE | 2016-12-01 16:05 | PDOC ---
PROGRESS NOTES Subjective Subjective Patient has no new complaints today. She is very weak and easily short of breath. Chest x-ray was done today and it shows: Comparison: November 29, 2016 Findings: Small posterior pleural effusions are seen bilaterally. No increase in pleural effusion is seen. Elevation of the right hemidiaphragm is again noted with associated right lung base atelectasis. No new parahilar pulmonary edema is seen. No pneumothorax is seen. The heart size is mildly enlarged but stable. There is a compression fracture of what appears to be L1 which is unchanged from chest x-ray dated November 20, 2016. IMPRESSION: stable small bilateral pleural effusions. DICTATED and SIGNED BY: CEDRICK HERMOSILLO MD DATE: 12/01/16 1108 Objective Objective Vital Signs Date Time Temp Pulse Resp B/P Pulse Ox O2 Delivery O2 Flow Rate FiO2 12/01/16 15:21 Room Air 12/01/16 11:08 98.6 100 14 142/79 95 98.6 12/01/16 08:00 3.0 Intake and Output 12/01/16 07:00 Intake Total 800 ml Output Total 1100 ml Balance -300 ml Intake Oral 800 ml Output Urine Total 1100 ml # Voids 3 Physical Exam Physical Exam No significant changes in cardiac exam. Assessment Assessment This patient with a cardiomyopathy and valvular disease will eventually need to have a right and left heart catheterization in order to evaluate whether or not she needs to have heart surgery with either valve for bypass. At this point the patient is in no shape to undergo that kind of treatment therefore I would recommend for her to have physical therapy, improved nutrition , exercise and once she is in better shape she would be able to be a surgical candidate then at that point I would recommend to proceed with the workup including the heart catheterization and a NIEVES. The patient would benefit from inpatient care for a while in a [place] [facility] facility or a rehabilitation facility. Problems Medical Problems: (1) Anemia Status: Acute (2) Congestive heart failure, acute Status: Acute (3) Essential hypertension Status: Acute (4) Healthcare associated bacterial pneumonia Status: Acute (5) Hypochloremia Status: Acute (6) Hyponatremia Status: Acute (7) Hypoxia Status: Acute (8) Leukocytosis Status: Acute (9) Pleural effusion Status: Acute Comment Review of Relevant I have reviewed the following items pavithra (where applicable) has been applied. Labs Laboratory Tests Test 11/30/16 04:30 11/30/16 08:39 11/30/16 10:54 11/30/16 16:28 White Blood Count 9.8x10^3/uL (4.0-11.0) Red Blood Count 3.47x10^6/uL (3.50-5.40) Hemoglobin 11.6g/dL (12.0-15.5) Hematocrit 35.0% (36.0-47.0) Mean Corpuscular Volume 101fL (79-100) Mean Corpuscular Hemoglobin 34pg (25-35) Mean Corpuscular Hemoglobin Concent 33g/dL (31-37) Red Cell Distribution Width 15.9% (11.5-14.5) Platelet Count 316x10^3/uL (140-400) Neutrophils (%) (Auto) 74% (31-73) Lymphocytes (%) (Auto) 13% (24-48) Monocytes (%) (Auto) 11% (0-9) Eosinophils (%) (Auto) 2% (0-3) Basophils (%) (Auto) 0% (0-3) Neutrophils # (Auto) 7.2x10^3uL (1.8-7.7) Lymphocytes # (Auto) 1.3x10^3/uL (1.0-4.8) Monocytes # (Auto) 1.1x10^3/uL (0.0-1.1) Eosinophils # (Auto) 0.2x10^3/uL (0.0-0.7) Basophils # (Auto) 0.0x10^3/uL (0.0-0.2) Sodium Level 134mmol/L (136-145) Potassium Level 3.7mmol/L (3.5-5.1) Chloride Level 96mmol/L (98-107) Carbon Dioxide Level 36mmol/L (21-32) Anion Gap 2 (6-14) Blood Urea Nitrogen 10mg/dL (7-20) Creatinine 0.7mg/dL (0.6-1.0) Estimated GFR (Cockcroft-Gault) 81.8 Glucose Level 90mg/dL (70-99) Lactic Acid Level 1.0mmol/L (0.4-2.0) Calcium Level 8.5mg/dL (8.5-10.1) Glucose (Fingerstick) 86mg/dL (70-99) 121mg/dL (70-99) 102mg/dL (70-99) Test 11/30/16 20:52 12/01/16 05:40 12/01/16 08:10 12/01/16 11:50 Glucose (Fingerstick) 120mg/dL (70-99) 94mg/dL (70-99) 99mg/dL (70-99) White Blood Count 11.2x10^3/uL (4.0-11.0) Red Blood Count 3.92x10^6/uL (3.50-5.40) Hemoglobin 13.2g/dL (12.0-15.5) Hematocrit 38.8% (36.0-47.0) Mean Corpuscular Volume 99fL (79-100) Mean Corpuscular Hemoglobin 34pg (25-35) Mean Corpuscular Hemoglobin Concent 34g/dL (31-37) Red Cell Distribution Width 16.2% (11.5-14.5) Platelet Count 407x10^3/uL (140-400) Neutrophils (%) (Auto) 69% (31-73) Lymphocytes (%) (Auto) 16% (24-48) Monocytes (%) (Auto) 11% (0-9) Eosinophils (%) (Auto) 4% (0-3) Basophils (%) (Auto) 1% (0-3) Neutrophils # (Auto) 7.7x10^3uL (1.8-7.7) Lymphocytes # (Auto) 1.8x10^3/uL (1.0-4.8) Monocytes # (Auto) 1.3x10^3/uL (0.0-1.1) Eosinophils # (Auto) 0.4x10^3/uL (0.0-0.7) Basophils # (Auto) 0.1x10^3/uL (0.0-0.2) Sodium Level 130mmol/L (136-145) Potassium Level 3.8mmol/L (3.5-5.1) Chloride Level 90mmol/L (98-107) Carbon Dioxide Level 34mmol/L (21-32) Anion Gap 6 (6-14) Blood Urea Nitrogen 13mg/dL (7-20) Creatinine 0.6mg/dL (0.6-1.0) Estimated GFR (Cockcroft-Gault) 97.7 Glucose Level 95mg/dL (70-99) Lactic Acid Level 1.1mmol/L (0.4-2.0) Calcium Level 8.5mg/dL (8.5-10.1) Laboratory Tests Test 11/30/16 16:28 11/30/16 20:52 12/01/16 05:40 12/01/16 08:10 Glucose (Fingerstick) 102mg/dL (70-99) 120mg/dL (70-99) 94mg/dL (70-99) White Blood Count 11.2x10^3/uL (4.0-11.0) Red Blood Count 3.92x10^6/uL (3.50-5.40) Hemoglobin 13.2g/dL (12.0-15.5) Hematocrit 38.8% (36.0-47.0) Mean Corpuscular Volume 99fL (79-100) Mean Corpuscular Hemoglobin 34pg (25-35) Mean Corpuscular Hemoglobin Concent 34g/dL (31-37) Red Cell Distribution Width 16.2% (11.5-14.5) Platelet Count 407x10^3/uL (140-400) Neutrophils (%) (Auto) 69% (31-73) Lymphocytes (%) (Auto) 16% (24-48) Monocytes (%) (Auto) 11% (0-9) Eosinophils (%) (Auto) 4% (0-3) Basophils (%) (Auto) 1% (0-3) Neutrophils # (Auto) 7.7x10^3uL (1.8-7.7) Lymphocytes # (Auto) 1.8x10^3/uL (1.0-4.8) Monocytes # (Auto) 1.3x10^3/uL (0.0-1.1) Eosinophils # (Auto) 0.4x10^3/uL (0.0-0.7) Basophils # (Auto) 0.1x10^3/uL (0.0-0.2) Sodium Level 130mmol/L (136-145) Potassium Level 3.8mmol/L (3.5-5.1) Chloride Level 90mmol/L (98-107) Carbon Dioxide Level 34mmol/L (21-32) Anion Gap 6 (6-14) Blood Urea Nitrogen 13mg/dL (7-20) Creatinine 0.6mg/dL (0.6-1.0) Estimated GFR (Cockcroft-Gault) 97.7 Glucose Level 95mg/dL (70-99) Lactic Acid Level 1.1mmol/L (0.4-2.0) Calcium Level 8.5mg/dL (8.5-10.1) Test 12/01/16 11:50 Glucose (Fingerstick) 99mg/dL (70-99) Microbiology 11/27/16 Blood Culture - Preliminary, Resulted NO GROWTH AFTER 3 DAYS 11/28/16 Gram Stain - Final, Complete Medications Current Medications Albuterol/ Ipratropium (Duoneb) 3 ml 1X ONCE NEB Last administered on 15:56; Start 11/27/16 at 15:30; Stop 11/27/16 at 15:35; Status DC Vancomycin HCl (Vanco Per Pharmacy) 1 each PRN DAILY PRN MC SEE COMMENTS Last administered on 11/27/16 19:17; Start 11/27/16 at 16:45; Stop 11/28/16 at 07:13 ; Status DC Piperacillin Sod/ Tazobactam Sod (Zosyn Per Pharmacy) 1 each PRN DAILY PRN MC SEE COMMENTS; Start 11/27/16 at 16:45; Stop 11/27/16 at 20:57; Status DC Gentamicin Sulfate 1 each 1 each PRN DAILY PRN MC SEE COMMENTS Last administered on 11/27/16 19:41; Start 11/27/16 at 16:45; Stop 11/27/16 at 20:55 ; Status DC Piperacillin Sod/ Tazobactam Sod 3.375 gm/Sodium Chloride 50 ml @ 100 mls/hr 1X ONCE IV Last administered on 11/27/16 17:24; Start 11/27/16 at 17:00; Stop 11/27/16 at 17:29; Status DC Vancomycin HCl/ Sodium Chloride (Iv Sodium Chloride 0.9% 250ml) 250 ml @ 166.667 mls/hr 1X ONCE IV Last administered on 11/27/16 19:09; Start at 17:00; Stop 11/27/16 at 18:29; Status DC Iohexol (Omnipaque 300 Mg/ml) 75 ml 1X ONCE IV Last administered on 11/27/16 17:01; Start 11/27/16 at 16:45; Stop 11/27/16 at 16:47; Status DC Info 1 each 1 each PRN DAILY PRN MC SEE COMMENTS; Start 11/27/16 at 17:00; Stop 11/29/16 at 16:59; Status DC Gentamicin Sulfate 250 mg/ Sodium Chloride 106.25 ml @ 106.25 mls/hr 1X ONCE IV Last administered on 11/27/16 18:19; Start 11/27/16 at 17:00; Stop at 17:59; Status DC Conivaptan/ Dextrose 100 ml @ 200 mls/hr 1X ONCE IV Last administered on 11/27 21:14; Start 11/27/16 at 18:00; Stop 11/27/16 at 18:29; Status DC Conivaptan/ Dextrose 100 ml @ 4.167 mls/ hr 1X ONCE IV ; Start 11/27/16 at 18: 30; Stop 11/27/16 at 17:45; Status Cancel Conivaptan/ Dextrose (Vaprisol 20 Mg Premix) 100 ml @ 4.167 mls/ hr CONT PRN PRN IV HYPONATREMIA; Start 11/27/16 at 21:00; Stop 11/29/16 at 07:52; Status DC Furosemide 60 mg 60 mg 1X ONCE IVP ; Start 11/27/16 at 18:45; Stop 11/27/16 at 18:46; Status DC Piperacillin Sod/ Tazobactam Sod 4.5 gm/Sodium Chloride 100 ml @ 200 mls/hr Q6HRS IV ; Start 11/28/16 at 00:00; Stop 11/28/16 at 00:00; Status DC Vancomycin HCl/ Sodium Chloride (Iv Sodium Chloride 0.9% 250ml) 250 ml @ 250 mls/hr Q24H IV ; Start 11/28/16 at 17:00; Stop 11/28/16 at 17:00; Status DC Vancomycin HCl 1 each 1X ONCE MC ; Start 11/29/16 at 16:30; Stop 11/29/16 at 16 :30; Status DC Ondansetron HCl (Zofran) 4 mg PRN Q8HRS PRN IV NAUSEA/VOMITING; Start 11/27/16 at 19:30; Stop 11/28/16 at 19:29; Status DC Morphine Sulfate 2 mg PRN Q2HR PRN IV PAIN; Start 11/27/16 at 19:30; Stop 11/28 at 19:29; Status DC Acetaminophen (Tylenol) 650 mg PRN Q4HRS PRN PO FEVER; Start 11/27/16 at 19:30 ; Stop 11/28/16 at 19:29; Status DC Albuterol/ Ipratropium (Duoneb) 3 ml RTQID NEB Last administered on 11/28/16 16:25; Start 11/27/16 at 20:00; Stop 11/28/16 at 19:59; Status DC Gentamicin Sulfate 1 each 1X ONCE MC ; Start 11/28/16 at 04:00; Stop 11/28/16 at 04:00; Status DC Zolpidem Tartrate (Ambien) 5 mg PRN QHS PRN PO INSOMNIA Last administered on 21:39; Start 11/27/16 at 21:30 Multivitamins (Thera M Plus) 1 tab DAILY PO Last administered on 12/01/16 08: 45; Start 11/28/16 at 09:00 Folic Acid 1 mg 1 mg DAILY PO Last administered on 12/01/16 08:44; Start 11/28 at 09:00 Thiamine HCl/ Sodium Chloride (Iv Sodium Chloride 0.9% 50ml) 51 ml @ 100 mls/ hr DAILY IV Last administered on 12/01/16 09:24; Start 11/28/16 at 09:00; Stop 12/03/16 at 08:59 Lorazepam (Ativan) 2 mg Q6H PO Last administered on 11/27/16 21:30; Start at 21:30; Stop 11/27/16 at 21:34; Status DC Lorazepam (Ativan) 2 mg PRN Q6HRS PRN PO ALCOCHOL WITHDRAWAL PREVENTION Last administered on 11/30/16 21:03; Start 11/28/16 at 21:30 Lidocaine/Sodium Bicarbonate (Buffered Lidocaine 1%) 20 ml STK-MED ONCE IJ ; Start 11/28/16 at 14:19; Stop 11/28/16 at 14:20; Status DC Fentanyl Citrate (Fentanyl 2ml Vial) 100 mcg STK-MED ONCE .ROUTE ; Start at 14:27; Stop 11/28/16 at 14:28; Status DC Midazolam HCl (Versed) 2 mg STK-MED ONCE .ROUTE ; Start 11/28/16 at 14:27; Stop 11/28/16 at 14:28; Status DC Lidocaine/Sodium Bicarbonate (Buffered Lidocaine 1%) 20 ml 1X ONCE IJ Last administered on 11/28/16 15:00; Start 11/28/16 at 14:30; Stop 11/28/16 at 14:31 ; Status DC Midazolam HCl (Versed) 2 mg 1X ONCE IV ; Start 11/28/16 at 14:30; Stop at 14:31; Status DC Fentanyl Citrate (Fentanyl 2ml Vial) 100 mcg 1X ONCE IV Last administered on 15:00; Start 11/28/16 at 14:30; Stop 11/28/16 at 14:31; Status DC Albuterol/ Ipratropium (Duoneb) 3 ml RTQID NEB ; Start 11/29/16 at 08:00; Stop 11/29/16 at 08:00; Status DC Albuterol/ Ipratropium 3 ml 3 ml RTQID NEB Last administered on 12/01/16 15:20 ; Start 11/28/16 at 21:00 Iron Sucrose/ Sodium Chloride (Venofer/Iv Sodium Chloride 0.9% 100ml) 110 ml @ 55 mls/hr 3X/WEEK IV Last administered on 11/30/16 10:23; Start 11/29/16 at 09 :00; Stop 12/07/16 at 10:59 Furosemide (Lasix) 40 mg BID PO Last administered on 12/01/16 08:45; Start at 09:00 Atenolol (Tenormin) 50 mg DAILY PO Last administered on 12/01/16 08:45; Start 11/29/16 at 17:30 Digoxin (Lanoxin) 250 mcg 1X ONCE IV Last administered on 11/29/16 23:32; Start 11/29/16 at 23:30; Stop 11/29/16 at 23:31; Status DC Digoxin (Lanoxin) 250 mcg 1X ONCE IV Last administered on 11/30/16t 00:53; Start 11/30/16 at 01:00; Stop 11/30/16 at 01:01; Status DC Active Scripts Active Reported Atenolol 50 Mg Tablet 1 Tab PO DAILY Vitals/I & O Vital Sign - Last 24 Hours 11/30/16 11/30/16 11/30/16 11/30/16 16:00 19:00 20:10 21:06 Temp 97.7 97.6 97.7 97.6 Pulse 100 105 Resp 20 20 B/P 124/76 129/81 Pulse Ox 90 97 92 O2 Delivery Room Air Room Air Room Air Room Air 11/30/16 12/01/16 12/01/16 12/01/16 23:41 03:59 07:45 07:51 Temp 98.6 98.2 98.4 98.6 98.2 98.4 Pulse 103 107 83 Resp 20 20 20 B/P 132/81 140/81 129/74 Pulse Ox 96 96 94 94 O2 Delivery Room Air Room Air Room Air Room Air 12/01/16 12/01/16 12/01/16 12/01/16 08:00 08:45 11:08 11:33 Temp 98.6 98.6 Pulse 83 100 Resp 14 B/P 129/74 142/79 Pulse Ox 95 O2 Delivery Room Air Room Air Room Air O2 Flow Rate 3.0 12/01/16 15:21 O2 Delivery Room Air Intake and Output 11/30/16 11/30/16 12/01/16 15:00 23:00 07:00 Intake Total 250 ml 550 ml Output Total 1100 ml 0 ml Balance -850 ml 550 ml Nutrition Consultation Dietary Evaluation: Recommendations by RD: Increase Calorie Intake, Protein supplementation Comments: Supplement changed to Ensure q day per pt FR d/c on 11/29. Expected Outcomes/Goals: meet 75% estimated nutrition needs- met, goal ongoing Interpretation of weight loss: >5% in 1 month Malnutrition Findings: Malnutrition related to morbid: No Weight Status: Appropriate ELVA CANO MD Dec 01, 2016 16:05
--- NOTE | 2016-12-01 16:34 | PDOC ---
PROGRESS NOTES Chief Complaint Chief Complaint cc: Shortness of breath -Congestive heart failure acute systolic NEW HTN Pl effusions s/p thoracentesis PLAN clinically improving, continue diuresis CXR better HR controlled On digoxin monitor renal functions intake and out put appreciate cardiology input PT/OT History of Present Illness History of Present Illness NO FEVER NO CHEST PAIN BREATHING BETTER Vitals Vitals Vital Signs Date Time Temp Pulse Resp B/P Pulse Ox O2 Delivery O2 Flow Rate FiO2 12/01/16 15:21 Room Air 12/01/16 15:00 98.7 112 20 126/85 94 98.7 12/01/16 08:00 3.0 Physical Exam General: Alert, Oriented X3, Cooperative Heart: Regular rate, Normal S1, Normal S2 Lungs: Clear Abdomen: Soft, No tenderness Extremities: No clubbing, No cyanosis Skin: No breakdown, No significant lesion Labs LABS Laboratory Tests Test 11/30/16 20:52 12/01/16 05:40 12/01/16 08:10 12/01/16 11:50 Glucose (Fingerstick) 120mg/dL (70-99) 94mg/dL (70-99) 99mg/dL (70-99) White Blood Count 11.2x10^3/uL (4.0-11.0) Red Blood Count 3.92x10^6/uL (3.50-5.40) Hemoglobin 13.2g/dL (12.0-15.5) Hematocrit 38.8% (36.0-47.0) Mean Corpuscular Volume 99fL (79-100) Mean Corpuscular Hemoglobin 34pg (25-35) Mean Corpuscular Hemoglobin Concent 34g/dL (31-37) Red Cell Distribution Width 16.2% (11.5-14.5) Platelet Count 407x10^3/uL (140-400) Neutrophils (%) (Auto) 69% (31-73) Lymphocytes (%) (Auto) 16% (24-48) Monocytes (%) (Auto) 11% (0-9) Eosinophils (%) (Auto) 4% (0-3) Basophils (%) (Auto) 1% (0-3) Neutrophils # (Auto) 7.7x10^3uL (1.8-7.7) Lymphocytes # (Auto) 1.8x10^3/uL (1.0-4.8) Monocytes # (Auto) 1.3x10^3/uL (0.0-1.1) Eosinophils # (Auto) 0.4x10^3/uL (0.0-0.7) Basophils # (Auto) 0.1x10^3/uL (0.0-0.2) Sodium Level 130mmol/L (136-145) Potassium Level 3.8mmol/L (3.5-5.1) Chloride Level 90mmol/L (98-107) Carbon Dioxide Level 34mmol/L (21-32) Anion Gap 6 (6-14) Blood Urea Nitrogen 13mg/dL (7-20) Creatinine 0.6mg/dL (0.6-1.0) Estimated GFR (Cockcroft-Gault) 97.7 Glucose Level 95mg/dL (70-99) Lactic Acid Level 1.1mmol/L (0.4-2.0) Calcium Level 8.5mg/dL (8.5-10.1) Assessment and Plan Assessmemt and Plan Problems Medical Problems: (1) Anemia Status: Acute (2) Congestive heart failure, acute Status: Acute (3) Essential hypertension Status: Acute (4) Healthcare associated bacterial pneumonia Status: Acute (5) Hypochloremia Status: Acute (6) Hyponatremia Status: Acute (7) Hypoxia Status: Acute (8) Leukocytosis Status: Acute (9) Pleural effusion Status: Acute Problems: Comment Review of Relevant I have reviewed the following items pavithra (where applicable) has been applied. Labs Laboratory Tests Test 11/30/16 04:30 11/30/16 08:39 11/30/16 10:54 11/30/16 16:28 White Blood Count 9.8x10^3/uL (4.0-11.0) Red Blood Count 3.47x10^6/uL (3.50-5.40) Hemoglobin 11.6g/dL (12.0-15.5) Hematocrit 35.0% (36.0-47.0) Mean Corpuscular Volume 101fL (79-100) Mean Corpuscular Hemoglobin 34pg (25-35) Mean Corpuscular Hemoglobin Concent 33g/dL (31-37) Red Cell Distribution Width 15.9% (11.5-14.5) Platelet Count 316x10^3/uL (140-400) Neutrophils (%) (Auto) 74% (31-73) Lymphocytes (%) (Auto) 13% (24-48) Monocytes (%) (Auto) 11% (0-9) Eosinophils (%) (Auto) 2% (0-3) Basophils (%) (Auto) 0% (0-3) Neutrophils # (Auto) 7.2x10^3uL (1.8-7.7) Lymphocytes # (Auto) 1.3x10^3/uL (1.0-4.8) Monocytes # (Auto) 1.1x10^3/uL (0.0-1.1) Eosinophils # (Auto) 0.2x10^3/uL (0.0-0.7) Basophils # (Auto) 0.0x10^3/uL (0.0-0.2) Sodium Level 134mmol/L (136-145) Potassium Level 3.7mmol/L (3.5-5.1) Chloride Level 96mmol/L (98-107) Carbon Dioxide Level 36mmol/L (21-32) Anion Gap 2 (6-14) Blood Urea Nitrogen 10mg/dL (7-20) Creatinine 0.7mg/dL (0.6-1.0) Estimated GFR (Cockcroft-Gault) 81.8 Glucose Level 90mg/dL (70-99) Lactic Acid Level 1.0mmol/L (0.4-2.0) Calcium Level 8.5mg/dL (8.5-10.1) Glucose (Fingerstick) 86mg/dL (70-99) 121mg/dL (70-99) 102mg/dL (70-99) Test 11/30/16 20:52 12/01/16 05:40 12/01/16 08:10 12/01/16 11:50 Glucose (Fingerstick) 120mg/dL (70-99) 94mg/dL (70-99) 99mg/dL (70-99) White Blood Count 11.2x10^3/uL (4.0-11.0) Red Blood Count 3.92x10^6/uL (3.50-5.40) Hemoglobin 13.2g/dL (12.0-15.5) Hematocrit 38.8% (36.0-47.0) Mean Corpuscular Volume 99fL (79-100) Mean Corpuscular Hemoglobin 34pg (25-35) Mean Corpuscular Hemoglobin Concent 34g/dL (31-37) Red Cell Distribution Width 16.2% (11.5-14.5) Platelet Count 407x10^3/uL (140-400) Neutrophils (%) (Auto) 69% (31-73) Lymphocytes (%) (Auto) 16% (24-48) Monocytes (%) (Auto) 11% (0-9) Eosinophils (%) (Auto) 4% (0-3) Basophils (%) (Auto) 1% (0-3) Neutrophils # (Auto) 7.7x10^3uL (1.8-7.7) Lymphocytes # (Auto) 1.8x10^3/uL (1.0-4.8) Monocytes # (Auto) 1.3x10^3/uL (0.0-1.1) Eosinophils # (Auto) 0.4x10^3/uL (0.0-0.7) Basophils # (Auto) 0.1x10^3/uL (0.0-0.2) Sodium Level 130mmol/L (136-145) Potassium Level 3.8mmol/L (3.5-5.1) Chloride Level 90mmol/L (98-107) Carbon Dioxide Level 34mmol/L (21-32) Anion Gap 6 (6-14) Blood Urea Nitrogen 13mg/dL (7-20) Creatinine 0.6mg/dL (0.6-1.0) Estimated GFR (Cockcroft-Gault) 97.7 Glucose Level 95mg/dL (70-99) Lactic Acid Level 1.1mmol/L (0.4-2.0) Calcium Level 8.5mg/dL (8.5-10.1) Laboratory Tests Test 11/30/16 20:52 12/01/16 05:40 12/01/16 08:10 12/01/16 11:50 Glucose (Fingerstick) 120mg/dL (70-99) 94mg/dL (70-99) 99mg/dL (70-99) White Blood Count 11.2x10^3/uL (4.0-11.0) Red Blood Count 3.92x10^6/uL (3.50-5.40) Hemoglobin 13.2g/dL (12.0-15.5) Hematocrit 38.8% (36.0-47.0) Mean Corpuscular Volume 99fL (79-100) Mean Corpuscular Hemoglobin 34pg (25-35) Mean Corpuscular Hemoglobin Concent 34g/dL (31-37) Red Cell Distribution Width 16.2% (11.5-14.5) Platelet Count 407x10^3/uL (140-400) Neutrophils (%) (Auto) 69% (31-73) Lymphocytes (%) (Auto) 16% (24-48) Monocytes (%) (Auto) 11% (0-9) Eosinophils (%) (Auto) 4% (0-3) Basophils (%) (Auto) 1% (0-3) Neutrophils # (Auto) 7.7x10^3uL (1.8-7.7) Lymphocytes # (Auto) 1.8x10^3/uL (1.0-4.8) Monocytes # (Auto) 1.3x10^3/uL (0.0-1.1) Eosinophils # (Auto) 0.4x10^3/uL (0.0-0.7) Basophils # (Auto) 0.1x10^3/uL (0.0-0.2) Sodium Level 130mmol/L (136-145) Potassium Level 3.8mmol/L (3.5-5.1) Chloride Level 90mmol/L (98-107) Carbon Dioxide Level 34mmol/L (21-32) Anion Gap 6 (6-14) Blood Urea Nitrogen 13mg/dL (7-20) Creatinine 0.6mg/dL (0.6-1.0) Estimated GFR (Cockcroft-Gault) 97.7 Glucose Level 95mg/dL (70-99) Lactic Acid Level 1.1mmol/L (0.4-2.0) Calcium Level 8.5mg/dL (8.5-10.1) Microbiology 11/27/16 Blood Culture - Preliminary, Resulted NO GROWTH AFTER 3 DAYS 11/28/16 Gram Stain - Final, Complete Medications Current Medications Albuterol/ Ipratropium (Duoneb) 3 ml 1X ONCE NEB Last administered on 15:56; Start 11/27/16 at 15:30; Stop 11/27/16 at 15:35; Status DC Vancomycin HCl (Vanco Per Pharmacy) 1 each PRN DAILY PRN MC SEE COMMENTS Last administered on 11/27/16 19:17; Start 11/27/16 at 16:45; Stop 11/28/16 at 07:13 ; Status DC Piperacillin Sod/ Tazobactam Sod (Zosyn Per Pharmacy) 1 each PRN DAILY PRN MC SEE COMMENTS; Start 11/27/16 at 16:45; Stop 11/27/16 at 20:57; Status DC Gentamicin Sulfate 1 each 1 each PRN DAILY PRN MC SEE COMMENTS Last administered on 11/27/16 19:41; Start 11/27/16 at 16:45; Stop 11/27/16 at 20:55 ; Status DC Piperacillin Sod/ Tazobactam Sod 3.375 gm/Sodium Chloride 50 ml @ 100 mls/hr 1X ONCE IV Last administered on 11/27/16 17:24; Start 11/27/16 at 17:00; Stop 11/27/16 at 17:29; Status DC Vancomycin HCl/ Sodium Chloride (Iv Sodium Chloride 0.9% 250ml) 250 ml @ 166.667 mls/hr 1X ONCE IV Last administered on 11/27/16 19:09; Start at 17:00; Stop 11/27/16 at 18:29; Status DC Iohexol (Omnipaque 300 Mg/ml) 75 ml 1X ONCE IV Last administered on 11/27/16 17:01; Start 11/27/16 at 16:45; Stop 11/27/16 at 16:47; Status DC Info 1 each 1 each PRN DAILY PRN MC SEE COMMENTS; Start 11/27/16 at 17:00; Stop 11/29/16 at 16:59; Status DC Gentamicin Sulfate 250 mg/ Sodium Chloride 106.25 ml @ 106.25 mls/hr 1X ONCE IV Last administered on 11/27/16 18:19; Start 11/27/16 at 17:00; Stop at 17:59; Status DC Conivaptan/ Dextrose 100 ml @ 200 mls/hr 1X ONCE IV Last administered on 11/27t 21:14; Start 11/27/16 at 18:00; Stop 11/27/16 at 18:29; Status DC Conivaptan/ Dextrose 100 ml @ 4.167 mls/ hr 1X ONCE IV ; Start 11/27/16 at 18: 30; Stop 11/27/16 at 17:45; Status Cancel Conivaptan/ Dextrose (Vaprisol 20 Mg Premix) 100 ml @ 4.167 mls/ hr CONT PRN PRN IV HYPONATREMIA; Start 11/27/16 at 21:00; Stop 11/29/16 at 07:52; Status DC Furosemide 60 mg 60 mg 1X ONCE IVP ; Start 11/27/16 at 18:45; Stop 11/27/16 at 18:46; Status DC Piperacillin Sod/ Tazobactam Sod 4.5 gm/Sodium Chloride 100 ml @ 200 mls/hr Q6HRS IV ; Start 11/28/16 at 00:00; Stop 11/28/16 at 00:00; Status DC Vancomycin HCl/ Sodium Chloride (Iv Sodium Chloride 0.9% 250ml) 250 ml @ 250 mls/hr Q24H IV ; Start 11/28/16 at 17:00; Stop 11/28/16 at 17:00; Status DC Vancomycin HCl 1 each 1X ONCE MC ; Start 11/29/16 at 16:30; Stop 11/29/16 at 16 :30; Status DC Ondansetron HCl (Zofran) 4 mg PRN Q8HRS PRN IV NAUSEA/VOMITING; Start 11/27/16 at 19:30; Stop 11/28/16 at 19:29; Status DC Morphine Sulfate 2 mg PRN Q2HR PRN IV PAIN; Start 11/27/16 at 19:30; Stop 11/28 at 19:29; Status DC Acetaminophen (Tylenol) 650 mg PRN Q4HRS PRN PO FEVER; Start 11/27/16 at 19:30 ; Stop 11/28/16 at 19:29; Status DC Albuterol/ Ipratropium (Duoneb) 3 ml RTQID NEB Last administered on 11/28/16t 16:25; Start 11/27/16 at 20:00; Stop 11/28/16 at 19:59; Status DC Gentamicin Sulfate 1 each 1X ONCE MC ; Start 11/28/16 at 04:00; Stop 11/28/16 at 04:00; Status DC Zolpidem Tartrate (Ambien) 5 mg PRN QHS PRN PO INSOMNIA Last administered on 21:39; Start 11/27/16 at 21:30 Multivitamins (Thera M Plus) 1 tab DAILY PO Last administered on 12/01/16 08: 45; Start 11/28/16 at 09:00 Folic Acid 1 mg 1 mg DAILY PO Last administered on 12/01/16 08:44; Start 11/28 at 09:00 Thiamine HCl/ Sodium Chloride (Iv Sodium Chloride 0.9% 50ml) 51 ml @ 100 mls/ hr DAILY IV Last administered on 12/01/16 09:24; Start 11/28/16 at 09:00; Stop 12/03/16 at 08:59 Lorazepam (Ativan) 2 mg Q6H PO Last administered on 11/27/16 21:30; Start at 21:30; Stop 11/27/16 at 21:34; Status DC Lorazepam (Ativan) 2 mg PRN Q6HRS PRN PO ALCOCHOL WITHDRAWAL PREVENTION Last administered on 11/30/16 21:03; Start 11/28/16 at 21:30 Lidocaine/Sodium Bicarbonate (Buffered Lidocaine 1%) 20 ml STK-MED ONCE IJ ; Start 11/28/16 at 14:19; Stop 11/28/16 at 14:20; Status DC Fentanyl Citrate (Fentanyl 2ml Vial) 100 mcg STK-MED ONCE .ROUTE ; Start at 14:27; Stop 11/28/16 at 14:28; Status DC Midazolam HCl (Versed) 2 mg STK-MED ONCE .ROUTE ; Start 11/28/16 at 14:27; Stop 11/28/16 at 14:28; Status DC Lidocaine/Sodium Bicarbonate (Buffered Lidocaine 1%) 20 ml 1X ONCE IJ Last administered on 11/28/16 15:00; Start 11/28/16 at 14:30; Stop 11/28/16 at 14:31 ; Status DC Midazolam HCl (Versed) 2 mg 1X ONCE IV ; Start 11/28/16 at 14:30; Stop at 14:31; Status DC Fentanyl Citrate (Fentanyl 2ml Vial) 100 mcg 1X ONCE IV Last administered on 15:00; Start 11/28/16 at 14:30; Stop 11/28/16 at 14:31; Status DC Albuterol/ Ipratropium (Duoneb) 3 ml RTQID NEB ; Start 11/29/16 at 08:00; Stop 11/29/16 at 08:00; Status DC Albuterol/ Ipratropium 3 ml 3 ml RTQID NEB Last administered on 12/01/16 15:20 ; Start 11/28/16 at 21:00 Iron Sucrose/ Sodium Chloride (Venofer/Iv Sodium Chloride 0.9% 100ml) 110 ml @ 55 mls/hr 3X/WEEK IV Last administered on 11/30/16 10:23; Start 11/29/16 at 09 :00; Stop 12/07/16 at 10:59 Furosemide (Lasix) 40 mg BID PO Last administered on 12/01/16 08:45; Start at 09:00 Atenolol (Tenormin) 50 mg DAILY PO Last administered on 12/01/16 08:45; Start 11/29/16 at 17:30 Digoxin (Lanoxin) 250 mcg 1X ONCE IV Last administered on 11/29/16 23:32; Start 11/29/16 at 23:30; Stop 11/29/16 at 23:31; Status DC Digoxin (Lanoxin) 250 mcg 1X ONCE IV Last administered on 11/30/16 00:53; Start 11/30/16 at 01:00; Stop 11/30/16 at 01:01; Status DC Active Scripts Active Reported Atenolol 50 Mg Tablet 1 Tab PO DAILY Vitals/I & O Vital Sign - Last 24 Hours 11/30/16 11/30/16 11/30/16 11/30/16 19:00 20:10 21:06 23:41 Temp 97.6 98.6 97.6 98.6 Pulse 105 103 Resp 20 20 B/P 129/81 132/81 Pulse Ox 97 92 96 O2 Delivery Room Air Room Air Room Air Room Air 12/01/16 12/01/16 12/01/16 12/01/16 03:59 07:45 07:51 08:00 Temp 98.2 98.4 98.2 98.4 Pulse 107 83 Resp 20 20 B/P 140/81 129/74 Pulse Ox 96 94 94 O2 Delivery Room Air Room Air Room Air Room Air O2 Flow Rate 3.0 12/01/16 12/01/16 12/01/16 12/01/16 08:45 11:08 11:33 15:00 Temp 98.6 98.7 98.6 98.7 Pulse 83 100 112 Resp 14 20 B/P 129/74 142/79 126/85 Pulse Ox 95 94 O2 Delivery Room Air Room Air Room Air 12/01/16 15:21 O2 Delivery Room Air Intake and Output 11/30/16 11/30/16 12/01/16 15:00 23:00 07:00 Intake Total 250 ml 550 ml Output Total 1100 ml 0 ml Balance -850 ml 550 ml Nutrition Consultation Dietary Evaluation: Recommendations by RD: Increase Calorie Intake, Protein supplementation Comments: Supplement changed to Ensure q day per pt FR d/c on 11/29. Expected Outcomes/Goals: meet 75% estimated nutrition needs- met, goal ongoing Interpretation of weight loss: >5% in 1 month Malnutrition Findings: Malnutrition related to morbid: No Weight Status: Appropriate MAKENNA NORTON MD Dec 01, 2016 16:34
--- NOTE | 2016-12-01 17:27 | PDOC ---
PULMONARY PROGRESS NOTES Subjective pt less soa Vitals Vital Signs Date Time Temp Pulse Resp B/P Pulse Ox O2 Delivery O2 Flow Rate FiO2 12/01/16 15:21 Room Air 12/01/16 15:00 98.7 112 20 126/85 94 98.7 12/01/16 08:00 3.0 ROS: No Nausea, No Chest Pain, No Abdominal Pain, No Increase Cough Lungs: Clear Cardiovascular: S1, S2 Abdomen: Soft, Non-tender Neuro Exam: Alert Extremities: No Edema Labs Laboratory Tests Test 11/30/16 04:30 11/30/16 08:39 11/30/16 10:54 11/30/16 16:28 White Blood Count 9.8x10^3/uL (4.0-11.0) Red Blood Count 3.47x10^6/uL (3.50-5.40) Hemoglobin 11.6g/dL (12.0-15.5) Hematocrit 35.0% (36.0-47.0) Mean Corpuscular Volume 101fL (79-100) Mean Corpuscular Hemoglobin 34pg (25-35) Mean Corpuscular Hemoglobin Concent 33g/dL (31-37) Red Cell Distribution Width 15.9% (11.5-14.5) Platelet Count 316x10^3/uL (140-400) Neutrophils (%) (Auto) 74% (31-73) Lymphocytes (%) (Auto) 13% (24-48) Monocytes (%) (Auto) 11% (0-9) Eosinophils (%) (Auto) 2% (0-3) Basophils (%) (Auto) 0% (0-3) Neutrophils # (Auto) 7.2x10^3uL (1.8-7.7) Lymphocytes # (Auto) 1.3x10^3/uL (1.0-4.8) Monocytes # (Auto) 1.1x10^3/uL (0.0-1.1) Eosinophils # (Auto) 0.2x10^3/uL (0.0-0.7) Basophils # (Auto) 0.0x10^3/uL (0.0-0.2) Sodium Level 134mmol/L (136-145) Potassium Level 3.7mmol/L (3.5-5.1) Chloride Level 96mmol/L (98-107) Carbon Dioxide Level 36mmol/L (21-32) Anion Gap 2 (6-14) Blood Urea Nitrogen 10mg/dL (7-20) Creatinine 0.7mg/dL (0.6-1.0) Estimated GFR (Cockcroft-Gault) 81.8 Glucose Level 90mg/dL (70-99) Lactic Acid Level 1.0mmol/L (0.4-2.0) Calcium Level 8.5mg/dL (8.5-10.1) Glucose (Fingerstick) 86mg/dL (70-99) 121mg/dL (70-99) 102mg/dL (70-99) Test 11/30/16 20:52 12/01/16 05:40 12/01/16 08:10 12/01/16 11:50 Glucose (Fingerstick) 120mg/dL (70-99) 94mg/dL (70-99) 99mg/dL (70-99) White Blood Count 11.2x10^3/uL (4.0-11.0) Red Blood Count 3.92x10^6/uL (3.50-5.40) Hemoglobin 13.2g/dL (12.0-15.5) Hematocrit 38.8% (36.0-47.0) Mean Corpuscular Volume 99fL (79-100) Mean Corpuscular Hemoglobin 34pg (25-35) Mean Corpuscular Hemoglobin Concent 34g/dL (31-37) Red Cell Distribution Width 16.2% (11.5-14.5) Platelet Count 407x10^3/uL (140-400) Neutrophils (%) (Auto) 69% (31-73) Lymphocytes (%) (Auto) 16% (24-48) Monocytes (%) (Auto) 11% (0-9) Eosinophils (%) (Auto) 4% (0-3) Basophils (%) (Auto) 1% (0-3) Neutrophils # (Auto) 7.7x10^3uL (1.8-7.7) Lymphocytes # (Auto) 1.8x10^3/uL (1.0-4.8) Monocytes # (Auto) 1.3x10^3/uL (0.0-1.1) Eosinophils # (Auto) 0.4x10^3/uL (0.0-0.7) Basophils # (Auto) 0.1x10^3/uL (0.0-0.2) Sodium Level 130mmol/L (136-145) Potassium Level 3.8mmol/L (3.5-5.1) Chloride Level 90mmol/L (98-107) Carbon Dioxide Level 34mmol/L (21-32) Anion Gap 6 (6-14) Blood Urea Nitrogen 13mg/dL (7-20) Creatinine 0.6mg/dL (0.6-1.0) Estimated GFR (Cockcroft-Gault) 97.7 Glucose Level 95mg/dL (70-99) Lactic Acid Level 1.1mmol/L (0.4-2.0) Calcium Level 8.5mg/dL (8.5-10.1) Test 12/01/16 16:57 Glucose (Fingerstick) 116mg/dL (70-99) Laboratory Tests Test 11/30/16 20:52 12/01/16 05:40 12/01/16 08:10 12/01/16 11:50 Glucose (Fingerstick) 120mg/dL (70-99) 94mg/dL (70-99) 99mg/dL (70-99) White Blood Count 11.2x10^3/uL (4.0-11.0) Red Blood Count 3.92x10^6/uL (3.50-5.40) Hemoglobin 13.2g/dL (12.0-15.5) Hematocrit 38.8% (36.0-47.0) Mean Corpuscular Volume 99fL (79-100) Mean Corpuscular Hemoglobin 34pg (25-35) Mean Corpuscular Hemoglobin Concent 34g/dL (31-37) Red Cell Distribution Width 16.2% (11.5-14.5) Platelet Count 407x10^3/uL (140-400) Neutrophils (%) (Auto) 69% (31-73) Lymphocytes (%) (Auto) 16% (24-48) Monocytes (%) (Auto) 11% (0-9) Eosinophils (%) (Auto) 4% (0-3) Basophils (%) (Auto) 1% (0-3) Neutrophils # (Auto) 7.7x10^3uL (1.8-7.7) Lymphocytes # (Auto) 1.8x10^3/uL (1.0-4.8) Monocytes # (Auto) 1.3x10^3/uL (0.0-1.1) Eosinophils # (Auto) 0.4x10^3/uL (0.0-0.7) Basophils # (Auto) 0.1x10^3/uL (0.0-0.2) Sodium Level 130mmol/L (136-145) Potassium Level 3.8mmol/L (3.5-5.1) Chloride Level 90mmol/L (98-107) Carbon Dioxide Level 34mmol/L (21-32) Anion Gap 6 (6-14) Blood Urea Nitrogen 13mg/dL (7-20) Creatinine 0.6mg/dL (0.6-1.0) Estimated GFR (Cockcroft-Gault) 97.7 Glucose Level 95mg/dL (70-99) Lactic Acid Level 1.1mmol/L (0.4-2.0) Calcium Level 8.5mg/dL (8.5-10.1) Test 12/01/16 16:57 Glucose (Fingerstick) 116mg/dL (70-99) Medications Active Scripts Medications Dose Route/Sig Days Date Category Atenolol 50 Mg Tablet 1 Tab PO DAILY 08/30/16 Reported Impression . IMPRESSION: 1. Acute respiratory failure secondary to acute bilateral pleural effusions, acute CHF 2. Bilateral pleural effusions, 3. Secondary pulmonary hypertension. 42 4. Hyponatremia. 5. Hypothyroidism. 6. CT with no evidence of pulmonary embolism. 6. History of alcohol and tobacco use. 7. Lactic acidosis. 8. Leukocytosis. 9. Cardiomyopathy EF 25% Echo Left ventricle systolic function is moderately to severely impaired. The Ejection Fraction is 25%. There is moderate to severe global hypokinesis of the left ventricle. There is akinesis in the basal and mid anteroseptal anderson. Akinesis in the basal and mid interventricular septal anderson. There is moderate hypokinesis in the basal and mid-inferior anderson. Transmitral Doppler flow pattern is Grade IV-fixed restrictive diastolic dysfunction. The left atrium is dilated. The right atrium is mildly dilated. The aortic valve is mildly thickened. The aortic valve is trileaflet. Doppler and Color Flow revealed mild aortic regurgitation. Doppler and Color Flow revealed moderate to severe mitral regurgitation. The mitral valve leaflets are thickened. Doppler and Color Flow revealed moderate tricuspid regurgitation. The pulmonary artery systolic pressure is estimated at 42 mmHg. There is mild pulmonary hypertension. Doppler and Color Flow revealed trace pulmonic valvular regurgitation. The aortic root is normal in size. The IVC is dilated and does not collapse. A large left pleural effusion is noted. There is a trace circumferential pericardial effusion. Plan . Less soa today, Pt anxious about the future heart rate at times high will continue the same 1. S/P Thoracentesis follow labs 2. Follow Nephrology input. 3. needs cath in future 4. Echocardiogram noted 5. We will defer any further treatment of her hypothyroidism to the PCP. 6. Follow up labs. CORBY FULLER MD Dec 01, 2016 17:27
[2016-12-01 19:00] VITALS: BP 125/76
[2016-12-01] MEDS: LORAZEPAM 1 MG TABLET. PO PRN (20:42)
[2016-12-01 23:21] VITALS: BP 131/72
[2016-12-02] VITALS (7 sets, daily range): BP systolic 117–134; BP diastolic 67–77
[2016-12-02 05:18] LABS: BASO # 0.1 x10^3/uL (0.0-0.2); BASO % 1 % (0-3); EOS % 3 % (0-3); HEMATOCRIT 41.2 % (36.0-47.0); HEMOGLOBIN 13.6 g/dL (12.0-15.5); LYMPH # 1.6 x10^3/uL (1.0-4.8); LYMPH % 17 % (24-48); MEAN CORPUSCULAR HEMOGLOBIN 34 pg (25-35); MEAN CORPUSCULAR HGB CONC 33 g/dL (31-37); MEAN CORPUSCULAR VOLUME 102 fL (79-100); MONO % 11 % (0-9); NEUT % 68 % (31-73); PLATELET COUNT 369 x10^3/uL (140-400); RED BLOOD COUNT 4.05 x10^6/uL (3.50-5.40); RED CELL DISTRIBUTION WIDTH 16.1 % (11.5-14.5); WHITE BLOOD COUNT 9.6 x10^3/uL (4.0-11.0)
[2016-12-02 05:25] LABS: CALCIUM 8.7 mg/dL (8.5-10.1); CREATININE 0.7 mg/dL (0.6-1.0); GFR 81.8; POTASSIUM 3.3 mmol/L (3.5-5.1)
[2016-12-02] MEDS: IPRATRPIUM/ALBUTEROL 0.5/2.5MG 3 ML NEBU. NEB SCH ×4 (07:29→19:41)
[2016-12-02] MEDS: MULTIVITAMIN with MINERAL TABLET. PO SCH (08:10)
[2016-12-02] MEDS: FUROSEMIDE 40 MG TABLET. PO SCH ×2 (08:10→20:20)
[2016-12-02] MEDS: FOLIC ACID 1 MG TABLET. PO SCH (08:10)
[2016-12-02] MEDS: ATENOLOL 50 MG TABLET. PO SCH (08:11)
[2016-12-02] MEDS: THIAMINE 100 MG in IV NORMAL SALINE 50ML 50 ML IV SCH (08:36)
[2016-12-02] MEDS ORDERED: POTASSIUM CHLORIDE 20 MEQ TABLET.ER. PO ONE (11:15)
--- NOTE | 2016-12-02 11:16 | PDOC ---
PROGRESS NOTES Chief Complaint Chief Complaint cc: Shortness of breath 1. Acute respiratory failure secondary to acute bilateral pleural effusions, acute CHF, resolved. 2. Bilateral pleural effusions,s/p thoracentesis 3. Secondary pulmonary hypertension, 4. Hyponatremia, better. 5. Hypothyroidism: subclinical, monitor TSH in few weeks. 6. CT with no evidence of pulmonary embolism. 6. History of alcohol and tobacco use: educations provided. . 7.. Cardiomyopathy EF 25% with acute systolic CHF: , suspected, alcohol induced.: on coreg, digoxin, and lasix, monitor electrolytes, replace potassium , possible out pt Cath per cardiology, anticipated DC in am, 8. Hypokalemia: due to diuretics, replaced. History of Present Illness History of Present Illness NO FEVER NO CHEST PAIN BREATHING BETTER Vitals Vitals Vital Signs Date Time Temp Pulse Resp B/P Pulse Ox O2 Delivery O2 Flow Rate FiO2 12/02/16 08:11 89 134/70 12/02/16 08:00 97.8 20 95 Room Air 97.8 12/02/16 08:00 3.0 Physical Exam General: Alert, Oriented X3, Cooperative Heart: Regular rate, Normal S1, Normal S2 Lungs: Clear Abdomen: Soft, No tenderness Extremities: No clubbing, No cyanosis Skin: No breakdown, No significant lesion Labs LABS Laboratory Tests Test 12/01/16 11:50 12/01/16 16:57 12/01/16 20:31 12/02/16 04:03 Glucose (Fingerstick) 99mg/dL (70-99) 116mg/dL (70-99) 107mg/dL (70-99) Lactic Acid Level 1.5mmol/L (0.4-2.0) Test 12/02/16 04:05 White Blood Count 9.6x10^3/uL (4.0-11.0) Red Blood Count 4.05x10^6/uL (3.50-5.40) Hemoglobin 13.6g/dL (12.0-15.5) Hematocrit 41.2% (36.0-47.0) Mean Corpuscular Volume 102fL (79-100) Mean Corpuscular Hemoglobin 34pg (25-35) Mean Corpuscular Hemoglobin Concent 33g/dL (31-37) Red Cell Distribution Width 16.1% (11.5-14.5) Platelet Count 369x10^3/uL (140-400) Neutrophils (%) (Auto) 68% (31-73) Lymphocytes (%) (Auto) 17% (24-48) Monocytes (%) (Auto) 11% (0-9) Eosinophils (%) (Auto) 3% (0-3) Basophils (%) (Auto) 1% (0-3) Neutrophils # (Auto) 6.5x10^3uL (1.8-7.7) Lymphocytes # (Auto) 1.6x10^3/uL (1.0-4.8) Monocytes # (Auto) 1.1x10^3/uL (0.0-1.1) Eosinophils # (Auto) 0.3x10^3/uL (0.0-0.7) Basophils # (Auto) 0.1x10^3/uL (0.0-0.2) Sodium Level 132mmol/L (136-145) Potassium Level 3.3mmol/L (3.5-5.1) Chloride Level 90mmol/L (98-107) Carbon Dioxide Level 36mmol/L (21-32) Anion Gap 6 (6-14) Blood Urea Nitrogen 16mg/dL (7-20) Creatinine 0.7mg/dL (0.6-1.0) Estimated GFR (Cockcroft-Gault) 81.8 Glucose Level 97mg/dL (70-99) Calcium Level 8.7mg/dL (8.5-10.1) Assessment and Plan Assessmemt and Plan Problems Medical Problems: (1) Anemia Status: Acute (2) Congestive heart failure, acute Status: Acute (3) Essential hypertension Status: Acute (4) Healthcare associated bacterial pneumonia Status: Acute (5) Hypochloremia Status: Acute (6) Hyponatremia Status: Acute (7) Hypoxia Status: Acute (8) Leukocytosis Status: Acute (9) Pleural effusion Status: Acute Problems: Comment Review of Relevant I have reviewed the following items pavithra (where applicable) has been applied. Labs Laboratory Tests Test 11/30/16 16:28 11/30/16 20:52 12/01/16 05:40 12/01/16 08:10 Glucose (Fingerstick) 102mg/dL (70-99) 120mg/dL (70-99) 94mg/dL (70-99) White Blood Count 11.2x10^3/uL (4.0-11.0) Red Blood Count 3.92x10^6/uL (3.50-5.40) Hemoglobin 13.2g/dL (12.0-15.5) Hematocrit 38.8% (36.0-47.0) Mean Corpuscular Volume 99fL (79-100) Mean Corpuscular Hemoglobin 34pg (25-35) Mean Corpuscular Hemoglobin Concent 34g/dL (31-37) Red Cell Distribution Width 16.2% (11.5-14.5) Platelet Count 407x10^3/uL (140-400) Neutrophils (%) (Auto) 69% (31-73) Lymphocytes (%) (Auto) 16% (24-48) Monocytes (%) (Auto) 11% (0-9) Eosinophils (%) (Auto) 4% (0-3) Basophils (%) (Auto) 1% (0-3) Neutrophils # (Auto) 7.7x10^3uL (1.8-7.7) Lymphocytes # (Auto) 1.8x10^3/uL (1.0-4.8) Monocytes # (Auto) 1.3x10^3/uL (0.0-1.1) Eosinophils # (Auto) 0.4x10^3/uL (0.0-0.7) Basophils # (Auto) 0.1x10^3/uL (0.0-0.2) Sodium Level 130mmol/L (136-145) Potassium Level 3.8mmol/L (3.5-5.1) Chloride Level 90mmol/L (98-107) Carbon Dioxide Level 34mmol/L (21-32) Anion Gap 6 (6-14) Blood Urea Nitrogen 13mg/dL (7-20) Creatinine 0.6mg/dL (0.6-1.0) Estimated GFR (Cockcroft-Gault) 97.7 Glucose Level 95mg/dL (70-99) Lactic Acid Level 1.1mmol/L (0.4-2.0) Calcium Level 8.5mg/dL (8.5-10.1) Test 12/01/16 11:50 12/01/16 16:57 12/01/16 20:31 12/02/16 04:03 Glucose (Fingerstick) 99mg/dL (70-99) 116mg/dL (70-99) 107mg/dL (70-99) Lactic Acid Level 1.5mmol/L (0.4-2.0) Test 12/02/16 04:05 White Blood Count 9.6x10^3/uL (4.0-11.0) Red Blood Count 4.05x10^6/uL (3.50-5.40) Hemoglobin 13.6g/dL (12.0-15.5) Hematocrit 41.2% (36.0-47.0) Mean Corpuscular Volume 102fL (79-100) Mean Corpuscular Hemoglobin 34pg (25-35) Mean Corpuscular Hemoglobin Concent 33g/dL (31-37) Red Cell Distribution Width 16.1% (11.5-14.5) Platelet Count 369x10^3/uL (140-400) Neutrophils (%) (Auto) 68% (31-73) Lymphocytes (%) (Auto) 17% (24-48) Monocytes (%) (Auto) 11% (0-9) Eosinophils (%) (Auto) 3% (0-3) Basophils (%) (Auto) 1% (0-3) Neutrophils # (Auto) 6.5x10^3uL (1.8-7.7) Lymphocytes # (Auto) 1.6x10^3/uL (1.0-4.8) Monocytes # (Auto) 1.1x10^3/uL (0.0-1.1) Eosinophils # (Auto) 0.3x10^3/uL (0.0-0.7) Basophils # (Auto) 0.1x10^3/uL (0.0-0.2) Sodium Level 132mmol/L (136-145) Potassium Level 3.3mmol/L (3.5-5.1) Chloride Level 90mmol/L (98-107) Carbon Dioxide Level 36mmol/L (21-32) Anion Gap 6 (6-14) Blood Urea Nitrogen 16mg/dL (7-20) Creatinine 0.7mg/dL (0.6-1.0) Estimated GFR (Cockcroft-Gault) 81.8 Glucose Level 97mg/dL (70-99) Calcium Level 8.7mg/dL (8.5-10.1) Laboratory Tests Test 12/01/16 11:50 12/01/16 16:57 12/01/16 20:31 12/02/16 04:03 Glucose (Fingerstick) 99mg/dL (70-99) 116mg/dL (70-99) 107mg/dL (70-99) Lactic Acid Level 1.5mmol/L (0.4-2.0) Test 12/02/16 04:05 White Blood Count 9.6x10^3/uL (4.0-11.0) Red Blood Count 4.05x10^6/uL (3.50-5.40) Hemoglobin 13.6g/dL (12.0-15.5) Hematocrit 41.2% (36.0-47.0) Mean Corpuscular Volume 102fL (79-100) Mean Corpuscular Hemoglobin 34pg (25-35) Mean Corpuscular Hemoglobin Concent 33g/dL (31-37) Red Cell Distribution Width 16.1% (11.5-14.5) Platelet Count 369x10^3/uL (140-400) Neutrophils (%) (Auto) 68% (31-73) Lymphocytes (%) (Auto) 17% (24-48) Monocytes (%) (Auto) 11% (0-9) Eosinophils (%) (Auto) 3% (0-3) Basophils (%) (Auto) 1% (0-3) Neutrophils # (Auto) 6.5x10^3uL (1.8-7.7) Lymphocytes # (Auto) 1.6x10^3/uL (1.0-4.8) Monocytes # (Auto) 1.1x10^3/uL (0.0-1.1) Eosinophils # (Auto) 0.3x10^3/uL (0.0-0.7) Basophils # (Auto) 0.1x10^3/uL (0.0-0.2) Sodium Level 132mmol/L (136-145) Potassium Level 3.3mmol/L (3.5-5.1) Chloride Level 90mmol/L (98-107) Carbon Dioxide Level 36mmol/L (21-32) Anion Gap 6 (6-14) Blood Urea Nitrogen 16mg/dL (7-20) Creatinine 0.7mg/dL (0.6-1.0) Estimated GFR (Cockcroft-Gault) 81.8 Glucose Level 97mg/dL (70-99) Calcium Level 8.7mg/dL (8.5-10.1) Microbiology 11/27/16 Blood Culture - Preliminary, Resulted NO GROWTH AFTER 4 DAYS 11/28/16 Gram Stain - Final, Complete Medications Current Medications Albuterol/ Ipratropium (Duoneb) 3 ml 1X ONCE NEB Last administered on 15:56; Start 11/27/16 at 15:30; Stop 11/27/16 at 15:35; Status DC Vancomycin HCl (Vanco Per Pharmacy) 1 each PRN DAILY PRN MC SEE COMMENTS Last administered on 11/27/16 19:17; Start 11/27/16 at 16:45; Stop 11/28/16 at 07:13 ; Status DC Piperacillin Sod/ Tazobactam Sod (Zosyn Per Pharmacy) 1 each PRN DAILY PRN MC SEE COMMENTS; Start 11/27/16 at 16:45; Stop 11/27/16 at 20:57; Status DC Gentamicin Sulfate 1 each 1 each PRN DAILY PRN MC SEE COMMENTS Last administered on 11/27/16 19:41; Start 11/27/16 at 16:45; Stop 11/27/16 at 20:55 ; Status DC Piperacillin Sod/ Tazobactam Sod 3.375 gm/Sodium Chloride 50 ml @ 100 mls/hr 1X ONCE IV Last administered on 11/27/16 17:24; Start 11/27/16 at 17:00; Stop 11/27/16 at 17:29; Status DC Vancomycin HCl/ Sodium Chloride (Iv Sodium Chloride 0.9% 250ml) 250 ml @ 166.667 mls/hr 1X ONCE IV Last administered on 11/27/16 19:09; Start at 17:00; Stop 11/27/16 at 18:29; Status DC Iohexol (Omnipaque 300 Mg/ml) 75 ml 1X ONCE IV Last administered on 11/27/16 17:01; Start 11/27/16 at 16:45; Stop 11/27/16 at 16:47; Status DC Info 1 each 1 each PRN DAILY PRN MC SEE COMMENTS; Start 11/27/16 at 17:00; Stop 11/29/16 at 16:59; Status DC Gentamicin Sulfate 250 mg/ Sodium Chloride 106.25 ml @ 106.25 mls/hr 1X ONCE IV Last administered on 11/27/16t 18:19; Start 11/27/16 at 17:00; Stop at 17:59; Status DC Conivaptan/ Dextrose 100 ml @ 200 mls/hr 1X ONCE IV Last administered on 11/27t 21:14; Start 11/27/16 at 18:00; Stop 11/27/16 at 18:29; Status DC Conivaptan/ Dextrose 100 ml @ 4.167 mls/ hr 1X ONCE IV ; Start 11/27/16 at 18: 30; Stop 11/27/16 at 17:45; Status Cancel Conivaptan/ Dextrose (Vaprisol 20 Mg Premix) 100 ml @ 4.167 mls/ hr CONT PRN PRN IV HYPONATREMIA; Start 11/27/16 at 21:00; Stop 11/29/16 at 07:52; Status DC Furosemide 60 mg 60 mg 1X ONCE IVP ; Start 11/27/16 at 18:45; Stop 11/27/16 at 18:46; Status DC Piperacillin Sod/ Tazobactam Sod 4.5 gm/Sodium Chloride 100 ml @ 200 mls/hr Q6HRS IV ; Start 11/28/16 at 00:00; Stop 11/28/16 at 00:00; Status DC Vancomycin HCl/ Sodium Chloride (Iv Sodium Chloride 0.9% 250ml) 250 ml @ 250 mls/hr Q24H IV ; Start 11/28/16 at 17:00; Stop 11/28/16 at 17:00; Status DC Vancomycin HCl 1 each 1X ONCE MC ; Start 11/29/16 at 16:30; Stop 11/29/16 at 16 :30; Status DC Ondansetron HCl (Zofran) 4 mg PRN Q8HRS PRN IV NAUSEA/VOMITING; Start 11/27/16 at 19:30; Stop 11/28/16 at 19:29; Status DC Morphine Sulfate 2 mg PRN Q2HR PRN IV PAIN; Start 11/27/16 at 19:30; Stop 11/28 at 19:29; Status DC Acetaminophen (Tylenol) 650 mg PRN Q4HRS PRN PO FEVER; Start 11/27/16 at 19:30 ; Stop 11/28/16 at 19:29; Status DC Albuterol/ Ipratropium (Duoneb) 3 ml RTQID NEB Last administered on 11/28/16 16:25; Start 11/27/16 at 20:00; Stop 11/28/16 at 19:59; Status DC Gentamicin Sulfate 1 each 1X ONCE MC ; Start 11/28/16 at 04:00; Stop 11/28/16 at 04:00; Status DC Zolpidem Tartrate (Ambien) 5 mg PRN QHS PRN PO INSOMNIA Last administered on 21:39; Start 11/27/16 at 21:30 Multivitamins (Thera M Plus) 1 tab DAILY PO Last administered on 12/02/16 08: 10; Start 11/28/16 at 09:00 Folic Acid 1 mg 1 mg DAILY PO Last administered on 12/02/16 08:10; Start 11/28 at 09:00 Thiamine HCl/ Sodium Chloride (Iv Sodium Chloride 0.9% 50ml) 51 ml @ 100 mls/ hr DAILY IV Last administered on 12/02/16 08:36; Start 11/28/16 at 09:00; Stop 12/03/16 at 08:59 Lorazepam (Ativan) 2 mg Q6H PO Last administered on 11/27/16 21:30; Start at 21:30; Stop 11/27/16 at 21:34; Status DC Lorazepam (Ativan) 2 mg PRN Q6HRS PRN PO ALCOCHOL WITHDRAWAL PREVENTION Last administered on 12/01/16 20:42; Start 11/28/16 at 21:30 Lidocaine/Sodium Bicarbonate (Buffered Lidocaine 1%) 20 ml STK-MED ONCE IJ ; Start 11/28/16 at 14:19; Stop 11/28/16 at 14:20; Status DC Fentanyl Citrate (Fentanyl 2ml Vial) 100 mcg STK-MED ONCE .ROUTE ; Start at 14:27; Stop 11/28/16 at 14:28; Status DC Midazolam HCl (Versed) 2 mg STK-MED ONCE .ROUTE ; Start 11/28/16 at 14:27; Stop 11/28/16 at 14:28; Status DC Lidocaine/Sodium Bicarbonate (Buffered Lidocaine 1%) 20 ml 1X ONCE IJ Last administered on 11/28/16 15:00; Start 11/28/16 at 14:30; Stop 11/28/16 at 14:31 ; Status DC Midazolam HCl (Versed) 2 mg 1X ONCE IV ; Start 11/28/16 at 14:30; Stop at 14:31; Status DC Fentanyl Citrate (Fentanyl 2ml Vial) 100 mcg 1X ONCE IV Last administered on 15:00; Start 11/28/16 at 14:30; Stop 11/28/16 at 14:31; Status DC Albuterol/ Ipratropium (Duoneb) 3 ml RTQID NEB ; Start 11/29/16 at 08:00; Stop 11/29/16 at 08:00; Status DC Albuterol/ Ipratropium 3 ml 3 ml RTQID NEB Last administered on 12/02/16 07:29 ; Start 11/28/16 at 21:00 Iron Sucrose/ Sodium Chloride (Venofer/Iv Sodium Chloride 0.9% 100ml) 110 ml @ 55 mls/hr 3X/WEEK IV Last administered on 11/30/16 10:23; Start 11/29/16 at 09 :00; Stop 12/07/16 at 10:59 Furosemide (Lasix) 40 mg BID PO Last administered on 12/02/16 08:10; Start at 09:00 Atenolol (Tenormin) 50 mg DAILY PO Last administered on 12/02/16 08:11; Start 11/29/16 at 17:30 Digoxin (Lanoxin) 250 mcg 1X ONCE IV Last administered on 11/29/16 23:32; Start 11/29/16 at 23:30; Stop 11/29/16 at 23:31; Status DC Digoxin (Lanoxin) 250 mcg 1X ONCE IV Last administered on 11/30/16 00:53; Start 11/30/16 at 01:00; Stop 11/30/16 at 01:01; Status DC Active Scripts Active Reported Atenolol 50 Mg Tablet 1 Tab PO DAILY Vitals/I & O Vital Sign - Last 24 Hours 12/01/16 12/01/16 12/01/16 12/01/16 11:33 15:00 15:21 19:00 Temp 98.7 98.7 98.7 98.7 Pulse 112 104 Resp 20 20 B/P 126/85 125/76 Pulse Ox 94 95 O2 Delivery Room Air Room Air Room Air Room Air 12/01/16 12/01/16 12/01/16 12/02/16 20:00 20:48 23:21 03:00 Temp 98.4 98.1 98.4 98.1 Pulse 105 87 Resp 20 18 B/P 131/72 124/75 Pulse Ox 93 96 96 O2 Delivery Room Air Room Air Room Air Room Air 12/02/16 12/02/16 12/02/16 12/02/16 07:30 08:00 08:00 08:11 Temp 97.8 97.8 Pulse 84 89 Resp 20 B/P 134/70 134/70 Pulse Ox 95 95 O2 Delivery Room Air Room Air Room Air O2 Flow Rate 3.0 Intake and Output 12/01/16 12/01/16 12/02/16 15:00 23:00 07:00 Intake Total 340 ml 100 ml 440 ml Balance 340 ml 100 ml 440 ml Nutrition Consultation Dietary Evaluation: Recommendations by RD: Increase Calorie Intake, Protein supplementation Comments: Supplement changed to Ensure q day per pt FR d/c on 11/29. Expected Outcomes/Goals: meet 75% estimated nutrition needs- met, goal ongoing Interpretation of weight loss: >5% in 1 month Malnutrition Findings: Malnutrition related to morbid: No Weight Status: Appropriate MAKENNA NORTON MD Dec 02, 2016 11:16
--- NOTE | 2016-12-02 14:36 | PDOC ---
PULMONARY PROGRESS NOTES Subjective pt less soa Vitals Vital Signs Date Time Temp Pulse Resp B/P Pulse Ox O2 Delivery O2 Flow Rate FiO2 12/02/16 12:00 98.2 82 20 117/77 94 Room Air 98.2 12/02/16 08:00 3.0 ROS: No Nausea, No Chest Pain, No Abdominal Pain, No Increase Cough Lungs: Clear Cardiovascular: S1, S2 Abdomen: Soft, Non-tender Neuro Exam: Alert Extremities: No Edema Labs Laboratory Tests Test 11/30/16 16:28 11/30/16 20:52 12/01/16 05:40 12/01/16 08:10 Glucose (Fingerstick) 102mg/dL (70-99) 120mg/dL (70-99) 94mg/dL (70-99) White Blood Count 11.2x10^3/uL (4.0-11.0) Red Blood Count 3.92x10^6/uL (3.50-5.40) Hemoglobin 13.2g/dL (12.0-15.5) Hematocrit 38.8% (36.0-47.0) Mean Corpuscular Volume 99fL (79-100) Mean Corpuscular Hemoglobin 34pg (25-35) Mean Corpuscular Hemoglobin Concent 34g/dL (31-37) Red Cell Distribution Width 16.2% (11.5-14.5) Platelet Count 407x10^3/uL (140-400) Neutrophils (%) (Auto) 69% (31-73) Lymphocytes (%) (Auto) 16% (24-48) Monocytes (%) (Auto) 11% (0-9) Eosinophils (%) (Auto) 4% (0-3) Basophils (%) (Auto) 1% (0-3) Neutrophils # (Auto) 7.7x10^3uL (1.8-7.7) Lymphocytes # (Auto) 1.8x10^3/uL (1.0-4.8) Monocytes # (Auto) 1.3x10^3/uL (0.0-1.1) Eosinophils # (Auto) 0.4x10^3/uL (0.0-0.7) Basophils # (Auto) 0.1x10^3/uL (0.0-0.2) Sodium Level 130mmol/L (136-145) Potassium Level 3.8mmol/L (3.5-5.1) Chloride Level 90mmol/L (98-107) Carbon Dioxide Level 34mmol/L (21-32) Anion Gap 6 (6-14) Blood Urea Nitrogen 13mg/dL (7-20) Creatinine 0.6mg/dL (0.6-1.0) Estimated GFR (Cockcroft-Gault) 97.7 Glucose Level 95mg/dL (70-99) Lactic Acid Level 1.1mmol/L (0.4-2.0) Calcium Level 8.5mg/dL (8.5-10.1) Test 12/01/16 11:50 12/01/16 16:57 12/01/16 20:31 12/02/16 04:03 Glucose (Fingerstick) 99mg/dL (70-99) 116mg/dL (70-99) 107mg/dL (70-99) Lactic Acid Level 1.5mmol/L (0.4-2.0) Test 12/02/16 04:05 White Blood Count 9.6x10^3/uL (4.0-11.0) Red Blood Count 4.05x10^6/uL (3.50-5.40) Hemoglobin 13.6g/dL (12.0-15.5) Hematocrit 41.2% (36.0-47.0) Mean Corpuscular Volume 102fL (79-100) Mean Corpuscular Hemoglobin 34pg (25-35) Mean Corpuscular Hemoglobin Concent 33g/dL (31-37) Red Cell Distribution Width 16.1% (11.5-14.5) Platelet Count 369x10^3/uL (140-400) Neutrophils (%) (Auto) 68% (31-73) Lymphocytes (%) (Auto) 17% (24-48) Monocytes (%) (Auto) 11% (0-9) Eosinophils (%) (Auto) 3% (0-3) Basophils (%) (Auto) 1% (0-3) Neutrophils # (Auto) 6.5x10^3uL (1.8-7.7) Lymphocytes # (Auto) 1.6x10^3/uL (1.0-4.8) Monocytes # (Auto) 1.1x10^3/uL (0.0-1.1) Eosinophils # (Auto) 0.3x10^3/uL (0.0-0.7) Basophils # (Auto) 0.1x10^3/uL (0.0-0.2) Sodium Level 132mmol/L (136-145) Potassium Level 3.3mmol/L (3.5-5.1) Chloride Level 90mmol/L (98-107) Carbon Dioxide Level 36mmol/L (21-32) Anion Gap 6 (6-14) Blood Urea Nitrogen 16mg/dL (7-20) Creatinine 0.7mg/dL (0.6-1.0) Estimated GFR (Cockcroft-Gault) 81.8 Glucose Level 97mg/dL (70-99) Calcium Level 8.7mg/dL (8.5-10.1) Laboratory Tests Test 12/01/16 16:57 12/01/16 20:31 12/02/16 04:03 12/02/16 04:05 Glucose (Fingerstick) 116mg/dL (70-99) 107mg/dL (70-99) Lactic Acid Level 1.5mmol/L (0.4-2.0) White Blood Count 9.6x10^3/uL (4.0-11.0) Red Blood Count 4.05x10^6/uL (3.50-5.40) Hemoglobin 13.6g/dL (12.0-15.5) Hematocrit 41.2% (36.0-47.0) Mean Corpuscular Volume 102fL (79-100) Mean Corpuscular Hemoglobin 34pg (25-35) Mean Corpuscular Hemoglobin Concent 33g/dL (31-37) Red Cell Distribution Width 16.1% (11.5-14.5) Platelet Count 369x10^3/uL (140-400) Neutrophils (%) (Auto) 68% (31-73) Lymphocytes (%) (Auto) 17% (24-48) Monocytes (%) (Auto) 11% (0-9) Eosinophils (%) (Auto) 3% (0-3) Basophils (%) (Auto) 1% (0-3) Neutrophils # (Auto) 6.5x10^3uL (1.8-7.7) Lymphocytes # (Auto) 1.6x10^3/uL (1.0-4.8) Monocytes # (Auto) 1.1x10^3/uL (0.0-1.1) Eosinophils # (Auto) 0.3x10^3/uL (0.0-0.7) Basophils # (Auto) 0.1x10^3/uL (0.0-0.2) Sodium Level 132mmol/L (136-145) Potassium Level 3.3mmol/L (3.5-5.1) Chloride Level 90mmol/L (98-107) Carbon Dioxide Level 36mmol/L (21-32) Anion Gap 6 (6-14) Blood Urea Nitrogen 16mg/dL (7-20) Creatinine 0.7mg/dL (0.6-1.0) Estimated GFR (Cockcroft-Gault) 81.8 Glucose Level 97mg/dL (70-99) Calcium Level 8.7mg/dL (8.5-10.1) Medications Active Scripts Medications Dose Route/Sig Days Date Category Atenolol 50 Mg Tablet 1 Tab PO DAILY 08/30/16 Reported Impression . IMPRESSION: 1. Acute respiratory failure secondary to acute bilateral pleural effusions, acute CHF 2. Bilateral pleural effusions, 3. Secondary pulmonary hypertension. 42 4. Hyponatremia. 5. Hypothyroidism. 6. CT with no evidence of pulmonary embolism. 6. History of alcohol and tobacco use. 7. Lactic acidosis. 8. Leukocytosis. 9. Cardiomyopathy EF 25% Echo Left ventricle systolic function is moderately to severely impaired. The Ejection Fraction is 25%. There is moderate to severe global hypokinesis of the left ventricle. There is akinesis in the basal and mid anteroseptal anderson. Akinesis in the basal and mid interventricular septal anderson. There is moderate hypokinesis in the basal and mid-inferior anderson. Transmitral Doppler flow pattern is Grade IV-fixed restrictive diastolic dysfunction. The left atrium is dilated. The right atrium is mildly dilated. The aortic valve is mildly thickened. The aortic valve is trileaflet. Doppler and Color Flow revealed mild aortic regurgitation. Doppler and Color Flow revealed moderate to severe mitral regurgitation. The mitral valve leaflets are thickened. Doppler and Color Flow revealed moderate tricuspid regurgitation. The pulmonary artery systolic pressure is estimated at 42 mmHg. There is mild pulmonary hypertension. Doppler and Color Flow revealed trace pulmonic valvular regurgitation. The aortic root is normal in size. The IVC is dilated and does not collapse. A large left pleural effusion is noted. There is a trace circumferential pericardial effusion. Plan . AGREE WITH D/C FOLLOW UP IN MY OFFICE SEPT POSSIBLE CATH IN FUTURE 1. S/P Thoracentesis follow labs 2. Follow Nephrology input. 3. needs cath in future 4. Echocardiogram noted 5. We will defer any further treatment of her hypothyroidism to the PCP. 6. Follow up labs. CORBY FULLER MD Dec 02, 2016 14:36
[2016-12-02] MEDS: CARVEDILOL 6.25 MG TABLET. PO SCH (16:28)
[2016-12-02] MEDS: LORAZEPAM 1 MG TABLET. PO PRN (20:20)
[2016-12-03 04:11] LABS: POTASSIUM 4.1 mmol/L (3.5-5.1)
[2016-12-03 04:22] LABS: BASO # 0.1 x10^3/uL (0.0-0.2); BASO % 1 % (0-3); EOS % 4 % (0-3); HEMATOCRIT 39.3 % (36.0-47.0); LYMPH # 1.5 x10^3/uL (1.0-4.8); LYMPH % 18 % (24-48); MEAN CORPUSCULAR HEMOGLOBIN 33 pg (25-35); MEAN CORPUSCULAR HGB CONC 33 g/dL (31-37); MEAN CORPUSCULAR VOLUME 101 fL (79-100); MONO % 11 % (0-9); NEUT % 65 % (31-73); PLATELET COUNT 367 x10^3/uL (140-400); RED BLOOD COUNT 3.88 x10^6/uL (3.50-5.40); RED CELL DISTRIBUTION WIDTH 16.2 % (11.5-14.5); WHITE BLOOD COUNT 8.2 x10^3/uL (4.0-11.0)
[2016-12-03 06:04] LABS: CALCIUM 8.6 mg/dL (8.5-10.1); CREATININE 0.7 mg/dL (0.6-1.0); GFR 81.8; POTASSIUM 4.4 mmol/L (3.5-5.1)
[2016-12-03 07:00] VITALS: BP 144/77
[2016-12-03] MEDS: IPRATRPIUM/ALBUTEROL 0.5/2.5MG 3 ML NEBU. NEB SCH ×2 (07:38→11:19)
[2016-12-03] MEDS: MULTIVITAMIN with MINERAL TABLET. PO SCH (08:42)
[2016-12-03] MEDS: FOLIC ACID 1 MG TABLET. PO SCH (08:42)
[2016-12-03] MEDS: CARVEDILOL 6.25 MG TABLET. PO SCH (08:43)
[2016-12-03] MEDS: IRON SUCROSE COMPLEX 200 MG in IV NORMAL SALINE 100ML 100 ML IV SCH (08:43)
[2016-12-03] MEDS: FUROSEMIDE 40 MG TABLET. PO SCH (08:43)
--- NOTE | 2016-12-03 09:20 | PDOC ---
PULMONARY PROGRESS NOTES Subjective No soa Vitals Vital Signs Date Time Temp Pulse Resp B/P Pulse Ox O2 Delivery O2 Flow Rate FiO2 12/03/16 08:43 88 144/77 12/03/16 07:38 91 Room Air 12/03/16 07:00 98.2 16 98.2 12/02/16 08:00 3.0 ROS: No Nausea, No Chest Pain, No Abdominal Pain, No Increase Cough Lungs: Clear Cardiovascular: S1, S2 Abdomen: Soft, Non-tender Neuro Exam: Alert Extremities: No Edema Labs Laboratory Tests Test 12/01/16 11:50 12/01/16 16:57 12/01/16 20:31 12/02/16 04:03 Glucose (Fingerstick) 99mg/dL (70-99) 116mg/dL (70-99) 107mg/dL (70-99) Lactic Acid Level 1.5mmol/L (0.4-2.0) Test 12/02/16 04:05 12/03/16 03:45 White Blood Count 9.6x10^3/uL (4.0-11.0) 8.2x10^3/uL (4.0-11.0) Red Blood Count 4.05x10^6/uL (3.50-5.40) 3.88x10^6/uL (3.50-5.40) Hemoglobin 13.6g/dL (12.0-15.5) 13.0g/dL (12.0-15.5) Hematocrit 41.2% (36.0-47.0) 39.3% (36.0-47.0) Mean Corpuscular Volume 102fL (79-100) 101fL (79-100) Mean Corpuscular Hemoglobin 34pg (25-35) 33pg (25-35) Mean Corpuscular Hemoglobin Concent 33g/dL (31-37) 33g/dL (31-37) Red Cell Distribution Width 16.1% (11.5-14.5) 16.2% (11.5-14.5) Platelet Count 369x10^3/uL (140-400) 367x10^3/uL (140-400) Neutrophils (%) (Auto) 68% (31-73) 65% (31-73) Lymphocytes (%) (Auto) 17% (24-48) 18% (24-48) Monocytes (%) (Auto) 11% (0-9) 11% (0-9) Eosinophils (%) (Auto) 3% (0-3) 4% (0-3) Basophils (%) (Auto) 1% (0-3) 1% (0-3) Neutrophils # (Auto) 6.5x10^3uL (1.8-7.7) 5.4x10^3uL (1.8-7.7) Lymphocytes # (Auto) 1.6x10^3/uL (1.0-4.8) 1.5x10^3/uL (1.0-4.8) Monocytes # (Auto) 1.1x10^3/uL (0.0-1.1) 0.9x10^3/uL (0.0-1.1) Eosinophils # (Auto) 0.3x10^3/uL (0.0-0.7) 0.4x10^3/uL (0.0-0.7) Basophils # (Auto) 0.1x10^3/uL (0.0-0.2) 0.1x10^3/uL (0.0-0.2) Sodium Level 132mmol/L (136-145) 129mmol/L (136-145) Potassium Level 3.3mmol/L (3.5-5.1) 4.1mmol/L (3.5-5.1) Chloride Level 90mmol/L (98-107) 93mmol/L (98-107) Carbon Dioxide Level 36mmol/L (21-32) 33mmol/L (21-32) Anion Gap 6 (6-14) 3 (6-14) Blood Urea Nitrogen 16mg/dL (7-20) 19mg/dL (7-20) Creatinine 0.7mg/dL (0.6-1.0) 0.7mg/dL (0.6-1.0) Estimated GFR (Cockcroft-Gault) 81.8 81.8 Glucose Level 97mg/dL (70-99) 105mg/dL (70-99) Calcium Level 8.7mg/dL (8.5-10.1) 8.6mg/dL (8.5-10.1) Lactic Acid Level 1.1mmol/L (0.4-2.0) Laboratory Tests Test 12/03/16 03:45 White Blood Count 8.2x10^3/uL (4.0-11.0) Red Blood Count 3.88x10^6/uL (3.50-5.40) Hemoglobin 13.0g/dL (12.0-15.5) Hematocrit 39.3% (36.0-47.0) Mean Corpuscular Volume 101fL (79-100) Mean Corpuscular Hemoglobin 33pg (25-35) Mean Corpuscular Hemoglobin Concent 33g/dL (31-37) Red Cell Distribution Width 16.2% (11.5-14.5) Platelet Count 367x10^3/uL (140-400) Neutrophils (%) (Auto) 65% (31-73) Lymphocytes (%) (Auto) 18% (24-48) Monocytes (%) (Auto) 11% (0-9) Eosinophils (%) (Auto) 4% (0-3) Basophils (%) (Auto) 1% (0-3) Neutrophils # (Auto) 5.4x10^3uL (1.8-7.7) Lymphocytes # (Auto) 1.5x10^3/uL (1.0-4.8) Monocytes # (Auto) 0.9x10^3/uL (0.0-1.1) Eosinophils # (Auto) 0.4x10^3/uL (0.0-0.7) Basophils # (Auto) 0.1x10^3/uL (0.0-0.2) Sodium Level 129mmol/L (136-145) Potassium Level 4.1mmol/L (3.5-5.1) Chloride Level 93mmol/L (98-107) Carbon Dioxide Level 33mmol/L (21-32) Anion Gap 3 (6-14) Blood Urea Nitrogen 19mg/dL (7-20) Creatinine 0.7mg/dL (0.6-1.0) Estimated GFR (Cockcroft-Gault) 81.8 Glucose Level 105mg/dL (70-99) Lactic Acid Level 1.1mmol/L (0.4-2.0) Calcium Level 8.6mg/dL (8.5-10.1) Medications Active Scripts Medications Dose Route/Sig Days Date Category Atenolol 50 Mg Tablet 1 Tab PO DAILY 08/30/16 Reported Impression . IMPRESSION: 1. Acute respiratory failure secondary to acute bilateral pleural effusions, acute CHF 2. Bilateral pleural effusions, 3. Secondary pulmonary hypertension. 4. Hyponatremia. 5. Hypothyroidism. 6. CT with no evidence of pulmonary embolism. 6. History of alcohol and tobacco use. 7. Lactic acidosis. 8. Leukocytosis. 9. Cardiomyopathy EF 25% Echo Left ventricle systolic function is moderately to severely impaired. The Ejection Fraction is 25%. There is moderate to severe global hypokinesis of the left ventricle. There is akinesis in the basal and mid anteroseptal anderson. Akinesis in the basal and mid interventricular septal anderson. There is moderate hypokinesis in the basal and mid-inferior anderson. Transmitral Doppler flow pattern is Grade IV-fixed restrictive diastolic dysfunction. The left atrium is dilated. The right atrium is mildly dilated. The aortic valve is mildly thickened. The aortic valve is trileaflet. Doppler and Color Flow revealed mild aortic regurgitation. Doppler and Color Flow revealed moderate to severe mitral regurgitation. The mitral valve leaflets are thickened. Doppler and Color Flow revealed moderate tricuspid regurgitation. The pulmonary artery systolic pressure is estimated at 42 mmHg. There is mild pulmonary hypertension. Doppler and Color Flow revealed trace pulmonic valvular regurgitation. The aortic root is normal in size. The IVC is dilated and does not collapse. A large left pleural effusion is noted. There is a trace circumferential pericardial effusion. Plan . AGREE WITH D/C FOLLOW UP WITH DR FULLER IN SEPT POSSIBLE CATH IN FUTURE 1. S/P Thoracentesis follow labs 2. Follow Nephrology input. 3. needs cath in future 4. Echocardiogram noted 5. We will defer any further treatment of her hypothyroidism to the PCP. OK WITH DC TODAY DYLAN CONLEY MD December 03, 2016 09:20
[2016-12-03 11:08] VITALS: BP 122/72
[2016-12-03] MEDS ORDERED: FURO40TA4 PO (12:21)
[2016-12-03] MEDS ORDERED: FOLI1TAB16 PO (12:21)
[2016-12-03] MEDS ORDERED: POTA10TA10 PO (12:21)
[2016-12-03] MEDS ORDERED: LORA1TAB PO (12:21)
--- NOTE | 2016-12-03 13:32 | PDOC ---
Subjective: Subjective: No GI complaints, says going home soon. Objective: Vital Signs: Vital Signs Date Time Temp Pulse Resp B/P Pulse Ox O2 Delivery O2 Flow Rate FiO2 12/03/16 11:19 Room Air 12/03/16 11:08 98.3 99 16 122/72 93 98.3 12/02/16 08:00 3.0 Labs: Laboratory Tests Test 12/03/16 03:45 White Blood Count 8.2x10^3/uL Red Blood Count 3.88x10^6/uL Hemoglobin 13.0g/dL Hematocrit 39.3% Mean Corpuscular Volume 101fL Mean Corpuscular Hemoglobin 33pg Mean Corpuscular Hemoglobin Concent 33g/dL Red Cell Distribution Width 16.2% Platelet Count 367x10^3/uL Neutrophils (%) (Auto) 65% Lymphocytes (%) (Auto) 18% Monocytes (%) (Auto) 11% Eosinophils (%) (Auto) 4% Basophils (%) (Auto) 1% Neutrophils # (Auto) 5.4x10^3uL Lymphocytes # (Auto) 1.5x10^3/uL Monocytes # (Auto) 0.9x10^3/uL Eosinophils # (Auto) 0.4x10^3/uL Basophils # (Auto) 0.1x10^3/uL Sodium Level 129mmol/L Potassium Level 4.1mmol/L Chloride Level 93mmol/L Carbon Dioxide Level 33mmol/L Anion Gap 3 Blood Urea Nitrogen 19mg/dL Creatinine 0.7mg/dL Estimated GFR (Cockcroft-Gault) 81.8 Glucose Level 105mg/dL Lactic Acid Level 1.1mmol/L Calcium Level 8.6mg/dL PE: GEN: NAD, standing up, preparing to DC NEURO/PSYCH: A & O 3 A/P: CHF, resp failure s/p thoracentesis, hyponatremia H/o alcoholism, probable cirrhosis -- Improved. DC plans noted, stable GI-jones, follow-up PRN. JORGE JONES December 03, 2016 13:32
[2016-12-03] MEDS ORDERED: CARVEDILOL 12.5 MG TABLET. PO SCH (17:00)
--- NOTE | 2016-12-03 21:05 | DS ---
DATE OF DISCHARGE: 12/03/2016 DISCHARGE DIAGNOSES: 1. Acute respiratory failure with bilateral pleural effusion due to acute congestive heart failure due to cardiomyopathy with new diagnosis of acute systolic congestive heart failure, most likely alcohol related. 2. Bilateral pleural effusion, status post thoracentesis, resolved. 3. Secondary pulmonary hypertension. 4. Hyponatremia, better likely due to diuretics and monitor sodium. 5. Hypothyroidism, subclinical. Monitor TSH in few weeks. 6. History of alcohol and nicotine use. BRIEF HOSPITAL COURSE: A 76-year-old female patient admitted to the hospital on 11/27/2016 for shortness of breath. The patient was diagnosed with bilateral pleural effusion, also she was diagnosed with new onset of heart failure. Echocardiogram showed LV ejection fraction 25%. During hospitalization, she had extensive diuresis, symptoms improved with paracentesis and diuresis. Today, the patient's symptoms resolved and deemed clinically stable enough to go home and follow up with Dr. Lopez in 2 weeks for possible cardiac catheterization. Meanwhile, the patient was started on diuretics and beta serge for controlling her heart rate and also she was placed on multivitamins and folic acid for replacement and also she received iron sucrose during hospitalization for her anemia. DISCHARGE EXAMINATION: GENERAL: Alert, oriented x 3. HEART: S1, S2 present. CHEST: Anterior chest clear. ABDOMEN: Soft, nontender, no organomegaly. EXTREMITIES: No edema. DISCHARGE DISPOSITION: Home. DISCHARGE CONDITION: Stable. DISCHARGE FOLLOWUP: With Dr. Lopez in 2 weeks. DISCHARGE MEDICATIONS: Reviewed and reconciled. Please see MRAD. Total time spent for discharge is 32 minutes for patient education, counseling, and coordination of care. MAKENNA NORTON MD DR: AUGUST/alex JOB#: [id number] / [id number]
[2016-12-04] MEDS ORDERED: FUROSEMIDE 40 MG TABLET. PO SCH (09:00)
== END 2016-12-03 14:53 | disposition home or self-care (01) | DRG 291 ==
LOC: ER 14:51 → 1 WEST ICU 17:14 → 5 SOUTH 11-29 20:28
PROVIDERS: ADMIT Internal Medicine Hematology & Oncology; ATTEND Internal Medicine Hematology & Oncology
PROC: 0W9B3ZX Drainage of Left Pleural Cavity, Percutaneous Approach, Diagnostic (ICD-10-PCS; principal; 2016-11-28)
PROC: 0W993ZX Drainage of Right Pleural Cavity, Percutaneous Approach, Diagnostic (ICD-10-PCS; 2016-11-28)
DX: I50.21 Acute systolic (congestive) heart failure (principal); J96.01 Acute respiratory failure with hypoxia; J15.9 Unspecified bacterial pneumonia; E87.1 Hypo-osmolality and hyponatremia; E87.2 Acidosis; I42.9 Cardiomyopathy, unspecified; I11.0 Hypertensive heart disease with heart failure; I27.2 Other secondary pulmonary hypertension; E03.9 Hypothyroidism, unspecified; D53.9 Nutritional anemia, unspecified; D72.829 Elevated white blood cell count, unspecified; H40.9 Unspecified glaucoma; F10.20 Alcohol dependence, uncomplicated; K21.9 Gastro-esophageal reflux disease without esophagitis; R63.4 Abnormal weight loss; E87.8 Other disorders of electrolyte and fluid balance, not elsewhere classified; K74.60 Unspecified cirrhosis of liver; M19.90 Unspecified osteoarthritis, unspecified site; T50.2X5A Adverse effect of carbonic-anhydrase inhibitors, benzothiadiazides and other diuretics, initial encounter; Z80.1 Family history of malignant neoplasm of trachea, bronchus and lung; Z82.5 Family history of asthma and other chronic lower respiratory diseases; Z87.891 Personal history of nicotine dependence; Z90.49 Acquired absence of other specified parts of digestive tract; Z87.01 Personal history of pneumonia (recurrent); Z68.20 Body mass index [BMI] 20.0-20.9, adult; Z90.710 Acquired absence of both cervix and uterus; Z88.1 Allergy status to other antibiotic agents
CPT/HCPCS: 32555; 36415; 71010; 71020; 71035; 71275; 76705; 76770; 80048; 80051; 80053; 82570; 82728; 82947; 83540; 83550; 83605; 83615; 83880; 83986; 84157; 84295; 84439; 84443; 84481; 84484; 85027; 85045; 85379; 85610; 85730; 87040; 87071; 87075; 87205; 87641; 93005; 93306; 94250; 94640; 94760; 96365; 96375; A4215; C1729; C1892; C1894; J1160; J1580; J1756; J2543; J3010; J3370; J7050; J7620; Q9967; 97116; 97530; 99291-25; J7030

== ENCOUNTER → 2017-01-10 | Outpatient (CLI) | payer OTHER ==
[~2017-01-10] MED LIST changes: +FOLI1TAB16 PO; +FURO40TA4 PO; +LORA1TAB PO; +POTA10TA12 PO
--- NOTE | 2017-01-10 15:30 | CARD ---
APPROVED REPORT EXAM: Two-dimensional and M-mode echocardiogram with Doppler and color Doppler. Other Information Quality : GoodHR: 81bpm Rhythm : NSR INDICATION Pulmonary HTN, Non ischemic cardiomyopathy, Non rheumatic mitral regurgitation 2D DIMENSIONS RVDd2.7 (2.9-3.5cm)Left Atrium(2D)3.2 (1.6-4.0cm) IVSd0.9 (0.7-1.1cm)Aortic Root(2D)2.9 (2.0-3.7cm) LVDd4.3 (3.9-5.9cm)LVOT Diameter2.0 (1.8-2.4cm) PWd0.9 (0.7-1.1cm)LVDs3.2 (2.5-4.0cm) FS (%) 26.5 %SV43.7 ml LVEF(%)40.0 (>50%) M-Mode DIMENSIONS LVDd4.86 (4.0-5.6cm)FS (%) 23 % LVDs3.77 (2.0-3.8cm)ESV(Teich)60.6 ml LVEF(%)40 (>50%) Aortic Valve AoV Peak Timoteo.118.0cm/sAoV VTI25.5cm AO Peak GR.5.6mmHgLVOT Peak Timoteo.74.3cm/s AO Mean GR.3mmHgAVA (VMAX)2.01cm2 Mitral Valve MV E Qqxvtvde51.0cm/sMV E Peak Gr.3mmHg MV DECEL [id number] A Nhyctsey235.1cm/s MV E Mean Gr.2mmHgE/A Ratio0.7 MV A Cljoxvze378mb Pulmonary Valve PV Peak Wggnvjwc54.2cm/s Tricuspid Valve TR P. Gvodblsa910li/sTR Peak Gr.18mmHg Pulmonary Vein S1 Vkambmop39.9cm/sD2 Yepbpgck77.1cm/s PVa wzmbwmwk90strr LEFT VENTRICLE The left ventricle is normal size. There is normal left ventricular wall thickness. Left ventricle sy stolic function is mildly impaired. The Ejection Fraction is 40%. Abnormal septal wall motion is note d. Otherwise, there is mild global hypokinesis of the left ventricle. Transmitral Doppler flow patter n is Grade I-abnormal relaxation pattern. No left ventricle thrombus noted on this study. RIGHT VENTRICLE The right ventricle is normal size. There is normal right ventricular wall thickness. The right ventr icular systolic function is normal. ATRIA The left atrium is moderately dilated. The right atrium size is normal. The interatrial septum is int act with no evidence for an atrial septal defect or patent foramen ovale as noted on 2-D or Doppler i maging. AORTIC VALVE The aortic valve is mildly thickened. The aortic valve is trileaflet. Doppler and Color Flow revealed mild aortic regurgitation. There is no significant aortic valvular stenosis. MITRAL VALVE The mitral valve leaflets are mildly thickened. There is no evidence of mitral valve prolapse. There is no mitral valve stenosis. Doppler and Color Flow revealed mild to moderate mitral regurgitation. TRICUSPID VALVE Doppler and Color Flow revealed mild tricuspid regurgitation. The pulmonary artery systolic pressure is estimated at 21 mmHg. There is no pulmonary hypertension. PULMONIC VALVE Doppler and Color Flow revealed no pulmonic valvular regurgitation. GREAT VESSELS The aortic root is normal in size. The ascending aorta is normal in size. The pulmonary artery is nor mal. PERICARDIAL EFFUSION There is no evidence of significant pericardial effusion. Critical Notification Critical Value: No <Conclusion> Left ventricle systolic function is mildly impaired. The Ejection Fraction is 40%. Transmitral Doppler flow pattern is Grade I-abnormal relaxation pattern. The left atrium is moderately dilated. The right atrium size is normal. Doppler and Color Flow revealed mild aortic regurgitation. The mitral valve leaflets are mildly thickened. Doppler and Color Flow revealed mild to moderate mitral regurgitation. Doppler and Color Flow revealed mild tricuspid regurgitation. The pulmonary artery systolic pressure is estimated at 21 mmHg. There is no pulmonary hypertension. Doppler and Color Flow revealed no pulmonic valvular regurgitation. There is no evidence of significant pericardial effusion.
== END | disposition home or self-care (01) ==
LOC: ECHO 12:48
PROVIDERS: ATTEND Internal Medicine Cardiovascular Disease
DX: I08.3 Combined rheumatic disorders of mitral, aortic and tricuspid valves (principal); I27.2 Other secondary pulmonary hypertension
CPT/HCPCS: 93306

== ENCOUNTER → 2017-11-04 | Outpatient (CLI) | payer OTHER | END | disposition home or self-care (01) | LOC: MAMMO 10:53 | DX: Z12.31 Encounter for screening mammogram for malignant neoplasm of breast (principal) | CPT/HCPCS: 77063; 77067 ==

== ENCOUNTER → 2018-05-09 | Outpatient (CLI) | payer OTHER ==
--- NOTE | 2018-05-09 12:56 | RAD ---
DATE: 05/09/2018 EXAM: DIGITAL DIAGNOSTIC LT HISTORY: Follow-up microcalcifications COMPARISON: 11/04/2017 This study was interpreted with the benefit of Computerized Aided Detection (CAD). Breast Density: SCATTERED The breast parenchyma shows scattered fibroglandular densities. Breast parenchyma level B. FINDINGS: No new or enlarging fibroglandular densities are seen. Left breast microcalcifications are unchanged. These have a relatively benign appearance. No new abnormality is detected. IMPRESSION: Stable left mammograms. Follow-up bilateral mammography in 6 months and then at yearly intervals is suggested. BI-RADS CATEGORY: 3 PROBABLY BENIGN FINDING(S)-SHORT INTERVAL FOLLOW-UP SUGGESTED RECOMMENDED FOLLOW-UP: 6M 6 MONTH FOLLOW-UP PQRS compliance statement: Patient information was entered into a reminder system with a target due date for the next mammogram. Mammography is a sensitive method for finding small breast cancers, but it does not detect them all and is not a substitute for careful clinical examination. A negative mammogram does not negate a clinically suspicious finding and should not result in delay in biopsying a clinically suspicious abnormality. "Our facility is accredited by the [employer] Mammography Program."
== END | disposition home or self-care (01) ==
LOC: MAMMO 12:17
PROVIDERS: ATTEND Internal Medicine
DX: R92.0 Mammographic microcalcification found on diagnostic imaging of breast (principal)
CPT/HCPCS: 77065

== ENCOUNTER → 2018-11-18 | Outpatient (CLI) | payer OTHER ==
[~2018-11-18] MED LIST changes: +BRIM5DRO2 OU; +ENOX60DI SQ; +HYDR-2761 PO; +HYDR-3164 PO; -HYDR-971 PO; +IPRA3AMP29 NEB; +LATA2.5D3 EACHEYE; +METO-269 PO; +METO-313 PO; +TRIA15CR3 TD; +WARF-31 PO
--- NOTE | 2018-11-18 15:28 | RAD ---
DATE: 11/18/2018 EXAM: MAMMO NICK EUSEBIO PUENTE, BREAST LEFT HISTORY: 6 month follow-up calcifications COMPARISON: 05/09/2018, 11/04/2017 This study was interpreted with the benefit of Computerized Aided Detection (CAD). Breast Density: SCATTERED The breast parenchyma shows scattered fibroglandular densities. Breast parenchyma level B. FINDINGS: 2-D and 3-D tomosynthesis imaging was performed in CC and MLO projections. The scattered fibroglandular densities are heterogeneous. There is a small opacity in the lateral left breast as best seen on oblique nick image #15 and CC nick image #15 which appears more prominent than on previous studies. No other new or enlarging breast densities are seen. Scattered benign type calcifications are again noted the left breast microcalcifications appear unchanged. Left breast ultrasound, 11/18/2018: A targeted ultrasound exam of the lateral aspect left breast was performed from the 2:00 to 6:00 locations. At the 3:00 location approximately 4.5 cm of the nipple there is a by 5 x 4 mm hypoechoic nodule. It is rounded in configuration. Its margins are somewhat irregular and angulated. There are low level internal echoes. There is no definite posterior acoustic enhancement or shadowing. Sonographic features are suspicious. This probably corresponds to the mammographic abnormality, although that cannot be stated with certainty. At the 5:30 location approximately 3 cm from the nipple there are 2 adjacent small hypoechoic lesions. The have the appearance clusters of tiny cysts. One of these measures approximately 9 mm while the other measures 7 mm in greatest diameter. No other abnormality was identified on this targeted exam. IMPRESSION: 1. Unchanged left breast microcalcifications. 2. Small suspicious left breast nodule at the 3:00 location as described above. Ultrasound-guided biopsy is suggested for further evaluation. 3. Tiny cyst clusters in the left breast. Sonographic follow-up of these lesions is suggested. Note: The findings were discussed with the patient at the time of the exam and she is aware of our recommendation for left breast biopsy. She will follow-up with the ordering physician. BI-RADS CATEGORY: 4 SUSPICIOUS ABNORMALITY- BIOPSY SHOULD BE CONSIDERED RECOMMENDED FOLLOW-UP: BIO BIOPSY RECOMMENDED PQRS compliance statement: Patient information was entered into a reminder system with a target due date for the next mammogram. Mammography is a sensitive method for finding small breast cancers, but it does not detect them all and is not a substitute for careful clinical examination. A negative mammogram does not negate a clinically suspicious finding and should not result in delay in biopsying a clinically suspicious abnormality. "Our facility is accredited by the [employer] Mammography Program."
== END | disposition home or self-care (01) ==
LOC: MAMMO 13:07
PROVIDERS: ATTEND Internal Medicine
DX: R92.0 Mammographic microcalcification found on diagnostic imaging of breast (principal)
CPT/HCPCS: 76641; 77066; G0279; 77062

== ENCOUNTER → 2018-12-09 | Outpatient (CLI) | payer OTHER ==
[~2018-12-09] MED LIST changes: +LIDOCAINE 1% Multi-Dose 20 ML VIAL. INJ ONE; +LIDOCAINE 2%/EPI 1:100,000 20 ML VIAL. IJ ONE
--- NOTE | 2018-12-11 16:06 | PATHOLOGY ---
[facility] Accession Number: [id number] . 01 Material submitted: . breast - LEFT BREAST MASS, 3:00, 4.5CMFN. Modifiers: left, 3:00 . 01 Clinical history: . Left breast mass 3:00 4.5 cm from nipple, 5 mm . 02 Diagnosis: Breast tissue, left breast mass 3:00 needle biopsies: - INVASIVE DUCTAL CARCINOMA, HISTOLOGIC GRADE 2. SEE COMMENT. 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 - Proliferative fibrocystic changes with focal florid ductal epithelial hyperplasia. [facility]/12/10/2018 . 02 Comment: Sections of the left breast mass at 3:00 needle biopsy reveal an invasive mammary carcinoma. The tumor cells are present in small solid nests and cords which infiltrate a reactive desmoplastic stroma. The tumor shows little tubule formation. The tumor cells show mild to moderate nuclear pleomorphism, and mild to focal moderate mitotic activity. The invasive carcinoma measures up to 0.6-0.7 cm on the glass slide. Sections also show low to intermediate grade, papillary and cribriform ductal carcinoma in situ. Sections also show proliferative fibrocystic changes with focal florid ductal epithelial hyperplasia. The morphologic findings are supportive of the diagnosis of an invasive ductal carcinoma, histologic grade 2, with associated low to intermediate grade ductal carcinoma in situ. This case is also examined by Dr. Qiugley, who concurs with the diagnosis. Breast prognostic studies will be obtained on block A1, the results of which will be reported separately. (JPM/db; 12/10/2018) . 02 Electronically signed: . Stoney Steven MD, Pathologist NPI- [id number] . 01 Gross description: . The specimen is received in formalin, labeled "Keyla Winn, left breast". Received are multiple needle cores of fibrofatty tissue measuring 2.2 x 2.0 x 0.4 cm in aggregate dimensions. The specimen is submitted entirely in cassettes A1 through A3. The cold ischemic time is 3 minutes. The total formalin fixation time is 13 hours and 37 minutes. (CAA; 12/09/2018) QAC/QAC . 02 Pathologist provided ICD-10: C50.912, D05.12 . 02 CPT . 674421 Specimen Comment: A courtesy copy of this report has been sent to Specimen Comment: [phone], , . Specimen Comment: Report sent to ,DR LEE / DR JOINER Performed at: 01 [facility] [address], [place] [id number] MD Tolu Mendoza MD Phone: [phone] Performed at: 02 [facility] [address] [place], [place] [id number] MD Stoney Steven MD Phone: [phone]
--- NOTE | 2018-12-17 09:26 | RAD ---
Ultrasound-guided left breast biopsy, 12/09/2018: History: Suspicious nodule Previous studies demonstrated a suspicious hypoechoic nodule at the 3:00 location in the left breast. Under local anesthesia, aseptic conditions and sonographic guidance the [email or web address] biopsy instrument was passed through the posterior margin of this nodule via a lateral approach. Multiple 12-gauge vacuum-assisted core samples were obtained. A biopsy marker was deposited at the biopsy site. The biopsy instrument was removed and hemostasis obtained. Two-view postprocedural digital mammograms were then obtained to document position of the biopsy marker. The patient tolerated the procedure well and left the department in good condition. 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 This is considered to be a concordant finding. Note: Receipt of these findings by Dr. Beckman was confirmed on 12/17/2018.
== END | disposition home or self-care (01) ==
LOC: US 07:14
PROVIDERS: ATTEND Surgery
DX: C50.812 Malignant neoplasm of overlapping sites of left female breast (principal); Z88.1 Allergy status to other antibiotic agents; Z88.5 Allergy status to narcotic agent
CPT/HCPCS: 19083; 76942; 77065; 88361; C1713

== ENCOUNTER 2018-12-13 19:37 | Inpatient (IN) | payer OTHER ==
[~2018-12-13] VITALS: Ht 157.5 cm; Wt 53.1 kg
[~2018-12-13 19:37] MED LIST changes: -BRIM5DRO2 OU; -ENOX60DI SQ; -HYDR-2761 PO; -IPRA3AMP29 NEB; -LATA2.5D3 EACHEYE; -LIDOCAINE 1% Multi-Dose 20 ML VIAL. INJ ONE; -LIDOCAINE 2%/EPI 1:100,000 20 ML VIAL. IJ ONE; -METO-269 PO; -METO-313 PO; -TRIA15CR3 TD; -WARF-31 PO
--- NOTE | 2018-12-13 19:51 | PHYS DOC ---
Past Medical History Past Medical History: Hypertension Additional Past Medical Histor: PNEUMONIA Past Surgical History: Appendectomy, , Hysterectomy Additional Past Surgical Histo: SKIN CA,TUMMY TUCK,RIGHT SHOULDER SURGERY Alcohol Use: Heavy Drug Use: None Adult General Chief Complaint Chief Complaint: HIP PAIN [facility] HPI Patient is a 78 year old female presents with accidental fall from standing and right hip deformity. Injury occurred 30 minutes prior to ED arrival while attending in outdoor sporting event. Patient states she tripped over a curb landing on her right hip. She did not hit her head. She denies headache, neck pain or loss of consciousness. She denies preceding medical symptoms prior to the fall. Patient takes daily aspirin. No other injuries or pain complaints. 100 g of fentanyl given by EMS on route to the hospital. Patient's orthopedic jenn geon is Dr. Dennis.[] Review of Systems Review of Systems ROS as per HPI All other systems were reviewed and found to be within normal limits, except as documented in this note. Current Medications Current Medications Current Medications Medications (Trade) Dose Ordered Sig/Chuckie Start Time Stop Time Status Last Admin Dose Admin Morphine Sulfate (Morphine Sulfate) 4 mg 1X ONCE 12/13/18 20:45 12/13/18 20:46 Allergies Allergies Allergies Coded Allergies Type Severity Reaction Last Updated Verified ciprofloxacin Allergy Intermediate BROKE OUT WITH WELTS 09/30/16 Yes codeine Allergy Unknown 12/13/18 Yes Physical Exam Physical Exam Constitutional: Well developed, well nourished, no acute distress, non-toxic appearance. [] HENT: Normocephalic, atraumatic, bilateral external ears normal, oropharynx moist, no oral exudates, nose normal. [] Eyes: PERRLA, EOMI, conjunctiva normal, no discharge. [] Neck: Normal range of motion, no tenderness, supple, no stridor. [] Cardiovascular:Heart rate regular rhythm, no murmur [] Lungs & Thorax: Bilateral breath sounds clear to auscultation [] Abdomen: Bowel sounds normal, soft, no tenderness, no masses, no pulsatile masses. [] Skin: Warm, dry, no erythema, no rash. [] Back: No tenderness, no CVA tenderness. [] Extremities: R Hip pain, tenderness, external leg rotation and shortening.. [] Neurologic: Alert and oriented X 3, right lower extremity, no motor weakness or loss of sensation.. [] Psychologic: Affect normal, judgement normal, mood normal. [] Current Patient Data Vital Signs Vital Signs Date Time Temp Pulse Resp B/P (MAP) Pulse Ox O2 Delivery O2 Flow Rate FiO2 12/13/18 19:37 98.0 110 20 110/61 (77) 91 Room Air 98.0 Lab Values Laboratory Tests Test 12/13/18 19:50 White Blood Count 9.5 x10^3/uL (4.0-11.0) Red Blood Count 3.65 x10^6/uL (3.50-5.40) Hemoglobin 12.9 g/dL (12.0-15.5) Hematocrit 38.3 % (36.0-47.0) Mean Corpuscular Volume 105 fL (79-100) H Mean Corpuscular Hemoglobin 35 pg (25-35) Mean Corpuscular Hemoglobin Concent 34 g/dL (31-37) Red Cell Distribution Width 13.1 % (11.5-14.5) Platelet Count 188 x10^3/uL (140-400) Neutrophils (%) (Auto) 75 % (31-73) H Lymphocytes (%) (Auto) 13 % (24-48) L Monocytes (%) (Auto) 5 % (0-9) Eosinophils (%) (Auto) 6 % (0-3) H Basophils (%) (Auto) 1 % (0-3) Neutrophils # (Auto) 7.2 x10^3uL (1.8-7.7) Lymphocytes # (Auto) 1.3 x10^3/uL (1.0-4.8) Monocytes # (Auto) 0.5 x10^3/uL (0.0-1.1) Eosinophils # (Auto) 0.6 x10^3/uL (0.0-0.7) Basophils # (Auto) 0.1 x10^3/uL (0.0-0.2) Laboratory Tests 12/13/18 19:50 EKG EKG [EKG: reviewed CXR: NAD Pelvis/R hip: ] Radiology/Procedures Radiology/Procedures [Right hip/pelvis: Comminuted intratrochanteric fracture Chest x-ray: No acute cardiopulmonary disease on preliminary ED review] Course & Med Decision Making Course & Med Decision Making Pertinent Labs and Imaging studies reviewed. (See chart for details) [Closed right, grossly comminuted, subtrochanteric right shoulder. Patient's right lower extremity is neurologically intact. Cabrera catheter placed, pain addressed. Dr. Ross on-call for orthopedic consulted. Dr. Weeks to admit. ] Dragon Disclaimer Dragon Disclaimer This electronic medical record was generated, in whole or in part, using a voice recognition dictation system. Departure Departure Impression: Primary Impression: Closed right hip fracture Disposition: 01 HOME, SELF-CARE Condition: STABLE Referrals: ALEJANDRO JOINER MD (PCP) NAIF RAIN DO December 13, 2018 19:51
[2018-12-13 20:10] LABS: BASO # 0.1 x10^3/uL (0.0-0.2); BASO % 1 % (0-3); EOS # 0.6 x10^3/uL (0.0-0.7); EOS % 6 % (0-3); HEMATOCRIT 38.3 % (36.0-47.0); HEMOGLOBIN 12.9 g/dL (12.0-15.5); LYMPH # 1.3 x10^3/uL (1.0-4.8); LYMPH % 13 % (24-48); MEAN CORPUSCULAR HEMOGLOBIN 35 pg (25-35); MEAN CORPUSCULAR HGB CONC 34 g/dL (31-37); MEAN CORPUSCULAR VOLUME 105 fL (79-100); MONO # 0.5 x10^3/uL (0.0-1.1); MONO % 5 % (0-9); NEUT # 7.2 x10^3uL (1.8-7.7); NEUT % 75 % (31-73); PLATELET COUNT 188 x10^3/uL (140-400); RED BLOOD COUNT 3.65 x10^6/uL (3.50-5.40); RED CELL DISTRIBUTION WIDTH 13.1 % (11.5-14.5); WHITE BLOOD COUNT 9.5 x10^3/uL (4.0-11.0)
[2018-12-13] MEDS ORDERED: MORPHINE SULFATE 4 MG/ML VIAL. IV ONE (20:45)
[2018-12-13 20:51] LABS: CALCIUM 8.7 mg/dL (8.5-10.1); CREATININE 0.7 mg/dL (0.6-1.0); GFR 81.4
--- NOTE | 2018-12-13 20:54 | RAD ---
AP pelvis with two-view right hip History: Trauma. FINDINGS: There is a comminuted intertrochanteric and subtrochanteric fracture of the right proximal femur. There is varus angulation at the fracture site. No evidence of dislocation. Left hip grossly intact. IMPRESSION: Comminuted intertrochanteric and subtrochanteric fracture of the right proximal femur. Electronically signed by: Yahir Chilel MD (12/13/2018 8:51 PM) [facility]
--- NOTE | 2018-12-13 20:56 | RAD ---
CHEST AP ONLY History: Trauma. Heart size is not enlarged. No evidence of pneumothorax, pleural effusion or consolidation. The bones appear intact. There is a right shoulder replacement. Elevation of the right hemidiaphragm is redemonstrated. IMPRESSION: No consolidating infiltrate. Electronically signed by: Yahir Chilel MD (12/13/2018 8:53 PM) [facility]
[2018-12-13] MEDS ORDERED: IV DEXTROSE 5 %-0.45 % NACL 1,000 ML IV ONE (21:00)
[2018-12-13] MEDS ORDERED: ceFAZolin SODIUM 1 GM in IV DEXTROSE 5% 50 ML IV ONE (21:00)
[2018-12-13] MEDS ORDERED: ONDANSETRON PF 4 MG/2 ML VIAL. IV PRN (21:00)
--- NOTE | 2018-12-13 21:20 | RAD ---
KNEE RIGHT 2V History: Preoperative planning for hip fracture. No evidence of acute fracture. No bone destruction is seen. Soft tissues appear intact. IMPRESSION: No acute fracture or dislocation. Electronically signed by: Yahir Chilel MD (12/13/2018 9:17 PM) [facility]
[2018-12-13] MEDS: MORPHINE SULFATE 2 MG/ML VIAL. IV PRN ×2 (21:51→23:57)
[2018-12-13 22:00] VITALS: BP 119/51
[2018-12-13] MEDS ORDERED: ceFAZolin SODIUM IV Push 1 GM VIAL. IVP ONE (22:00)
--- NOTE | 2018-12-13 22:00 | NUR ---
The patient, NI STAFFORD, 78 y/o, F was admitted by GREGORY LOZANO MD. Pt. was given written information regarding hospital policies, unit procedures and contact persons. Pt. rates her pain 10/10 but this nurse explained that she was not able to get IV pain medication at that time. Admission assessment and questions done at this time. Call light within reach. Bed low. Will continue to monitor.
[2018-12-14] MEDS ORDERED: METO-269 PO (01:00)
[2018-12-14] MEDS ORDERED: KETOROLAC 30 MG/ML VIAL. IV ONE (02:00)
[2018-12-14] MEDS: KETOROLAC 15 MG/ML VIAL. IV PRN ×2 (02:01→22:11)
[2018-12-14 03:00] VITALS: BP 136/76
[2018-12-14] MEDS: MORPHINE SULFATE 2 MG/ML VIAL. IV PRN ×9 (03:13→22:18)
[2018-12-14 05:34] LABS: BASO # 0.1 x10^3/uL (0.0-0.2); BASO % 1 % (0-3); EOS # 0.2 x10^3/uL (0.0-0.7); EOS % 2 % (0-3); HEMATOCRIT 29.4 % (36.0-47.0); HEMOGLOBIN 10.2 g/dL (12.0-15.5); LYMPH # 1.1 x10^3/uL (1.0-4.8); LYMPH % 15 % (24-48); MEAN CORPUSCULAR HEMOGLOBIN 37 pg (25-35); MEAN CORPUSCULAR HGB CONC 35 g/dL (31-37); MEAN CORPUSCULAR VOLUME 105 fL (79-100); MONO # 0.5 x10^3/uL (0.0-1.1); MONO % 6 % (0-9); NEUT # 5.8 x10^3uL (1.8-7.7); NEUT % 76 % (31-73); PLATELET COUNT 132 x10^3/uL (140-400); RED CELL DISTRIBUTION WIDTH 13.1 % (11.5-14.5); WHITE BLOOD COUNT 7.6 x10^3/uL (4.0-11.0)
[2018-12-14 05:37] LABS: CREATININE 0.5 mg/dL (0.6-1.0); POTASSIUM 3.9 mmol/L (3.5-5.1)
[2018-12-14] MEDS ORDERED: LATA2.5D3 EACHEYE (06:07)
--- NOTE | 2018-12-14 07:25 | NUR ---
Pt transported to surgery via bed by this nurse and aide at approximately 0725.
[2018-12-14] MEDS ORDERED: fentaNYL PF VIAL 100 MCG/2 ML VIAL ONE (07:30)
[2018-12-14] MEDS ORDERED: ONDANSETRON PF 4 MG/2 ML VIAL. ONE (07:30)
[2018-12-14] MEDS ORDERED: LIDOCAINE 2% PF 5 ML VIAL. ONE (07:30)
[2018-12-14] MEDS ORDERED: PROPOFOL 20 ML IV ONE (07:30)
[2018-12-14] MEDS ORDERED: DEXAMETHASONE SOD PHOS 4 MG/ML VIAL ONE (07:30)
[2018-12-14] MEDS ORDERED: fentaNYL PF VIAL 100 MCG/2 ML VIAL IV PRN ×2 (07:45)
[2018-12-14] MEDS ORDERED: ONDANSETRON PF 4 MG/2 ML VIAL. IV PRN ×2 (07:45→14:00)
[2018-12-14] MEDS ORDERED: PROCHLORPERAZINE 10 MG/2 ML VIAL. IV PRN (07:45)
[2018-12-14] MEDS ORDERED: LIDOCAINE 1% PF 2 ML VIAL. ID PRN (07:45)
[2018-12-14] MEDS ORDERED: HYDROmorphone 2 MG/ML VIAL IV PRN (07:45)
[2018-12-14] MEDS: ceFAZolin SODIUM IV Push 1 GM VIAL. IVP SCH ×2 (07:59→19:50)
[2018-12-14] MEDS: IV RINGERS,LACTATED 1000ML 1,000 ML IV SCH ×2 (08:00→10:10)
[2018-12-14] MEDS ORDERED: SEVOFLURANE 31 TO 60 MINUTES. IH ONE (08:15)
[2018-12-14] MEDS ORDERED: ceFAZolin SODIUM 1 GM in IV DEXTROSE 5% 50 ML IV SCH (08:15)
[2018-12-14] MEDS ORDERED: MORPHINE SULFATE 5 MG, KETOROLAC 30MG VIAL 30 MG, ROPIVacaine 0.5% PF 60 ML, EPINEPHrin... INT ART ONE ×5 (09:00)
--- NOTE | 2018-12-14 09:35 | PDOC4 ---
Operative Note Operative Note Due to procedure: 12/14/2018 Surgeon: Ryan López Asst.: Jenna Matos, certified surgical assistant Preoperative diagnosis: Closed, displaced, comminuted, right intertrochanteric hip fracture Postoperative diagnosis: Same Procedure performed: Closed reduction and intramedullary nailing of right hip fracture Anesthesia: Gen. Findings: Acute fracture Blood loss: 150mL Complications: none Components inserted: 10 x 38 Maravilla and nephew [employer] InterTAN 125 femoral nail, 100 mm lag screw, 95 mm compression screw, 2 distal interlocking screws Reason for procedure: Patient is a very pleasant woman who had a ground-level fall sustaining the above injury. Id seen her in consultation, please see my consult note for full details. We have discussed the risks, benefits, and alternatives to the above surgery and she wished to proceed. Description of procedure: Patient was greeted in the preoperative area by myself for the correct extremity was verified and marked. She was taken to the operative suite and her antibiotics were started as she was brought back. Once in the operating room, she underwent successful induction of a general anesthetic and was then transferred gently supine to the fracture table. She was placed into the appropriate position, right leg in a traction ski boot and left leg in the well-leg mobley. Padded perineal post was used. His arms were secured above his chest across a pillow. I then brought in C-arm and perform a reduction maneuver confirming adequate reduction under biplanar fluoroscopy. After this, the right hip and leg were prepped and draped in our usual sterile fashion and we conducted our standard preoperative timeout. After this, I palpated for her greater trochanter and ASIS and megha a line on skin at the intersection point of these, I then made my skin incision and bluntly dissected down to the tip of the greater trochanter and used biplanar fluoroscopy to identify an appropriate starting point for my guidepin which I then advanced down past the lesser trochanter. This was all accomplished well and construction project assistant lifted anteriorly underneath the thigh at the fracture site. I then gained entry to the proximal femur with the entry reamer using the soft tissue protector. I then advanced my long guidewire down to the knee, confirming good position on biplanar fluoro. While reaming and impacting the nail, the construction project assistant was still holding pressure on the posterior thigh. I then measured for my length. After this I impacted my nail and position using fluoroscopy as a guide. I then placed the lateral trocar again skin, and incised skin in accordance with this and bluntly split down to bone. I then seated the trochars and used biplanar fluoroscopy to achieve as close to a center center position with the tip of my guidepin as I was able to. I then used my lateral entry drill and then placed my derotation bar. I then measured and drilled for my leg screw. After this I placed my leg screw followed by my compression screw. I then directed my attention to using perfect circles technique to place 2 distal interlocking screws. I then remove the insertion handle and trochars and took my final images. I was satisfied with fracture reduction and hardware position. The wounds were thoroughly irrigated. I injected my periarticular mixture into the henrry-incisional soft tissues. Deep layers were closed with simple interrupted 0 Vicryl. Inverted interrupted 2-0 Vicryl was used for subcutaneous tissue and dinora for skin. Sterile dressing was applied after the hip and leg were cleansed and dried. Traction was released after placement of the distal interlocking screw. The bed was reassembled and the perineal post was removed. She was laid gently supine on the fracture table. She was transferred gently supine to the hospital bed and taken to PACU in a stable and extubated condition. Postoperative plan is to allow partial weightb earing. She will receive DVT and antibiotic prophylaxis. Shell be readmitted to the hospitalist and will also receive PT and OT. RYAN LÓPEZ II, MD December 14, 2018 09:35
--- NOTE | 2018-12-14 10:30 | NUR ---
Pt returned from surgery at approximately 1030. VSS, 3L of 02, reyes intact, IV's flushed and fluids running. Will continue to monitor.
--- NOTE | 2018-12-14 11:44 | PDOC1 ---
History and Physical Date of Admission Date of Admission DATE: 12/14/18 TIME: 11:44 Identification/Chief Complaint Chief Complaint 78 year old female presents with accidental fall from standing and right hip deformity. Injury occurred 30 minutes prior to ED arrival while attending in outdoor sporting event. Patient states she tripped over a curb landing on her right hip. She did not hit her head. She denies headache, neck pain or loss of consciousness. She denies preceding medical symptoms prior to the fall. Patient takes daily aspirin. No other injuries or pain complaints. 100 g of fentanyl given by EMS on route to the hospital. Patient's orthopedic surgeon is Dr. Dennis. SEEING DR PINEDA FOR BREAST MASS, aCCORDING TO , Drinks 3-4 glasses of wine a day at least Past Medical History Past Medical History Past Medical History Past Medical History Past Medical History: Hypertension Additional Past Medical Histor: PNEUMONIA Past Surgical History: Appendectomy, , Hysterectomy Additional Past Surgical Histo: SKIN CA,TUMMY TUCK,RIGHT SHOULDER SURGERY Alcohol Use: Heavy Drug Use: None family hx hypertension Cardiovascular: HTN Pulmonary: Pneumonia Infectious disease: No pertinent hx ENT: No pertinent hx Dermatology: No pertinent hx Past Surgical History Past Surgical History: Other Family History Family History: Alcohol Abuse, Hypertension Social History Smoke: 1 pack per day ALCOHOL: heavy Drugs: None Current Problem List Problem List Problems Medical Problems: (1) Closed right hip fracture Status: Acute Current Medications Current Medications Current Medications Morphine Sulfate (Morphine Sulfate) 4 mg 1X ONCE IV Last administered on 12/13/18at 20:45; Start 12/13/18 at 20:45; Stop 12/13/18 at 20:46; Status DC Ondansetron HCl (Zofran) 4 mg PRN Q8HRS PRN IV NAUSEA/VOMITING 1ST CHOICE Last administered on 12/13/18at 21:47; Start 12/13/18 at 21:00; Stop 12/14/18 at 20:59 Morphine Sulfate (Morphine Sulfate) 2 mg PRN Q2HR PRN IV SEVERE PAIN Last administered on 12/14/18at 07:18; Start 12/13/18 at 21:00; Stop 12/14/18 at 20:59 Dextrose/Sodium Chloride 1,000 ml @ 125 mls/hr 1X ONCE IV Last administered on 12/13/18at 23:11; Start 12/13/18 at 21:00; Stop 12/14/18 at 04:59; Status DC Cefazolin Sodium 1 gm/Dextrose 50 ml @ 100 mls/hr 1X ONCE IV ; Start 12/13/18 at 21:00; Stop 12/13/18 at 21:29; Status UNV Cefazolin Sodium (Ancef) 1 gm 1X ONCE IVP Last administered on 12/13/18at 23:10; Start 12/13/18 at 22:00; Stop 12/13/18 at 22:01; Status DC Ketorolac Tromethamine (Toradol 15mg Vial) 15 mg PRN Q6HRS PRN IV SEVERE PAIN Last administered on 12/14/18at 02:01; Start 12/14/18 at 01:45; Stop 12/19/18 at 01:44 Ketorolac Tromethamine (Toradol 30mg Vial) 30 mg 1X ONCE IV ; Start 12/14/18 at 02:00; Stop 12/14/18 at 02:01; Status DC Fentanyl Citrate (Fentanyl 2ml Vial) 100 mcg STK-MED ONCE .ROUTE ; Start 12/14/18 at 07:30; Stop 12/14/18 at 07:31; Status DC Dexamethasone Sodium Phosphate (Decadron) 4 mg STK-MED ONCE .ROUTE ; Start 12/14/18 at 07:30; Stop 12/14/18 at 07:31; Status DC Propofol 20 ml @ As Directed STK-MED ONCE IV ; Start 12/14/18 at 07:30; Stop 12/14/18 at 07:31; Status DC Lidocaine HCl (Lidocaine Pf 2% Vial) 5 ml STK-MED ONCE .ROUTE ; Start 12/14/18 at 07:30; Stop 12/14/18 at 07:31; Status DC Ondansetron HCl (Zofran) 4 mg STK-MED ONCE .ROUTE ; Start 12/14/18 at 07:30; Stop 12/14/18 at 07:31; Status DC Ondansetron HCl (Zofran) 4 mg PRN Q6HRS PRN IV NAUSEA/VOMITING; Start 12/14/18 at 07:45; Stop 12/14/18 at 15:00 Fentanyl Citrate (Fentanyl 2ml Vial) 25 mcg PRN Q5MIN PRN IV MILD PAIN; Start 12/14/18 at 07:45; Stop 12/14/18 at 15:00 Fentanyl Citrate (Fentanyl 2ml Vial) 50 mcg PRN Q5MIN PRN IV MODERATE TO SEVERE PAIN; Start 12/14/18 at 07:45; Stop 12/14/18 at 15:00 Morphine Sulfate (Morphine Sulfate) 1 mg PRN Q10MIN PRN IV SEVERE PAIN Last administered on 12/14/18at 10:14; Start 12/14/18 at 07:45; Stop 12/14/18 at 15:00 Ringer's Solution 1,000 ml @ 30 mls/hr Q24H IV Last administered on 12/14/18at 10:10; Start 12/14/18 at 07:40; Stop 12/14/18 at 19:39 Lidocaine HCl (Xylocaine-Mpf 1% 2ml Vial) 2 ml PRN 1X PRN ID PRIOR TO IV START; Start 12/14/18 at 07:45; Stop 12/14/18 at 15:00 Hydromorphone HCl (Dilaudid) 0.5 mg PRN Q10MIN PRN IV SEV PAIN, Second choice; Start 12/14/18 at 07:45; Stop 12/14/18 at 15:00 Prochlorperazine Edisylate (Compazine) 5 mg PACU PRN PRN IV NAUSEA, MRX1 Last administered on 12/14/18at 10:18; Start 12/14/18 at 07:45; Stop 12/14/18 at 15:00 Cefazolin Sodium 50 ml @ As Directed STK-MED ONCE IV ; Start 12/14/18 at 07:55; Stop 12/14/18 at 07:56; Status DC Cefazolin Sodium 1 gm/Dextrose 50 ml @ 100 mls/hr Q6H IV ; Start 12/14/18 at 08:15; Stop 12/14/18 at 20:44; Status UNV Warfarin Sodium (Coumadin Per Pharmacy) 1 each PRN DAILY PRN MC SEE COMMENTS; Start 12/14/18 at 08:00 Acetaminophen/ Hydrocodone Bitart (Lortab 5/325) 1 tab PRN Q4HRS PRN PO PAIN; Start 12/14/18 at 08:00 Cefazolin Sodium (Ancef) 1 gm Q6H IVP Last administered on 12/14/18at 07:59; Start 12/14/18 at 14:00; Stop 12/15/18 at 02:01 Sevoflurane (Ultane) 30 ml STK-MED ONCE IH ; Start 12/14/18 at 08:15; Stop 12/14/18 at 08:18; Status DC Morphine Sulfate 5 mg/Ketorolac Tromethamine 30 mg/Ropivacaine 60 ml/Epinephrine HCl 0.5 mg/Sodium Chloride 100 ml @ 100 mls/hr 1X ONCE INT ART Last administered on 12/14/18at 08:32; Start 12/14/18 at 09:00; Stop 12/14/18 at 09:59; Status DC Active Scripts Active Potassium Chloride 10 Meq Tablet.er 20 Meq PO DAILY Furosemide 40 Mg Tablet 40 Mg PO DAILY Lorazepam 1 Mg Tablet 2 Mg PO QHS PRN Folic Acid 1 Mg Tablet 1 Mg PO DAILY Reported Latanoprost 2.5 Ml Drops 1 Drop EACHEYE QHS Toprol Xl (Metoprolol Succinate) 50 Mg Tab.er.24h 50 Mg PO BID PRN Atenolol 50 Mg Tablet 1 Tab PO DAILY Allergies Allergies: Coded Allergies: ciprofloxacin (Verified Allergy, Intermediate, BROKE OUT WITH WELTS, 09/30/16) PATIENT NOT SURE IF IT'S CIPRO ? THAT WAS GIVEN codeine (Verified Allergy, Intermediate, 12/13/18) ROS Review of System 14 pt ros otherwise wnl General: No: Chills, Night Sweats, Fatigue, Malaise, Appetite, Other PSYCHOLOGICAL ROS: No: Anxiety, Behavioral Disorder, Concentration difficultie, Decreased libido, Depression, Disorientation, Hallucinations, Hostility, Irritablity, Memory difficulties, Mood Swings, Obsessive thoughts, Physical abuse, Sexual abuse, Sleep disturbances, Suicidal ideation, Other Eyes: No Blurry vision, No Decreased vision, No Double vision, No Dry eyes, No Excessive tearing, No Eye Pain, No Itchy Eyes, No Loss of vision, No Photophobia, No Scotomata, No Uses contacts, No Uses glasses, No Other HEENT: No: Heacaches, Visual Changes, Hearing change, Nasal congestion, Nasal discharge, Oral lesions, Sinus pain, Sore Throat, Epistaxis, Sneezing, Snoring, Tinnitus, Vertigo, Vocal changes, Other ALLERGY AND IMMUNOLOGY: No: Hives, Insect Bite Sensitivity, Itchy/Watery Eyes, Nasal Congestion, Post Nasal Drip, Seasonal Allergies, Other Hematological and Lymphatic: No: Bleeding Problems, Blood Clots, Blood Transfusions, Brusing, Night Sweats, Pallor, Swollen Lymph Nodes, Other ENDOCRINE: YES: Breast Changes Breast: New/Changing Breast Lumps Respiratory: No: Cough, Hemoptysis, Orthopnea, Pleuritic Pain, Shortness of breath, SOB with excertion, Sputum Changes, Stridor, Tachypnea, Wheezing, Other Cardiovascular: No Chest Pain, No Palpitations, No Orthopnea, No Paroxysmal Noc. Dyspnea, No Edema, No Lt Headedness, No Other Gastrointestinal: No Nausea, No Vomiting, No Abdominal Pain, No Diarrhea, No Constipation, No Melena, No Hematochezia, No Other Genitourinary: No Dysuria, No Frequency, No Incontinence, No Hematuria, No Retention, No Discharge, No Urgency, No Pain, No Flank Pain, No Other, No , No , No , No , No , No , No Musculoskeletal: Yes Gait Disturbance, Yes Joint Pain Neurological: Yes Gait Disturbance; No Behavorial Changes, No Bowel/Bladder ControlChng, No Confusion, No Dizziness, No Headaches, No Impaired Coord/balance, No Memory Loss, No Numbnes s/Tingling, No Seizures, No Speech Problems, No Tremors, No Visual Changes, No Weakness, No Other Skin: No Dry Skin, No Eczema, No Hair Changes, No Lumps, No Mole Changes, No Mottling, No Nail Changes, No Pruritus, No Rash, No Skin Lesion Changes, No Other, No Acne Physical Exam Physical Exam Physical Exam Physical Exam Constitutional: Well developed, well nourished, no acute distress, non-toxic a ppearance. [] HENT: Normocephalic, atraumatic, bilateral external ears normal, oropharynx moist, no oral exudates, nose normal. [] Eyes: PERRLA, EOMI, conjunctiva normal, no discharge. [] Neck: Normal range of motion, no tenderness, supple, no stridor. [] Cardiovascular:Heart rate regular rhythm, no murmur [] Lungs & Thorax: Bilateral breath sounds clear to auscultation [] Abdomen: Bowel sounds normal, soft, no tenderness, no masses, no pulsatile masses. [] Skin: Warm, dry, no erythema, no rash. [] Back: No tenderness, no CVA tenderness. [] Extremities: R Hip pain, tenderness, POST-OP [] Neurologic: Alert and oriented X 3, right lower extremity, no motor weakness or loss of sensation.. [] Psychologic: Affect normal, judgement normal, mood normal. [] General: Oriented X3, Cooperative, moderate distress HEENT: Atraumatic, PERRLA, EOMI, Mucous membr. moist/pink Lungs: Clear to auscultation Heart: S1S2, RRR, no thrills, no gallops, no murmurs Breasts: Not examined Abdomen: Normal bowel sounds, Soft Rectal Exam: not examined PELVIC: Examination not indicated Extremities: No cyanosis Skin: No breakdown Neuro: Normal speech, Sensation intact, Cranial nerves 3-12 NL Psych/Mental Status: Mental status NL, Mood NL Vitals Vitals Vital Signs Date Time Temp Pulse Resp B/P (MAP) Pulse Ox O2 Delivery O2 Flow Rate FiO2 12/14/18 10:23 Nasal Cannula 2 12/14/18 10:14 97.9 122 22 155/68 90 97.9 Labs Labs Laboratory Tests Test 12/13/18 19:50 12/14/18 04:20 White Blood Count 9.5 x10^3/uL (4.0-11.0) 7.6 x10^3/uL (4.0-11.0) Red Blood Count 3.65 x10^6/uL (3.50-5.40) 2.80 x10^6/uL (3.50-5.40) Hemoglobin 12.9 g/dL (12.0-15.5) 10.2 g/dL (12.0-15.5) Hematocrit 38.3 % (36.0-47.0) 29.4 % (36.0-47.0) Mean Corpuscular Volume 105 fL (79-100) 105 fL (79-100) Mean Corpuscular Hemoglobin 35 pg (25-35) 37 pg (25-35) Mean Corpuscular Hemoglobin Concent 34 g/dL (31-37) 35 g/dL (31-37) Red Cell Distribution Width 13.1 % (11.5-14.5) 13.1 % (11.5-14.5) Platelet Count 188 x10^3/uL (140-400) 132 x10^3/uL (140-400) Neutrophils (%) (Auto) 75 % (31-73) 76 % (31-73) Lymphocytes (%) (Auto) 13 % (24-48) 15 % (24-48) Monocytes (%) (Auto) 5 % (0-9) 6 % (0-9) Eosinophils (%) (Auto) 6 % (0-3) 2 % (0-3) Basophils (%) (Auto) 1 % (0-3) 1 % (0-3) Neutrophils # (Auto) 7.2 x10^3uL (1.8-7.7) 5.8 x10^3uL (1.8-7.7) Lymphocytes # (Auto) 1.3 x10^3/uL (1.0-4.8) 1.1 x10^3/uL (1.0-4.8) Monocytes # (Auto) 0.5 x10^3/uL (0.0-1.1) 0.5 x10^3/uL (0.0-1.1) Eosinophils # (Auto) 0.6 x10^3/uL (0.0-0.7) 0.2 x10^3/uL (0.0-0.7) Basophils # (Auto) 0.1 x10^3/uL (0.0-0.2) 0.1 x10^3/uL (0.0-0.2) Sodium Level 135 mmol/L (136-145) 135 mmol/L (136-145) Potassium Level 4.0 mmol/L (3.5-5.1) 3.9 mmol/L (3.5-5.1) Chloride Level 95 mmol/L (98-107) 98 mmol/L (98-107) Carbon Dioxide Level 26 mmol/L (21-32) 30 mmol/L (21-32) Anion Gap 14 (6-14) 7 (6-14) Blood Urea Nitrogen 7 mg/dL (7-20) 7 mg/dL (7-20) Creatinine 0.7 mg/dL (0.6-1.0) 0.5 mg/dL (0.6-1.0) Estimated GFR (Cockcroft-Gault) 81.4 120.0 Glucose Level 123 mg/dL (70-99) 142 mg/dL (70-99) Calcium Level 8.7 mg/dL (8.5-10.1) 8.0 mg/dL (8.5-10.1) Laboratory Tests Test 12/13/18 19:50 12/14/18 04:20 White Blood Count 9.5 x10^3/uL (4.0-11.0) 7.6 x10^3/uL (4.0-11.0) Red Blood Count 3.65 x10^6/uL (3.50-5.40) 2.80 x10^6/uL (3.50-5.40) Hemoglobin 12.9 g/dL (12.0-15.5) 10.2 g/dL (12.0-15.5) Hematocrit 38.3 % (36.0-47.0) 29.4 % (36.0-47.0) Mean Corpuscular Volume 105 fL (79-100) 105 fL (79-100) Mean Corpuscular Hemoglobin 35 pg (25-35) 37 pg (25-35) Mean Corpuscular Hemoglobin Concent 34 g/dL (31-37) 35 g/dL (31-37) Red Cell Distribution Width 13.1 % (11.5-14.5) 13.1 % (11.5-14.5) Platelet Count 188 x10^3/uL (140-400) 132 x10^3/uL (140-400) Neutrophils (%) (Auto) 75 % (31-73) 76 % (31-73) Lymphocytes (%) (Auto) 13 % (24-48) 15 % (24-48) Monocytes (%) (Auto) 5 % (0-9) 6 % (0-9) Eosinophils (%) (Auto) 6 % (0-3) 2 % (0-3) Basophils (%) (Auto) 1 % (0-3) 1 % (0-3) Neutrophils # (Auto) 7.2 x10^3uL (1.8-7.7) 5.8 x10^3uL (1.8-7.7) Lymphocytes # (Auto) 1.3 x10^3/uL (1.0-4.8) 1.1 x10^3/uL (1.0-4.8) Monocytes # (Auto) 0.5 x10^3/uL (0.0-1.1) 0.5 x10^3/uL (0.0-1.1) Eosinophils # (Auto) 0.6 x10^3/uL (0.0-0.7) 0.2 x10^3/uL (0.0-0.7) Basophils # (Auto) 0.1 x10^3/uL (0.0-0.2) 0.1 x10^3/uL (0.0-0.2) Sodium Level 135 mmol/L (136-145) 135 mmol/L (136-145) Potassium Level 4.0 mmol/L (3.5-5.1) 3.9 mmol/L (3.5-5.1) Chloride Level 95 mmol/L (98-107) 98 mmol/L (98-107) Carbon Dioxide Level 26 mmol/L (21-32) 30 mmol/L (21-32) Anion Gap 14 (6-14) 7 (6-14) Blood Urea Nitrogen 7 mg/dL (7-20) 7 mg/dL (7-20) Creatinine 0.7 mg/dL (0.6-1.0) 0.5 mg/dL (0.6-1.0) Estimated GFR (Cockcroft-Gault) 81.4 120.0 Glucose Level 123 mg/dL (70-99) 142 mg/dL (70-99) Calcium Level 8.7 mg/dL (8.5-10.1) 8.0 mg/dL (8.5-10.1) Images Images CHEST AP ONLY History: Trauma. Heart size is not enlarged. No evidence of pneumothorax, pleural effusion or consolidation. The bones appear intact. There is a right shoulder replacement. Elevation of the right hemidiaphragm is redemonstrated. IMPRESSION: No consolidating infiltrate. Electronically signed by: Yahir Chilel MD (12/13/2018 8:53 PM) [facility] DICTATED and SIGNED BY: YAHIR CHILEL MD DATE: 12/13/182052 AP pelvis with two-view right hip History: Trauma. FINDINGS: There is a comminuted intertrochanteric and subtrochanteric fracture of the right proximal femur. There is varus angulation at the fracture site. No evidence of dislocation. Left hip grossly intact. IMPRESSION: Comminuted intertrochanteric and subtrochanteric fracture of the right proximal femur. Electronically signed by: Yahir Chilel MD (12/13/2018 8:51 PM) [facility] VTE Prophylaxis Ordered VTE Prophylaxis Devices: Yes VTE Pharmacological Prophylaxi: Yes Assessment/Plan Assessment/Plan IMPRESSION Mechanical fall with acute hip fracture Closed, displaced, comminuted, right intertrochanteric hip fracture Hypothyroidism, subclinical. Monitor TSH in few weeks. History of heavy alcohol and nicotine use. plan to OR mod risk of post op alcohol withdrawal complications alcohol withdrawal precautions dvt prophylaxis GI prophylaxis pain control, iv iv fluid support will need snf/ rehab 76 min pt exam, chart review, > 50% of time spent with exam, chart review, pt care coordination procedure: 12/14/2018 Surgeon: Ryan Ross Asst.: Jenna Matos, certified family mediator Preoperative diagnosis: Closed, displaced, comminuted, right intertrochanteric hip fracture Postoperative diagnosis: Same Procedure performed: Closed reduction and intramedullary nailing of right hip f racture Anesthesia: Gen. Findings: Acute fracture Blood loss: 150mL Complications: none Components inserted: 10 x 38 Maravilla and nephew [employer] InterTAN 125 femoral nail, 100 mm lag screw, 95 mm compression screw, 2 distal interlocking screws LUI CELIS MD December 14, 2018 11:44
[2018-12-14 13:00] VITALS: BP 133/69
[2018-12-14 14:00] VITALS: BP 125/62
[2018-12-14] MEDS ORDERED: LORazepam 0.5 MG TABLET PO PRN (14:00)
[2018-12-14] MEDS ORDERED: diphenhydrAMINE 50 MG/ML VIAL IVP PRN (14:00)
[2018-12-14] MEDS ORDERED: DOCUSATE SODIUM 100 MG CAPSULE. PO PRN (14:00)
[2018-12-14] MEDS ORDERED: ZOLPIDEM 5 MG TABLET. PO PRN (14:00)
[2018-12-14] MEDS ORDERED: HALOPERIDOL LACTATE 5 MG/ML VIAL. IVP PRN (14:00)
[2018-12-14] MEDS ORDERED: ACETAMINOPHEN 325 MG TABLET. PO PRN (14:00)
[2018-12-14] MEDS ORDERED: 0.9 % SODIUM CHLORIDE 10 ML DISP.SYRIN. IV PRN (14:00)
[2018-12-14] MEDS ORDERED: MAG HYDROX/ALUMINUM HYD/SIMETH 30 ML ORAL.SUSP PO PRN (14:00)
[2018-12-14] MEDS ORDERED: guaiFENesin ORAL 200 MG/10 ML LIQUID. PO PRN (14:00)
[2018-12-14] MEDS ORDERED: cloNIDine HCL 0.1 MG TABLET PO PRN ×2 (14:00)
[2018-12-14 14:27] LABS: PROTHROMBIN TIME PATIENT 14.2 SEC (11.7-14.0)
[2018-12-14] MEDS: MULTIVIT INFUSN,ADULT 4,VIT K 10 ML, THIAMINE INJ 100 MG, FOLIC ACID INJ 1 MG in IV NOR... IV SCH (14:28)
[2018-12-14] MEDS: POTASSIUM CHLORIDE 10 MEQ TABLET.ER. PO SCH (14:30)
[2018-12-14] MEDS: FOLIC ACID 1 MG TABLET. PO SCH (14:30)
[2018-12-14] MEDS: ATENOLOL 50 MG TABLET. PO SCH (14:30)
[2018-12-14 14:41] LABS: ALBUMIN 2.7 g/dL (3.4-5.0); DIRECT BILIRUBIN 0.4 mg/dL (0.0-0.2); TOTAL BILIRUBIN 0.6 mg/dL (0.2-1.0); TOTAL PROTEIN 5.7 g/dL (6.4-8.2)
--- NOTE | 2018-12-14 15:02 | NUR ---
Pharmacy Warfarin Dosing Note S:Pharmacy consulted to assist with anticoagulation therapy started 12/14/18 with target INR: 1.6 - 2.5 O:NI STAFFORD is a 78 year old F with Hip Fracture LABS: Last INR: 1.1 Last HGB: 10.2 Last HCT: 29.4 Last PLT: 132 Vitamin K given: N A:INR of 1.1 is below desired range. Target range for this patient is: 1.6 - 2.5 P: Warfarin dose: 5 mg Today at 1600 Bridge Therapy: None Next INR due tomorrow Pharmacy anticoagulation service will continue to follow. Nina Santos RPH, 12/14/18 [id number]
--- NOTE | 2018-12-14 15:53 | EKG ---
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
[2018-12-14] MEDS ORDERED: WARFARIN 5 MG TABLET. PO ONE (16:00)
[2018-12-14] MEDS: IPRATRPIUM/ALBUTEROL 0.5/2.5MG 3 ML NEBU. NEB SCH ×2 (16:00→20:19)
[2018-12-14 16:46] LABS: AMPHETAMINE/METHAMPHETAMINE NEG (NEG); BARBITURATES NEG (NEG); BENZODIAZEPINES NEG (NEG); CANNABINOIDS NEG (NEG); COCAINE NEG (NEG); METHADONE NEG (NEG); OPIATES POS (NEG); PHENCYCLIDINE NEG (NEG)
[2018-12-14 19:15] VITALS: BP 142/58
[2018-12-14] MEDS: LATANOPROST 0.005% OPHTH SOLUTION 2.5ML BOTTLE. OU SCH (20:01)
[2018-12-14] MEDS ORDERED: METO-313 PO (20:07)
[2018-12-14] MEDS ORDERED: BRIM5DRO2 OU (20:07)
[2018-12-14] MEDS ORDERED: TRIA15CR3 TD (20:09)
[2018-12-14 23:00] VITALS: BP 144/64
[2018-12-15 03:00] VITALS: BP 125/61
[2018-12-15] MEDS: MORPHINE SULFATE 2 MG/ML VIAL. IV PRN ×2 (03:07→21:42)
[2018-12-15] MEDS: ceFAZolin SODIUM IV Push 1 GM VIAL. IVP SCH (03:07)
[2018-12-15 05:17] LABS: PROTHROMBIN TIME PATIENT 13.6 SEC (11.7-14.0)
[2018-12-15 05:21] LABS: BASO % 0 % (0-3); EOS % 0 % (0-3); HEMATOCRIT 21.1 % (36.0-47.0); LYMPH # 0.7 x10^3/uL (1.0-4.8); LYMPH % 5 % (24-48); MEAN CORPUSCULAR HEMOGLOBIN 35 pg (25-35); MEAN CORPUSCULAR HGB CONC 33 g/dL (31-37); MEAN CORPUSCULAR VOLUME 107 fL (79-100); MONO # 0.7 x10^3/uL (0.0-1.1); MONO % 5 % (0-9); NEUT # 12.2 x10^3uL (1.8-7.7); NEUT % 89 % (31-73); PLATELET COUNT 116 x10^3/uL (140-400); RED BLOOD COUNT 1.98 x10^6/uL (3.50-5.40); RED CELL DISTRIBUTION WIDTH 13.1 % (11.5-14.5); WHITE BLOOD COUNT 13.7 x10^3/uL (4.0-11.0)
[2018-12-15 05:40] LABS: ALBUMIN 2.5 g/dL (3.4-5.0); ALBUMIN/GLOBULIN RATIO 0.8 (1.0-1.7); CALCIUM 7.7 mg/dL (8.5-10.1); CREATININE 0.6 mg/dL (0.6-1.0); GFR 97.2; POTASSIUM 4.6 mmol/L (3.5-5.1); TOTAL BILIRUBIN 0.4 mg/dL (0.2-1.0); TOTAL PROTEIN 5.8 g/dL (6.4-8.2)
[2018-12-15 07:00] VITALS: BP 125/51
[2018-12-15] MEDS: IPRATRPIUM/ALBUTEROL 0.5/2.5MG 3 ML NEBU. NEB SCH ×4 (07:31→20:00)
[2018-12-15 07:42] LABS: % LYMPHS 8 % (24-48); % MONOS 3 % (0-10); % SEGS 89 % (35-66)
[2018-12-15 07:43] LABS: PLT ESTIMATE ADEQUATE (ADEQUATE)
[2018-12-15 07:44] LABS: STOMATOCYTES OCC
[2018-12-15] MEDS: ATENOLOL 50 MG TABLET. PO SCH ×2 (07:59→12:20)
[2018-12-15] MEDS: FOLIC ACID 1 MG TABLET. PO SCH (08:00)
[2018-12-15] MEDS: HYDROcodone/APAP 5/325MG 1 TAB TABLET PO PRN ×3 (08:00→17:33)
[2018-12-15] MEDS: POTASSIUM CHLORIDE 10 MEQ TABLET.ER. PO SCH (08:00)
[2018-12-15] MEDS: MULTIVIT INFUSN,ADULT 4,VIT K 10 ML, THIAMINE INJ 100 MG, FOLIC ACID INJ 1 MG in IV NOR... IV SCH (08:01)
--- NOTE | 2018-12-15 08:47 | PDOC ---
PROGRESS NOTES Chief Complaint Chief Complaint Mechanical fall with acute hip fracture Closed, displaced comminuted right intertrochanteric hip fracture - s/p TFIN 12/14/[address] Ross Hypothyroidism, subclinical. Monitor TSH in few weeks. History of heavy alcohol and nicotine use. Acute anemia dvt prophylaxis GI prophylaxis pain control, iv iv fluid support will need snf/ rehab History of Present Illness History of Present Illness 78 year old female w/ PMHx breast lump, hypothyroidism, ETOH use, nicotine use presents with accidental fall from standing and right hip deformity. Injury occurred 30 minutes prior to ED arrival while attending in outdoor sporting event. Patient states she tripped over a curb landing on her right hip. She did not hit her head. She denies headache, neck pain or loss of consciousness. She denies preceding medical symptoms prior to the fall. Patient takes daily aspirin. No other injuries or pain complaints. 100 g of fentanyl given by EMS on route to the hospital. Patient's orthopedic surgeon is Dr. Caldwell. She went for TFN right hip on 12/14/18 with no adverse events. Seen this morning, feeling pain, constipation, abdominal discomfort. Wishes to keep reyes until after she ambulates. Hb 7 this morning. BP and HR are WNL, no lightheaded, no headaches, no chest pain or SOB. Plan: Type and screen, check repeat CBC. Will transfuse for Hb < 7 if still low tomorrow. check iron levels Vitamin D level Vitals Vitals Vital Signs Date Time Temp Pulse Resp B/P (MAP) Pulse Ox O2 Delivery O2 Flow Rate FiO2 12/15/18 08:00 Nasal Cannula 2.0 12/15/18 07:33 97 12/15/18 07:00 98.2 131 18 125/51 (75) 98.2 Physical Exam General: Cooperative, moderate distress Lungs: Clear Abdomen: Normal bowel sounds, Soft Extremities: No cyanosis Skin: No breakdown Labs LABS Laboratory Tests Test 12/14/18 14:07 12/14/18 14:10 12/14/18 16:30 12/15/18 04:25 Prothrombin Time 14.2 SEC (11.7-14.0) 13.6 SEC (11.7-14.0) Prothromb Time International Ratio 1.1 (0.8-1.1) 1.1 (0.8-1.1) Total Bilirubin 0.6 mg/dL (0.2-1.0) 0.4 mg/dL (0.2-1.0) Direct Bilirubin 0.4 mg/dL (0.0-0.2) Aspartate Amino Transf (AST/SGOT) 43 U/L (15-37) 36 U/L (15-37) Alanine Aminotransferase (ALT/SGPT) 28 U/L (14-59) 25 U/L (14-59) Alkaline Phosphatase 62 U/L (46-116) 54 U/L (46-116) Total Protein 5.7 g/dL (6.4-8.2) 5.8 g/dL (6.4-8.2) Albumin 2.7 g/dL (3.4-5.0) 2.5 g/dL (3.4-5.0) Thyroid Stimulating Hormone (TSH) 2.422 uIU/mL (0.358-3.74) Urine Opiates Screen Pos (NEG) Urine Methadone Screen Neg (NEG) Urine Barbiturates Neg (NEG) Urine Phencyclidine Screen Neg (NEG) Urine Amphetamine/Methamphetamine Neg (NEG) Urine Benzodiazepines Screen Neg (NEG) Urine Cocaine Screen Neg (NEG) Urine Cannabinoids Screen Neg (NEG) Urine Ethyl Alcohol Neg (NEG) White Blood Count 13.7 x10^3/uL (4.0-11.0) Red Blood Count 1.98 x10^6/uL (3.50-5.40) Hemoglobin 7.0 g/dL (12.0-15.5) Hematocrit 21.1 % (36.0-47.0) Mean Corpuscular Volume 107 fL (79-100) Mean Corpuscular Hemoglobin 35 pg (25-35) Mean Corpuscular Hemoglobin Concent 33 g/dL (31-37) Red Cell Distribution Width 13.1 % (11.5-14.5) Platelet Count 116 x10^3/uL (140-400) Neutrophils (%) (Auto) 89 % (31-73) Lymphocytes (%) (Auto) 5 % (24-48) Monocytes (%) (Auto) 5 % (0-9) Eosinophils (%) (Auto) 0 % (0-3) Basophils (%) (Auto) 0 % (0-3) Neutrophils # (Auto) 12.2 x10^3uL (1.8-7.7) Lymphocytes # (Auto) 0.7 x10^3/uL (1.0-4.8) Monocytes # (Auto) 0.7 x10^3/uL (0.0-1.1) Eosinophils # (Auto) 0.0 x10^3/uL (0.0-0.7) Basophils # (Auto) 0.0 x10^3/uL (0.0-0.2) Segmented Neutrophils % 89 % (35-66) Lymphocytes % 8 % (24-48) Monocytes % 3 % (0-10) Platelet Estimate Adequate (ADEQUATE) Macrocytosis Slight Stomatocytes Occ Sodium Level 139 mmol/L (136-145) Potassium Level 4.6 mmol/L (3.5-5.1) Chloride Level 102 mmol/L (98-107) Carbon Dioxide Level 29 mmol/L (21-32) Anion Gap 8 (6-14) Blood Urea Nitrogen 7 mg/dL (7-20) Creatinine 0.6 mg/dL (0.6-1.0) Estimated GFR (Cockcroft-Gault) 97.2 BUN/Creatinine Ratio 12 (6-20) Glucose Level 186 mg/dL (70-99) Calcium Level 7.7 mg/dL (8.5-10.1) Albumin/Globulin Ratio 0.8 (1.0-1.7) Assessment and Plan Assessmemt and Plan Problems Medical Problems: (1) Closed right hip fracture Status: Acute Comment Review of Relevant I have reviewed the following items pavithra (where applicable) has been applied. Labs Laboratory Tests Test 12/13/18 19:50 12/13/18 22:30 12/14/18 04:20 12/14/18 14:07 White Blood Count 9.5 x10^3/uL (4.0-11.0) 7.6 x10^3/uL (4.0-11.0) Red Blood Count 3.65 x10^6/uL (3.50-5.40) 2.80 x10^6/uL (3.50-5.40) Hemoglobin 12.9 g/dL (12.0-15.5) 10.2 g/dL (12.0-15.5) Hematocrit 38.3 % (36.0-47.0) 29.4 % (36.0-47.0) Mean Corpuscular Volume 105 fL (79-100) 105 fL (79-100) Mean Corpuscular Hemoglobin 35 pg (25-35) 37 pg (25-35) Mean Corpuscular Hemoglobin Concent 34 g/dL (31-37) 35 g/dL (31-37) Red Cell Distribution Width 13.1 % (11.5-14.5) 13.1 % (11.5-14.5) Platelet Count 188 x10^3/uL (140-400) 132 x10^3/uL (140-400) Neutrophils (%) (Auto) 75 % (31-73) 76 % (31-73) Lymphocytes (%) (Auto) 13 % (24-48) 15 % (24-48) Monocytes (%) (Auto) 5 % (0-9) 6 % (0-9) Eosinophils (%) (Auto) 6 % (0-3) 2 % (0-3) Basophils (%) (Auto) 1 % (0-3) 1 % (0-3) Neutrophils # (Auto) 7.2 x10^3uL (1.8-7.7) 5.8 x10^3uL (1.8-7.7) Lymphocytes # (Auto) 1.3 x10^3/uL (1.0-4.8) 1.1 x10^3/uL (1.0-4.8) Monocytes # (Auto) 0.5 x10^3/uL (0.0-1.1) 0.5 x10^3/uL (0.0-1.1) Eosinophils # (Auto) 0.6 x10^3/uL (0.0-0.7) 0.2 x10^3/uL (0.0-0.7) Basophils # (Auto) 0.1 x10^3/uL (0.0-0.2) 0.1 x10^3/uL (0.0-0.2) Sodium Level 135 mmol/L (136-145) 135 mmol/L (136-145) Potassium Level 4.0 mmol/L (3.5-5.1) 3.9 mmol/L (3.5-5.1) Chloride Level 95 mmol/L (98-107) 98 mmol/L (98-107) Carbon Dioxide Level 26 mmol/L (21-32) 30 mmol/L (21-32) Anion Gap 14 (6-14) 7 (6-14) Blood Urea Nitrogen 7 mg/dL (7-20) 7 mg/dL (7-20) Creatinine 0.7 mg/dL (0.6-1.0) 0.5 mg/dL (0.6-1.0) Estimated GFR (Cockcroft-Gault) 81.4 120.0 Glucose Level 123 mg/dL (70-99) 142 mg/dL (70-99) Calcium Level 8.7 mg/dL (8.5-10.1) 8.0 mg/dL (8.5-10.1) Nasal Screen MRSA (PCR) Negative (Negative) Prothrombin Time 14.2 SEC (11.7-14.0) Prothromb Time International Ratio 1.1 (0.8-1.1) Total Bilirubin 0.6 mg/dL (0.2-1.0) Direct Bilirubin 0.4 mg/dL (0.0-0.2) Aspartate Amino Transf (AST/SGOT) 43 U/L (15-37) Alanine Aminotransferase (ALT/SGPT) 28 U/L (14-59) Alkaline Phosphatase 62 U/L (46-116) Total Protein 5.7 g/dL (6.4-8.2) Albumin 2.7 g/dL (3.4-5.0) Test 12/14/18 14:10 12/14/18 16:30 12/15/18 04:25 Thyroid Stimulating Hormone (TSH) 2.422 uIU/mL (0.358-3.74) Urine Opiates Screen Pos (NEG) Urine Methadone Screen Neg (NEG) Urine Barbiturates Neg (NEG) Urine Phencyclidine Screen Neg (NEG) Urine Amphetamine/Methamphetamine Neg (NEG) Urine Benzodiazepines Screen Neg (NEG) Urine Cocaine Screen Neg (NEG) Urine Cannabinoids Screen Neg (NEG) Urine Ethyl Alcohol Neg (NEG) White Blood Count 13.7 x10^3/uL (4.0-11.0) Red Blood Count 1.98 x10^6/uL (3.50-5.40) Hemoglobin 7.0 g/dL (12.0-15.5) Hematocrit 21.1 % (36.0-47.0) Mean Corpuscular Volume 107 fL (79-100) Mean Corpuscular Hemoglobin 35 pg (25-35) Mean Corpuscular Hemoglobin Concent 33 g/dL (31-37) Red Cell Distribution Width 13.1 % (11.5-14.5) Platelet Count 116 x10^3/uL (140-400) Neutrophils (%) (Auto) 89 % (31-73) Lymphocytes (%) (Auto) 5 % (24-48) Monocytes (%) (Auto) 5 % (0-9) Eosinophils (%) (Auto) 0 % (0-3) Basophils (%) (Auto) 0 % (0-3) Neutrophils # (Auto) 12.2 x10^3uL (1.8-7.7) Lymphocytes # (Auto) 0.7 x10^3/uL (1.0-4.8) Monocytes # (Auto) 0.7 x10^3/uL (0.0-1.1) Eosinophils # (Auto) 0.0 x10^3/uL (0.0-0.7) Basophils # (Auto) 0.0 x10^3/uL (0.0-0.2) Segmented Neutrophils % 89 % (35-66) Lymphocytes % 8 % (24-48) Monocytes % 3 % (0-10) Platelet Estimate Adequate (ADEQUATE) Macrocytosis Slight Stomatocytes Occ Prothrombin Time 13.6 SEC (11.7-14.0) Prothromb Time International Ratio 1.1 (0.8-1.1) Sodium Level 139 mmol/L (136-145) Potassium Level 4.6 mmol/L (3.5-5.1) Chloride Level 102 mmol/L (98-107) Carbon Dioxide Level 29 mmol/L (21-32) Anion Gap 8 (6-14) Blood Urea Nitrogen 7 mg/dL (7-20) Creatinine 0.6 mg/dL (0.6-1.0) Estimated GFR (Cockcroft-Gault) 97.2 BUN/Creatinine Ratio 12 (6-20) Glucose Level 186 mg/dL (70-99) Calcium Level 7.7 mg/dL (8.5-10.1) Total Bilirubin 0.4 mg/dL (0.2-1.0) Aspartate Amino Transf (AST/SGOT) 36 U/L (15-37) Alanine Aminotransferase (ALT/SGPT) 25 U/L (14-59) Alkaline Phosphatase 54 U/L (46-116) Total Protein 5.8 g/dL (6.4-8.2) Albumin 2.5 g/dL (3.4-5.0) Albumin/Globulin Ratio 0.8 (1.0-1.7) Laboratory Tests Test 12/14/18 14:07 12/14/18 14:10 12/14/18 16:30 12/15/18 04:25 Prothrombin Time 14.2 SEC (11.7-14.0) 13.6 SEC (11.7-14.0) Prothromb Time International Ratio 1.1 (0.8-1.1) 1.1 (0.8-1.1) Total Bilirubin 0.6 mg/dL (0.2-1.0) 0.4 mg/dL (0.2-1.0) Direct Bilirubin 0.4 mg/dL (0.0-0.2) Aspartate Amino Transf (AST/SGOT) 43 U/L (15-37) 36 U/L (15-37) Alanine Aminotransferase (ALT/SGPT) 28 U/L (14-59) 25 U/L (14-59) Alkaline Phosphatase 62 U/L (46-116) 54 U/L (46-116) Total Protein 5.7 g/dL (6.4-8.2) 5.8 g/dL (6.4-8.2) Albumin 2.7 g/dL (3.4-5.0) 2.5 g/dL (3.4-5.0) Thyroid Stimulating Hormone (TSH) 2.422 uIU/mL (0.358-3.74) Urine Opiates Screen Pos (NEG) Urine Methadone Screen Neg (NEG) Urine Barbiturates Neg (NEG) Urine Phencyclidine Screen Neg (NEG) Urine Amphetamine/Methamphetamine Neg (NEG) Urine Benzodiazepines Screen Neg (NEG) Urine Cocaine Screen Neg (NEG) Urine Cannabinoids Screen Neg (NEG) Urine Ethyl Alcohol Neg (NEG) White Blood Count 13.7 x10^3/uL (4.0-11.0) Red Blood Count 1.98 x10^6/uL (3.50-5.40) Hemoglobin 7.0 g/dL (12.0-15.5) Hematocrit 21.1 % (36.0-47.0) Mean Corpuscular Volume 107 fL (79-100) Mean Corpuscular Hemoglobin 35 pg (25-35) Mean Corpuscular Hemoglobin Concent 33 g/dL (31-37) Red Cell Distribution Width 13.1 % (11.5-14.5) Platelet Count 116 x10^3/uL (140-400) Neutrophils (%) (Auto) 89 % (31-73) Lymphocytes (%) (Auto) 5 % (24-48) Monocytes (%) (Auto) 5 % (0-9) Eosinophils (%) (Auto) 0 % (0-3) Basophils (%) (Auto) 0 % (0-3) Neutrophils # (Auto) 12.2 x10^3uL (1.8-7.7) Lymphocytes # (Auto) 0.7 x10^3/uL (1.0-4.8) Monocytes # (Auto) 0.7 x10^3/uL (0.0-1.1) Eosinophils # (Auto) 0.0 x10^3/uL (0.0-0.7) Basophils # (Auto) 0.0 x10^3/uL (0.0-0.2) Segmented Neutrophils % 89 % (35-66) Lymphocytes % 8 % (24-48) Monocytes % 3 % (0-10) Platelet Estimate Adequate (ADEQUATE) Macrocytosis Slight Stomatocytes Occ Sodium Level 139 mmol/L (136-145) Potassium Level 4.6 mmol/L (3.5-5.1) Chloride Level 102 mmol/L (98-107) Carbon Dioxide Level 29 mmol/L (21-32) Anion Gap 8 (6-14) Blood Urea Nitrogen 7 mg/dL (7-20) Creatinine 0.6 mg/dL (0.6-1.0) Estimated GFR (Cockcroft-Gault) 97.2 BUN/Creatinine Ratio 12 (6-20) Glucose Level 186 mg/dL (70-99) Calcium Level 7.7 mg/dL (8.5-10.1) Albumin/Globulin Ratio 0.8 (1.0-1.7) Medications Current Medications Morphine Sulfate (Morphine Sulfate) 4 mg 1X ONCE IV Last administered on 12/13/18at 20:45; Start 12/13/18 at 20:45; Stop 12/13/18 at 20:46; Status DC Ondansetron HCl (Zofran) 4 mg PRN Q8HRS PRN IV NAUSEA/VOMITING 1ST CHOICE Last administered on 12/13/18at 21:47; Start 12/13/18 at 21:00; Stop 12/14/18 at 20:59; Status DC Morphine Sulfate (Morphine Sulfate) 2 mg PRN Q2HR PRN IV SEVERE PAIN Last administered on 12/14/18at 19:50; Start 12/13/18 at 21:00; Stop 12/14/18 at 20:59; Status DC Dextrose/Sodium Chloride 1,000 ml @ 125 mls/hr 1X ONCE IV Last administered on 12/13/18at 23:11; Start 12/13/18 at 21:00; Stop 12/14/18 at 04:59; Status DC Cefazolin Sodium 1 gm/Dextrose 50 ml @ 100 mls/hr 1X ONCE IV ; Start 12/13/18 at 21:00; Stop 12/13/18 at 21:29; Status UNV Cefazolin Sodium (Ancef) 1 gm 1X ONCE IVP Last administered on 12/13/18at 23:10; Start 12/13/18 at 22:00; Stop 12/13/18 at 22:01; Status DC Ketorolac Tromethamine (Toradol 15mg Vial) 15 mg PRN Q6HRS PRN IV MILD - MO DERATE PAIN Last administered on 12/14/18at 22:11; Start 12/14/18 at 01:45; Stop 12/19/18 at 01:44 Ketorolac Tromethamine (Toradol 30mg Vial) 30 mg 1X ONCE IV ; Start 12/14/18 at 02:00; Stop 12/14/18 at 02:01; Status DC Fentanyl Citrate (Fentanyl 2ml Vial) 100 mcg STK-MED ONCE .ROUTE ; Start 12/14/18 at 07:30; Stop 12/14/18 at 07:31; Status DC Dexamethasone Sodium Phosphate (Decadron) 4 mg STK-MED ONCE .ROUTE ; Start 12/14/18 at 07:30; Stop 12/14/18 at 07:31; Status DC Propofol 20 ml @ As Directed STK-MED ONCE IV ; Start 12/14/18 at 07:30; Stop 12/14/18 at 07:31; Status DC Lidocaine HCl (Lidocaine Pf 2% Vial) 5 ml STK-MED ONCE .ROUTE ; Start 12/14/18 at 07:30; Stop 12/14/18 at 07:31; Status DC Ondansetron HCl (Zofran) 4 mg STK-MED ONCE .ROUTE ; Start 12/14/18 at 07:30; Stop 12/14/18 at 07:31; Status DC Ondansetron HCl (Zofran) 4 mg PRN Q6HRS PRN IV NAUSEA/VOMITING; Start 12/14/18 at 07:45; Stop 12/14/18 at 15:00; Status DC Fentanyl Citrate (Fentanyl 2ml Vial) 25 mcg PRN Q5MIN PRN IV MILD PAIN; Start 12/14/18 at 07:45; Stop 12/14/18 at 15:00; Status DC Fentanyl Citrate (Fentanyl 2ml Vial) 50 mcg PRN Q5MIN PRN IV MODERATE TO SEVERE PAIN; Start 12/14/18 at 07:45; Stop 12/14/18 at 15:00; Status DC Morphine Sulfate (Morphine Sulfate) 1 mg PRN Q10MIN PRN IV SEVERE PAIN Last administered on 12/14/18at 10:14; Start 12/14/18 at 07:45; Stop 12/14/18 at 15:00; Status DC Ringer's Solution 1,000 ml @ 30 mls/hr Q24H IV Last administered on 12/14/18at 10:10; Start 12/14/18 at 07:40; Stop 12/14/18 at 13:53; Status DC Lidocaine HCl (Xylocaine-Mpf 1% 2ml Vial) 2 ml PRN 1X PRN ID PRIOR TO IV START; Start 12/14/18 at 07:45; Stop 12/14/18 at 15:00; Status DC Hydromorphone HCl (Dilaudid) 0.5 mg PRN Q10MIN PRN IV SEV PAIN, Second choice; Start 12/14/18 at 07:45; Stop 12/14/18 at 15:00; Status DC Prochlorperazine Edisylate (Compazine) 5 mg PACU PRN PRN IV NAUSEA, MRX1 Last administered on 12/14/18at 10:18; Start 12/14/18 at 07:45; Stop 12/14/18 at 15:00; Status DC Cefazolin Sodium 50 ml @ As Directed STK-MED ONCE IV ; Start 12/14/18 at 07:55; Stop 12/14/18 at 07:56; Status DC Cefazolin Sodium 1 gm/Dextrose 50 ml @ 100 mls/hr Q6H IV ; Start 12/14/18 at 08:15; Stop 12/14/18 at 20:44; Status UNV Warfarin Sodium (Coumadin Per Pharmacy) 1 each PRN DAILY PRN MC SEE COMMENTS Last administered on 12/14/18at 14:51; Start 12/14/18 at 08:00 Acetaminophen/ Hydrocodone Bitart (Lortab 5/325) 1 tab PRN Q4HRS PRN PO PAIN Last administered on 12/15/18at 08:00; Start 12/14/18 at 08:00 Cefazolin Sodium (Ancef) 1 gm Q6H IVP Last administered on 12/15/18at 03:07; Start 12/14/18 at 14:00; Stop 12/15/18 at 02:01; Status DC Sevoflurane (Ultane) 30 ml STK-MED ONCE IH ; Start 12/14/18 at 08:15; Stop 12/14/18 at 08:18; Status DC Morphine Sulfate 5 mg/Ketorolac Tromethamine 30 mg/Ropivacaine 60 ml/Epinephrine HCl 0.5 mg/Sodium Chloride 100 ml @ 100 mls/hr 1X ONCE INT ART Last administered on 12/14/18at 08:32; Start 12/14/18 at 09:00; Stop 12/14/18 at 09:59; Status DC Atenolol (Tenormin) 50 mg DAILY PO ; Start 12/14/18 at 14:30 Folic Acid (Folic Acid) 1 mg DAILY PO Last administered on 12/15/18at 08:00; Start 12/14/18 at 14:30 Potassium Chloride (Klor-Con) 20 meq DAILY PO Last administered on 12/15/18at 08:00; Start 12/14/18 at 14:30 Latanoprost (Xalatan) 1 drop QHS OU Last administered on 12/14/18at 20:01; Start 12/14/18 at 21:00 Multivitamins 10 ml/Thiamine HCl 100 mg/Folic Acid 1 mg/Sodium Chloride 1,011.2 ml @ 100 mls/ hr DAILY IV Last administered on 12/15/18at 08:01; Start 12/14/18 at 15:00; Stop 12/18/18 at 19:07 Lorazepam (Ativan) 2 mg PRN Q1HR PRN IV For CIWA 8-14; Start 12/14/18 at 14:00 Lorazepam (Ativan) 4 mg PRN Q1HR PRN IV For CIWA 15 or greater; Start 12/14/18 at 14:00 Haloperidol Lactate (Haldol Inj) 5 mg PRN Q4HRS PRN IVP Hallucinatns,Confusn,Delirium; Start 12/14/18 at 14:00 Diphenhydramine HCl (Benadryl) 25 mg PRN Q15MIN PRN IVP EPS symptoms 2'Haldol admin; Start 12/14/18 at 14:00 Clonidine HCl (Catapres) 0.1 mg PRN Q1HR PRN PO SBP > 180 or DBP > 100, MRX3; Start 12/14/18 at 14:00 Lorazepam (Ativan) 2 mg PRN Q15MIN PRN IV SEE COMMENTS; Start 12/14/18 at 14:00; Stop 12/14/18 at 14:00; Status DC Lorazepam (Ativan) 4 mg PRN Q15MIN PRN IV SEE COMMENTS; Start 12/14/18 at 14:00; Stop 12/14/18 at 14:00; Status DC Albuterol/ Ipratropium (Duoneb) 3 ml RTQID NEB Last administered on 12/15/18at 07:31; Start 12/14/18 at 16:00 Sodium Chloride (Normal Saline Flush) 3 ml QSHIFT PRN IV AFTER MEDS AND BLOOD D RAWS; Start 12/14/18 at 14:00 Ondansetron HCl (Zofran) 4 mg PRN Q4HRS PRN IV NAUSEA/VOMITING; Start 12/14/18 at 14:00 Zolpidem Tartrate (Ambien) 5 mg PRN QHS PRN PO INSOMNIA; Start 12/14/18 at 14:00 Acetaminophen (Tylenol) 650 mg PRN Q4HRS PRN PO TEMP OVER 100.4F OR MILD PAIN; Start 12/14/18 at 14:00 Al Hydroxide/Mg Hydroxide (Mylanta Plus Xs) 30 ml PRN DAILY PRN PO HEARTBURN / GAS; Start 12/14/18 at 14:00 Clonidine HCl (Catapres) 0.1 mg PRN Q6HRS PRN PO SBP>160 OR DBP>90; Start 12/14/18 at 14:00 Docusate Sodium (Colace) 100 mg PRN BID PRN PO CONSTIPATION; Start 12/14/18 at 14:00 Guaifenesin (Robitussin) 200 mg PRN Q4HRS PRN PO COUGH; Start 12/14/18 at 14:00 Lorazepam (Ativan) 0.5 mg PRN Q4HRS PRN PO ANXIETY / AGITATION; Start 12/14/18 at 14:00 Warfarin Sodium (Coumadin) 5 mg 1X WARF ONCE PO Last administered on 12/14/18at 17:32; Start 12/14/18 at 16:00; Stop 12/14/18 at 16:01; Status DC Morphine Sulfate (Morphine Sulfate) 2 mg PRN Q2HR PRN IV SEVERE PAIN Last administered on 12/15/18at 03:07; Start 12/14/18 at 22:15 Active Scripts Active Reported Triamcinolone Acetonide 0.1% Cream (Triamcinolone Acetonide) 15 Gm Cream..g. 1 Luis TD BID Combigan Eye Drops (Brimonidine Tartrate/Timolol) 5 Ml Drops 1 Drp OU BID Lopressor (Metoprolol Tartrate) 100 Mg Tablet 50 Mg PO BID Latanoprost 2.5 Ml Drops 1 Drop EACHEYE QHS Vitals/I & O Vital Sign - Last 24 Hours 12/14/18 12/14/18 12/14/18 12/14/18 09:29 09:29 09:44 09:56 Temp 97.6 97.6 Pulse 114 114 Resp 20 20 20 B/P (MAP) 121/57 140/62 Pulse Ox 95 95 O2 Delivery Mask Simple Mask Simple Mask Nasal Cannula O2 Flow Rate 10 10 10 2.0 12/14/18 12/14/18 12/14/18 12/14/18 09:59 10:14 10:14 10:23 Temp 97.9 97.9 97.9 97.9 Pulse 119 122 Resp 20 20 22 B/P (MAP) 139/69 155/68 Pulse Ox 94 90 O2 Delivery Nasal Cannula Nasal Cannula Nasal Cannula Nasal Cannula O2 Flow Rate 2 2.0 3 2 12/14/18 12/14/18 12/14/18 12/14/18 10:26 11:00 11:15 11:30 Pulse 113 112 114 Resp 18 18 18 B/P (MAP) Pulse Ox 94 93 90 O2 Delivery Nasal Cannula Nasal Cannula Nasal Cannula Nasal Cannula O2 Flow Rate 3.0 2.0 2.0 2.0 12/14/18 12/14/18 12/14/18 12/14/18 11:45 12:00 12:30 13:00 Pulse 111 109 109 107 Resp 18 18 18 18 B/P (MAP) 133/69 (90) Pulse Ox 94 95 95 96 O2 Delivery Nasal Cannula Nasal Cannula Nasal Cannula Nasal Cannula O2 Flow Rate 2.0 2.0 2.0 2.0 12/14/18 12/14/18 12/14/18 12/14/18 14:00 14:14 17:31 19:15 Temp 98.2 98.2 Pulse 107 115 Resp 18 20 B/P (MAP) 125/62 (83) 142/58 (86) Pulse Ox 98 95 O2 Delivery Nasal Cannula Nasal Cannula Nasal Cannula Nasal Cannula O2 Flow Rate 2.0 3.0 3.0 3.0 12/14/18 12/14/18 12/14/18 12/14/18 19:50 19:50 20:19 20:20 Resp 20 20 Pulse Ox 95 O2 Delivery Nasal Cannula Nasal Cannula Nasal Cannula Nasal Cannula O2 Flow Rate 3.0 3.0 2.0 3.0 12/14/18 12/14/18 12/15/18 12/15/18 22:18 23:00 03:00 03:07 Temp 97.9 97.8 97.9 97.8 Pulse 113 117 Resp 20 18 18 20 B/P (MAP) 144/64 (90) 125/61 (82) Pulse Ox 92 94 O2 Delivery Nasal Cannula Nasal Cannula Nasal Cannula Nasal Cannula O2 Flow Rate 2.0 2.0 2.0 2.0 12/15/18 12/15/18 12/15/18/13/19 03:37 07:00 07:33 07:33 Temp 98.2 98.2 Pulse 131 Resp 20 18 B/P (MAP) 125/51 (75) Pulse Ox 95 97 O2 Delivery Nasal Cannula Room Air Nasal Cannula Nasal Cannula O2 Flow Rate 2.0 2.0 2.0 12/15/18 08:00 O2 Delivery Nasal Cannula O2 Flow Rate 2.0 Intake and Output 12/14/18 12/14/18 12/15/18 14:59 22:59 06:59 Intake Total 1450 ml 100 ml 1011.2 ml Output Total 625 ml 450 ml Balance 825 ml 100 ml 561.2 ml EMIR RAMOS MD December 15, 2018 08:47
--- NOTE | 2018-12-15 09:47 | PDOC2 ---
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 She noted immediate hip pain and deformity as well as inability to bear weight. This prompted a visit to the emergency department where the above injury was discovered. She was admitted for care regarding this. She tells me that her hip pain is a little bit better at rest, she feels that all around her hip, does radiate down her thigh little ways. It does not cross her knee. No prior history of any hip complaints. She is up and a little bit more comfortable since getting pain medicine here. Past Medical History Cardiovascular: HTN Pulmonary: Pneumonia Infectious disease: No pertinent hx ENT: No pertinent hx Dermatology: No pertinent hx Past Surgical History Past Surgical History: Other Family History Family History: Alcohol Abuse, Hypertension Social History 1 pack per day ALCOHOL: heavy Drugs: None Current Problem List Problem List Problems Medical Problems: (1) Closed right hip fracture Status: Acute Current Medications Current Medications Current Medications Morphine Sulfate (Morphine Sulfate) 4 mg 1X ONCE IV Last administered on 12/13/18at 20:45; Start 12/13/18 at 20:45; Stop 12/13/18 at 20:46; Status DC Ondansetron HCl (Zofran) 4 mg PRN Q8HRS PRN IV NAUSEA/VOMITING 1ST CHOICE Last administered on 12/13/18at 21:47; Start 12/13/18 at 21:00; Stop 12/14/18 at 20:59; Status DC Morphine Sulfate (Morphine Sulfate) 2 mg PRN Q2HR PRN IV SEVERE PAIN Last administered on 12/14/18at 19:50; Start 12/13/18 at 21:00; Stop 12/14/18 at 20:59; Status DC Dextrose/Sodium Chloride 1,000 ml @ 125 mls/hr 1X ONCE IV Last administered on 12/13/18at 23:11; Start 12/13/18 at 21:00; Stop 12/14/18 at 04:59; Status DC Cefazolin Sodium 1 gm/Dextrose 50 ml @ 100 mls/hr 1X ONCE IV ; Start 12/13/18 at 21:00; Stop 12/13/18 at 21:29; Status UNV Cefazolin Sodium (Ancef) 1 gm 1X ONCE IVP Last administered on 12/13/18at 23:10; Start 12/13/18 at 22:00; Stop 12/13/18 at 22:01; Status DC Ketorolac Tromethamine (Toradol 15mg Vial) 15 mg PRN Q6HRS PRN IV MILD - MODERATE PAIN Last administered on 12/14/18at 22:11; Start 12/14/18 at 01:45; Stop 12/19/18 at 01:44 Ketorolac Tromethamine (Toradol 30mg Vial) 30 mg 1X ONCE IV ; Start 12/14/18 at 02:00; Stop 12/14/18 at 02:01; Status DC Fentanyl Citrate (Fentanyl 2ml Vial) 100 mcg STK-MED ONCE .ROUTE ; Start 12/14/18 at 07:30; Stop 12/14/18 at 07:31; Status DC Dexamethasone Sodium Phosphate (Decadron) 4 mg STK-MED ONCE .ROUTE ; Start 12/14/18 at 07:30; Stop 12/14/18 at 07:31; Status DC Propofol 20 ml @ As Directed STK-MED ONCE IV ; Start 12/14/18 at 07:30; Stop 12/14/18 at 07:31; Status DC Lidocaine HCl (Lidocaine Pf 2% Vial) 5 ml STK-MED ONCE .ROUTE ; Start 12/14/18 at 07:30; Stop 12/14/18 at 07:31; Status DC Ondansetron HCl (Zofran) 4 mg STK-MED ONCE .ROUTE ; Start 12/14/18 at 07:30; Stop 12/14/18 at 07:31; Status DC Ondansetron HCl (Zofran) 4 mg PRN Q6HRS PRN IV NAUSEA/VOMITING; Start 12/14/18 at 07:45; Stop 12/14/18 at 15:00; Status DC Fentanyl Citrate (Fentanyl 2ml Vial) 25 mcg PRN Q5MIN PRN IV MILD PAIN; Start 12/14/18 at 07:45; Stop 12/14/18 at 15:00; Status DC Fentanyl Citrate (Fentanyl 2ml Vial) 50 mcg PRN Q5MIN PRN IV MODERATE TO SEVERE PAIN; Start 12/14/18 at 07:45; Stop 12/14/18 at 15:00; Status DC Morphine Sulfate (Morphine Sulfate) 1 mg PRN Q10MIN PRN IV SEVERE PAIN Last administered on 12/14/18at 10:14; Start 12/14/18 at 07:45; Stop 12/14/18 at 15:00; Status DC Ringer's Solution 1,000 ml @ 30 mls/hr Q24H IV Last administered on 12/14/18at 10:10; Start 12/14/18 at 07:40; Stop 12/14/18 at 13:53; Status DC Lidocaine HCl (Xylocaine-Mpf 1% 2ml Vial) 2 ml PRN 1X PRN ID PRIOR TO IV START; Start 12/14/18 at 07:45; Stop 12/14/18 at 15:00; Status DC Hydromorphone HCl (Dilaudid) 0.5 mg PRN Q10MIN PRN IV SEV PAIN, Second choice; Start 12/14/18 at 07:45; Stop 12/14/18 at 15:00; Status DC Prochlorperazine Edisylate (Compazine) 5 mg PACU PRN PRN IV NAUSEA, MRX1 Last administered on 12/14/18at 10:18; Start 12/14/18 at 07:45; Stop 12/14/18 at 15:00; Status DC Cefazolin Sodium 50 ml @ As Directed STK-MED ONCE IV ; Start 12/14/18 at 07:55; Stop 12/14/18 at 07:56; Status DC Cefazolin Sodium 1 gm/Dextrose 50 ml @ 100 mls/hr Q6H IV ; Start 12/14/18 at 08:15; Stop 12/14/18 at 20:44; Status UNV Warfarin Sodium (Coumadin Per Pharmacy) 1 each PRN DAILY PRN MC SEE COMMENTS Last administered on 12/14/18at 14:51; Start 12/14/18 at 08:00 Acetaminophen/ Hydrocodone Bitart (Lortab 5/325) 1 tab PRN Q4HRS PRN PO PAIN Last administered on 12/15/18at 08:00; Start 12/14/18 at 08:00 Cefazolin Sodium (Ancef) 1 gm Q6H IVP Last administered on 12/15/18at 03:07; Start 12/14/18 at 14:00; Stop 12/15/18 at 02:01; Status DC Sevoflurane (Ultane) 30 ml STK-MED ONCE IH ; Start 12/14/18 at 08:15; Stop 12/14/18 at 08:18; Status DC Morphine Sulfate 5 mg/Ketorolac Tromethamine 30 mg/Ropivacaine 60 ml/Epinephrine HCl 0.5 mg/Sodium Chloride 100 ml @ 100 mls/hr 1X ONCE INT ART Last administered on 12/14/18at 08:32; Start 12/14/18 at 09:00; Stop 12/14/18 at 09:59; Status DC Atenolol (Tenormin) 50 mg DAILY PO ; Start 12/14/18 at 14:30 Folic Acid (Folic Acid) 1 mg DAILY PO Last administered on 12/15/18at 08:00; Start 12/14/18 at 14:30 Potassium Chloride (Klor-Con) 20 meq DAILY PO Last administered on 12/15/18at 08:00; Start 12/14/18 at 14:30 Latanoprost (Xalatan) 1 drop QHS OU Last administered on 12/14/18at 20:01; Start 12/14/18 at 21:00 Multivitamins 10 ml/Thiamine HCl 100 mg/Folic Acid 1 mg/Sodium Chloride 1,011.2 ml @ 100 mls/ hr DAILY IV Last administered on 12/15/18at 08:01; Start 12/14/18 at 15:00; Stop 12/18/18 at 19:07 Lorazepam (Ativan) 2 mg PRN Q1HR PRN IV For CIWA 8-14; Start 12/14/18 at 14:00 Lorazepam (Ativan) 4 mg PRN Q1HR PRN IV For CIWA 15 or greater; Start 12/14/18 at 14:00 Haloperidol Lactate (Haldol Inj) 5 mg PRN Q4HRS PRN IVP Hallucinatns,Confusn,Delirium; Start 12/14/18 at 14:00 Diphenhydramine HCl (Benadryl) 25 mg PRN Q15MIN PRN IVP EPS symptoms 2'Haldol admin; Start 12/14/18 at 14:00 Clonidine HCl (Catapres) 0.1 mg PRN Q1HR PRN PO SBP > 180 or DBP > 100, MRX3; Start 12/14/18 at 14:00 Lorazepam (Ativan) 2 mg PRN Q15MIN PRN IV SEE COMMENTS; Start 12/14/18 at 14:00; Stop 12/14/18 at 14:00; Status DC Lorazepam (Ativan) 4 mg PRN Q15MIN PRN IV SEE COMMENTS; Start 12/14/18 at 14:00; Stop 12/14/18 at 14:00; Status DC Albuterol/ Ipratropium (Duoneb) 3 ml RTQID NEB Last administered on 12/15/18at 07:31; Start 12/14/18 at 16:00 Sodium Chloride (Normal Saline Flush) 3 ml QSHIFT PRN IV AFTER MEDS AND BLOOD DRAWS; Start 12/14/18 at 14:00 Ondansetron HCl (Zofran) 4 mg PRN Q4HRS PRN IV NAUSEA/VOMITING; Start 12/14/18 at 14:00 Zolpidem Tartrate (Ambien) 5 mg PRN QHS PRN PO INSOMNIA; Start 12/14/18 at 14:00 Acetaminophen (Tylenol) 650 mg PRN Q4HRS PRN PO TEMP OVER 100.4F OR MILD PAIN; Start 12/14/18 at 14:00 Al Hydroxide/Mg Hydroxide (Mylanta Plus Xs) 30 ml PRN DAILY PRN PO HEARTBURN / GAS Last administered on 12/15/18at 08:49; Start 12/14/18 at 14:00 Clonidine HCl (Catapres) 0.1 mg PRN Q6HRS PRN PO SBP>160 OR DBP>90; Start 12/14/18 at 14:00 Docusate Sodium (Colace) 100 mg PRN BID PRN PO CONSTIPATION; Start 12/14/18 at 14:00 Guaifenesin (Robitussin) 200 mg PRN Q4HRS PRN PO COUGH; Start 12/14/18 at 14:00 Lorazepam (Ativan) 0.5 mg PRN Q4HRS PRN PO ANXIETY / AGITATION; Start 12/14/18 at 14:00 Warfarin Sodium (Coumadin) 5 mg 1X WARF ONCE PO Last administered on 12/14/18at 17:32; Start 12/14/18 at 16:00; Stop 12/14/18 at 16:01; Status DC Morphine Sulfate (Morphine Sulfate) 2 mg PRN Q2HR PRN IV SEVERE PAIN Last administered on 12/15/18at 03:07; Start 12/14/18 at 22:15 Active Scripts Active Reported Triamcinolone Acetonide 0.1% Cream (Triamcinolone Acetonide) 15 Gm Cream..g. 1 Luis TD BID Combigan Eye Drops (Brimonidine Tartrate/Timolol) 5 Ml Drops 1 Drp OU BID Lopressor (Metoprolol Tartrate) 100 Mg Tablet 50 Mg PO BID Latanoprost 2.5 Ml Drops 1 Drop EACHEYE QHS Allergies Allergies: Coded Allergies: ciprofloxacin (Verified Allergy, Intermediate, BROKE OUT WITH WELTS, 09/30/16) PATIENT NOT SURE IF IT'S CIPRO ? THAT WAS GIVEN codeine (Verified Allergy, Intermediate, 12/13/18) ROS General: No: Chills, Night Sweats, Fatigue, Malaise, Appetite, Other PSYCHOLOGICAL ROS: No: Anxiety, Behavioral Disorder, Concentration difficultie, Decreased libido, Depression, Disorientation, Hallucinations, Hostility, Irritablity, Memory difficulties, Mood Swings, Obsessive thoughts, Physical abuse, Sexual abuse, Sleep disturbances, Suicidal ideation, Other Eyes: No Blurry vision, No Decreased vision, No Double vision, No Dry eyes, No Excessive tearing, No Eye Pain, No Itchy Eyes, No Loss of vision, No Photophobia, No Scotomata, No Uses contacts, No Uses glasses, No Other HEENT: No: Heacaches, Visual Changes, Hearing change, Nasal congestion, Nasal discharge, Oral lesions, Sinus pain, Sore Throat, Epistaxis, Sneezing, Snoring, Tinnitus, Vertigo, Vocal changes, Other ALLERGY AND IMMUNOLOGY: No: Hives, Insect Bite Sensitivity, Itchy/Watery Eyes, Nasal Congestion, Post Nasal Drip, Seasonal Allergies, Other Hematological and Lymphatic: No: Bleeding Problems, Blood Clots, Blood Transfus ions, Brusing, Night Sweats, Pallor, Swollen Lymph Nodes, Other ENDOCRINE: No: Breast Changes, Galactorrhea, Hair Pattern Changes, Hot Flashes, Malaise/lethargy, Mood Swings, Palpitations, Polydipsia/polyuria, Skin Changes, Temperature Intolerance, Unexpected Weight Changes, Other Respiratory: No: Cough, Hemoptysis, Orthopnea, Pleuritic Pain, Shortness of breath, SOB with excertion, Sputum Changes, Stridor, Tachypnea, Wheezing, Other Cardiovascular: No Chest Pain, No Palpitations, No Orthopnea, No Paroxysmal Noc. Dyspnea, No Edema, No Lt Headedness, No Other Gastrointestinal: No Nausea, No Vomiting, No Abdominal Pain, No Diarrhea, No Constipation, No Melena, No Hematochezia, No Other Genitourinary: No Dysuria, No Frequency, No Incontinence, No Hematuria, No Retention, No Discharge, No Urgency, No Pain, No Flank Pain, No Other, No , No , No , No , No , No , No Musculoskeletal: Yes Joint Pain, Yes Joint Stiffness, Yes Muscle Pain Neurological: No Behavorial Changes, No Bowel/Bladder ControlChng, No Confusion, No Dizziness, No Gait Disturbance, No Headaches, No Impaired Coord/balance, No Memory Loss, No Numbness/Tingling, No Seizures, No Speech Problems, No Tremors, No Visual Changes, No Weakness, No Other Skin: No Dry Skin, No Eczema, No Hair Changes, No Lumps, No Mole Changes, No Mottling, No Nail Changes, No Pruritus, No Rash, No Skin Lesion Changes, No Other, No Acne Physical Exam General: Alert, Oriented X3 HEENT: Atraumatic, EOMI Lungs: Other (respirations are unlabored with symmetric chest rise) Heart: Regular rate Abdomen: Soft, No tenderness Extremities: No edema, Normal pulses Neuro: Normal speech, Strength at 5/5 X4 ext, Sensation intact Psych/Mental Status: Mental status NL, Mood NL MUSCULOSKELETAL: Other (she has shortening and gross deformity of her right lower extremity at the hip. Right lower extremity is held in external rotation. She can wiggle her toes. She has fullness around her proximal thigh. No tenderness at knees feet or ankles.) Vitals VITALS Vital Signs Date Time Temp Pulse Resp B/P (MAP) Pulse Ox O2 Delivery O2 Flow Rate FiO2 12/15/18 09:00 Nasal Cannula 2.0 12/15/18 07:33 97 12/15/18 07:00 98.2 131 18 125/51 (75) 98.2 Labs Labs Laboratory Tests Test 12/13/18 19:50 12/13/18 22:30 12/14/18 04:20 12/14/18 14:07 White Blood Count 9.5 x10^3/uL (4.0-11.0) 7.6 x10^3/uL (4.0-11.0) Red Blood Count 3.65 x10^6/uL (3.50-5.40) 2.80 x10^6/uL (3.50-5.40) Hemoglobin 12.9 g/dL (12.0-15.5) 10.2 g/dL (12.0-15.5) Hematocrit 38.3 % (36.0-47.0) 29.4 % (36.0-47.0) Mean Corpuscular Volume 105 fL (79-100) 105 fL (79-100) Mean Corpuscular Hemoglobin 35 pg (25-35) 37 pg (25-35) Mean Corpuscular Hemoglobin Concent 34 g/dL (31-37) 35 g/dL (31-37) Red Cell Distribution Width 13.1 % (11.5-14.5) 13.1 % (11.5-14.5) Platelet Count 188 x10^3/uL (140-400) 132 x10^3/uL (140-400) Neutrophils (%) (Auto) 75 % (31-73) 76 % (31-73) Lymphocytes (%) (Auto) 13 % (24-48) 15 % (24-48) Monocytes (%) (Auto) 5 % (0-9) 6 % (0-9) Eosinophils (%) (Auto) 6 % (0-3) 2 % (0-3) Basophils (%) (Auto) 1 % (0-3) 1 % (0-3) Neutrophils # (Auto) 7.2 x10^3uL (1.8-7.7) 5.8 x10^3uL (1.8-7.7) Lymphocytes # (Auto) 1.3 x10^3/uL (1.0-4.8) 1.1 x10^3/uL (1.0-4.8) Monocytes # (Auto) 0.5 x10^3/uL (0.0-1.1) 0.5 x10^3/uL (0.0-1.1) Eosinophils # (Auto) 0.6 x10^3/uL (0.0-0.7) 0.2 x10^3/uL (0.0-0.7) Basophils # (Auto) 0.1 x10^3/uL (0.0-0.2) 0.1 x10^3/uL (0.0-0.2) Sodium Level 135 mmol/L (136-145) 135 mmol/L (136-145) Potassium Level 4.0 mmol/L (3.5-5.1) 3.9 mmol/L (3.5-5.1) Chloride Level 95 mmol/L (98-107) 98 mmol/L (98-107) Carbon Dioxide Level 26 mmol/L (21-32) 30 mmol/L (21-32) Anion Gap 14 (6-14) 7 (6-14) Blood Urea Nitrogen 7 mg/dL (7-20) 7 mg/dL (7-20) Creatinine 0.7 mg/dL (0.6-1.0) 0.5 mg/dL (0.6-1.0) Estimated GFR (Cockcroft-Gault) 81.4 120.0 Glucose Level 123 mg/dL (70-99) 142 mg/dL (70-99) Calcium Level 8.7 mg/dL (8.5-10.1) 8.0 mg/dL (8.5-10.1) Nasal Screen MRSA (PCR) Negative (Negative) Prothrombin Time 14.2 SEC (11.7-14.0) Prothromb Time International Ratio 1.1 (0.8-1.1) Total Bilirubin 0.6 mg/dL (0.2-1.0) Direct Bilirubin 0.4 mg/dL (0.0-0.2) Aspartate Amino Transf (AST/SGOT) 43 U/L (15-37) Alanine Aminotransferase (ALT/SGPT) 28 U/L (14-59) Alkaline Phosphatase 62 U/L (46-116) Total Protein 5.7 g/dL (6.4-8.2) Albumin 2.7 g/dL (3.4-5.0) Test 12/14/18 14:10 12/14/18 16:30 12/15/18 04:25 Thyroid Stimulating Hormone (TSH) 2.422 uIU/mL (0.358-3.74) Urine Opiates Screen Pos (NEG) Urine Methadone Screen Neg (NEG) Urine Barbiturates Neg (NEG) Urine Phencyclidine Screen Neg (NEG) Urine Amphetamine/Methamphetamine Neg (NEG) Urine Benzodiazepines Screen Neg (NEG) Urine Cocaine Screen Neg (NEG) Urine Cannabinoids Screen Neg (NEG) Urine Ethyl Alcohol Neg (NEG) White Blood Count 13.7 x10^3/uL (4.0-11.0) Red Blood Count 1.98 x10^6/uL (3.50-5.40) Hemoglobin 7.0 g/dL (12.0-15.5) Hematocrit 21.1 % (36.0-47.0) Mean Corpuscular Volume 107 fL (79-100) Mean Corpuscular Hemoglobin 35 pg (25-35) Mean Corpuscular Hemoglobin Concent 33 g/dL (31-37) Red Cell Distribution Width 13.1 % (11.5-14.5) Platelet Count 116 x10^3/uL (140-400) Neutrophils (%) (Auto) 89 % (31-73) Lymphocytes (%) (Auto) 5 % (24-48) Monocytes (%) (Auto) 5 % (0-9) Eosinophils (%) (Auto) 0 % (0-3) Basophils (%) (Auto) 0 % (0-3) Neutrophils # (Auto) 12.2 x10^3uL (1.8-7.7) Lymphocytes # (Auto) 0.7 x10^3/uL (1.0-4.8) Monocytes # (Auto) 0.7 x10^3/uL (0.0-1.1) Eosinophils # (Auto) 0.0 x10^3/uL (0.0-0.7) Basophils # (Auto) 0.0 x10^3/uL (0.0-0.2) Segmented Neutrophils % 89 % (35-66) Lymphocytes % 8 % (24-48) Monocytes % 3 % (0-10) Platelet Estimate Adequate (ADEQUATE) Macrocytosis Slight Stomatocytes Occ Prothrombin Time 13.6 SEC (11.7-14.0) Prothromb Time International Ratio 1.1 (0.8-1.1) Sodium Level 139 mmol/L (136-145) Potassium Level 4.6 mmol/L (3.5-5.1) Chloride Level 102 mmol/L (98-107) Carbon Dioxide Level 29 mmol/L (21-32) Anion Gap 8 (6-14) Blood Urea Nitrogen 7 mg/dL (7-20) Creatinine 0.6 mg/dL (0.6-1.0) Estimated GFR (Cockcroft-Gault) 97.2 BUN/Creatinine Ratio 12 (6-20) Glucose Level 186 mg/dL (70-99) Calcium Level 7.7 mg/dL (8.5-10.1) Total Bilirubin 0.4 mg/dL (0.2-1.0) Aspartate Amino Transf (AST/SGOT) 36 U/L (15-37) Alanine Aminotransferase (ALT/SGPT) 25 U/L (14-59) Alkaline Phosphatase 54 U/L (46-116) Total Protein 5.8 g/dL (6.4-8.2) Albumin 2.5 g/dL (3.4-5.0) Albumin/Globulin Ratio 0.8 (1.0-1.7) Laboratory Tests Test 12/14/18 14:07 12/14/18 14:10 12/14/18 16:30 12/15/18 04:25 Prothrombin Time 14.2 SEC (11.7-14.0) 13.6 SEC (11.7-14.0) Prothromb Time International Ratio 1.1 (0.8-1.1) 1.1 (0.8-1.1) Total Bilirubin 0.6 mg/dL (0.2-1.0) 0.4 mg/dL (0.2-1.0) Direct Bilirubin 0.4 mg/dL (0.0-0.2) Aspartate Amino Transf (AST/SGOT) 43 U/L (15-37) 36 U/L (15-37) Alanine Aminotransferase (ALT/SGPT) 28 U/L (14-59) 25 U/L (14-59) Alkaline Phosphatase 62 U/L (46-116) 54 U/L (46-116) Total Protein 5.7 g/dL (6.4-8.2) 5.8 g/dL (6.4-8.2) Albumin 2.7 g/dL (3.4-5.0) 2.5 g/dL (3.4-5.0) Thyroid Stimulating Hormone (TSH) 2.422 uIU/mL (0.358-3.74) Urine Opiates Screen Pos (NEG) Urine Methadone Screen Neg (NEG) Urine Barbiturates Neg (NEG) Urine Phencyclidine Screen Neg (NEG) Urine Amphetamine/Methamphetamine Neg (NEG) Urine Benzodiazepines Screen Neg (NEG) Urine Cocaine Screen Neg (NEG) Urine Cannabinoids Screen Neg (NEG) Urine Ethyl Alcohol Neg (NEG) White Blood Count 13.7 x10^3/uL (4.0-11.0) Red Blood Count 1.98 x10^6/uL (3.50-5.40) Hemoglobin 7.0 g/dL (12.0-15.5) Hematocrit 21.1 % (36.0-47.0) Mean Corpuscular Volume 107 fL (79-100) Mean Corpuscular Hemoglobin 35 pg (25-35) Mean Corpuscular Hemoglobin Concent 33 g/dL (31-37) Red Cell Distribution Width 13.1 % (11.5-14.5) Platelet Count 116 x10^3/uL (140-400) Neutrophils (%) (Auto) 89 % (31-73) Lymphocytes (%) (Auto) 5 % (24-48) Monocytes (%) (Auto) 5 % (0-9) Eosinophils (%) (Auto) 0 % (0-3) Basophils (%) (Auto) 0 % (0-3) Neutrophils # (Auto) 12.2 x10^3uL (1.8-7.7) Lymphocytes # (Auto) 0.7 x10^3/uL (1.0-4.8) Monocytes # (Auto) 0.7 x10^3/uL (0.0-1.1) Eosinophils # (Auto) 0.0 x10^3/uL (0.0-0.7) Basophils # (Auto) 0.0 x10^3/uL (0.0-0.2) Segmented Neutrophils % 89 % (35-66) Lymphocytes % 8 % (24-48) Monocytes % 3 % (0-10) Platelet Estimate Adequate (ADEQUATE) Macrocytosis Slight Stomatocytes Occ Sodium Level 139 mmol/L (136-145) Potassium Level 4.6 mmol/L (3.5-5.1) Chloride Level 102 mmol/L (98-107) Carbon Dioxide Level 29 mmol/L (21-32) Anion Gap 8 (6-14) Blood Urea Nitrogen 7 mg/dL (7-20) Creatinine 0.6 mg/dL (0.6-1.0) Estimated GFR (Cockcroft-Gault) 97.2 BUN/Creatinine Ratio 12 (6-20) Glucose Level 186 mg/dL (70-99) Calcium Level 7.7 mg/dL (8.5-10.1) Albumin/Globulin Ratio 0.8 (1.0-1.7) Images Images X-rays of hip and pelvis as well as knee were interpreted by myself. Reports reviewed. She has a comminuted inter/subtrochanteric hip fracture Assessment/Plan Assessment/Plan Closed right comminuted proximal femur fracture, I think this represents more of a subtrochanteric fracture in terms of how even therefore I discussed the risks, benefits, and alternatives to long intramedullary nailing with her. She was familiar with the procedure already. I did go over the risks, as well as expected rehabilitation. We talked about the hospital stay as well. We will plan on proceeding with surgery here shortly AMADOU LÓPEZ II, MD December 15, 2018 09:47
--- NOTE | 2018-12-15 10:01 | PDOC ---
ORTHO PROGRESS NOTES Subjective Pain tolerable, Feels "fine". No abd complaints, Denies any CP, SOB, lightheadedness Vitals Vital Signs Date Time Temp Pulse Resp B/P (MAP) Pulse Ox O2 Delivery O2 Flow Rate FiO2 12/15/18 09:00 Nasal Cannula 2.0 12/15/18 07:33 97 12/15/18 07:00 98.2 131 18 125/51 (75) 98.2 Labs Laboratory Tests Test 12/13/18 19:50 12/13/18 22:30 12/14/18 04:20 12/14/18 14:07 White Blood Count 9.5 x10^3/uL (4.0-11.0) 7.6 x10^3/uL (4.0-11.0) Red Blood Count 3.65 x10^6/uL (3.50-5.40) 2.80 x10^6/uL (3.50-5.40) Hemoglobin 12.9 g/dL (12.0-15.5) 10.2 g/dL (12.0-15.5) Hematocrit 38.3 % (36.0-47.0) 29.4 % (36.0-47.0) Mean Corpuscular Volume 105 fL (79-100) 105 fL (79-100) Mean Corpuscular Hemoglobin 35 pg (25-35) 37 pg (25-35) Mean Corpuscular Hemoglobin Concent 34 g/dL (31-37) 35 g/dL (31-37) Red Cell Distribution Width 13.1 % (11.5-14.5) 13.1 % (11.5-14.5) Platelet Count 188 x10^3/uL (140-400) 132 x10^3/uL (140-400) Neutrophils (%) (Auto) 75 % (31-73) 76 % (31-73) Lymphocytes (%) (Auto) 13 % (24-48) 15 % (24-48) Monocytes (%) (Auto) 5 % (0-9) 6 % (0-9) Eosinophils (%) (Auto) 6 % (0-3) 2 % (0-3) Basophils (%) (Auto) 1 % (0-3) 1 % (0-3) Neutrophils # (Auto) 7.2 x10^3uL (1.8-7.7) 5.8 x10^3uL (1.8-7.7) Lymphocytes # (Auto) 1.3 x10^3/uL (1.0-4.8) 1.1 x10^3/uL (1.0-4.8) Monocytes # (Auto) 0.5 x10^3/uL (0.0-1.1) 0.5 x10^3/uL (0.0-1.1) Eosinophils # (Auto) 0.6 x10^3/uL (0.0-0.7) 0.2 x10^3/uL (0.0-0.7) Basophils # (Auto) 0.1 x10^3/uL (0.0-0.2) 0.1 x10^3/uL (0.0-0.2) Sodium Level 135 mmol/L (136-145) 135 mmol/L (136-145) Potassium Level 4.0 mmol/L (3.5-5.1) 3.9 mmol/L (3.5-5.1) Chloride Level 95 mmol/L (98-107) 98 mmol/L (98-107) Carbon Dioxide Level 26 mmol/L (21-32) 30 mmol/L (21-32) Anion Gap 14 (6-14) 7 (6-14) Blood Urea Nitrogen 7 mg/dL (7-20) 7 mg/dL (7-20) Creatinine 0.7 mg/dL (0.6-1.0) 0.5 mg/dL (0.6-1.0) Estimated GFR (Cockcroft-Gault) 81.4 120.0 Glucose Level 123 mg/dL (70-99) 142 mg/dL (70-99) Calcium Level 8.7 mg/dL (8.5-10.1) 8.0 mg/dL (8.5-10.1) Nasal Screen MRSA (PCR) Negative (Negative) Prothrombin Time 14.2 SEC (11.7-14.0) Prothromb Time International Ratio 1.1 (0.8-1.1) Total Bilirubin 0.6 mg/dL (0.2-1.0) Direct Bilirubin 0.4 mg/dL (0.0-0.2) Aspartate Amino Transf (AST/SGOT) 43 U/L (15-37) Alanine Aminotransferase (ALT/SGPT) 28 U/L (14-59) Alkaline Phosphatase 62 U/L (46-116) Total Protein 5.7 g/dL (6.4-8.2) Albumin 2.7 g/dL (3.4-5.0) Test 12/14/18 14:10 12/14/18 16:30 12/15/18 04:25 Thyroid Stimulating Hormone (TSH) 2.422 uIU/mL (0.358-3.74) Urine Opiates Screen Pos (NEG) Urine Methadone Screen Neg (NEG) Urine Barbiturates Neg (NEG) Urine Phencyclidine Screen Neg (NEG) Urine Amphetamine/Methamphetamine Neg (NEG) Urine Benzodiazepines Screen Neg (NEG) Urine Cocaine Screen Neg (NEG) Urine Cannabinoids Screen Neg (NEG) Urine Ethyl Alcohol Neg (NEG) White Blood Count 13.7 x10^3/uL (4.0-11.0) Red Blood Count 1.98 x10^6/uL (3.50-5.40) Hemoglobin 7.0 g/dL (12.0-15.5) Hematocrit 21.1 % (36.0-47.0) Mean Corpuscular Volume 107 fL (79-100) Mean Corpuscular Hemoglobin 35 pg (25-35) Mean Corpuscular Hemoglobin Concent 33 g/dL (31-37) Red Cell Distribution Width 13.1 % (11.5-14.5) Platelet Count 116 x10^3/uL (140-400) Neutrophils (%) (Auto) 89 % (31-73) Lymphocytes (%) (Auto) 5 % (24-48) Monocytes (%) (Auto) 5 % (0-9) Eosinophils (%) (Auto) 0 % (0-3) Basophils (%) (Auto) 0 % (0-3) Neutrophils # (Auto) 12.2 x10^3uL (1.8-7.7) Lymphocytes # (Auto) 0.7 x10^3/uL (1.0-4.8) Monocytes # (Auto) 0.7 x10^3/uL (0.0-1.1) Eosinophils # (Auto) 0.0 x10^3/uL (0.0-0.7) Basophils # (Auto) 0.0 x10^3/uL (0.0-0.2) Segmented Neutrophils % 89 % (35-66) Lymphocytes % 8 % (24-48) Monocytes % 3 % (0-10) Platelet Estimate Adequate (ADEQUATE) Macrocytosis Slight Stomatocytes Occ Prothrombin Time 13.6 SEC (11.7-14.0) Prothromb Time International Ratio 1.1 (0.8-1.1) Sodium Level 139 mmol/L (136-145) Potassium Level 4.6 mmol/L (3.5-5.1) Chloride Level 102 mmol/L (98-107) Carbon Dioxide Level 29 mmol/L (21-32) Anion Gap 8 (6-14) Blood Urea Nitrogen 7 mg/dL (7-20) Creatinine 0.6 mg/dL (0.6-1.0) Estimated GFR (Cockcroft-Gault) 97.2 BUN/Creatinine Ratio 12 (6-20) Glucose Level 186 mg/dL (70-99) Calcium Level 7.7 mg/dL (8.5-10.1) Total Bilirubin 0.4 mg/dL (0.2-1.0) Aspartate Amino Transf (AST/SGOT) 36 U/L (15-37) Alanine Aminotransferase (ALT/SGPT) 25 U/L (14-59) Alkaline Phosphatase 54 U/L (46-116) Total Protein 5.8 g/dL (6.4-8.2) Albumin 2.5 g/dL (3.4-5.0) Albumin/Globulin Ratio 0.8 (1.0-1.7) Laboratory Tests Test 12/14/18 14:07 12/14/18 14:10 12/14/18 16:30 12/15/18 04:25 Prothrombin Time 14.2 SEC (11.7-14.0) 13.6 SEC (11.7-14.0) Prothromb Time International Ratio 1.1 (0.8-1.1) 1.1 (0.8-1.1) Total Bilirubin 0.6 mg/dL (0.2-1.0) 0.4 mg/dL (0.2-1.0) Direct Bilirubin 0.4 mg/dL (0.0-0.2) Aspartate Amino Transf (AST/SGOT) 43 U/L (15-37) 36 U/L (15-37) Alanine Aminotransferase (ALT/SGPT) 28 U/L (14-59) 25 U/L (14-59) Alkaline Phosphatase 62 U/L (46-116) 54 U/L (46-116) Total Protein 5.7 g/dL (6.4-8.2) 5.8 g/dL (6.4-8.2) Albumin 2.7 g/dL (3.4-5.0) 2.5 g/dL (3.4-5.0) Thyroid Stimulating Hormone (TSH) 2.422 uIU/mL (0.358-3.74) Urine Opiates Screen Pos (NEG) Urine Methadone Screen Neg (NEG) Urine Barbiturates Neg (NEG) Urine Phencyclidine Screen Neg (NEG) Urine Amphetamine/Methamphetamine Neg (NEG) Urine Benzodiazepines Screen Neg (NEG) Urine Cocaine Screen Neg (NEG) Urine Cannabinoids Screen Neg (NEG) Urine Ethyl Alcohol Neg (NEG) White Blood Count 13.7 x10^3/uL (4.0-11.0) Red Blood Count 1.98 x10^6/uL (3.50-5.40) Hemoglobin 7.0 g/dL (12.0-15.5) Hematocrit 21.1 % (36.0-47.0) Mean Corpuscular Volume 107 fL (79-100) Mean Corpuscular Hemoglobin 35 pg (25-35) Mean Corpuscular Hemoglobin Concent 33 g/dL (31-37) Red Cell Distribution Width 13.1 % (11.5-14.5) Platelet Count 116 x10^3/uL (140-400) Neutrophils (%) (Auto) 89 % (31-73) Lymphocytes (%) (Auto) 5 % (24-48) Monocytes (%) (Auto) 5 % (0-9) Eosinophils (%) (Auto) 0 % (0-3) Basophils (%) (Auto) 0 % (0-3) Neutrophils # (Auto) 12.2 x10^3uL (1.8-7.7) Lymphocytes # (Auto) 0.7 x10^3/uL (1.0-4.8) Monocytes # (Auto) 0.7 x10^3/uL (0.0-1.1) Eosinophils # (Auto) 0.0 x10^3/uL (0.0-0.7) Basophils # (Auto) 0.0 x10^3/uL (0.0-0.2) Segmented Neutrophils % 89 % (35-66) Lymphocytes % 8 % (24-48) Monocytes % 3 % (0-10) Platelet Estimate Adequate (ADEQUATE) Macrocytosis Slight Stomatocytes Occ Sodium Level 139 mmol/L (136-145) Potassium Level 4.6 mmol/L (3.5-5.1) Chloride Level 102 mmol/L (98-107) Carbon Dioxide Level 29 mmol/L (21-32) Anion Gap 8 (6-14) Blood Urea Nitrogen 7 mg/dL (7-20) Creatinine 0.6 mg/dL (0.6-1.0) Estimated GFR (Cockcroft-Gault) 97.2 BUN/Creatinine Ratio 12 (6-20) Glucose Level 186 mg/dL (70-99) Calcium Level 7.7 mg/dL (8.5-10.1) Albumin/Globulin Ratio 0.8 (1.0-1.7) Notes A and A sitting in bed normal motor and sensation present in RLE dressing intact and fairly dry Assessment and Plan PT /OT as carlos coumadin will follow AMADOU Casey II, MD December 15, 2018 10:01
--- NOTE | 2018-12-15 10:06 | NUR ---
BENJI following for discharge planning. Discussed with RN, pt is from home with s/o. SW has consult for pt needing SNU. SW awaiting PT/OT notes in order to determine discharge planning and to send referral. Pt's insurance will have to approve for her to go to SNU. SW will continue to follow.
--- NOTE | 2018-12-15 10:37 | NUR ---
Pharmacy Warfarin Dosing Note S:Pharmacy consulted to assist with anticoagulation therapy started 12/14/18 with target INR: 1.6 - 2.5 O:NI STAFFORD is a 78 year old F with Hip Fracture LABS: Last INR: 1.1 Last HGB: 7.0 Last HCT: 21.1 Last PLT: 116 Last dose of 5 mg given on 12/14/18 at 1732 Previous Regimen: Vitamin K given: N Drug Interaction Changes: Ongoing Drug Interactions: A:INR of 1.1 is below desired range. Target range for this patient is: 1.6 - 2.5 P: Warfarin dose: 5 mg Today at 1600 Bridge Therapy: None Next INR due tomorrow. Pharmacy anticoagulation service will continue to follow. Yung Woodward RPH, 12/15/18 [id number]
[2018-12-15 11:00] VITALS: BP 118/52
[2018-12-15] MEDS: KETOROLAC 15 MG/ML VIAL. IV PRN (12:19)
--- NOTE | 2018-12-15 13:00 | NUR ---
SW following. SW attempted to meet with pt to discuss discharge planning. 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 SW will meet with pt shortly.
[2018-12-15 15:00] VITALS: BP 101/53
[2018-12-15] MEDS: CALCIUM CARB/VIT D3 500/200 TABLET. PO SCH (15:47)
--- NOTE | 2018-12-15 15:56 | NUR ---
BENJI met with pt to discuss discharge planning. Pt would like referral sent to [facility]. [facility] has accepted pt, pending insurance auth. BENJI will continue to follow.
[2018-12-15] MEDS ORDERED: WARFARIN 5 MG TABLET. PO ONE (16:00)
[2018-12-15 19:00] VITALS: BP 118/45
[2018-12-15] MEDS: LATANOPROST 0.005% OPHTH SOLUTION 2.5ML BOTTLE. OU SCH (21:41)
[2018-12-15 23:00] VITALS: BP 133/64
[2018-12-16] VITALS (10 sets, daily range): BP systolic 108–151; BP diastolic 48–79
[2018-12-16] MEDS: MORPHINE SULFATE 2 MG/ML VIAL. IV PRN ×4 (01:55→21:32)
[2018-12-16] MEDS: HYDROcodone/APAP 5/325MG 1 TAB TABLET PO PRN ×4 (01:55→23:34)
[2018-12-16 01:56] LABS: BASO % 0 % (0-3); EOS % 0 % (0-3); LYMPH # 1.1 x10^3/uL (1.0-4.8); LYMPH % 10 % (24-48); MEAN CORPUSCULAR HEMOGLOBIN 36 pg (25-35); MEAN CORPUSCULAR HGB CONC 33 g/dL (31-37); MEAN CORPUSCULAR VOLUME 107 fL (79-100); MONO # 0.5 x10^3/uL (0.0-1.1); MONO % 4 % (0-9); NEUT # 8.8 x10^3uL (1.8-7.7); NEUT % 85 % (31-73); PLATELET COUNT 130 x10^3/uL (140-400); RED BLOOD COUNT 1.94 x10^6/uL (3.50-5.40); RED CELL DISTRIBUTION WIDTH 13.3 % (11.5-14.5); WHITE BLOOD COUNT 10.4 x10^3/uL (4.0-11.0)
[2018-12-16 01:59] LABS: HEMOGLOBIN 6.9 g/dL (12.0-15.5)
[2018-12-16 02:00] LABS: HEMATOCRIT 20.8 % (36.0-47.0)
[2018-12-16 02:05] LABS: PROTHROMBIN TIME PATIENT 16.1 SEC (11.7-14.0)
[2018-12-16] MEDS: IPRATRPIUM/ALBUTEROL 0.5/2.5MG 3 ML NEBU. NEB SCH ×4 (07:31→20:40)
--- NOTE | 2018-12-16 08:11 | PDOC ---
PROGRESS NOTES Chief Complaint Chief Complaint Mechanical fall with acute hip fracture Closed, displaced comminuted right intertrochanteric hip fracture - s/p TFIN 12/14/[address] Ross Hypothyroidism, subclinical. Monitor TSH in few weeks. History of heavy alcohol and nicotine use. Acute anemia dvt prophylaxis GI prophylaxis pain control, iv iv fluid support will need snf/ rehab History of Present Illness History of Present Illness 78 year old female w/ PMHx breast lump, hypothyroidism, ETOH use, nicotine use presents with accidental fall from standing and right hip deformity. Injury occurred 30 minutes prior to ED arrival while attending in outdoor sporting event. Patient states she tripped over a curb landing on her right hip. She did not hit her head. She denies headache, neck pain or loss of consciousness. She denies preceding medical symptoms prior to the fall. Patient takes daily aspirin. No other injuries or pain complaints. 100 g of fentanyl given by EMS on route to the hospital. Patient's orthopedic surgeon is Dr. Caldwell. She went for TFN right hip on 12/14/18 with no adverse events. Seen this morning, feeling pain, constipation, abdominal discomfort. Wishes to keep reyes until after she ambulates. Hb 6.8 this morning and lactic acid increased to 2.8. BP and HR are WNL, no lightheaded, no headaches, no chest pain or SOB. Plan: Will transfuse for Hb < 7. check iron levels Vitamin D level low, replace Needs further IVF for lactic acidosis, will repeat lactate and CBC tomorrow morning, likely can d/c to SNF tomorrow AM Vitals Vitals Vital Signs Date Time Temp Pulse Resp B/P (MAP) Pulse Ox O2 Delivery O2 Flow Rate FiO2 12/16/18 07:33 89 Nasal Cannula 2.0 12/16/18 06:22 98.8 90 18 120/57 98.8 Physical Exam General: Alert, Oriented X3 Heart: Regular rate Lungs: Clear Abdomen: Soft, No tenderness Extremities: No edema, Normal pulses Skin: No breakdown Labs LABS Laboratory Tests Test 12/16/18 01:45 White Blood Count 10.4 x10^3/uL (4.0-11.0) Red Blood Count 1.94 x10^6/uL (3.50-5.40) Hemoglobin 6.9 g/dL (12.0-15.5) Hematocrit 20.8 % (36.0-47.0) Mean Corpuscular Volume 107 fL (79-100) Mean Corpuscular Hemoglobin 36 pg (25-35) Mean Corpuscular Hemoglobin Concent 33 g/dL (31-37) Red Cell Distribution Width 13.3 % (11.5-14.5) Platelet Count 130 x10^3/uL (140-400) Neutrophils (%) (Auto) 85 % (31-73) Lymphocytes (%) (Auto) 10 % (24-48) Monocytes (%) (Auto) 4 % (0-9) Eosinophils (%) (Auto) 0 % (0-3) Basophils (%) (Auto) 0 % (0-3) Neutrophils # (Auto) 8.8 x10^3uL (1.8-7.7) Lymphocytes # (Auto) 1.1 x10^3/uL (1.0-4.8) Monocytes # (Auto) 0.5 x10^3/uL (0.0-1.1) Eosinophils # (Auto) 0.0 x10^3/uL (0.0-0.7) Basophils # (Auto) 0.0 x10^3/uL (0.0-0.2) Prothrombin Time 16.1 SEC (11.7-14.0) Prothromb Time International Ratio 1.3 (0.8-1.1) Lactic Acid Level 2.2 mmol/L (0.4-2.0) Assessment and Plan Assessmemt and Plan Problems Medical Problems: (1) Closed right hip fracture Status: Acute Comment Review of Relevant I have reviewed the following items pavithra (where applicable) has been applied. Labs Laboratory Tests Test 12/14/18 14:07 12/14/18 14:10 12/14/18 16:30 12/15/18 04:25 Prothrombin Time 14.2 SEC (11.7-14.0) 13.6 SEC (11.7-14.0) Prothromb Time International Ratio 1.1 (0.8-1.1) 1.1 (0.8-1.1) Total Bilirubin 0.6 mg/dL (0.2-1.0) 0.4 mg/dL (0.2-1.0) Direct Bilirubin 0.4 mg/dL (0.0-0.2) Aspartate Amino Transf (AST/SGOT) 43 U/L (15-37) 36 U/L (15-37) Alanine Aminotransferase (ALT/SGPT) 28 U/L (14-59) 25 U/L (14-59) Alkaline Phosphatase 62 U/L (46-116) 54 U/L (46-116) Total Protein 5.7 g/dL (6.4-8.2) 5.8 g/dL (6.4-8.2) Albumin 2.7 g/dL (3.4-5.0) 2.5 g/dL (3.4-5.0) Thyroid Stimulating Hormone (TSH) 2.422 uIU/mL (0.358-3.74) Urine Opiates Screen Pos (NEG) Urine Methadone Screen Neg (NEG) Urine Barbiturates Neg (NEG) Urine Phencyclidine Screen Neg (NEG) Urine Amphetamine/Methamphetamine Neg (NEG) Urine Benzodiazepines Screen Neg (NEG) Urine Cocaine Screen Neg (NEG) Urine Cannabinoids Screen Neg (NEG) Urine Ethyl Alcohol Neg (NEG) White Blood Count 13.7 x10^3/uL (4.0-11.0) Red Blood Count 1.98 x10^6/uL (3.50-5.40) Hemoglobin 7.0 g/dL (12.0-15.5) Hematocrit 21.1 % (36.0-47.0) Mean Corpuscular Volume 107 fL (79-100) Mean Corpuscular Hemoglobin 35 pg (25-35) Mean Corpuscular Hemoglobin Concent 33 g/dL (31-37) Red Cell Distribution Width 13.1 % (11.5-14.5) Platelet Count 116 x10^3/uL (140-400) Neutrophils (%) (Auto) 89 % (31-73) Lymphocytes (%) (Auto) 5 % (24-48) Monocytes (%) (Auto) 5 % (0-9) Eosinophils (%) (Auto) 0 % (0-3) Basophils (%) (Auto) 0 % (0-3) Neutrophils # (Auto) 12.2 x10^3uL (1.8-7.7) Lymphocytes # (Auto) 0.7 x10^3/uL (1.0-4.8) Monocytes # (Auto) 0.7 x10^3/uL (0.0-1.1) Eosinophils # (Auto) 0.0 x10^3/uL (0.0-0.7) Basophils # (Auto) 0.0 x10^3/uL (0.0-0.2) Segmented Neutrophils % 89 % (35-66) Lymphocytes % 8 % (24-48) Monocytes % 3 % (0-10) Platelet Estimate Adequate (ADEQUATE) Macrocytosis Slight Stomatocytes Occ Sodium Level 139 mmol/L (136-145) Potassium Level 4.6 mmol/L (3.5-5.1) Chloride Level 102 mmol/L (98-107) Carbon Dioxide Level 29 mmol/L (21-32) Anion Gap 8 (6-14) Blood Urea Nitrogen 7 mg/dL (7-20) Creatinine 0.6 mg/dL (0.6-1.0) Estimated GFR (Cockcroft-Gault) 97.2 BUN/Creatinine Ratio 12 (6-20) Glucose Level 186 mg/dL (70-99) Calcium Level 7.7 mg/dL (8.5-10.1) Iron Level 58 ug/dL (50-170) Total Iron Binding Capacity 161 ug/dL (250-450) Iron Saturation 36 % (15-34) Albumin/Globulin Ratio 0.8 (1.0-1.7) Vitamin B12 Level 440 pg/mL (247-911) 25-Hydroxy Vitamin D Total 13.2 ng/mL (30-100) Test 12/16/18 01:45 White Blood Count 10.4 x10^3/uL (4.0-11.0) Red Blood Count 1.94 x10^6/uL (3.50-5.40) Hemoglobin 6.9 g/dL (12.0-15.5) Hematocrit 20.8 % (36.0-47.0) Mean Corpuscular Volume 107 fL (79-100) Mean Corpuscular Hemoglobin 36 pg (25-35) Mean Corpuscular Hemoglobin Concent 33 g/dL (31-37) Red Cell Distribution Width 13.3 % (11.5-14.5) Platelet Count 130 x10^3/uL (140-400) Neutrophils (%) (Auto) 85 % (31-73) Lymphocytes (%) (Auto) 10 % (24-48) Monocytes (%) (Auto) 4 % (0-9) Eosinophils (%) (Auto) 0 % (0-3) Basophils (%) (Auto) 0 % (0-3) Neutrophils # (Auto) 8.8 x10^3uL (1.8-7.7) Lymphocytes # (Auto) 1.1 x10^3/uL (1.0-4.8) Monocytes # (Auto) 0.5 x10^3/uL (0.0-1.1) Eosinophils # (Auto) 0.0 x10^3/uL (0.0-0.7) Basophils # (Auto) 0.0 x10^3/uL (0.0-0.2) Prothrombin Time 16.1 SEC (11.7-14.0) Prothromb Time International Ratio 1.3 (0.8-1.1) Lactic Acid Level 2.2 mmol/L (0.4-2.0) Laboratory Tests Test 12/16/18 01:45 White Blood Count 10.4 x10^3/uL (4.0-11.0) Red Blood Count 1.94 x10^6/uL (3.50-5.40) Hemoglobin 6.9 g/dL (12.0-15.5) Hematocrit 20.8 % (36.0-47.0) Mean Corpuscular Volume 107 fL (79-100) Mean Corpuscular Hemoglobin 36 pg (25-35) Mean Corpuscular Hemoglobin Concent 33 g/dL (31-37) Red Cell Distribution Width 13.3 % (11.5-14.5) Platelet Count 130 x10^3/uL (140-400) Neutrophils (%) (Auto) 85 % (31-73) Lymphocytes (%) (Auto) 10 % (24-48) Monocytes (%) (Auto) 4 % (0-9) Eosinophils (%) (Auto) 0 % (0-3) Basophils (%) (Auto) 0 % (0-3) Neutrophils # (Auto) 8.8 x10^3uL (1.8-7.7) Lymphocytes # (Auto) 1.1 x10^3/uL (1.0-4.8) Monocytes # (Auto) 0.5 x10^3/uL (0.0-1.1) Eosinophils # (Auto) 0.0 x10^3/uL (0.0-0.7) Basophils # (Auto) 0.0 x10^3/uL (0.0-0.2) Prothrombin Time 16.1 SEC (11.7-14.0) Prothromb Time International Ratio 1.3 (0.8-1.1) Lactic Acid Level 2.2 mmol/L (0.4-2.0) Medications Current Medications Morphine Sulfate (Morphine Sulfate) 4 mg 1X ONCE IV Last administered on 12/13/18at 20:45; Start 12/13/18 at 20:45; Stop 12/13/18 at 20:46; Status DC Ondansetron HCl (Zofran) 4 mg PRN Q8HRS PRN IV NAUSEA/VOMITING 1ST CHOICE Last administered on 12/13/18at 21:47; Start 12/13/18 at 21:00; Stop 12/14/18 at 20:59; Status DC Morphine Sulfate (Morphine Sulfate) 2 mg PRN Q2HR PRN IV SEVERE PAIN Last administered on 12/14/18at 19:50; Start 12/13/18 at 21:00; Stop 12/14/18 at 20:59; Status DC Dextrose/Sodium Chloride 1,000 ml @ 125 mls/hr 1X ONCE IV Last administered on 12/13/18at 23:11; Start 12/13/18 at 21:00; Stop 12/14/18 at 04:59; Status DC Cefazolin Sodium 1 gm/Dextrose 50 ml @ 100 mls/hr 1X ONCE IV ; Start 12/13/18 at 21:00; Stop 12/13/18 at 21:29; Status UNV Cefazolin Sodium (Ancef) 1 gm 1X ONCE IVP Last administered on 12/13/18at 23:10; Start 12/13/18 at 22:00; Stop 12/13/18 at 22:01; Status DC Ketorolac Tromethamine (Toradol 15mg Vial) 15 mg PRN Q6HRS PRN IV MILD - MODERATE PAIN Last administered on 12/15/18at 12:19; Start 12/14/18 at 01:45; Stop 12/19/18 at 01:44 Ketorolac Tromethamine (Toradol 30mg Vial) 30 mg 1X ONCE IV ; Start 12/14/18 at 02:00; Stop 12/14/18 at 02:01; Status DC Fentanyl Citrate (Fentanyl 2ml Vial) 100 mcg STK-MED ONCE .ROUTE ; Start 12/14/18 at 07:30; Stop 12/14/18 at 07:31; Status DC Dexamethasone Sodium Phosphate (Decadron) 4 mg STK-MED ONCE .ROUTE ; Start 12/14/18 at 07:30; Stop 12/14/18 at 07:31; Status DC Propofol 20 ml @ As Directed STK-MED ONCE IV ; Start 12/14/18 at 07:30; Stop 12/14/18 at 07:31; Status DC Lidocaine HCl (Lidocaine Pf 2% Vial) 5 ml STK-MED ONCE .ROUTE ; Start 12/14/18 at 07:30; Stop 12/14/18 at 07:31; Status DC Ondansetron HCl (Zofran) 4 mg STK-MED ONCE .ROUTE ; Start 12/14/18 at 07:30; Stop 12/14/18 at 07:31; Status DC Ondansetron HCl (Zofran) 4 mg PRN Q6HRS PRN IV NAUSEA/VOMITING; Start 12/14/18 at 07:45; Stop 12/14/18 at 15:00; Status DC Fentanyl Citrate (Fentanyl 2ml Vial) 25 mcg PRN Q5MIN PRN IV MILD PAIN; Start 12/14/18 at 07:45; Stop 12/14/18 at 15:00; Status DC Fentanyl Citrate (Fentanyl 2ml Vial) 50 mcg PRN Q5MIN PRN IV MODERATE TO SEVERE PAIN; Start 12/14/18 at 07:45; Stop 12/14/18 at 15:00; Status DC Morphine Sulfate (Morphine Sulfate) 1 mg PRN Q10MIN PRN IV SEVERE PAIN Last administered on 12/14/18at 10:14; Start 12/14/18 at 07:45; Stop 12/14/18 at 15:00; Status DC Ringer's Solution 1,000 ml @ 30 mls/hr Q24H IV Last administered on 12/14/18at 10:10; Start 12/14/18 at 07:40; Stop 12/14/18 at 13:53; Status DC Lidocaine HCl (Xylocaine-Mpf 1% 2ml Vial) 2 ml PRN 1X PRN ID PRIOR TO IV START; Start 12/14/18 at 07:45; Stop 12/14/18 at 15:00; Status DC Hydromorphone HCl (Dilaudid) 0.5 mg PRN Q10MIN PRN IV SEV PAIN, Second choice; Start 12/14/18 at 07:45; Stop 12/14/18 at 15:00; Status DC Prochlorperazine Edisylate (Compazine) 5 mg PACU PRN PRN IV NAUSEA, MRX1 Last administered on 12/14/18at 10:18; Start 12/14/18 at 07:45; Stop 12/14/18 at 15:00; Status DC Cefazolin Sodium 50 ml @ As Directed STK-MED ONCE IV ; Start 12/14/18 at 07:55; Stop 12/14/18 at 07:56; Status DC Cefazolin Sodium 1 gm/Dextrose 50 ml @ 100 mls/hr Q6H IV ; Start 12/14/18 at 08:15; Stop 12/14/18 at 20:44; Status UNV Warfarin Sodium (Coumadin Per Pharmacy) 1 each PRN DAILY PRN MC SEE COMMENTS Last administered on 12/15/18at 10:28; Start 12/14/18 at 08:00 Acetaminophen/ Hydrocodone Bitart (Lortab 5/325) 1 tab PRN Q4HRS PRN PO PAIN Last administered on 12/16/18at 01:55; Start 12/14/18 at 08:00 Cefazolin Sodium (Ancef) 1 gm Q6H IVP Last administered on 12/15/18at 03:07; Start 12/14/18 at 14:00; Stop 12/15/18 at 02:01; Status DC Sevoflurane (Ultane) 30 ml STK-MED ONCE IH ; Start 12/14/18 at 08:15; Stop 12/14/18 at 08:18; Status DC Morphine Sulfate 5 mg/Ketorolac Tromethamine 30 mg/Ropivacaine 60 ml/Epinephrine HCl 0.5 mg/Sodium Chloride 100 ml @ 100 mls/hr 1X ONCE INT ART Last administered on 12/14/18at 08:32; Start 12/14/18 at 09:00; Stop 12/14/18 at 09:59; Status DC Atenolol (Tenormin) 50 mg DAILY PO Last administered on 12/15/18at 12:20; Start 12/14/18 at 14:30 Folic Acid (Folic Acid) 1 mg DAILY PO Last administered on 12/15/18at 08:00; Start 12/14/18 at 14:30 Potassium Chloride (Klor-Con) 20 meq DAILY PO Last administered on 12/15/18at 08:00; Start 12/14/18 at 14:30 Latanoprost (Xalatan) 1 drop QHS OU Last administered on 12/15/18at 21:41; Start 12/14/18 at 21:00 Multivitamins 10 ml/Thiamine HCl 100 mg/Folic Acid 1 mg/Sodium Chloride 1,011.2 ml @ 100 mls/ hr DAILY IV Last administered on 12/15/18at 08:01; Start 12/14/18 at 15:00; Stop 12/16/18 at 04:09; Status DC Lorazepam (Ativan) 2 mg PRN Q1HR PRN IV For CIWA 8-14; Start 12/14/18 at 14:00 Lorazepam (Ativan) 4 mg PRN Q1HR PRN IV For CIWA 15 or greater; Start 12/14/18 at 14:00 Haloperidol Lactate (Haldol Inj) 5 mg PRN Q4HRS PRN IVP Hallucinatns,Confusn,Delirium; Start 12/14/18 at 14:00 Diphenhydramine HCl (Benadryl) 25 mg PRN Q15MIN PRN IVP EPS symptoms 2'Haldol admin; Start 12/14/18 at 14:00 Clonidine HCl (Catapres) 0.1 mg PRN Q1HR PRN PO SBP > 180 or DBP > 100, MRX3; Start 12/14/18 at 14:00 Lorazepam (Ativan) 2 mg PRN Q15MIN PRN IV SEE COMMENTS; Start 12/14/18 at 14:00; Stop 12/14/18 at 14:00; Status DC Lorazepam (Ativan) 4 mg PRN Q15MIN PRN IV SEE COMMENTS; Start 12/14/18 at 14:00; Stop 12/14/18 at 14:00; Status DC Albuterol/ Ipratropium (Duoneb) 3 ml RTQID NEB Last administered on 12/16/18 07:31; Start 12/14/18 at 16:00 Sodium Chloride (Normal Saline Flush) 3 ml QSHIFT PRN IV AFTER MEDS AND BLOOD DRAWS; Start 12/14/18 at 14:00 Ondansetron HCl (Zofran) 4 mg PRN Q4HRS PRN IV NAUSEA/VOMITING; Start 12/14/18 at 14:00 Zolpidem Tartrate (Ambien) 5 mg PRN QHS PRN PO INSOMNIA; Start 12/14/18 at 14:00 Acetaminophen (Tylenol) 650 mg PRN Q4HRS PRN PO TEMP OVER 100.4F OR MILD PAIN; Start 12/14/18 at 14:00 Al Hydroxide/Mg Hydroxide (Mylanta Plus Xs) 30 ml PRN DAILY PRN PO HEARTBURN / GAS Last administered on 12/15/18 08:49; Start 12/14/18 at 14:00 Clonidine HCl (Catapres) 0.1 mg PRN Q6HRS PRN PO SBP>160 OR DBP>90; Start 12/14/18 at 14:00 Docusate Sodium (Colace) 100 mg PRN BID PRN PO CONSTIPATION; Start 12/14/18 at 14:00 Guaifenesin (Robitussin) 200 mg PRN Q4HRS PRN PO COUGH; Start 12/14/18 at 14:00 Lorazepam (Ativan) 0.5 mg PRN Q4HRS PRN PO ANXIETY / AGITATION; Start 12/14/18 at 14:00 Warfarin Sodium (Coumadin) 5 mg 1X WARF ONCE PO Last administered on 12/14/18at 17:32; Start 12/14/18 at 16:00; Stop 12/14/18 at 16:01; Status DC Morphine Sulfate (Morphine Sulfate) 2 mg PRN Q2HR PRN IV SEVERE PAIN Last administered on 12/16/18 07:03; Start 12/14/18 at 22:15 Warfarin Sodium (Coumadin) 5 mg 1X WARF ONCE PO Last administered on 12/15/18at 15:46; Start 12/15/18 at 16:00; Stop 12/15/18 at 16:01; Status DC Calcium/Vitamin D (Oscal D 500mg/ 200uts) 1 tab BIDWMEALS PO Last administered on 5/13/19at 15:47; Start 12/15/18 at 17:00 Multivitamins (Thera M Plus) 1 tab DAILY PO ; Start 12/16/18 at 09:00 Thiamine Mononitrate (Vitamin B-1) 100 mg DAILY PO ; Start 12/16/18 at 09:00 Active Scripts Active Reported Triamcinolone Acetonide 0.1% Cream (Triamcinolone Acetonide) 15 Gm Cream..g. 1 Luis TD BID Combigan Eye Drops (Brimonidine Tartrate/Timolol) 5 Ml Drops 1 Drp OU BID Lopressor (Metoprolol Tartrate) 100 Mg Tablet 50 Mg PO BID Latanoprost 2.5 Ml Drops 1 Drop EACHEYE QHS Vitals/I & O Vital Sign - Last 24 Hours 12/15/18 12/15/18 12/15/18 12/15/18 11:00 12:20 12:29 13:34 Temp 98.7 98.7 Pulse 129 129 Resp 18 B/P (MAP) 118/52 (74) 118/52 Pulse Ox 94 94 O2 Delivery Room Air Nasal Cannula Room Air O2 Flow Rate 2.0 12/15/18 12/15/18 12/15/18 12/15/18 15:00 16:05 17:33 19:00 Temp 98.3 98.9 98.3 98.9 Pulse 103 107 Resp 18 16 B/P (MAP) 101/53 (69) 118/45 (69) Pulse Ox 92 93 91 O2 Delivery Room Air Nasal Cannula Room Air Room Air O2 Flow Rate 2.0 12/15/18 12/15/18 12/15/18 12/16/18 20:15 21:42 23:00 01:55 Temp 99.0 99.0 Pulse 102 Resp 18 B/P (MAP) 133/64 (87) Pulse Ox 93 O2 Delivery Nasal Cannula Nasal Cannula Room Air Nasal Cannula O2 Flow Rate 2.0 2.0 2.0 12/16/18 12/16/18 12/16/18 12/16/18 01:55 02:25 03:00 03:00 Temp 99.4 99.4 Pulse 104 Resp 18 B/P (MAP) 110/52 (71) Pulse Ox 90 O2 Delivery Room Air Nasal Cannula Nasal Cannula Room Air O2 Flow Rate 2.0 2.0 2.0 12/16/18 12/16/18 12/16/18 12/16/18 04:07 04:22 05:22 06:22 Temp 99.4 98.2 98.5 98.8 99.4 98.2 98.5 98.8 Pulse 104 99 90 90 Resp 18 18 18 B/P (MAP) 110/52 113/50 116/52 120/57 12/16/18 12/16/18 07:03 07:33 Pulse Ox 89 O2 Delivery Nasal Cannula Nasal Cannula O2 Flow Rate 2.0 2.0 Intake and Output 12/15/18 12/15/18 12/16/18 14:59 22:59 06:59 Intake Total 400 ml 1351.2 ml 0 ml Output Total 400 ml 350 ml Balance 400 ml 951.2 ml -350 ml EMIR RAMOS MD December 16, 2018 08:11
[2018-12-16] MEDS ORDERED: DEXTROSE 50% 25 GM / 50ML DISP.SYRIN. IV PRN (08:15)
--- NOTE | 2018-12-16 08:26 | PDOC ---
ORTHO PROGRESS NOTES Subjective She feels like she is doing well. Her hip pain is tolerable. She is quite concerned about her breast cancer diagnosis and mastectomy. Vitals Vital Signs Date Time Temp Pulse Resp B/P (MAP) Pulse Ox O2 Delivery O2 Flow Rate FiO2 12/16/18 07:33 89 Nasal Cannula 2.0 12/16/18 06:22 98.8 90 18 120/57 98.8 Labs Laboratory Tests Test 12/14/18 14:07 12/14/18 14:10 12/14/18 16:30 12/15/18 04:25 Prothrombin Time 14.2 SEC (11.7-14.0) 13.6 SEC (11.7-14.0) Prothromb Time International Ratio 1.1 (0.8-1.1) 1.1 (0.8-1.1) Total Bilirubin 0.6 mg/dL (0.2-1.0) 0.4 mg/dL (0.2-1.0) Direct Bilirubin 0.4 mg/dL (0.0-0.2) Aspartate Amino Transf (AST/SGOT) 43 U/L (15-37) 36 U/L (15-37) Alanine Aminotransferase (ALT/SGPT) 28 U/L (14-59) 25 U/L (14-59) Alkaline Phosphatase 62 U/L (46-116) 54 U/L (46-116) Total Protein 5.7 g/dL (6.4-8.2) 5.8 g/dL (6.4-8.2) Albumin 2.7 g/dL (3.4-5.0) 2.5 g/dL (3.4-5.0) Thyroid Stimulating Hormone (TSH) 2.422 uIU/mL (0.358-3.74) Urine Opiates Screen Pos (NEG) Urine Methadone Screen Neg (NEG) Urine Barbiturates Neg (NEG) Urine Phencyclidine Screen Neg (NEG) Urine Amphetamine/Methamphetamine Neg (NEG) Urine Benzodiazepines Screen Neg (NEG) Urine Cocaine Screen Neg (NEG) Urine Cannabinoids Screen Neg (NEG) Urine Ethyl Alcohol Neg (NEG) White Blood Count 13.7 x10^3/uL (4.0-11.0) Red Blood Count 1.98 x10^6/uL (3.50-5.40) Hemoglobin 7.0 g/dL (12.0-15.5) Hematocrit 21.1 % (36.0-47.0) Mean Corpuscular Volume 107 fL (79-100) Mean Corpuscular Hemoglobin 35 pg (25-35) Mean Corpuscular Hemoglobin Concent 33 g/dL (31-37) Red Cell Distribution Width 13.1 % (11.5-14.5) Platelet Count 116 x10^3/uL (140-400) Neutrophils (%) (Auto) 89 % (31-73) Lymphocytes (%) (Auto) 5 % (24-48) Monocytes (%) (Auto) 5 % (0-9) Eosinophils (%) (Auto) 0 % (0-3) Basophils (%) (Auto) 0 % (0-3) Neutrophils # (Auto) 12.2 x10^3uL (1.8-7.7) Lymphocytes # (Auto) 0.7 x10^3/uL (1.0-4.8) Monocytes # (Auto) 0.7 x10^3/uL (0.0-1.1) Eosinophils # (Auto) 0.0 x10^3/uL (0.0-0.7) Basophils # (Auto) 0.0 x10^3/uL (0.0-0.2) Segmented Neutrophils % 89 % (35-66) Lymphocytes % 8 % (24-48) Monocytes % 3 % (0-10) Platelet Estimate Adequate (ADEQUATE) Macrocytosis Slight Stomatocytes Occ Sodium Level 139 mmol/L (136-145) Potassium Level 4.6 mmol/L (3.5-5.1) Chloride Level 102 mmol/L (98-107) Carbon Dioxide Level 29 mmol/L (21-32) Anion Gap 8 (6-14) Blood Urea Nitrogen 7 mg/dL (7-20) Creatinine 0.6 mg/dL (0.6-1.0) Estimated GFR (Cockcroft-Gault) 97.2 BUN/Creatinine Ratio 12 (6-20) Glucose Level 186 mg/dL (70-99) Calcium Level 7.7 mg/dL (8.5-10.1) Iron Level 58 ug/dL (50-170) Total Iron Binding Capacity 161 ug/dL (250-450) Iron Saturation 36 % (15-34) Albumin/Globulin Ratio 0.8 (1.0-1.7) Vitamin B12 Level 440 pg/mL (247-911) 25-Hydroxy Vitamin D Total 13.2 ng/mL (30-100) Test 12/16/18 01:45 White Blood Count 10.4 x10^3/uL (4.0-11.0) Red Blood Count 1.94 x10^6/uL (3.50-5.40) Hemoglobin 6.9 g/dL (12.0-15.5) Hematocrit 20.8 % (36.0-47.0) Mean Corpuscular Volume 107 fL (79-100) Mean Corpuscular Hemoglobin 36 pg (25-35) Mean Corpuscular Hemoglobin Concent 33 g/dL (31-37) Red Cell Distribution Width 13.3 % (11.5-14.5) Platelet Count 130 x10^3/uL (140-400) Neutrophils (%) (Auto) 85 % (31-73) Lymphocytes (%) (Auto) 10 % (24-48) Monocytes (%) (Auto) 4 % (0-9) Eosinophils (%) (Auto) 0 % (0-3) Basophils (%) (Auto) 0 % (0-3) Neutrophils # (Auto) 8.8 x10^3uL (1.8-7.7) Lymphocytes # (Auto) 1.1 x10^3/uL (1.0-4.8) Monocytes # (Auto) 0.5 x10^3/uL (0.0-1.1) Eosinophils # (Auto) 0.0 x10^3/uL (0.0-0.7) Basophils # (Auto) 0.0 x10^3/uL (0.0-0.2) Prothrombin Time 16.1 SEC (11.7-14.0) Prothromb Time International Ratio 1.3 (0.8-1.1) Lactic Acid Level 2.2 mmol/L (0.4-2.0) Laboratory Tests Test 12/16/18 01:45 White Blood Count 10.4 x10^3/uL (4.0-11.0) Red Blood Count 1.94 x10^6/uL (3.50-5.40) Hemoglobin 6.9 g/dL (12.0-15.5) Hematocrit 20.8 % (36.0-47.0) Mean Corpuscular Volume 107 fL (79-100) Mean Corpuscular Hemoglobin 36 pg (25-35) Mean Corpuscular Hemoglobin Concent 33 g/dL (31-37) Red Cell Distribution Width 13.3 % (11.5-14.5) Platelet Count 130 x10^3/uL (140-400) Neutrophils (%) (Auto) 85 % (31-73) Lymphocytes (%) (Auto) 10 % (24-48) Monocytes (%) (Auto) 4 % (0-9) Eosinophils (%) (Auto) 0 % (0-3) Basophils (%) (Auto) 0 % (0-3) Neutrophils # (Auto) 8.8 x10^3uL (1.8-7.7) Lymphocytes # (Auto) 1.1 x10^3/uL (1.0-4.8) Monocytes # (Auto) 0.5 x10^3/uL (0.0-1.1) Eosinophils # (Auto) 0.0 x10^3/uL (0.0-0.7) Basophils # (Auto) 0.0 x10^3/uL (0.0-0.2) Prothrombin Time 16.1 SEC (11.7-14.0) Prothromb Time International Ratio 1.3 (0.8-1.1) Lactic Acid Level 2.2 mmol/L (0.4-2.0) Notes She is awake and alert. Dressings are intact with expected amount of bloody drainage. She remains neurovascularly intact. Assessment and Plan She can be switched to Lovenox to facilitate her mastectomy. She can continue to weight-bear as tolerated and work with PT and OT. Placement is pending. Her care was discussed with Drs. Beckman and AMADOU Hemphill II, MD December 16, 2018 08:26
[2018-12-16 08:34] LABS: HEMATOCRIT 26.9 % (36.0-47.0); HEMOGLOBIN 9.1 g/dL (12.0-15.5)
[2018-12-16] MEDS: FOLIC ACID 1 MG TABLET. PO SCH (08:34)
[2018-12-16] MEDS: THIAMINE 100 MG TABLET. PO SCH (08:34)
[2018-12-16] MEDS: POTASSIUM CHLORIDE 10 MEQ TABLET.ER. PO SCH ×2 (08:35→09:00)
[2018-12-16] MEDS: CALCIUM CARB/VIT D3 500/200 TABLET. PO SCH ×2 (08:35→17:24)
[2018-12-16] MEDS: MULTIVITAMIN with MINERAL TABLET. PO SCH (09:00)
[2018-12-16] MEDS ORDERED: IV NORMAL SALINE 500ML BAG 500 ML IV ONE (10:30)
--- NOTE | 2018-12-16 10:30 | NUR ---
Approximately at 1020 Dr. Manzo was called and notified of lactic acid being 2.8. Order of 500 ml bolus of NS ordered and being administered.
--- NOTE | 2018-12-16 11:02 | NUR ---
SW following for discharge planning. Pt's insurance has approved for pt to go to [facility] today. SW awaiting confirmation if pt is being discharged today.
--- NOTE | 2018-12-16 11:58 | NUR ---
SW following. Discussed with RN, pt not discharging today due to lactic acid being elevated. Dr. Manzo advised probable discharge to [facility] tomorrow (12/17/18). SW will continue to follow.
[2018-12-16] MEDS: INSULIN LISPRO 300 UNITS/3 ML INSULN.PEN. SQ SCH ×2 (12:00→17:00)
[2018-12-16] MEDS ORDERED: WARFARIN 5 MG TABLET. PO ONE (16:00)
[2018-12-16] MEDS: LATANOPROST 0.005% OPHTH SOLUTION 2.5ML BOTTLE. OU SCH (21:23)
[2018-12-17 03:00] VITALS: BP 147/73
[2018-12-17] MEDS: MORPHINE SULFATE 2 MG/ML VIAL. IV PRN (03:15)
[2018-12-17] MEDS: HYDROcodone/APAP 5/325MG 1 TAB TABLET PO PRN ×2 (05:54→13:46)
[2018-12-17 07:00] VITALS: BP 156/70
--- NOTE | 2018-12-17 07:20 | PDOC ---
ORTHO PROGRESS NOTES Subjective Keyla states that she is doing ok, but with cocerns about upcoming treatment for breast cancer. Post-op Day: 3 Procedure Closed reduction and IM Nail of right hip Vitals Vital Signs Date Time Temp Pulse Resp B/P (MAP) Pulse Ox O2 Delivery O2 Flow Rate FiO2 12/17/18 05:54 Nasal Cannula 3.0 12/17/18 03:00 99.2 114 18 147/73 (97) 92 99.2 Labs Laboratory Tests Test 12/16/18 01:45 12/16/18 07:50 12/16/18 08:20 12/16/18 11:36 White Blood Count 10.4 x10^3/uL (4.0-11.0) Red Blood Count 1.94 x10^6/uL (3.50-5.40) Hemoglobin 6.9 g/dL (12.0-15.5) 9.1 g/dL (12.0-15.5) Hematocrit 20.8 % (36.0-47.0) 26.9 % (36.0-47.0) Mean Corpuscular Volume 107 fL (79-100) Mean Corpuscular Hemoglobin 36 pg (25-35) Mean Corpuscular Hemoglobin Concent 33 g/dL (31-37) Red Cell Distribution Width 13.3 % (11.5-14.5) Platelet Count 130 x10^3/uL (140-400) Neutrophils (%) (Auto) 85 % (31-73) Lymphocytes (%) (Auto) 10 % (24-48) Monocytes (%) (Auto) 4 % (0-9) Eosinophils (%) (Auto) 0 % (0-3) Basophils (%) (Auto) 0 % (0-3) Neutrophils # (Auto) 8.8 x10^3uL (1.8-7.7) Lymphocytes # (Auto) 1.1 x10^3/uL (1.0-4.8) Monocytes # (Auto) 0.5 x10^3/uL (0.0-1.1) Eosinophils # (Auto) 0.0 x10^3/uL (0.0-0.7) Basophils # (Auto) 0.0 x10^3/uL (0.0-0.2) Prothrombin Time 16.1 SEC (11.7-14.0) Prothromb Time International Ratio 1.3 (0.8-1.1) Lactic Acid Level 2.2 mmol/L (0.4-2.0) 2.8 mmol/L (0.4-2.0) Glucose (Fingerstick) 117 mg/dL (70-99) 121 mg/dL (70-99) Test 12/16/18 16:47 Glucose (Fingerstick) 111 mg/dL (70-99) Laboratory Tests Test 12/16/18 07:50 12/16/18 08:20 12/16/18 11:36 12/16/18 16:47 Hemoglobin 9.1 g/dL (12.0-15.5) Hematocrit 26.9 % (36.0-47.0) Lactic Acid Level 2.8 mmol/L (0.4-2.0) Glucose (Fingerstick) 117 mg/dL (70-99) 121 mg/dL (70-99) 111 mg/dL (70-99) Notes awake and alert concerned about future Assessment and Plan Patient ok to D/C per ortho standpoint with PT,OT evaluation completed.To [facility] for SNU care. MARS FORREST APRN December 17, 2018 07:20
[2018-12-17 07:52] LABS: BASO % 0 % (0-3); EOS # 0.2 x10^3/uL (0.0-0.7); EOS % 3 % (0-3); HEMATOCRIT 23.1 % (36.0-47.0); HEMOGLOBIN 7.9 g/dL (12.0-15.5); LYMPH # 1.3 x10^3/uL (1.0-4.8); LYMPH % 13 % (24-48); MEAN CORPUSCULAR HEMOGLOBIN 35 pg (25-35); MEAN CORPUSCULAR HGB CONC 34 g/dL (31-37); MEAN CORPUSCULAR VOLUME 102 fL (79-100); MONO # 0.8 x10^3/uL (0.0-1.1); MONO % 9 % (0-9); NEUT # 7.3 x10^3uL (1.8-7.7); NEUT % 75 % (31-73); PLATELET COUNT 119 x10^3/uL (140-400); RED BLOOD COUNT 2.27 x10^6/uL (3.50-5.40); RED CELL DISTRIBUTION WIDTH 16.1 % (11.5-14.5); WHITE BLOOD COUNT 9.7 x10^3/uL (4.0-11.0)
[2018-12-17 07:59] LABS: PROTHROMBIN TIME PATIENT 24.4 SEC (11.7-14.0)
[2018-12-17] MEDS: INSULIN LISPRO 300 UNITS/3 ML INSULN.PEN. SQ SCH ×2 (08:00→12:00)
[2018-12-17] MEDS: CALCIUM CARB/VIT D3 500/200 TABLET. PO SCH (08:00)
[2018-12-17] MEDS: IPRATRPIUM/ALBUTEROL 0.5/2.5MG 3 ML NEBU. NEB SCH ×2 (08:10→11:58)
--- NOTE | 2018-12-17 08:10 | PDOC ---
PROGRESS NOTES Chief Complaint Chief Complaint Mechanical fall with acute hip fracture Closed, displaced comminuted right intertrochanteric hip fracture - s/p TFIN 12/14/[address] Ross Hypothyroidism, subclinical. Monitor TSH in few weeks. History of heavy alcohol and nicotine use. Chronic hypoxia with COPD Acute anemia s/p transfusion dCHF dvt prophylaxis will need snf/ rehab History of Present Illness History of Present Illness 78 year old female w/ PMHx breast lump, hypothyroidism, ETOH use, nicotine use presents with accidental fall from standing and right hip deformity. Injury occurred 30 minutes prior to ED arrival while attending in outdoor sporting event. Patient states she tripped over a curb landing on her right hip. She did not hit her head. She denies headache, neck pain or loss of consciousness. She denies preceding medical symptoms prior to the fall. Patient takes daily aspirin. No other injuries or pain complaints. 100 g of fentanyl given by EMS on route to the hospital. Patient's orthopedic surgeon is Dr. Caldwell. She went for TFN right hip on 12/14/18 with no adverse events. Seen by surgery for her breast lump, recommended surgery, mastectomy JULIO C, will give script for lovenox in case she goes to surgery in the next month, otherwise coumadin for 30 days pos-op. Did require transfusion for Hb drop to 6.9 Vitamin D level low, replace Needed further IVF for lactic acidosis, can d/c to SNF today Vitals Vitals Vital Signs Date Time Temp Pulse Resp B/P (MAP) Pulse Ox O2 Delivery O2 Flow Rate FiO2 12/17/18 06:54 Nasal Cannula 3.0 12/17/18 03:00 99.2 114 18 147/73 (97) 92 99.2 Physical Exam General: Alert, Oriented X3 Heart: Regular rate Lungs: Clear Abdomen: Soft, No tenderness Extremities: No edema, Normal pulses Skin: No breakdown Labs LABS Laboratory Tests Test 12/16/18 08:20 12/16/18 11:36 12/16/18 16:47 12/17/18 06:20 Glucose (Fingerstick) 117 mg/dL (70-99) 121 mg/dL (70-99) 111 mg/dL (70-99) White Blood Count 9.7 x10^3/uL (4.0-11.0) Red Blood Count 2.27 x10^6/uL (3.50-5.40) Hemoglobin 7.9 g/dL (12.0-15.5) Hematocrit 23.1 % (36.0-47.0) Mean Corpuscular Volume 102 fL (79-100) Mean Corpuscular Hemoglobin 35 pg (25-35) Mean Corpuscular Hemoglobin Concent 34 g/dL (31-37) Red Cell Distribution Width 16.1 % (11.5-14.5) Platelet Count 119 x10^3/uL (140-400) Neutrophils (%) (Auto) 75 % (31-73) Lymphocytes (%) (Auto) 13 % (24-48) Monocytes (%) (Auto) 9 % (0-9) Eosinophils (%) (Auto) 3 % (0-3) Basophils (%) (Auto) 0 % (0-3) Neutrophils # (Auto) 7.3 x10^3uL (1.8-7.7) Lymphocytes # (Auto) 1.3 x10^3/uL (1.0-4.8) Monocytes # (Auto) 0.8 x10^3/uL (0.0-1.1) Eosinophils # (Auto) 0.2 x10^3/uL (0.0-0.7) Basophils # (Auto) 0.0 x10^3/uL (0.0-0.2) Prothrombin Time 24.4 SEC (11.7-14.0) Prothromb Time International Ratio 2.2 (0.8-1.1) Lactic Acid Level 1.0 mmol/L (0.4-2.0) Test 12/17/18 07:37 Glucose (Fingerstick) 109 mg/dL (70-99) Assessment and Plan Assessmemt and Plan Problems Medical Problems: (1) Closed right hip fracture Status: Acute Comment Review of Relevant I have reviewed the following items pavithra (where applicable) has been applied. Labs Laboratory Tests Test 12/16/18 01:45 12/16/18 07:50 12/16/18 08:20 12/16/18 11:36 White Blood Count 10.4 x10^3/uL (4.0-11.0) Red Blood Count 1.94 x10^6/uL (3.50-5.40) Hemoglobin 6.9 g/dL (12.0-15.5) 9.1 g/dL (12.0-15.5) Hematocrit 20.8 % (36.0-47.0) 26.9 % (36.0-47.0) Mean Corpuscular Volume 107 fL (79-100) Mean Corpuscular Hemoglobin 36 pg (25-35) Mean Corpuscular Hemoglobin Concent 33 g/dL (31-37) Red Cell Distribution Width 13.3 % (11.5-14.5) Platelet Count 130 x10^3/uL (140-400) Neutrophils (%) (Auto) 85 % (31-73) Lymphocytes (%) (Auto) 10 % (24-48) Monocytes (%) (Auto) 4 % (0-9) Eosinophils (%) (Auto) 0 % (0-3) Basophils (%) (Auto) 0 % (0-3) Neutrophils # (Auto) 8.8 x10^3uL (1.8-7.7) Lymphocytes # (Auto) 1.1 x10^3/uL (1.0-4.8) Monocytes # (Auto) 0.5 x10^3/uL (0.0-1.1) Eosinophils # (Auto) 0.0 x10^3/uL (0.0-0.7) Basophils # (Auto) 0.0 x10^3/uL (0.0-0.2) Prothrombin Time 16.1 SEC (11.7-14.0) Prothromb Time International Ratio 1.3 (0.8-1.1) Lactic Acid Level 2.2 mmol/L (0.4-2.0) 2.8 mmol/L (0.4-2.0) Glucose (Fingerstick) 117 mg/dL (70-99) 121 mg/dL (70-99) Test 12/16/18 16:47 12/17/18 06:20 12/17/18 07:37 Glucose (Fingerstick) 111 mg/dL (70-99) 109 mg/dL (70-99) White Blood Count 9.7 x10^3/uL (4.0-11.0) Red Blood Count 2.27 x10^6/uL (3.50-5.40) Hemoglobin 7.9 g/dL (12.0-15.5) Hematocrit 23.1 % (36.0-47.0) Mean Corpuscular Volume 102 fL (79-100) Mean Corpuscular Hemoglobin 35 pg (25-35) Mean Corpuscular Hemoglobin Concent 34 g/dL (31-37) Red Cell Distribution Width 16.1 % (11.5-14.5) Platelet Count 119 x10^3/uL (140-400) Neutrophils (%) (Auto) 75 % (31-73) Lymphocytes (%) (Auto) 13 % (24-48) Monocytes (%) (Auto) 9 % (0-9) Eosinophils (%) (Auto) 3 % (0-3) Basophils (%) (Auto) 0 % (0-3) Neutrophils # (Auto) 7.3 x10^3uL (1.8-7.7) Lymphocytes # (Auto) 1.3 x10^3/uL (1.0-4.8) Monocytes # (Auto) 0.8 x10^3/uL (0.0-1.1) Eosinophils # (Auto) 0.2 x10^3/uL (0.0-0.7) Basophils # (Auto) 0.0 x10^3/uL (0.0-0.2) Prothrombin Time 24.4 SEC (11.7-14.0) Prothromb Time International Ratio 2.2 (0.8-1.1) Lactic Acid Level 1.0 mmol/L (0.4-2.0) Laboratory Tests Test 12/16/18 08:20 12/16/18 11:36 12/16/18 16:47 12/17/18 06:20 Glucose (Fingerstick) 117 mg/dL (70-99) 121 mg/dL (70-99) 111 mg/dL (70-99) White Blood Count 9.7 x10^3/uL (4.0-11.0) Red Blood Count 2.27 x10^6/uL (3.50-5.40) Hemoglobin 7.9 g/dL (12.0-15.5) Hematocrit 23.1 % (36.0-47.0) Mean Corpuscular Volume 102 fL (79-100) Mean Corpuscular Hemoglobin 35 pg (25-35) Mean Corpuscular Hemoglobin Concent 34 g/dL (31-37) Red Cell Distribution Width 16.1 % (11.5-14.5) Platelet Count 119 x10^3/uL (140-400) Neutrophils (%) (Auto) 75 % (31-73) Lymphocytes (%) (Auto) 13 % (24-48) Monocytes (%) (Auto) 9 % (0-9) Eosinophils (%) (Auto) 3 % (0-3) Basophils (%) (Auto) 0 % (0-3) Neutrophils # (Auto) 7.3 x10^3uL (1.8-7.7) Lymphocytes # (Auto) 1.3 x10^3/uL (1.0-4.8) Monocytes # (Auto) 0.8 x10^3/uL (0.0-1.1) Eosinophils # (Auto) 0.2 x10^3/uL (0.0-0.7) Basophils # (Auto) 0.0 x10^3/uL (0.0-0.2) Prothrombin Time 24.4 SEC (11.7-14.0) Prothromb Time International Ratio 2.2 (0.8-1.1) Lactic Acid Level 1.0 mmol/L (0.4-2.0) Test 12/17/18 07:37 Glucose (Fingerstick) 109 mg/dL (70-99) Medications Current Medications Morphine Sulfate (Morphine Sulfate) 4 mg 1X ONCE IV Last administered on 12/13/18at 20:45; Start 12/13/18 at 20:45; Stop 12/13/18 at 20:46; Status DC Ondansetron HCl (Zofran) 4 mg PRN Q8HRS PRN IV NAUSEA/VOMITING 1ST CHOICE Last administered on 12/13/18at 21:47; Start 12/13/18 at 21:00; Stop 12/14/18 at 20:59; Status DC Morphine Sulfate (Morphine Sulfate) 2 mg PRN Q2HR PRN IV SEVERE PAIN Last administered on 12/14/18at 19:50; Start 12/13/18 at 21:00; Stop 12/14/18 at 20:59; Status DC Dextrose/Sodium Chloride 1,000 ml @ 125 mls/hr 1X ONCE IV Last administered on 12/13/18at 23:11; Start 12/13/18 at 21:00; Stop 12/14/18 at 04:59; Status DC Cefazolin Sodium 1 gm/Dextrose 50 ml @ 100 mls/hr 1X ONCE IV ; Start 12/13/18 at 21:00; Stop 12/13/18 at 21:29; Status UNV Cefazolin Sodium (Ancef) 1 gm 1X ONCE IVP Last administered on 12/13/18at 23:10; Start 12/13/18 at 22:00; Stop 12/13/18 at 22:01; Status DC Ketorolac Tromethamine (Toradol 15mg Vial) 15 mg PRN Q6HRS PRN IV MILD - MODERATE PAIN Last administered on 12/15/18at 12:19; Start 12/14/18 at 01:45; Stop 12/19/18 at 01:44 Ketorolac Tromethamine (Toradol 30mg Vial) 30 mg 1X ONCE IV ; Start 12/14/18 at 02:00; Stop 12/14/18 at 02:01; Status DC Fentanyl Citrate (Fentanyl 2ml Vial) 100 mcg STK-MED ONCE .ROUTE ; Start 12/14/18 at 07:30; Stop 12/14/18 at 07:31; Status DC Dexamethasone Sodium Phosphate (Decadron) 4 mg STK-MED ONCE .ROUTE ; Start 12/14/18 at 07:30; Stop 12/14/18 at 07:31; Status DC Propofol 20 ml @ As Directed STK-MED ONCE IV ; Start 12/14/18 at 07:30; Stop 12/14/18 at 07:31; Status DC Lidocaine HCl (Lidocaine Pf 2% Vial) 5 ml STK-MED ONCE .ROUTE ; Start 12/14/18 at 07:30; Stop 12/14/18 at 07:31; Status DC Ondansetron HCl (Zofran) 4 mg STK-MED ONCE .ROUTE ; Start 12/14/18 at 07:30; Stop 12/14/18 at 07:31; Status DC Ondansetron HCl (Zofran) 4 mg PRN Q6HRS PRN IV NAUSEA/VOMITING; Start 12/14/18 at 07:45; Stop 12/14/18 at 15:00; Status DC Fentanyl Citrate (Fentanyl 2ml Vial) 25 mcg PRN Q5MIN PRN IV MILD PAIN; Start 12/14/18 at 07:45; Stop 12/14/18 at 15:00; Status DC Fentanyl Citrate (Fentanyl 2ml Vial) 50 mcg PRN Q5MIN PRN IV MODERATE TO SEVERE PAIN; Start 12/14/18 at 07:45; Stop 12/14/18 at 15:00; Status DC Morphine Sulfate (Morphine Sulfate) 1 mg PRN Q10MIN PRN IV SEVERE PAIN Last administered on 12/14/18at 10:14; Start 12/14/18 at 07:45; Stop 12/14/18 at 15:00; Status DC Ringer's Solution 1,000 ml @ 30 mls/hr Q24H IV Last administered on 12/14/18at 10:10; Start 12/14/18 at 07:40; Stop 12/14/18 at 13:53; Status DC Lidocaine HCl (Xylocaine-Mpf 1% 2ml Vial) 2 ml PRN 1X PRN ID PRIOR TO IV START; Start 12/14/18 at 07:45; Stop 12/14/18 at 15:00; Status DC Hydromorphone HCl (Dilaudid) 0.5 mg PRN Q10MIN PRN IV SEV PAIN, Second choice; Start 12/14/18 at 07:45; Stop 12/14/18 at 15:00; Status DC Prochlorperazine Edisylate (Compazine) 5 mg PACU PRN PRN IV NAUSEA, MRX1 Last administered on 12/14/18at 10:18; Start 12/14/18 at 07:45; Stop 12/14/18 at 15:00; Status DC Cefazolin Sodium 50 ml @ As Directed STK-MED ONCE IV ; Start 12/14/18 at 07:55; Stop 12/14/18 at 07:56; Status DC Cefazolin Sodium 1 gm/Dextrose 50 ml @ 100 mls/hr Q6H IV ; Start 12/14/18 at 08:15; Stop 12/14/18 at 20:44; Status UNV Warfarin Sodium (Coumadin Per Pharmacy) 1 each PRN DAILY PRN MC SEE COMMENTS Last administered on 12/16/18at 14:11; Start 12/14/18 at 08:00 Acetaminophen/ Hydrocodone Bitart (Lortab 5/325) 1 tab PRN Q4HRS PRN PO PAIN Last administered on 12/17/18 05:54; Start 12/14/18 at 08:00 Cefazolin Sodium (Ancef) 1 gm Q6H IVP Last administered on 12/15/18 03:07; Start 12/14/18 at 14:00; Stop 12/15/18 at 02:01; Status DC Sevoflurane (Ultane) 30 ml STK-MED ONCE IH ; Start 12/14/18 at 08:15; Stop 12/14/18 at 08:18; Status DC Morphine Sulfate 5 mg/Ketorolac Tromethamine 30 mg/Ropivacaine 60 ml/Epinephrine HCl 0.5 mg/Sodium Chloride 100 ml @ 100 mls/hr 1X ONCE INT ART Last admini stered on 12/14/18at 08:32; Start 12/14/18 at 09:00; Stop 12/14/18 at 09:59; Status DC Atenolol (Tenormin) 50 mg DAILY PO Last administered on 12/15/18 12:20; Start 12/14/18 at 14:30 Folic Acid (Folic Acid) 1 mg DAILY PO Last administered on 12/16/18 08:34; Start 12/14/18 at 14:30 Potassium Chloride (Klor-Con) 20 meq DAILY PO Last administered on 12/16/18 09:00; Start 12/14/18 at 14:30 Latanoprost (Xalatan) 1 drop QHS OU Last administered on 12/16/18 21:23; Start 12/14/18 at 21:00 Multivitamins 10 ml/Thiamine HCl 100 mg/Folic Acid 1 mg/Sodium Chloride 1,011.2 ml @ 100 mls/ hr DAILY IV Last administered on 12/15/18 08:01; Start 12/14/18 at 15:00; Stop 12/16/18 at 04:09; Status DC Lorazepam (Ativan) 2 mg PRN Q1HR PRN IV For CIWA 8-14; Start 12/14/18 at 14:00 Lorazepam (Ativan) 4 mg PRN Q1HR PRN IV For CIWA 15 or greater; Start 12/14/18 at 14:00 Haloperidol Lactate (Haldol Inj) 5 mg PRN Q4HRS PRN IVP Hallucinatns,Confusn,Delirium; Start 12/14/18 at 14:00 Diphenhydramine HCl (Benadryl) 25 mg PRN Q15MIN PRN IVP EPS symptoms 2'Haldol admin; Start 12/14/18 at 14:00 Clonidine HCl (Catapres) 0.1 mg PRN Q1HR PRN PO SBP > 180 or DBP > 100, MRX3; Start 12/14/18 at 14:00 Lorazepam (Ativan) 2 mg PRN Q15MIN PRN IV SEE COMMENTS; Start 12/14/18 at 14:00; Stop 12/14/18 at 14:00; Status DC Lorazepam (Ativan) 4 mg PRN Q15MIN PRN IV SEE COMMENTS; Start 12/14/18 at 14:00; Stop 12/14/18 at 14:00; Status DC Albuterol/ Ipratropium (Duoneb) 3 ml RTQID NEB Last administered on 12/16/18at 20:40; Start 12/14/18 at 16:00 Sodium Chloride (Normal Saline Flush) 3 ml QSHIFT PRN IV AFTER MEDS AND BLOOD DRAWS; Start 12/14/18 at 14:00 Ondansetron HCl (Zofran) 4 mg PRN Q4HRS PRN IV NAUSEA/VOMITING; Start 12/14/18 at 14:00 Zolpidem Tartrate (Ambien) 5 mg PRN QHS PRN PO INSOMNIA; Start 12/14/18 at 14:00 Acetaminophen (Tylenol) 650 mg PRN Q4HRS PRN PO TEMP OVER 100.4F OR MILD PAIN; Start 12/14/18 at 14:00 Al Hydroxide/Mg Hydroxide (Mylanta Plus Xs) 30 ml PRN DAILY PRN PO HEARTBURN / GAS Last administered on 12/15/18at 08:49; Start 12/14/18 at 14:00 Clonidine HCl (Catapres) 0.1 mg PRN Q6HRS PRN PO SBP>160 OR DBP>90; Start 12/14/18 at 14:00 Docusate Sodium (Colace) 100 mg PRN BID PRN PO CONSTIPATION; Start 12/14/18 at 14:00 Guaifenesin (Robitussin) 200 mg PRN Q4HRS PRN PO COUGH; Start 12/14/18 at 14:00 Lorazepam (Ativan) 0.5 mg PRN Q4HRS PRN PO ANXIETY / AGITATION; Start 12/14/18 at 14:00 Warfarin Sodium (Coumadin) 5 mg 1X WARF ONCE PO Last administered on 12/14/18at 17:32; Start 12/14/18 at 16:00; Stop 12/14/18 at 16:01; Status DC Morphine Sulfate (Morphine Sulfate) 2 mg PRN Q2HR PRN IV SEVERE PAIN Last administered on 12/17/18at 03:15; Start 12/14/18 at 22:15 Warfarin Sodium (Coumadin) 5 mg 1X WARF ONCE PO Last administered on 12/15/18at 15:46; Start 12/15/18 at 16:00; Stop 12/15/18 at 16:01; Status DC Calcium/Vitamin D (Oscal D 500mg/ 200uts) 1 tab BIDWMEALS PO Last administered on 12/16/18at 17:24; Start 12/15/18 at 17:00 Multivitamins (Thera M Plus) 1 tab DAILY PO Last administered on 12/16/18at 09:00; Start 12/16/18 at 09:00 Thiamine Mononitrate (Vitamin B-1) 100 mg DAILY PO Last administered on 12/16/18 08:34; Start 12/16/18 at 09:00 Insulin Human Lispro (HumaLOG) 0-5 UNITS TIDWMEALS SQ ; Start 12/16/18 at 12:00 Dextrose (Dextrose 50%-Water Syringe) 12.5 gm PRN Q15MIN PRN IV SEE COMMENTS; Start 12/16/18 at 08:15 Sodium Chloride 500 ml @ 500 mls/hr 1X ONCE IV Last administered on 12/16/18at 10:35; Start 12/16/18 at 10:30; Stop 12/16/18 at 11:29; Status DC Warfarin Sodium (Coumadin) 5 mg 1X WARF ONCE PO Last administered on 12/16/18at 17:23; Start 12/16/18 at 16:00; Stop 12/16/18 at 16:01; Status DC Active Scripts Active Reported Triamcinolone Acetonide 0.1% Cream (Triamcinolone Acetonide) 15 Gm Cream..g. 1 Luis TD BID Combigan Eye Drops (Brimonidine Tartrate/Timolol) 5 Ml Drops 1 Drp OU BID Lopressor (Metoprolol Tartrate) 100 Mg Tablet 50 Mg PO BID Latanoprost 2.5 Ml Drops 1 Drop EACHEYE HS Vitals/I & O Vital Sign - Last 24 Hours 12/16/18 12/16/18 12/16/18 12/16/18 08:35 11:00 11:24 13:28 Temp 97.8 97.8 Pulse 65 Resp 16 B/P (MAP) 114/48 (70) Pulse Ox 93 90 O2 Delivery Room Air Room Air Nasal Cannula Room Air O2 Flow Rate 2.0 12/16/18 12/16/18 12/16/18 12/16/18 15:00 15:26 17:24 19:00 Temp 98.3 98.4 98.3 98.4 Pulse 103 98 Resp 16 18 B/P (MAP) 108/52 (70) 137/65 (89) Pulse Ox 92 90 93 O2 Delivery Nasal Cannula Nasal Cannula Nasal Cannula Nasal Cannula O2 Flow Rate 2.0 2.0 3.0 2.0 12/16/18 12/16/18 12/16/18 12/16/18 20:00 20:40 21:32 23:00 Temp 98.2 98.2 Pulse 119 Resp 18 B/P (MAP) 151/79 (103) Pulse Ox 88 90 O2 Delivery Nasal Cannula Nasal Cannula Nasal Cannula Nasal Cannula O2 Flow Rate 3.0 2.0 2.0 3.0 12/16/18 12/17/18 12/17/18 12/17/18 23:34 03:00 03:15 03:45 Temp 99.2 99.2 Pulse 114 Resp 18 B/P (MAP) 147/73 (97) Pulse Ox 92 O2 Delivery Nasal Cannula Nasal Cannula Nasal Cannula Nasal Cannula O2 Flow Rate 3.0 3.0 3.0 3.0 12/17/18 12/17/18 05:54 06:54 O2 Delivery Nasal Cannula Nasal Cannula O2 Flow Rate 3.0 3.0 Intake and Output 12/16/18 12/16/18 12/17/18 15:00 23:00 07:00 Intake Total 200 ml Output Total 450 ml Balance -250 ml EMIR RAMOS MD December 17, 2018 08:10
[2018-12-17] MEDS: MULTIVITAMIN with MINERAL TABLET. PO SCH (09:13)
[2018-12-17] MEDS: THIAMINE 100 MG TABLET. PO SCH (09:14)
[2018-12-17] MEDS: ATENOLOL 50 MG TABLET. PO SCH (09:14)
[2018-12-17] MEDS: POTASSIUM CHLORIDE 10 MEQ TABLET.ER. PO SCH (09:15)
[2018-12-17] MEDS: FOLIC ACID 1 MG TABLET. PO SCH (09:15)
--- NOTE | 2018-12-17 09:39 | NUR ---
SW following for discharge planning. Discussed with RN, pt can discharge to [facility] today if okay with Dr. Manzo. SW awaiting confirmation.
[2018-12-17 10:23] LABS: HEMOGLOBIN A1C 5.1 % (4.8-5.6)
[2018-12-17 11:00] VITALS: BP 147/78
[2018-12-17] MEDS ORDERED: HYDR-2761 PO (11:15)
[2018-12-17] MEDS ORDERED: IPRA3AMP29 NEB (11:15)
[2018-12-17] MEDS ORDERED: WARF-31 PO (11:15)
--- NOTE | 2018-12-17 11:17 | SNU/HH DC ---
DISCHARGE ORDERS DISCHARGE INFORMATION: DISCHARGE DATE: December 17, 2018 FINAL DIAGNOSIS Problems Medical Problems: (1) Closed right hip fracture Status: Acute CONDITION ON DISCHARGE: Stable CODE STATUS: Code Status: Full SENIOR LIVING: SNF STAY <30 DAYS: Yes POST DISCHARGE ORDERS: ACTIVITY ORDERS: Activity as tolerated WEIGHT BEARING STATUS: As tolerated DIET AFTER DISCHARGE: Cardiac WOUND/INCISION CARE: Ice to area for comfort CHECKS AFTER DISCHARGE: CHECKS AFTER DISCHARGE: Check blood press - daily, Check your Temp as needed, Weigh Yourself Daily FOLLOW-UP: PHYSICIAN FOLLOW-UP: Dr. Ross - 2 weeks, Dr. Beckman 2-3 weeks, Dr. Crews ANTICOAGULATION F/U NEEDED: INR 12/18/18 TREATMENT/EQUIPMENT ORDERS: ADAPTIVE EQUIPMENT NEEDED: None RESPIRATORY EQUIPMENT NEEDED: Oxygen, Nebulizer Physical Therapy For: Evalulation/Treatment Occupational Therapy For: Evaluation/Treatment DISCHARGE MEDICATIONS: Home Meds Active Scripts Ipratropium/Albuterol Sulfate (DUONEB 0.5-3(2.5) MG/3 ML) 3 Ml Ampul.neb, 3 ML NEB RTQID for COPD for 30 Days, #120 EACH Prov:EMIR RAMOS MD 12/17/18 Warfarin Sodium (WARFARIN SODIUM) 5 Mg Tablet, 5 MG PO DAILY for PPX for 30 Days, #30 TAB Prov:EMIR RAMOS MD 12/17/18 Hydrocodone Bit/Acetaminophen (HYDROCODONE-APAP 5-325 ) 1 Tab Tablet, 1 TAB PO PRN Q4HRS PRN for PAIN for 6 Days, #18 TAB Prov:EMIR RAMOS MD 12/17/18 Reported Medications Triamcinolone Acetonide (TRIAMCINOLONE ACETONIDE 0.1% CREAM) 15 Gm Cream..g., 1 LEANDRO TD BID for rash 12/14/18 Brimonidine Tartrate/Timolol (COMBIGAN EYE DROPS) 5 Ml Drops, 1 DRP OU BID for glaucoma, DROP 12/14/18 Metoprolol Tartrate (Lopressor) 100 Mg Tablet, 50 MG PO BID for htn, TAB 12/14/18 Latanoprost (LATANOPROST) 2.5 Ml Drops, 1 DROP EACHEYE QHS for glaucoma, #7.5 ML 3 Refills 12/14/18 Discontinued Reported Medications Metoprolol Succinate (TOPROL XL) 50 Mg Tab.er.24h, 50 MG PO BID PRN for ELEVATED BP, SEE COMMENTS, #30 TAB 0 Refills 12/14/18 EMIR RAMOS MD December 17, 2018 11:17
[2018-12-17] MEDS ORDERED: ENOX60DI SQ (11:24)
--- NOTE | 2018-12-17 11:30 | PDOC3 ---
Discharge Summary Visit Information Date of Admission: December 13, 2018 Date of Discharge: December 17, 2018 Admitting Diagnosis: Closed right hip fracture Final Diagnosis Problems Medical Problems: (1) Closed right hip fracture Status: Acute Brief Hospital Course Allergies Allergies Coded Allergies Type Severity Reaction Last Updated Verified ciprofloxacin Allergy Intermediate BROKE OUT WITH WELTS 09/30/16 Yes codeine Allergy Intermediate 12/13/18 Yes Vital Signs Vital Signs Date Time Temp Pulse Resp B/P (MAP) Pulse Ox O2 Delivery O2 Flow Rate FiO2 12/17/18 09:14 115 156/70 12/17/18 08:11 93 Nasal Cannula 3.0 12/17/18 07:00 98.8 18 98.8 Lab Results Laboratory Tests Test 12/16/18 01:45 12/16/18 07:50 12/16/18 08:20 12/16/18 11:36 White Blood Count 10.4 x10^3/uL (4.0-11.0) Red Blood Count 1.94 x10^6/uL (3.50-5.40) Hemoglobin 6.9 g/dL (12.0-15.5) 9.1 g/dL (12.0-15.5) Hematocrit 20.8 % (36.0-47.0) 26.9 % (36.0-47.0) Mean Corpuscular Volume 107 fL (79-100) Mean Corpuscular Hemoglobin 36 pg (25-35) Mean Corpuscular Hemoglobin Concent 33 g/dL (31-37) Red Cell Distribution Width 13.3 % (11.5-14.5) Platelet Count 130 x10^3/uL (140-400) Neutrophils (%) (Auto) 85 % (31-73) Lymphocytes (%) (Auto) 10 % (24-48) Monocytes (%) (Auto) 4 % (0-9) Eosinophils (%) (Auto) 0 % (0-3) Basophils (%) (Auto) 0 % (0-3) Neutrophils # (Auto) 8.8 x10^3uL (1.8-7.7) Lymphocytes # (Auto) 1.1 x10^3/uL (1.0-4.8) Monocytes # (Auto) 0.5 x10^3/uL (0.0-1.1) Eosinophils # (Auto) 0.0 x10^3/uL (0.0-0.7) Basophils # (Auto) 0.0 x10^3/uL (0.0-0.2) Prothrombin Time 16.1 SEC (11.7-14.0) Prothromb Time International Ratio 1.3 (0.8-1.1) Hemoglobin A1c 5.1 % (4.8-5.6) Lactic Acid Level 2.2 mmol/L (0.4-2.0) 2.8 mmol/L (0.4-2.0) Glucose (Fingerstick) 117 mg/dL (70-99) 121 mg/dL (70-99) Test 12/16/18 16:47 12/17/18 06:20 12/17/18 07:37 Glucose (Fingerstick) 111 mg/dL (70-99) 109 mg/dL (70-99) White Blood Count 9.7 x10^3/uL (4.0-11.0) Red Blood Count 2.27 x10^6/uL (3.50-5.40) Hemoglobin 7.9 g/dL (12.0-15.5) Hematocrit 23.1 % (36.0-47.0) Mean Corpuscular Volume 102 fL (79-100) Mean Corpuscular Hemoglobin 35 pg (25-35) Mean Corpuscular Hemoglobin Concent 34 g/dL (31-37) Red Cell Distribution Width 16.1 % (11.5-14.5) Platelet Count 119 x10^3/uL (140-400) Neutrophils (%) (Auto) 75 % (31-73) Lymphocytes (%) (Auto) 13 % (24-48) Monocytes (%) (Auto) 9 % (0-9) Eosinophils (%) (Auto) 3 % (0-3) Basophils (%) (Auto) 0 % (0-3) Neutrophils # (Auto) 7.3 x10^3uL (1.8-7.7) Lymphocytes # (Auto) 1.3 x10^3/uL (1.0-4.8) Monocytes # (Auto) 0.8 x10^3/uL (0.0-1.1) Eosinophils # (Auto) 0.2 x10^3/uL (0.0-0.7) Basophils # (Auto) 0.0 x10^3/uL (0.0-0.2) Prothrombin Time 24.4 SEC (11.7-14.0) Prothromb Time International Ratio 2.2 (0.8-1.1) Lactic Acid Level 1.0 mmol/L (0.4-2.0) Laboratory Tests Test 12/16/18 11:36 12/16/18 16:47 12/17/18 06:20 12/17/18 07:37 Glucose (Fingerstick) 121 mg/dL (70-99) 111 mg/dL (70-99) 109 mg/dL (70-99) White Blood Count 9.7 x10^3/uL (4.0-11.0) Red Blood Count 2.27 x10^6/uL (3.50-5.40) Hemoglobin 7.9 g/dL (12.0-15.5) Hematocrit 23.1 % (36.0-47.0) Mean Corpuscular Volume 102 fL (79-100) Mean Corpuscular Hemoglobin 35 pg (25-35) Mean Corpuscular Hemoglobin Concent 34 g/dL (31-37) Red Cell Distribution Width 16.1 % (11.5-14.5) Platelet Count 119 x10^3/uL (140-400) Neutrophils (%) (Auto) 75 % (31-73) Lymphocytes (%) (Auto) 13 % (24-48) Monocytes (%) (Auto) 9 % (0-9) Eosinophils (%) (Auto) 3 % (0-3) Basophils (%) (Auto) 0 % (0-3) Neutrophils # (Auto) 7.3 x10^3uL (1.8-7.7) Lymphocytes # (Auto) 1.3 x10^3/uL (1.0-4.8) Monocytes # (Auto) 0.8 x10^3/uL (0.0-1.1) Eosinophils # (Auto) 0.2 x10^3/uL (0.0-0.7) Basophils # (Auto) 0.0 x10^3/uL (0.0-0.2) Prothrombin Time 24.4 SEC (11.7-14.0) Prothromb Time International Ratio 2.2 (0.8-1.1) Lactic Acid Level 1.0 mmol/L (0.4-2.0) Brief Hospital Course 78 yo F w/ PMHx breast lump, hypothyroidism, ETOH use, nicotine use presents with accidental fall from standing and right hip deformity. Injury occurred 30 minutes prior to ED arrival while attending in outdoor sporting event. Patient states she tripped over a curb landing on her right hip. She did not hit her head. She denies headache, neck pain or loss of consciousness. She denies preceding medical symptoms prior to the fall. Patient takes daily aspirin. No other injuries or pain complaints. 100 g of fentanyl given by EMS on route to the hospital. Patient's orthopedic surgeon is Dr. Caldwell. She went for TFN right hip on 12/14/18 with no adverse events. Seen by surgery for her breast lump, recommended surgery, mastectomy JULIO C, will give script for lovenox in case she goes to surgery in the next month, otherwise coumadin for 30 days pos-op. Did require transfusion for Hb drop to 6.9 Vitamin D level low, replace Mechanical fall with acute hip fracture Closed, displaced comminuted right intertrochanteric hip fracture - s/p TFIN 12/14/[address] Ross Hypothyroidism, subclinical. Monitor TSH in few weeks. History of heavy alcohol and nicotine use. Chronic hypoxia with COPD Acute anemia s/p transfusion dCHF Needed further IVF for lactic acidosis, delayed d/c by 1 day, can d/c to SNF today Greater than 30 minutes spent on discharge Discharge Information Condition at Discharge: Improved Follow Up: Weeks Disposition/Orders: D/C to Another Facility ([facility]) Scheduled Brimonidine Tartrate/Timolol (Combigan Eye Drops) 5 Ml Drops, 1 DRP OU BID for glaucoma, (Reported) Entered as Reported by: GUMARO EDOUARD on 12/14/182006 Last Action: New Order on 12/14/182006 by GUMARO EDOUARD Enoxaparin Sodium (Lovenox) 60 Mg/0.6 Ml Disp.syrin, 50 MG SQ BID for ANTI- COAGULANT for 10 Days, #20 Stop coumadin and start BID injections 5 days prior to planned surgery and for 5 days post op. Hold injections for 12 hours prior to planned surgery Prescribed by: EMIR RAMOS MD on 12/17/18 1124 Ipratropium/Albuterol Sulfate (Duoneb 0.5-3(2.5) Mg/3 Ml) 3 Ml Ampul.neb, 3 ML NEB RTQID for COPD for 30 Days, #120 Prescribed by: EMIR RAMOS MD on 12/17/18 1115 Latanoprost (Latanoprost) 2.5 Ml Drops, 1 DROP EACHEYE QHS for glaucoma, #7.5 Ref 3 (Reported) Entered as Reported by: JENN YATES on 12/14/18 0607 Last Action: Converted on 12/14/18 1349 by LUI CELIS MD Metoprolol Tartrate (Lopressor) 100 Mg Tablet, 50 MG PO BID for htn, (Reported) Entered as Reported by: GUMARO EDOUARD on 12/14/182006 Last Action: New Order on 12/14/182006 by GUMARO EDOUARD Triamcinolone Acetonide (Triamcinolone Acetonide 0.1% Cream) 15 Gm Cream..g., 1 LEANDRO TD BID for rash, (Reported) Entered as Reported by: GUMARO EDOUARD on 12/14/182008 Last Action: New Order on 12/14/182008 by GUMARO EDOUARD Warfarin Sodium (Warfarin Sodium) 5 Mg Tablet, 5 MG PO DAILY for PPX for 30 Days, #30 Prescribed by: EMIR RAMOS MD on 12/17/18 1115 Scheduled PRN Hydrocodone Bit/Acetaminophen (Hydrocodone-Apap 5-325 ) 1 Tab Tablet, 1 TAB PO PRN Q4HRS PRN for PAIN for 6 Days, #18 Prescribed by: EMIR RAMOS MD on 12/17/18 1115 Discontinued Medications Metoprolol Succinate (Toprol Xl) 50 Mg Tab.er.24h, 50 MG PO BID PRN for ELEVATED BP, SEE COMMENTS, #30 Ref 0 (Reported) Entered as Reported by: JENN YATES on 12/14/18 0100 Last Taken: Unknown Dose on Unknown Date & Time Last Action: Discontinued on 12/14/182006 by EMIR ALBARRAN MD December 17, 2018 11:30
--- NOTE | 2018-12-17 12:38 | NUR ---
Pharmacy Warfarin Dosing Note S:Pharmacy consulted to assist with anticoagulation therapy started 12/14/18 with target INR: 1.6 - 2.5 O:NI STAFFORD is a 78 year old F with a Hip Fracture Allergies:codeine ciprofloxacin Height: 5 feet, 2 inches Weight: 53.1 kg LABS: Last INR: 2.2 Last HGB: 7.9 Last HCT: 23.1 Last PLT: 119 Ongoing Drug Interactions: A:INR within desired Range. Target Range for this patient is: 1.6 - 2.5 P: Warfarin dose: 2 mg will be given today prior to discharge. Give 3 mg daily. Draw INR on 12/22/18, and request attending physician to dose warfarin for a goal INR 1.6 - 2.5 through end of therapy 01/25/19 (6 weeks of therapy). Indication for warfarin is prevention of VTE after major joint surgery. NEELIMA QUINTANILLA [facility], 12/17/18 [id number]
[2018-12-17] MEDS ORDERED: WARFARIN 2 MG TABLET. PO ONE (13:00)
--- NOTE | 2018-12-17 13:33 | NUR ---
SW following for discharge planning. Discussed with RN, pt is discharging to [facility] today at 1400. Pt choice and rights letter signed and placed on chart. No further SW needs.
--- NOTE | 2018-12-17 14:49 | NUR ---
Pt was discharged to at 1400 today in stable condition with all personal belongings. Report called into [facility], packet given to facility transportation, all pertinent information faxed to [facility]. Pt was escorted via WC and accompanied by [facility] transportation to the main exit where she was driven by van to .
--- NOTE | 2018-12-21 14:26 | PDOC1 ---
History and Physical Date of Admission Date of Admission DATE: 12/21/18 TIME: 14:25 Identification/Chief Complaint Chief Complaint [facility] 12/20/18 78 yo F w/ PMHx breast lump, hypothyroidism, ETOH use, nicotine use presents with accidental fall from standing and right hip deformity. Injury occurred 30 minutes prior to ED arrival while attending in outdoor sporting event. Patient states she tripped over a curb landing on her right hip. She did not hit her head. She denies headache, neck pain or loss of consciousness. She denies preceding medical symptoms prior to the fall. Patient takes daily aspirin. No other injuries or pain complaints. 100 g of fentanyl given by EMS on route to the hospital. Patient's orthopedic surgeon is Dr. Caldwell. She went for TFN right hip on 12/14/18 with no adverse events. Seen by surgery for her breast lump, recommended surgery, mastectomy JULIO C, will give script for lovenox in case she goes to surgery in the next month, otherwise coumadin for 30 days pos-op. Did require transfusion for Hb drop to 6.9 Vitamin D level low, replace Mechanical fall with acute hip fracture Closed, displaced comminuted right intertrochanteric hip fracture - s/p TFIN 12/14/[address] Ross Hypothyroidism, subclinical. Monitor TSH in few weeks. History of heavy alcohol and nicotine use. Chronic hypoxia with COPD Acute anemia s/p transfusion dCHF Needed further IVF for lactic acidosis, delayed d/c by 1 day, can d/c to SNF today Condition at Discharge: Improved Follow Up: Weeks Disposition/Orders: D/C to Another Facility ([facility]) Scheduled Brimonidine Tartrate/Timolol (Combigan Eye Drops) 5 Ml Drops, 1 DRP OU BID for glaucoma, (Reported) Entered as Reported by: GUMARO EDOUARD on 12/14/182006 Last Action: New Order on 12/14/182006 by GUMARO EDOUARD Enoxaparin Sodium (Lovenox) 60 Mg/0.6 Ml Disp.syrin, 50 MG SQ BID for ANTI- COAGULANT for 10 Days, #20 Stop coumadin and start BID injections 5 days prior to planned surgery and f or 5 days post op. Hold injections for 12 hours prior to planned surgery Prescribed by: EMIR RAMOS MD on 12/17/18 1124 Ipratropium/Albuterol Sulfate (Duoneb 0.5-3(2.5) Mg/3 Ml) 3 Ml Ampul.neb, 3 ML NEB RTQID for COPD for 30 Days, #120 Prescribed by: EMIR RAMOS MD on 12/17/18 1115 Latanoprost (Latanoprost) 2.5 Ml Drops, 1 DROP EACHEYE QHS for glaucoma, #7.5 Ref 3 (Reported) Entered as Reported by: JENN YATES on 12/14/18 0607 Last Action: Converted on 12/14/18 1349 by LUI CELIS MD Metoprolol Tartrate (Lopressor) 100 Mg Tablet, 50 MG PO BID for htn, (Reported) Entered as Reported by: GUMARO EDOUARD on 12/14/182006 Last Action: New Order on 12/14/182006 by GUMARO EDOUARD Triamcinolone Acetonide (Triamcinolone Acetonide 0.1% Cream) 15 Gm Cream..g., 1 LUIS TD BID for rash, (Reported) Entered as Reported by: GUMARO EDOUARD on 12/14/182008 Last Action: New Order on 12/14/182008 by GUMARO EDOUARD Warfarin Sodium (Warfarin Sodium) 5 Mg Tablet, 5 MG PO DAILY for PPX for 30 Days, #30 Prescribed by: EMIR RAMOS MD on 12/17/18 1115 Scheduled PRN Hydrocodone Bit/Acetaminophen (Hydrocodone-Apap 5-325 ) 1 Tab Tablet, 1 TAB PO PRN Q4HRS PRN for PAIN for 6 Days, #18 Prescribed by: EMIR RAMOS MD on 12/17/18 1115 Discontinued Medications Metoprolol Succinate (Toprol Xl) 50 Mg Tab.er.24h, 50 MG PO BID PRN for ELEVATED BP, SEE COMMENTS, #30 Ref 0 (Reported) Entered as Reported by: JENN YATES on 12/14/18 0100 Last Taken: Unknown Dose on Unknown Date & Time Last Action: Discontinued on 12/14/182006 by GUMARO EDOUARD Past Medical History Past Medical History 78 year old female presents with accidental fall from standing and right hip deformity. Injury occurred 30 minutes prior to ED arrival while attending in outdoor sporting event. Patient states she tripped over a curb landing on her right hip. She did not hit her head. She denies headache, neck pain or loss of consciousness. She denies preceding medical symptoms prior to the fall. Patient takes daily aspirin. No other injuries or pain complaints. 100 g of fentanyl g iven by EMS on route to the hospital. Patient's orthopedic surgeon is Dr. Dennis. SEEING DR PINEDA FOR BREAST MASS, aCCORDING TO , Drinks 3-4 glasses of wine a day at least Past Medical History Past Medical History Past Medical History Past Medical History Past Medical History: Hypertension Additional Past Medical Histor: PNEUMONIA Past Surgical History: Appendectomy, , Hysterectomy Additional Past Surgical Histo: SKIN CA,TUMMY TUCK,RIGHT SHOULDER SURGERY Alcohol Use: Heavy Drug Use: None family hx hypertension Cardiovascular: HTN Pulmonary: Pneumonia Infectious disease: No pertinent hx ENT: No pertinent hx Dermatology: No pertinent hx Past Surgical History Past Surgical History: Other Family History Family History: Alcohol Abuse, Hypertension Social History Smoke: 1 pack per day ALCOHOL: heavy Drugs: None Current Problem List Problem List Problems Medical Problems: (1) Closed right hip fracture Status: Acute Current Medications Current Medications Current Medications Morphine Sulfate (Morphine Sulfate) 4 mg 1X ONCE IV Last administered on 12/13/18at 20:45; Start 12/13/18 at 20:45; Stop 12/13/18 at 20:46; Status DC Ondansetron HCl (Zofran) 4 mg PRN Q8HRS PRN IV NAUSEA/VOMITING 1ST CHOICE Last administered on 12/13/18at 21:47; Start 12/13/18 at 21:00; Stop 12/14/18 at 20:59 Morphine Sulfate (Morphine Sulfate) 2 mg PRN Q2HR PRN IV SEVERE PAIN Last administered on 12/14/18at 07:18; Start 12/13/18 at 21:00; Stop 12/14/18 at 20:59 Dextrose/Sodium Chloride 1,000 ml @ 125 mls/hr 1X ONCE IV Last administered on 12/13/18at 23:11; Start 12/13/18 at 21:00; Stop 12/14/18 at 04:59; Status DC Cefazolin Sodium 1 gm/Dextrose 50 ml @ 100 mls/hr 1X ONCE IV ; Start 12/13/18 at 21:00; Stop 12/13/18 at 21:29; Status UNV Cefazolin Sodium (Ancef) 1 gm 1X ONCE IVP Last administered on 12/13/18at 23:10; Start 12/13/18 at 22:00; Stop 12/13/18 at 22:01; Status DC Ketorolac Tromethamine (Toradol 15mg Vial) 15 mg PRN Q6HRS PRN IV SEVERE PAIN Last administered on 12/14/18at 02:01; Start 12/14/18 at 01:45; Stop 12/19/18 at 01:44 Ketorolac Tromethamine (Toradol 30mg Vial) 30 mg 1X ONCE IV ; Start 12/14/18 at 02:00; Stop 12/14/18 at 02:01; Status DC Fentanyl Citrate (Fentanyl 2ml Vial) 100 mcg STK-MED ONCE .ROUTE ; Start 12/14/18 at 07:30; Stop 12/14/18 at 07:31; Status DC Dexamethasone Sodium Phosphate (Decadron) 4 mg STK-MED ONCE .ROUTE ; Start 12/14/18 at 07:30; Stop 12/14/18 at 07:31; Status DC Propofol 20 ml @ As Directed STK-MED ONCE IV ; Start 12/14/18 at 07:30; Stop 12/14/18 at 07:31; Status DC Lidocaine HCl (Lidocaine Pf 2% Vial) 5 ml STK-MED ONCE .ROUTE ; Start 12/14/18 at 07:30; Stop 12/14/18 at 07:31; Status DC Ondansetron HCl (Zofran) 4 mg STK-MED ONCE .ROUTE ; Start 12/14/18 at 07:30; Stop 12/14/18 at 07:31; Status DC Ondansetron HCl (Zofran) 4 mg PRN Q6HRS PRN IV NAUSEA/VOMITING; Start 12/14/18 at 07:45; Stop 12/14/18 at 15:00 Fentanyl Citrate (Fentanyl 2ml Vial) 25 mcg PRN Q5MIN PRN IV MILD PAIN; Start 12/14/18 at 07:45; Stop 12/14/18 at 15:00 Fentanyl Citrate (Fentanyl 2ml Vial) 50 mcg PRN Q5MIN PRN IV MODERATE TO SEVERE PAIN; Start 12/14/18 at 07:45; Stop 12/14/18 at 15:00 Morphine Sulfate (Morphine Sulfate) 1 mg PRN Q10MIN PRN IV SEVERE PAIN Last administered on 12/14/18at 10:14; Start 12/14/18 at 07:45; Stop 12/14/18 at 15:00 Ringer's Solution 1,000 ml @ 30 mls/hr Q24H IV Last administered on 12/14/18at 10:10; Start 12/14/18 at 07:40; Stop 12/14/18 at 19:39 Lidocaine HCl (Xylocaine-Mpf 1% 2ml Vial) 2 ml PRN 1X PRN ID PRIOR TO IV START; Start 12/14/18 at 07:45; Stop 12/14/18 at 15:00 Hydromorphone HCl (Dilaudid) 0.5 mg PRN Q10MIN PRN IV SEV PAIN, Second choice; Start 12/14/18 at 07:45; Stop 12/14/18 at 15:00 Prochlorperazine Edisylate (Compazine) 5 mg PACU PRN PRN IV NAUSEA, MRX1 Last administered on 12/14/18at 10:18; Start 12/14/18 at 07:45; Stop 12/14/18 at 15:00 Cefazolin Sodium 50 ml @ As Directed STK-MED ONCE IV ; Start 12/14/18 at 07:55; Stop 12/14/18 at 07:56; Status DC Cefazolin Sodium 1 gm/Dextrose 50 ml @ 100 mls/hr Q6H IV ; Start 12/14/18 at 08:15; Stop 12/14/18 at 20:44; Status UNV Warfarin Sodium (Coumadin Per Pharmacy) 1 each PRN DAILY PRN MC SEE COMMENTS; Start 12/14/18 at 08:00 Acetaminophen/ Hydrocodone Bitart (Lortab 5/325) 1 tab PRN Q4HRS PRN PO PAIN; Start 12/14/18 at 08:00 Cefazolin Sodium (Ancef) 1 gm Q6H IVP Last administered on 12/14/18at 07:59; Start 12/14/18 at 14:00; Stop 12/15/18 at 02:01 Sevoflurane (Ultane) 30 ml STK-MED ONCE IH ; Start 12/14/18 at 08:15; Stop 12/14/18 at 08:18; Status DC Morphine Sulfate 5 mg/Ketorolac Tromethamine 30 mg/Ropivacaine 60 ml/Epinephrine HCl 0.5 mg/Sodium Chloride 100 ml @ 100 mls/hr 1X ONCE INT ART Last administered on 12/14/18at 08:32; Start 12/14/18 at 09:00; Stop 12/14/18 at 09:59; Status DC Active Scripts Active Potassium Chloride 10 Meq Tablet.er 20 Meq PO DAILY Furosemide 40 Mg Tablet 40 Mg PO DAILY Lorazepam 1 Mg Tablet 2 Mg PO QHS PRN Folic Acid 1 Mg Tablet 1 Mg PO DAILY Reported Latanoprost 2.5 Ml Drops 1 Drop EACHEYE QHS Toprol Xl (Metoprolol Succinate) 50 Mg Tab.er.24h 50 Mg PO BID PRN Atenolol 50 Mg Tablet 1 Tab PO DAILY Allergies Allergies: Coded Allergies: ciprofloxacin (Verified Allergy, Intermediate, BROKE OUT WITH WELTS, 09/30/16) PATIENT NOT SURE IF IT'S CIPRO ? THAT WAS GIVEN codeine (Verified Allergy, Intermediate, 12/13/18) ROS Review of System 14 pt ros otherwise wnl General: No: Chills, Night Sweats, Fatigue, Malaise, Appetite, Other PSYCHOLOGICAL ROS: No: Anxiety, Behavioral Disorder, Concentration difficultie, Decreased libido, Depression, Disorientation, Hallucinations, Hostility, Irritablity, Memory difficulties, Mood Swings, Obsessive thoughts, Physical abuse, Sexual abuse, Sleep disturbances, Suicidal ideation, Other Eyes: No Blurry vision, No Decreased vision, No Double vision, No Dry eyes, No Excessive tearing, No Eye Pain, No Itchy Eyes, No Loss of vision, No Photophobia, No Scotomata, No Uses contacts, No Uses glasses, No Other HEENT: No: Heacaches, Visual Changes, Hearing change, Nasal congestion, Nasal discharge, Oral lesions, Sinus pain, Sore Throat, Epistaxis, Sneezing, Snoring, Tinnitus, Vertigo, Vocal changes, Other ALLERGY AND IMMUNOLOGY: No: Hives, Insect Bite Sensitivity, Itchy/Watery Eyes, Nasal Congestion, Post Nasal Drip, Seasonal Allergies, Other Hematological and Lymphatic: No: Bleeding Problems, Blood Clots, Blood Transfusions, Brusing, Night Sweats, Pallor, Swollen Lymph Nodes, Other ENDOCRINE: YES: Breast Changes Breast: New/Changing Breast Lumps Respiratory: No: Cough, Hemoptysis, Orthopnea, Pleuritic Pain, Shortness of breath, SOB with excertion, Sputum Changes, Stridor, Tachypnea, Wheezing, Other Cardiovascular: No Chest Pain, No Palpitations, No Orthopnea, No Paroxysmal No c. Dyspnea, No Edema, No Lt Headedness, No Other Gastrointestinal: No Nausea, No Vomiting, No Abdominal Pain, No Diarrhea, No Constipation, No Melena, No Hematochezia, No Other Genitourinary: No Dysuria, No Frequency, No Incontinence, No Hematuria, No Retention, No Discharge, No Urgency, No Pain, No Flank Pain, No Other, No , No , No , No , No , No , No Musculoskeletal: Yes Gait Disturbance, Yes Joint Pain Neurological: Yes Gait Disturbance; No Behavorial Changes, No Bowel/Bladder ControlChng, No Confusion, No Dizziness, No Headaches, No Impaired Coord/balance, No Memory Loss, No Numbness/Tingling, No Seizures, No Speech Problems, No Tremors, No Visual Changes, No Weakness, No Other Skin: No Dry Skin, No Eczema, No Hair Changes, No Lumps, No Mole Changes, No Mottling, No Nail Changes, No Pruritus, No Rash, No Skin Lesion Changes, No Other, No Acne Physical Exam Physical Exam Physical Exam Physical Exam Constitutional: Well developed, well nourished, no acute distress, non-toxic appearance. [] HENT: Normocephalic, atraumatic, bilateral external ears normal, oropharynx moist, no oral exudates, nose normal. [] Eyes: PERRLA, EOMI, conjunctiva normal, no discharge. [] Neck: Normal range of motion, no tenderness, supple, no stridor. [] Cardiovascular:Heart rate regular rhythm, no murmur [] Lungs & Thorax: Bilateral breath sounds clear to auscultation [] Abdomen: Bowel sounds normal, soft, no tenderness, no masses, no pulsatile masses. [] Skin: Warm, dry, no erythema, no rash. [] Back: No tenderness, no CVA tenderness. [] Extremities: R Hip pain, tenderness, POST-OP [] Neurologic: Alert and oriented X 3, right lower extremity, no motor weakness or loss of sensation.. [] Psychologic: Affect normal, judgement normal, mood normal. [] General: Oriented X3, Cooperative, moderate distress HEENT: Atraumatic, PERRLA, EOMI, Mucous membr. moist/pink Lungs: Clear to auscultation Heart: S1S2, RRR, no thrills, no gallops, no murmurs Breasts: Not examined Abdomen: Normal bowel sounds, Soft Rectal Exam: not examined PELVIC: Examination not indicated Extremities: No cyanosis Skin: No breakdown Neuro: Normal speech, Sensation intact, Cranial nerves 3-12 NL Psych/Mental Status: Mental status NL, Mood NL Vitals Vitals Vital Signs Date Time Temp Pulse Resp B/P (MAP) Pulse Ox O2 Delivery O2 Flow Rate FiO2 12/14/18 10:23 Nasal Cannula 2 12/14/18 10:14 97.9 122 22 155/68 90 97.9 Cardiovascular: HTN Pulmonary: Pneumonia Infectious disease: No pertinent hx ENT: No pertinent hx Dermatology: No pertinent hx Past Surgical History Past Surgical History: Other Family History Family History: Alcohol Abuse, Hypertension Social History Smoke: 1 pack per day ALCOHOL: heavy Drugs: None Current Problem List Problem List Problems Medical Problems: (1) Closed right hip fracture Status: Acute Current Medications Current Medications Current Medications Morphine Sulfate (Morphine Sulfate) 4 mg 1X ONCE IV Last administered on 12/13/18at 20:45; Start 12/13/18 at 20:45; Stop 12/13/18 at 20:46; Status DC Ondansetron HCl (Zofran) 4 mg PRN Q8HRS PRN IV NAUSEA/VOMITING 1ST CHOICE Last administered on 12/13/18at 21:47; Start 12/13/18 at 21:00; Stop 12/14/18 at 20:59; Status DC Morphine Sulfate (Morphine Sulfate) 2 mg PRN Q2HR PRN IV SEVERE PAIN Last administered on 12/14/18at 19:50; Start 12/13/18 at 21:00; Stop 12/14/18 at 20:59; Status DC Dextrose/Sodium Chloride 1,000 ml @ 125 mls/hr 1X ONCE IV Last administered on 12/13/18at 23:11; Start 12/13/18 at 21:00; Stop 12/14/18 at 04:59; Status DC Cefazolin Sodium 1 gm/Dextrose 50 ml @ 100 mls/hr 1X ONCE IV ; Start 12/13/18 at 21:00; Stop 12/13/18 at 21:29; Status UNV Cefazolin Sodium (Ancef) 1 gm 1X ONCE IVP Last administered on 12/13/18at 23:10; Start 12/13/18 at 22:00; Stop 12/13/18 at 22:01; Status DC Ketorolac Tromethamine (Toradol 15mg Vial) 15 mg PRN Q6HRS PRN IV MILD - MODERATE PAIN Last administered on 12/15/18at 12:19; Start 12/14/18 at 01:45; Stop 12/17/18 at 14:58; Status DC Ketorolac Tromethamine (Toradol 30mg Vial) 30 mg 1X ONCE IV ; Start 12/14/18 at 02:00; Stop 12/14/18 at 02:01; Status DC Fentanyl Citrate (Fentanyl 2ml Vial) 100 mcg STK-MED ONCE .ROUTE ; Start 12/14/18 at 07:30; Stop 12/14/18 at 07:31; Status DC Dexamethasone Sodium Phosphate (Decadron) 4 mg STK-MED ONCE .ROUTE ; Start 12/14/18 at 07:30; Stop 12/14/18 at 07:31; Status DC Propofol 20 ml @ As Directed STK-MED ONCE IV ; Start 12/14/18 at 07:30; Stop 12/14/18 at 07:31; Status DC Lidocaine HCl (Lidocaine Pf 2% Vial) 5 ml STK-MED ONCE .ROUTE ; Start 12/14/18 at 07:30; Stop 12/14/18 at 07:31; Status DC Ondansetron HCl (Zofran) 4 mg STK-MED ONCE .ROUTE ; Start 12/14/18 at 07:30; Stop 12/14/18 at 07:31; Status DC Ondansetron HCl (Zofran) 4 mg PRN Q6HRS PRN IV NAUSEA/VOMITING; Start 12/14/18 at 07:45; Stop 12/14/18 at 15:00; Status DC Fentanyl Citrate (Fentanyl 2ml Vial) 25 mcg PRN Q5MIN PRN IV MILD PAIN; Start 12/14/18 at 07:45; Stop 12/14/18 at 15:00; Status DC Fentanyl Citrate (Fentanyl 2ml Vial) 50 mcg PRN Q5MIN PRN IV MODERATE TO SEVERE PAIN; Start 12/14/18 at 07:45; Stop 12/14/18 at 15:00; Status DC Morphine Sulfate (Morphine Sulfate) 1 mg PRN Q10MIN PRN IV SEVERE PAIN Last administered on 12/14/18at 10:14; Start 12/14/18 at 07:45; Stop 12/14/18 at 15:00; Status DC Ringer's Solution 1,000 ml @ 30 mls/hr Q24H IV Last administered on 12/14/18at 10:10; Start 12/14/18 at 07:40; Stop 12/14/18 at 13:53; Status DC Lidocaine HCl (Xylocaine-Mpf 1% 2ml Vial) 2 ml PRN 1X PRN ID PRIOR TO IV START; Start 12/14/18 at 07:45; Stop 12/14/18 at 15:00; Status DC Hydromorphone HCl (Dilaudid) 0.5 mg PRN Q10MIN PRN IV SEV PAIN, Second choice; Start 12/14/18 at 07:45; Stop 12/14/18 at 15:00; Status DC Prochlorperazine Edisylate (Compazine) 5 mg PACU PRN PRN IV NAUSEA, MRX1 Last administered on 12/14/18at 10:18; Start 12/14/18 at 07:45; Stop 12/14/18 at 15:00; Status DC Cefazolin Sodium 50 ml @ As Directed STK-MED ONCE IV ; Start 12/14/18 at 07:55; Stop 12/14/18 at 07:56; Status DC Cefazolin Sodium 1 gm/Dextrose 50 ml @ 100 mls/hr Q6H IV ; Start 12/14/18 at 08:15; Stop 12/14/18 at 20:44; Status UNV Warfarin Sodium (Coumadin Per Pharmacy) 1 each PRN DAILY PRN MC SEE COMMENTS Last administered on 12/17/18at 12:38; Start 12/14/18 at 08:00; Stop 12/17/18 at 14:58; Status DC Acetaminophen/ Hydrocodone Bitart (Lortab 5/325) 1 tab PRN Q4HRS PRN PO PAIN Last administered on 12/17/18 13:46; Start 12/14/18 at 08:00; Stop 12/17/18 at 14:58; Status DC Cefazolin Sodium (Ancef) 1 gm Q6H IVP Last administered on 12/15/18at 03:07; Start 12/14/18 at 14:00; Stop 12/15/18 at 02:01; Status DC Sevoflurane (Ultane) 30 ml STK-MED ONCE IH ; Start 12/14/18 at 08:15; Stop 12/14/18 at 08:18; Status DC Morphine Sulfate 5 mg/Ketorolac Tromethamine 30 mg/Ropivacaine 60 ml/Epinephrine HCl 0.5 mg/Sodium Chloride 100 ml @ 100 mls/hr 1X ONCE INT ART Last administered on 12/14/18at 08:32; Start 12/14/18 at 09:00; Stop 12/14/18 at 09:59; Status DC Atenolol (Tenormin) 50 mg DAILY PO Last administered on 12/17/18at 09:14; Start 12/14/18 at 14:30; Stop 12/17/18 at 14:58; Status DC Folic Acid (Folic Acid) 1 mg DAILY PO Last administered on 12/17/18at 09:15; Start 12/14/18 at 14:30; Stop 12/17/18 at 14:58; Status DC Potassium Chloride (Klor-Con) 20 meq DAILY PO Last administered on 12/17/18at 09:15; Start 12/14/18 at 14:30; Stop 12/17/18 at 14:58; Status DC Latanoprost (Xalatan) 1 drop QHS OU Last administered on 12/16/18at 21:23; Start 12/14/18 at 21:00; Stop 12/17/18 at 14:58; Status DC Multivitamins 10 ml/Thiamine HCl 100 mg/Folic Acid 1 mg/Sodium Chloride 1,011.2 ml @ 100 mls/ hr DAILY IV Last administered on 12/15/18at 08:01; Start 12/14/18 at 15:00; Stop 12/16/18 at 04:09; Status DC Lorazepam (Ativan) 2 mg PRN Q1HR PRN IV For CIWA 8-14; Start 12/14/18 at 14:00; Stop 12/17/18 at 14:58; Status DC Lorazepam (Ativan) 4 mg PRN Q1HR PRN IV For CIWA 15 or greater; Start 12/14/18 at 14:00; Stop 12/17/18 at 14:58; Status DC Haloperidol Lactate (Haldol Inj) 5 mg PRN Q4HRS PRN IVP Hallucinatns,Confusn,Delirium; Start 12/14/18 at 14:00; Stop 12/17/18 at 14:58; Status DC Diphenhydramine HCl (Benadryl) 25 mg PRN Q15MIN PRN IVP EPS symptoms 2'Haldol admin; Start 12/14/18 at 14:00; Stop 12/17/18 at 14:58; Status DC Clonidine HCl (Catapres) 0.1 mg PRN Q1HR PRN PO SBP > 180 or DBP > 100, MRX3; Start 12/14/18 at 14:00; Stop 12/17/18 at 12:32; Status DC Lorazepam (Ativan) 2 mg PRN Q15MIN PRN IV SEE COMMENTS; Start 12/14/18 at 14:00; Stop 12/14/18 at 14:00; Status DC Lorazepam (Ativan) 4 mg PRN Q15MIN PRN IV SEE COMMENTS; Start 12/14/18 at 14:00; Stop 12/14/18 at 14:00; Status DC Albuterol/ Ipratropium (Duoneb) 3 ml RTQID NEB Last administered on 12/17/18at 11:58; Start 12/14/18 at 16:00; Stop 12/17/18 at 14:58; Status DC Sodium Chloride (Normal Saline Flush) 3 ml QSHIFT PRN IV AFTER MEDS AND BLOOD DRAWS; Start 12/14/18 at 14:00; Stop 12/17/18 at 14:58; Status DC Ondansetron HCl (Zofran) 4 mg PRN Q4HRS PRN IV NAUSEA/VOMITING; Start 12/14/18 at 14:00; Stop 12/17/18 at 14:58; Status DC Zolpidem Tartrate (Ambien) 5 mg PRN QHS PRN PO INSOMNIA; Start 12/14/18 at 14:00; Stop 12/17/18 at 14:58; Status DC Acetaminophen (Tylenol) 650 mg PRN Q4HRS PRN PO TEMP OVER 100.4F OR MILD PAIN; Start 12/14/18 at 14:00; Stop 12/17/18 at 14:58; Status DC Al Hydroxide/Mg Hydroxide (Mylanta Plus Xs) 30 ml PRN DAILY PRN PO HEARTBURN / GAS Last administered on 12/15/18at 08:49; Start 12/14/18 at 14:00; Stop 12/17/18 at 14:58; Status DC Clonidine HCl (Catapres) 0.1 mg PRN Q6HRS PRN PO SBP>160 OR DBP>90; Start 12/14/18 at 14:00; Stop 12/17/18 at 14:58; Status DC Docusate Sodium (Colace) 100 mg PRN BID PRN PO CONSTIPATION; Start 12/14/18 at 14:00; Stop 12/17/18 at 14:58; Status DC Guaifenesin (Robitussin) 200 mg PRN Q4HRS PRN PO COUGH; Start 12/14/18 at 14:00; Stop 12/17/18 at 14:58; Status DC Lorazepam (Ativan) 0.5 mg PRN Q4HRS PRN PO ANXIETY / AGITATION; Start 12/14/18 at 14:00; Stop 12/17/18 at 14:58; Status DC Warfarin Sodium (Coumadin) 5 mg 1X WARF ONCE PO Last administered on 12/14/18at 17:32; Start 12/14/18 at 16:00; Stop 12/14/18 at 16:01; Status DC Morphine Sulfate (Morphine Sulfate) 2 mg PRN Q2HR PRN IV SEVERE PAIN Last administered on 12/17/18at 03:15; Start 12/14/18 at 22:15; Stop 12/17/18 at 14:58; Status DC Warfarin Sodium (Coumadin) 5 mg 1X WARF ONCE PO Last administered on 12/15/18at 15:46; Start 12/15/18 at 16:00; Stop 12/15/18 at 16:01; Status DC Calcium/Vitamin D (Oscal D 500mg/ 200uts) 1 tab BIDWMEALS PO Last administered on 12/17/18at 08:00; Start 12/15/18 at 17:00; Stop 12/17/18 at 14:58; Status DC Multivitamins (Thera M Plus) 1 tab DAILY PO Last administered on 12/17/18at 09:13; Start 12/16/18 at 09:00; Stop 12/17/18 at 14:58; Status DC Thiamine Mononitrate (Vitamin B-1) 100 mg DAILY PO Last administered on 12/17/18at 09:14; Start 12/16/18 at 09:00; Stop 12/17/18 at 14:58; Status DC Insulin Human Lispro (HumaLOG) 0-5 UNITS TIDWMEALS SQ ; Start 12/16/18 at 12:00; Stop 12/17/18 at 14:58; Status DC Dextrose (Dextrose 50%-Water Syringe) 12.5 gm PRN Q15MIN PRN IV SEE COMMENTS; Start 12/16/18 at 08:15; Stop 12/17/18 at 14:58; Status DC Sodium Chloride 500 ml @ 500 mls/hr 1X ONCE IV Last administered on 12/16/18at 10:35; Start 12/16/18 at 10:30; Stop 12/16/18 at 11:29; Status DC Warfarin Sodium (Coumadin) 5 mg 1X WARF ONCE PO Last administered on 12/16/18at 17:23; Start 12/16/18 at 16:00; Stop 12/16/18 at 16:01; Status DC Warfarin Sodium (Coumadin) 2 mg 1X WARF ONCE PO Last administered on 12/17/18at 13:46; Start 12/17/18 at 13:00; Stop 12/17/18 at 13:01; Status DC Active Scripts Active Lovenox (Enoxaparin Sodium) 60 Mg/0.6 Ml Disp.syrin 50 Mg SQ BID 10 Days Stop coumadin and start BID injections 5 days prior to planned surgery and for 5 days post op. Hold injections for 12 hours prior to planned surgery Duoneb 0.5-3(2.5) Mg/3 Ml (Albuterol/Ipratropium) 3 Ml Ampul.neb 3 Ml NEB RTQID 30 Days Warfarin Sodium 5 Mg Tablet 5 Mg PO DAILY 30 Days Hydrocodone-Apap 5-325 (Hydrocodone Bit/Acetaminophen) 1 Tab Tablet 1 Tab PO PRN Q4HRS PRN 6 Days Reported Triamcinolone Acetonide 0.1% Cream (Triamcinolone Acetonide) 15 Gm Cream..g. 1 Luis TD BID Combigan Eye Drops (Brimonidine Tartrate/Timolol) 5 Ml Drops 1 Drp OU BID Lopressor (Metoprolol Tartrate) 100 Mg Tablet 50 Mg PO BID Latanoprost 2.5 Ml Drops 1 Drop EACHEYE QHS Allergies Allergies: Coded Allergies: ciprofloxacin (Verified Allergy, Intermediate, BROKE OUT WITH WELTS, 09/30/16) PATIENT NOT SURE IF IT'S CIPRO ? THAT WAS GIVEN codeine (Verified Allergy, Intermediate, 12/13/18) ROS Review of System ROS Review of System 14 pt ros otherwise wnl General: No: Chills, Night Sweats, Fatigue, Malaise, Appetite, Other PSYCHOLOGICAL ROS: No: Anxiety, Behavioral Disorder, Concentration difficultie, Decreased libido, Depression, Disorientation, Hallucinations, Hostility, Irritablity, Memory difficulties, Mood Swings, Obsessive thoughts, Physical abuse, Sexual abuse, Sleep disturbances, Suicidal ideation, Other Eyes: No Blurry vision, No Decreased vision, No Double vision, No Dry eyes, No Excessive tearing, No Eye Pain, No Itchy Eyes, No Loss of vision, No Photophobia, No Scotomata, No Uses contacts, No Uses glasses, No Other HEENT: No: Heacaches, Visual Changes, Hearing change, Nasal congestion, Nasal discharge, Oral lesions, Sinus pain, Sore Throat, Epistaxis, Sneezing, Snoring, Tinnitus, Vertigo, Vocal changes, Other ALLERGY AND IMMUNOLOGY: No: Hives, Insect Bite Sensitivity, Itchy/Watery Eyes, Nasal Congestion, Post Nasal Drip, Seasonal Allergies, Other Hematological and Lymphatic: No: Bleeding Problems, Blood Clots, Blood Transfusions, Brusing, Night Sweats, Pallor, Swollen Lymph Nodes, Other ENDOCRINE: YES: Breast Changes Breast: New/Changing Breast Lumps Respiratory: No: Cough, Hemoptysis, Orthopnea, Pleuritic Pain, Shortness of breath, SOB with excertion, Sputum Changes, Stridor, Tachypnea, Wheezing, Other Cardiovascular: No Chest Pain, No Palpitations, No Orthopnea, No Paroxysmal Noc. Dyspnea, No Edema, No Lt Headedness, No Other Gastrointestinal: No Nausea, No Vomiting, No Abdominal Pain, No Diarrhea, No Constipation, No Melena, No Hematochezia, No Other Genitourinary: No Dysuria, No Frequency, No Incontinence, No Hematuria, No Retention, No Discharge, No Urgency, No Pain, No Flank Pain, No Other, No , No , No , No , No , No , No Musculoskeletal: Yes Gait Disturbance, Yes Joint Pain Neurological: Yes Gait Disturbance; No Behavorial Changes, No Bowel/Bladder ControlChng, No Confusion, No Dizzine ss, No Headaches, No Impaired Coord/balance, No Memory Loss, No Numbness/Tingling, No Seizures, No Speech Problems, No Tremors, No Visual Changes, No Weakness, No Other Skin: No Dry Skin, No Eczema, No Hair Changes, No Lumps, No Mole Changes, No Mottling, No Nail Changes, No Pruritus, No Rash, No Skin Lesion Changes, No Other, No Acne General: YES: Fatigue ALLERGY AND IMMUNOLOGY: No: Hives, Insect Bite Sensitivity, Itchy/Watery Eyes, Nasal Congestion, Post Nasal Drip, Seasonal Allergies, Other Hematological and Lymphatic: No: Bleeding Problems, Blood Clots, Blood Transfusions, Brusing, Night Sweats, Pallor, Swollen Lymph Nodes, Other Neurological: Yes Gait Disturbance Physical Exam Physical Exam Physical Exam Physical Exam Constitutional: Well developed, well nourished, no acute distress, non-toxic luis earance. [] HENT: Normocephalic, atraumatic, bilateral external ears normal, oropharynx moist, no oral exudates, nose normal. [] Eyes: PERRLA, EOMI, conjunctiva normal, no discharge. [] Neck: Normal range of motion, no tenderness, supple, no stridor. [] Cardiovascular:Heart rate regular rhythm, no murmur [] Lungs & Thorax: Bilateral breath sounds clear to auscultation [] Abdomen: Bowel sounds normal, soft, no tenderness, no masses, no pulsatile masses. [] Skin: Warm, dry, no erythema, no rash. [] Back: No tenderness, no CVA tenderness. [] Extremities: R Hip pain, tenderness, POST-OP [] Neurologic: Alert and oriented X 3, right lower extremity, no motor weakness or loss of sensation.. [] Psychologic: Affect normal, judgement normal, mood normal. [] General: Oriented X3, Cooperative, moderate distress HEENT: Atraumatic, PERRLA, EOMI, Mucous membr. moist/pink Lungs: Clear to auscultation Heart: S1S2, RRR, no thrills, no gallops, no murmurs Breasts: Not examined Abdomen: Normal bowel sounds, Soft Rectal Exam: not examined PELVIC: Examination not indicated Extremities: No cyanosis Skin: No breakdown Neuro: Normal speech, Sensation intact, Cranial nerves 3-12 NL Psych/Mental Status: Mental status NL, Mood NL Breasts: Not examined Abdomen: Normal bowel sounds, Soft Neuro: Normal speech, Cranial nerves 3-12 NL Psych/Mental Status: Mental status NL, Mood NL Vitals Vitals Vital Signs Date Time Temp Pulse Resp B/P (MAP) Pulse Ox O2 Delivery O2 Flow Rate FiO2 12/17/18 13:46 94 Nasal Cannula 3.0 12/17/18 11:00 98.2 103 18 147/78 (101) 98.2 Labs Labs Laboratory Tests Test 12/16/18 08:20 12/16/18 11:36 12/16/18 16:47 12/17/18 06:20 Glucose (Fingerstick) 117 mg/dL (70-99) 121 mg/dL (70-99) 111 mg/dL (70-99) White Blood Count 9.7 x10^3/uL (4.0-11.0) Red Blood Count 2.27 x10^6/uL (3.50-5.40) Hemoglobin 7.9 g/dL (12.0-15.5) Hematocrit 23.1 % (36.0-47.0) Mean Corpuscular Volume 102 fL (79-100) Mean Corpuscular Hemoglobin 35 pg (25-35) Mean Corpuscular Hemoglobin Concent 34 g/dL (31-37) Red Cell Distribution Width 16.1 % (11.5-14.5) Platelet Count 119 x10^3/uL (140-400) Neutrophils (%) (Auto) 75 % (31-73) Lymphocytes (%) (Auto) 13 % (24-48) Monocytes (%) (Auto) 9 % (0-9) Eosinophils (%) (Auto) 3 % (0-3) Basophils (%) (Auto) 0 % (0-3) Neutrophils # (Auto) 7.3 x10^3uL (1.8-7.7) Lymphocytes # (Auto) 1.3 x10^3/uL (1.0-4.8) Monocytes # (Auto) 0.8 x10^3/uL (0.0-1.1) Eosinophils # (Auto) 0.2 x10^3/uL (0.0-0.7) Basophils # (Auto) 0.0 x10^3/uL (0.0-0.2) Prothrombin Time 24.4 SEC (11.7-14.0) Prothromb Time International Ratio 2.2 (0.8-1.1) Lactic Acid Level 1.0 mmol/L (0.4-2.0) Test 12/17/18 07:37 Glucose (Fingerstick) 109 mg/dL (70-99) Images Images AP pelvis with two-view right hip History: Trauma. FINDINGS: There is a comminuted intertrochanteric and subtrochanteric fracture of the right proximal femur. There is varus angulation at the fracture site. No evidence of dislocation. Left hip grossly intact. IMPRESSION: Comminuted intertrochanteric and subtrochanteric fracture of the right proximal femur. Electronically signed by: Yahir Chilel MD (12/13/2018 8:51 PM) [facility] VTE Prophylaxis Ordered VTE Prophylaxis Devices: Yes VTE Pharmacological Prophylaxi: Yes Assessment/Plan Assessment/Plan Assessment/Plan Assessment/Plan IMPRESSION Mechanical fall with acute hip fracture Closed, displaced, comminuted, right intertrochanteric hip fracture Hypothyroidism, subclinical. Monitor TSH in few weeks. History of heavy alcohol and nicotine use. plan [facility]OMAS OR mod risk of post op alcohol withdrawal complications alcohol withdrawal precautions dvt prophylaxis GI prophylaxis pain control, will need snf/ rehab LUI CELIS MD December 21, 2018 14:26
== END 2018-12-17 14:00 | DRG 480 ==
LOC: ER 19:37 → 4 NORTH 21:34
PROVIDERS: ADMIT Internal Medicine; ATTEND Internal Medicine
PROC: 0QS636Z Reposition Right Upper Femur with Intramedullary Internal Fixation Device, Percutaneous Approach (ICD-10-PCS; principal; 2018-12-14 08:00)
PROC: 30233N1 Transfusion of Nonautologous Red Blood Cells into Peripheral Vein, Percutaneous Approach (ICD-10-PCS; 2018-12-16)
DX: S72.141A Displaced intertrochanteric fracture of right femur, initial encounter for closed fracture (principal); E43 Unspecified severe protein-calorie malnutrition; E87.2 Acidosis; I50.30 Unspecified diastolic (congestive) heart failure; S72.21XA Displaced subtrochanteric fracture of right femur, initial encounter for closed fracture; I11.0 Hypertensive heart disease with heart failure; C50.919 Malignant neoplasm of unspecified site of unspecified female breast; D64.9 Anemia, unspecified; E03.9 Hypothyroidism, unspecified; F17.210 Nicotine dependence, cigarettes, uncomplicated; J44.9 Chronic obstructive pulmonary disease, unspecified; K59.00 Constipation, unspecified; R09.02 Hypoxemia; Z96.611 Presence of right artificial shoulder joint; W01.0XXA Fall on same level from slipping, tripping and stumbling without subsequent striking against object, initial encounter; Y93.89 Activity, other specified; Y92.89 Other specified places as the place of occurrence of the external cause; Y99.8 Other external cause status; Z82.49 Family history of ischemic heart disease and other diseases of the circulatory system; Z90.49 Acquired absence of other specified parts of digestive tract; Z90.710 Acquired absence of both cervix and uterus; Z79.82 Long term (current) use of aspirin; Z88.8 Allergy status to other drugs, medicaments and biological substances; Z68.21 Body mass index [BMI] 21.0-21.9, adult
CPT/HCPCS: 36415; 51702; 71045; 73502; 73560; 76000; 80048; 80053; 80076; 80307; 82306; 82607; 82962; 83036; 83540; 83550; 83605; 84443; 85007; 85014; 85018; 85025; 85610; 86850; 86900; 86901; 86920; 87641; 93005; 94640; 94760; 96374; C1713; C1887; J0171; J0690; J0780; J1100; J1885; J2001; J2270; J2405; J2704; J2795; J3010; J7030; J7040; J7120; J7620; P9016; 97110; 97116; 97530; 97535; 99285-25

== ENCOUNTER → 2019-02-04 | Outpatient (CLI) | payer OTHER ==
[~2019-02-04] MED LIST changes: +BRIM5DRO2 OU; +ENOX60DI SQ; +HYDR-2761 PO; +IPRA3AMP29 NEB; +LATA2.5D3 EACHEYE; +METO-269 PO; +METO-313 PO; +REGADENOSON 0.4 MG/5 ML DISP.SYRIN. IV ONE; +TRIA15CR3 TD; +WARF-31 PO
--- NOTE | 2019-02-04 10:51 | CARD ---
MR#: [id number] Date of Study: 02/04/2019 Ordering Physician: LINNETTE SAUL, Referring Physician: LINNETTE SAUL, Tech: Raiza Tolbert APPROVED REPORT EXAM: Two-dimensional and M-mode echocardiogram with Doppler and color Doppler. Other Information Quality : AverageHR: 68bpm INDICATION Pre-Op RISK FACTORS Hypertension 2D DIMENSIONS RVDd2.8 (2.9-3.5cm)Left Atrium(2D)3.7 (1.6-4.0cm) IVSd1.0 (0.7-1.1cm)Aortic Root(2D)2.6 (2.0-3.7cm) LVDd4.5 (3.9-5.9cm)LVOT Diameter1.9 (1.8-2.4cm) PWd1.0 (0.7-1.1cm)LVDs3.5 (2.5-4.0cm) FS (%) 23.6 %SV44.3 ml LVEF(%)47.2 (>50%) Aortic Valve AoV Peak Timoteo.124.4cm/sAoV VTI23.7cm AO Peak GR.6.2mmHgLVOT Peak Timoteo.80.7cm/s LVOT VTI 18.02cmAO Mean GR.3mmHg OSVALDO (VMAX)1.90zd0SMS (VTI)2.12cm2 AI P 1/2 Owuf458dl Mitral Valve MV E Cinxtckk30.7cm/sMV E Peak Gr.19mmHg MV DECEL [id number] A Kvkuynlh71.8cm/s MV KTU65jvG/A Ratio1.2 MVA (PHT)4.10cm2 TDI E/Lateral E'11.7E/Medial E'9.6 Pulmonary Valve PV Peak Coflprve84.8cm/sPV Peak Grad.2mmHg Tricuspid Valve TR P. Parsigtu606tp/sRAP ZKGMAKKA6jwVs TR Peak Gr.46ezStGHZJ67cjAd Pulmonary Vein S1 Xnljapda80.7cm/sD2 Pehsuafq86.6cm/s PVa mscajkxh564myat LEFT VENTRICLE The left ventricle is normal size. There is normal left ventricular wall thickness. The left ventricu lar systolic function is mildly diminished. The Ejection Fraction is 45-50%. There is slight global h ypokinesis of the left ventricle. The left ventricular diastolic function and filling is normal for a ge. RIGHT VENTRICLE The right ventricle is normal size. There is normal right ventricular wall thickness. The right ventr icular systolic function is normal. ATRIA The left atrium is mildly dilated. The right atrium size is normal. The interatrial septum is intact with no evidence for an atrial septal defect or patent foramen ovale as noted on 2-D or Doppler imagi ng. AORTIC VALVE The aortic valve is thickened but opens well. Doppler and Color Flow revealed trace to mild aortic re gurgitation. There is no significant aortic valvular stenosis. MITRAL VALVE The mitral valve is normal in structure and function. There is no evidence of mitral valve prolapse. There is no mitral valve stenosis. Doppler and Color Flow revealed mild mitral regurgitation. TRICUSPID VALVE The tricuspid valve is normal in structure and function. Doppler and Color Flow revealed mild tricusp id regurgitation with an estimated PAP of 30 mmHg. There is no tricuspid valve stenosis. PULMONIC VALVE The pulmonic valve is not well visualized. Doppler and Color Flow revealed trace pulmonic valvular re gurgitation. GREAT VESSELS The aortic root is normal in size. The IVC is normal in size and collapses >50% with inspiration. PERICARDIAL EFFUSION There is no evidence of significant pericardial effusion. Critical Notification Critical Value: No <Conclusion> The left ventricular systolic function is mildly diminished. The Ejection Fraction is 45-50%. Trace to mild aortic regurgitation. Mild mitral regurgitation. Mild tricuspid regurgitation with an estimated PAP of 30 mmHg. There is no evidence of significant pericardial effusion. Signed by : Linnette Saul, Electronically Approved : 02/04/2019 10:50:56
--- NOTE | 2019-02-04 13:54 | RAD ---
MR#: [id number] Date of Study: 02/04/2019 Ordering Physician: LINNETTE VINSON, Referring Physician: DWAYNE SANTACRUZ Tech: RT Bipin (R) (N) APPROVED REPORT Test Type: Pharmacological Stress Nurse/Tech: Afia Rosario RN Test Indications: preop clearance Cardiac History: Hypertension Medications: See Electronic Medical Record Medical History: See Electronic Medical Record Resting ECG: SR with BBB and prolonged QT interval Resting Heart Rate: 81 bpm Resting Blood Pressure: 176/86mmHg Pretest Chest Pain: No chest pain Nurse/Tech Notes S1,S2 and lungs diminished in the bases. Consent: The procedure was explained to the patient in lay terms. Informed consent was witnessed. Kash eout was entered into [employer]. History and Stress Test performed by MIGUEL Green, CHRIS (R) (N) Pharm. Details Pharmacologic stress testing was performed using 0.4mg per 5ml of regadenoson given intravenously ove r 7-10 seconds. Stress Symptoms Dyspnea POST EXERCISE Reason for Termination: Infusion complete Target HR: No Max HR: 100 bpm Max Blood Pressure: 170/72mmHg Blood Pressure response to exercise: Normal blood pressure response during stress. Heart Rate response to exercise: WNL Chest Pain: No. Arrhythmia: No. ST Change: No. INTERPRETATION Stress EKG Conclusion: Baseline EKG showed sinus rhythm with LVH. Non-diagnostic changes at peak str ess. No arrhythmias. Imaging Protocol IMAGE PROTOCOL: Rest Tc-99m/stress Tc-99m 1 day Rest: Stress: Viability: Radiopharm.Tc99m DhtksxsydGp26i Sestamibi Dose9.3mCi 33mCi Duration 15min. 10min. Img Date 02/04/2019 02/04/2019 Inj-Img Kpys82jad. 60min. Rest Admin Site:IV - Left AntecubitalAdministrator:MIGUEL Green, CHRIS (R)(N) Stress Admin Site: IV - Left AntecubitalAdministrator: MIGUEL Green ARRT (Rosanne)(N) STRESS DATA End Diast. Vol.83.0mlAv. Heart Rate96.0bpm End Syst. Vol.29.0mlCO Index BSA0.0L/min Myocardial Oqqq274.0gEject. Izofqspk19.0% Stress Rates Pk. Fill Rate4.61EDV/secLVtime Pk. Fill 172.51msec Pk. Empty Rate4.78ESV/secLVtime Pk. Eject99.43msec 1/3 Pk. Fill1.02EDV/sec Stress Scores Regional WT1.00Summed WT7.00 Regional WM0.00Summed WM8.00 Study quality was good. Left Ventricular size was Normal at Rest and Stress. Lung uptake was . Left Ventricular ejection fraction is 65%. The rest and stress images show normal perfusion, normal contraction and thickening. LV Perf. Quant 17 Seg. SSS2.00 17 Seg. SRS5.00 17 Seg. SDS0.00 Stress Defect Extent (% LAD)0.00Rest Defect Extent (% LAD)6.90Rev. Defect Extent (% LAD)0.00 Stress Defect Extent (% LCX) 25.00Rest Defect Extent (% LCX)25.00Rev. Defect Extent (% LCX)0.00 Stress Defect Extent (% RCA)0.00Rest Defect Extent (% RCA)0.00Rev. Defect Extent (% RCA)0.00 Stress Defect Extent (% JUAN)4.30Rest Defect Extent (% JUAN)9.10Rev. Defect Extent (% JUAN)0.00 Conclusion 1. Regadenoson cardioisotope stress test did not show any evidence of ischemia or infarct. 2. Normal left ventricular systolic function with ejection fraction calculated at 65%. 3. Low risk for cardiac events. Signed by : Linnette Vinson, Electronically Approved : 02/04/2019 13:53:32
== END | disposition home or self-care (01) ==
LOC: NM 09:09
PROVIDERS: ATTEND Internal Medicine Cardiovascular Disease
DX: Z01.810 Encounter for preprocedural cardiovascular examination (principal); I45.4 Nonspecific intraventricular block; I50.1 Left ventricular failure, unspecified; I45.81 Long QT syndrome; I10 Essential (primary) hypertension
CPT/HCPCS: 78452; 93017; 93306; A9500; J2785

== ENCOUNTER → 2020-01-29 | Outpatient (CLI) | payer MEDICARE ==
[2019-02-22 11:00] VITALS: BP 121/54
[~2020-01-29] MED LIST changes: +AMLO10TA8 PO; +DOCU-109 PO; +LOSA-73 PO; -POTA10TA12 PO; +POTASSIUM CHLO10 ME1 PO; -REGADENOSON 0.4 MG/5 ML DISP.SYRIN. IV ONE; +TRAM50TA PO
--- NOTE | 2020-01-29 14:45 | CARD ---
MR#: [id number] Date of Study: 01/29/2020 Ordering Physician: LINNETTE VINSON, Referring Physician: LINNETTE VINSON Tech: Dixie Marie RDCS APPROVED REPORT EXAM: Two-dimensional and M-mode echocardiogram with Doppler and color Doppler. Other Information Quality : Good INDICATION Hypertension/HCVD 2D DIMENSIONS RVDd2.1 (2.9-3.5cm)Left Atrium(2D)3.1 (1.6-4.0cm) IVSd0.8 (0.7-1.1cm)Aortic Root(2D)2.7 (2.0-3.7cm) LVDd4.6 (3.9-5.9cm)LVOT Diameter2.0 (1.8-2.4cm) PWd0.9 (0.7-1.1cm)LVDs3.5 (2.5-4.0cm) FS (%) 22.9 %SV44.0 ml LVEF(%)46.1 (>50%) Aortic Valve AoV Peak Timoteo.66.0cm/sAoV VTI12.4cm AO Peak GR.1.7mmHgLVOT Peak Timoteo.59.2cm/s LVOT VTI 13.48cmAO Mean GR.1mmHg OSVALDO (VMAX)2.71se1LOZ (VTI)3.44cm2 Mitral Valve MV E Xvixuuxe18.9cm/sMV DECEL AUTA868um MV A Dyuiejyy23.5cm/sMV YGZ27pz E/A Ratio0.7MVA (PHT)2.85cm2 TDI E/Lateral E'9.1E/Medial E'12.5 Tricuspid Valve TR P. Oeogypam429tj/sRAP LPRZFCWW9iiQk TR Peak Gr.53smPjENPA06yvGl Pulmonary Vein S1 Ddacxasd98.8cm/sD2 Yaoatomj12.6cm/s LEFT VENTRICLE The left ventricle is normal size. There is normal left ventricular wall thickness. The left ventricu lar systolic function is normal and the ejection fraction is within normal range. The Ejection Fracti on is 55-60%. There is normal LV segmental wall motion. Transmitral Doppler flow pattern is Grade I-a bnormal relaxation pattern. RIGHT VENTRICLE The right ventricle is normal size. The right ventricular systolic function is normal. ATRIA The left atrium size is normal. The right atrium size is normal. The interatrial septum is intact wit h no evidence for an atrial septal defect or patent foramen ovale as noted on 2-D or Doppler imaging. AORTIC VALVE The aortic valve is calcified but opens well. Doppler and Color Flow revealed no significant aortic r egurgitation. There is no significant aortic valvular stenosis. MITRAL VALVE The mitral valve is calcified but opens well. There is no evidence of mitral valve prolapse. There is no mitral valve stenosis. Doppler and Color-flow revealed trace to mild mitral regurgitation. TRICUSPID VALVE The tricuspid valve is normal in structure and function. Doppler and Color Flow revealed mild tricusp id regurgitation. The PA pressure was estimated at 25 mmHg. There is no tricuspid valve stenosis. PULMONIC VALVE Doppler and Color Flow revealed no pulmonic valvular regurgitation. There is no pulmonic valvular mariia nosis. GREAT VESSELS The aortic root is normal in size. The ascending aorta is not well seen. The IVC is normal in size an d collapses >50% with inspiration. PERICARDIAL EFFUSION There is no evidence of significant pericardial effusion. Critical Notification Critical Value: No <Conclusion> The left ventricular systolic function is normal and the ejection fraction is within normal range. Th e Ejection Fraction is 55-60%. There is normal LV segmental wall motion. Signed by : Marino Vieira, Electronically Approved : 01/29/2020 14:44:41
== END ==
LOC: ECHO 09:54
PROVIDERS: ATTEND Internal Medicine Cardiovascular Disease
DX: I08.3 Combined rheumatic disorders of mitral, aortic and tricuspid valves (principal); I10 Essential (primary) hypertension
CPT/HCPCS: 93306

== ENCOUNTER → 2020-02-17 | Outpatient (CLI) | payer MEDICARE ==
[2019-02-22 11:00] VITALS: BP 121/54
--- NOTE | 2020-02-17 12:59 | RAD ---
EXAMINATION: MAMMO NICK DIAG RT History: Reason: SCREENING HX OF BREAST CA L; left mastectomy COMPARISON/CORRELATION: 11/18/2018, 11/04/2017, 10/16/2016 Technique: Diagnostic right unilateral digital mammogram views were obtained. CAD was utilized. 3-D tomosynthesis images were acquired. Findings: Breast Tissue Density B : There are scattered areas of fibroglandular density. There are no dominant masses, suspicious microcalcifications, or architectural distortion. IMPRESSION: No mammographic evidence of malignancy. Recommend routine screening. BI-RADS category 1: Negative. The images were reviewed with computer aided detection. Patient information is entered into the reminder system with a target due date for the next screening mammogram. Mammography is the most sensitive method for finding small breast cancers, but it does not detect them all and is not a substitute for careful clinical examination. A negative mammogram does not negate a clinically suspicious finding and should not result in delay in biopsying a clinically suspicious abnormality. "Our facility is accredited by the [employer] Mammography Program Electronically signed by: Marv Garcia MD (02/17/2020 12:56 PM) [facility]
== END | disposition home or self-care (01) ==
LOC: MAMMO 12:27
PROVIDERS: ATTEND Internal Medicine Hematology & Oncology
DX: R92.2 Inconclusive mammogram (principal); C50.812 Malignant neoplasm of overlapping sites of left female breast; Z17.0 Estrogen receptor positive status [ER+]; Z85.3 Personal history of malignant neoplasm of breast; Z90.12 Acquired absence of left breast and nipple; Z88.1 Allergy status to other antibiotic agents; Z88.5 Allergy status to narcotic agent
CPT/HCPCS: 77065; G0279; 77061

== ENCOUNTER → 2021-03-14 | Outpatient (CLI) | payer MEDICARE ==
[2019-02-22 11:00] VITALS: BP 121/54
[~2021-03-14] MED LIST changes: +AMLO-187 PO; -AMLO10TA8 PO
--- NOTE | 2021-03-14 13:44 | RAD ---
EXAM: 1. Unilateral digital 3-D diagnostic mammography, right. HISTORY: Personal history of left breast cancer status post left mastectomy. Routine right surveillan ce. TECHNIQUE: Unilateral right full field digital images were obtained in CC and MLO projections with to mosynthesis. Computer-aided detection was applied. COMPARISON: 02/17/2020, 11/18/2018. COMPOSITION: B. There are scattered areas of fibroglandular density. FINDINGS: There are no suspicious masses, microcalcifications or architectural distortion. The parenc hymal pattern is stable. Scattered and vascular calcifications are benign. BI-RADS CATEGORY: 2: Benign. RECOMMENDATION: 1. Continue surveillance mammography in one year. If mammography demonstrates dense breast tissue (heterogenously dense or extremely dense, category C or D), which could hide abnormalities, and if other risk factors for breast cancer have been identifi ed, supplemental screening tests that may be suggested by the ordering physician may be of benefit. D ense breast tissue, in and of itself, is a relatively common condition. Therefore, this information i s not provided to cause undue concern, but rather to raise awareness and to promote discussion with t he referring physician regarding the presence of other risk factors, in addition to dense breast tiss ue. The results of this mammography examination is provided to the patient and referring physician. T he patient should contact their referring physician if any questions or concerns exist regarding this report. PQRS compliance statement - Patient information was entered into a reminder system with a target due date for the next mammogram. "Our facility is accredited by the [employer] Mammography Program." Electronically signed by: Reyna Way MD (03/14/2021 1:42 PM) [facility]
== END ==
LOC: MAMMO 13:16
PROVIDERS: ATTEND Internal Medicine
DX: Z85.3 Personal history of malignant neoplasm of breast (principal)
CPT/HCPCS: 77065; G0279; 77061

== ENCOUNTER → 2021-08-14 | Outpatient (CLI) | payer MEDICARE ==
[2019-02-22 11:00] VITALS: BP 121/54
--- NOTE | 2021-08-14 13:40 | CARD ---
MR#: [id number] Date of Study: 08/14/2021 Ordering Physician: LINNETTE VINSON, Referring Physician: LINNETTE VINSON, Tech: Sydney Hennessy [facility] APPROVED REPORT EXAM: Two-dimensional and M-mode echocardiogram with Doppler and color Doppler. Other Information Quality : AverageHR: 61bpm Rhythm : NSR INDICATION Dyspnea Cardiomyopathy RISK FACTORS Hypertension 2D DIMENSIONS RVDd3.2 (2.9-3.5cm)Left Atrium(2D)3.8 (1.6-4.0cm) IVSd1.0 (0.7-1.1cm)Aortic Root(2D)2.7 (2.0-3.7cm) LVDd4.3 (3.9-5.9cm)LVOT Diameter2.1 (1.8-2.4cm) PWd1.0 (0.7-1.1cm)LVDs3.1 (2.5-4.0cm) FS (%) 27.4 %SV44.7 ml LVEF(%)53.6 (>50%) Aortic Valve AoV Peak Timoteo.122.3cm/sAoV VTI26.0cm AO Peak GR.6.0mmHgLVOT Peak Timoteo.68.4cm/s AO Mean GR.3mmHgAVA (VMAX)2.01cm2 Mitral Valve MV E Xzmcgoec24.3cm/sMV DECEL BZBP162pw MV A Gmstzojd83.5cm/sE/A Ratio1.7 Pulmonary Valve PV Peak Qpeqrznb16.8cm/s Tricuspid Valve TR P. Tplcgdkk450pf/sTR Peak Gr.28mmHg LEFT VENTRICLE The left ventricle is normal size. There is normal left ventricular wall thickness. The left ventricu lar systolic function is normal. The ejection fraction is 55%. There is normal LV segmental wall jose on. Transmitral Doppler flow pattern is Grade II-pseudonormal filling dynamics. RIGHT VENTRICLE The right ventricle is normal size. There is normal right ventricular wall thickness. The right ventr icular systolic function is normal. ATRIA The left atrium is mildly dilated. The right atrium is mildly dilated. The interatrial septum is inta ct with no evidence for an atrial septal defect or patent foramen ovale as noted on 2-D or Doppler im aging. AORTIC VALVE The aortic valve is normal in structure and function. Doppler and Color Flow revealed mild aortic reg urgitation. There is no significant aortic valvular stenosis. MITRAL VALVE The mitral valve is normal in structure and function. There is no evidence of mitral valve prolapse. There is no mitral valve stenosis. Doppler and Color-flow revealed mild mitral regurgitation. TRICUSPID VALVE The tricuspid valve is normal in structure and function. Doppler and Color Flow revealed mild tricusp id regurgitation. Estimated PAP 32-35 mmHg. There is no tricuspid valve stenosis. PULMONIC VALVE The pulmonary valve is normal in structure and function. Doppler and Color Flow revealed mild pulmoni c valvular regurgitation. GREAT VESSELS The aortic root is normal in size. The ascending aorta is normal in size. The IVC is normal in size a nd collapses >50% with inspiration. PERICARDIAL EFFUSION There is no evidence of significant pericardial effusion. Critical Notification Critical Value: No <Conclusion> The left ventricular systolic function is normal. The ejection fraction is 55%. There is normal LV segmental wall motion. Mild mitral regurgitation. Mild tricuspid regurgitation. Estimated PAP 32-35 mmHg. There is no evidence of significant pericardial effusion. Signed by : Linnette Vinson, Electronically Approved : 08/14/2021 13:40:20
== END ==
LOC: ECHO 10:57
PROVIDERS: ATTEND Internal Medicine Cardiovascular Disease
DX: I08.8 Other rheumatic multiple valve diseases (principal); I42.9 Cardiomyopathy, unspecified; R06.00 Dyspnea, unspecified
CPT/HCPCS: 93306

== ENCOUNTER 2021-10-20 12:09 | Inpatient (IN) | payer MEDICARE ==
[~2021-10-20] VITALS: Ht 157.5 cm; Wt 46.7 kg
[~2021-10-20 12:09] MED LIST changes: +ASPI-886 PO; +TAMO20TA PO
--- NOTE | 2021-10-20 12:37 | PHYS DOC ---
Past Medical History Past Medical History: CHF, Hypertension, Pneumonia Additional Past Medical Histor: BREAST CA Past Surgical History: Appendectomy, , Hysterectomy Additional Past Surgical Histo: SKIN CA,TUMMY TUCK,RIGHT SHOULDER SURGERY,L MASTECTOMY Smoking Status: Never Smoker Alcohol Use: Heavy Drug Use: None General Adult EDM: Chief Complaint: SHORTNESS OF BREATH HPI: HPI: 81-year-old female past medical history of CHF, breast cancer status post left mastectomy, hypertension, glaucoma and recent history of left MCA status post TPA, presents to the ED with complaints of "I can't breath," stating she has chest tightness for the past day and a half and shortness of breath x 1 day. No relief with son's inhaler or nebulizer treatment with EMS. Reports she is vaccinated for COVID and influenza. Is not on anticoagulants. Was recently hospitalized, "I had streptokinase," in the ICU for 2 days due to a stroke. Review of Systems: Review of Systems: Constitutional: Denies fever or chills. [] Eyes: Denies change in visual acuity. [] HENT: Denies nasal congestion or sore throat. [] Respiratory: Denies cough or hemoptysis Cardiovascular: Denies chest pain or edema. [] GI: Denies abdominal pain, nausea, vomiting, bloody stools or diarrhea. [] : Denies dysuria or hematuria Musculoskeletal: Denies back pain or joint pain. [] Integument: Denies rash or diaphoresis Neurologic: Denies headache, focal weakness or sensory changes. [] Endocrine: Denies polyuria or polydipsia. [] Lymphatic: Denies swollen glands. [] Psychiatric: Denies depression or anxiety. [] Heart Score: C/O Chest Pain: Yes HEART Score for Chest Pain: HEART Score for Chest Pain Response (Comments) Value History Slighlty/Non-Suspicious 0 ECG Nonspecific Repolarizatio 1 Risk Factors 1 or 2 Risk Factors 1 Troponin < Normal Limit 0 Total 2 Risk Factors: Risk Factors: DM, Current or recent (<one month) smoker, HTN, HLP, family history of CAD, obesity. Risk Scores: Score 0 - 3: 2.5% MACE over next 6 weeks - Discharge Home Score 4 - 6: 20.3% MACE over next 6 weeks - Admit for Clinical Observation Score 7 - 10: 72.7% MACE over next 6 weeks - Early Invasive Strategies Allergies: Allergies: Allergies Coded Allergies Type Severity Reaction Last Updated Verified ciprofloxacin Allergy Intermediate BROKE OUT WITH WELTS 02/16/19 Yes codeine Allergy Intermediate Itching 02/16/19 Yes Physical Exam: PE: Constitutional: Well developed, well nourished, no acute distress, non-toxic appearance. HENT: Normocephalic, atraumatic, Eyes: EOMI, conjunctiva normal, no discharge. Neck: Normal range of motion, supple, Cardiovascular: S1/2 present, regular rhythm Lungs & Thorax: Speaking in full sentences, bilateral equal chest rise, no tachypnea or increased work of breathing Abdomen: soft, no tenderness, Skin: Warm, dry, no erythema, no rash. [] Extremities: No tenderness, no cyanosis, no lower extremity edema Neurologic: Alert and oriented X 3, normal motor function, normal sensory function, no focal deficits noted. [] Psychologic: Affect normal, judgement normal, mood normal. [] EKG: EK sinus rhythm 72 bpm, left axis deviation, QTC 484, no T wave inversion, no ST elevation or ST depression Sinus rhythm 70 bpm, left axis deviation, QTC 504, T wave inversion lead III, no ST elevation or ST depression Radiology/Procedures: Radiology/Procedures: IMAGING REPORT Signed PATIENT: NI STAFFORD ACCOUNT: [id number] : 1940 LOCATION: ER AGE: 81 SEX: F EXAM STATUS: PRE ER ORD. PHYSICIAN: ALLAN CEVALLOS DO REASON: soa, cp PROCEDURE: PORTABLE CHEST 1V XR CHEST 1V History: Reason: soa, cp / Spl. Instructions: / History: Comparison: September 17, 2021 Findings: No consolidation or pleural effusion. Normal heart size. No pneumothorax. Impression: 1. No acute cardiopulmonary process. Electronically signed by: Micky Machado DO (10/20/2021 12:57 PM) [id number] DICTATED and SIGNED BY: MICKY MACHADO DO DATE: 10/20/21 1256 IMAGING REPORT Signed PATIENT: NI STAFFORD ACCOUNT: [id number] : 1940 LOCATION: ER AGE: 81 SEX: F EXAM STATUS: REG ER ORD. PHYSICIAN: ALLAN CEVALLOS DO REASON: AMS PROCEDURE: CT HEAD WO CONTRAST EXAM: CT head without contrast INDICATION: Altered mental status COMPARISON: MRI brain 09/18/[address] head 09/17/2021 TECHNIQUE: Axial CT imaging through the head without intravenous contrast. Sagittal and coronal reformats were obtained. One or more of the following individualized dose reduction techniques were utilized for this examination: 1. Automated exposure control 2. Adjustment of the mA and/or kV according to patient size 3. Use of iterative reconstruction technique. FINDINGS: There is new/increased hypoattenuation with loss of pina matter differentiation in the medial left occipital corresponding with the late acute infarct on MRI brain 09/18/2021. [place]-white matter differentiation elsewhere is maintained. There is mild volume loss and mild chronic microvascular ischemic changes. No intracranial hemorrhage. The skull is intact. Paranasal sinuses and mastoid air cells are clear. Globes and orbits are intact. IMPRESSION: Hypoattenuation with loss of pina-white matter differentiation in the medial left occipital lobe has increased from CT head 09/17/2021 and corresponds with a late subacute infarct in this region on MRI brain 09/18/2021. This may all be related to the evolving known infarct. A superimposed acute process or progression of the infarct cannot be excluded. MRI could be obtained to further evaluate acuity if needed. Electronically signed by: Christine Merritt MD (10/20/2021 3:12 PM) [id number] DICTATED and SIGNED BY: CHRISTINE MERRITT MD DATE: 10/20/21 1503 IMAGING REPORT Signed PATIENT: NI STAFFORD ACCOUNT: [id number] : 1940 LOCATION: ER AGE: 81 SEX: F EXAM STATUS: REG ER ORD. PHYSICIAN: ALLAN CEVALLOS DO REASON: soa, r/o pe PROCEDURE: CT ANGIOGRAPHY CHEST Exam: CT of chest with contrast INDICATION: Short of air, rule out PE TECHNIQUE: Sequential axial images through the chest obtained following the administration of 75 mL of Isovue-370 IV contrast. Sagittal and coronal reformatted images were reconstructed from the axial data and reviewed. 3-D reformatted images were reconstructed from the axial data and reviewed. Exposure: One or more of the following in the visualized dose reduction techniques were utilized for this examination: 1. Automated exposure control 2. Adjustment of the MA and/or KV according to patient size 3. Use of iterative of reconstructive technique Comparisons: 10/20/2021 FINDINGS: Visualized portions of the thyroid are unremarkable. No enlarged mediastinal lymph nodes are identified. Heart size is normal. No pericardial effusion. Thoracic aorta has a normal course and caliber. Pulmonary artery is not enlarged. No pulmonary embolus identified within the main, lobar or segmental pulmonary arteries. Airways are patent. No consolidation or pneumothorax. No suspicious lung nodules. No pleural effusion or thickening. Visualized upper abdomen is unremarkable. No suspicious osseous lesions or acute fractures. IMPRESSION: No pulmonary embolus identified within the main, lobar or segmental pulmonary arteries. Electronically signed by: Lakia Reeder MD (10/20/2021 3:17 PM) [facility] DICTATED and SIGNED BY: LAKIA REEDER MD DATE: 10/20/211501 Course & Med Decision Making: Course & Med Decision Making Pertinent Labs and Imaging studies reviewed. (See chart for details) Rn informed me that pt is fridgety, forgetful and appears slightly delirious. Pt with friend at bedside who lives with her-states she's been awake, complaining of chills and not eating. Concern for UTI delirium. Will admit for further medical management Pt agrees with this plan. I have spoken with the patient and/or caregivers. I have explained the patient's condition, diagnosis and treatment plan based on the information available to me at this time. I have answered the patient's and/or caregivers questions and answered any concerns. The patient and/or caregivers have as good an understanding of the patient's diagnosis, condition and treatment plan as can be expected at this point. The patient has been stabilized within the capability of the emergency department. The patient will be transported for further care and management or will be moved to an observation or inpatient service. I have communicated with the staff or medical practitioner taking over this patient's care. Luba Disclaimer: Luba Disclaimer: This electronic medical record was generated, in whole or in part, using a voice recognition dictation system. Departure Departure Impression: Primary Impression: UTI (urinary tract infection) Additional Impressions: Delirium Dyspnea Disposition: ADMITTED INPATIENT Admitting Physician: CINDY (Dr. Restrepo) Condition: STABLE Referrals: ALEJANDRO JOINER MD (PCP) ALLAN CEVALLOS DO Oct 20, 2021 12:37
[2021-10-20 12:57] LABS: BASO # 0.1 x10^3/uL (0.0-0.2); BASO % 2 % (0-3); EOS # 0.2 x10^3/uL (0.0-0.7); EOS % 2 % (0-3); HEMATOCRIT 36.2 % (36.0-47.0); LYMPH % 12 % (24-48); MEAN CORPUSCULAR HEMOGLOBIN 34 pg (25-35); MEAN CORPUSCULAR HGB CONC 33 g/dL (31-37); MEAN CORPUSCULAR VOLUME 102 fL (79-100); MONO # 0.5 x10^3/uL (0.0-1.1); MONO % 5 % (0-9); NEUT # 6.7 x10^3/uL (1.8-7.7); NEUT % 79 % (31-73); PLATELET COUNT 298 x10^3/uL (140-400); RED BLOOD COUNT 3.54 x10^6/uL (3.50-5.40); RED CELL DISTRIBUTION WIDTH 12.8 % (11.5-14.5); WHITE BLOOD COUNT 8.5 x10^3/uL (4.0-11.0)
--- NOTE | 2021-10-20 12:59 | RAD ---
XR CHEST 1V History: Reason: soa, cp / Spl. Instructions: / History: Comparison: September 17, 2021 Findings: No consolidation or pleural effusion. Normal heart size. No pneumothorax. Impression: 1. No acute cardiopulmonary process. Electronically signed by: Micky Machado DO (10/20/2021 12:57 PM) [id number]
[2021-10-20 13:03] LABS: CREATININE 0.8 mg/dL (0.6-1.0); GFR 69.2; POTASSIUM 4.1 mmol/L (3.5-5.1)
[2021-10-20 13:09] LABS: ALBUMIN 3.8 g/dL (3.4-5.0); MAGNESIUM 1.4 mg/dL (1.8-2.4); TOTAL BILIRUBIN 0.7 mg/dL (0.2-1.0); TOTAL PROTEIN 7.7 g/dL (6.4-8.2)
[2021-10-20] MEDS ORDERED: CONTRAST GIVEN. MC PRN (14:00)
[2021-10-20] MEDS ORDERED: IOHEXOL 350 MG/ML 100 ML VIAL. IV ONE (14:00)
--- NOTE | 2021-10-20 15:14 | RAD ---
EXAM: CT head without contrast INDICATION: Altered mental status COMPARISON: MRI brain 09/18/[address] head 09/17/2021 TECHNIQUE: Axial CT imaging through the head without intravenous contrast. Sagittal and coronal refor mats were obtained. One or more of the following individualized dose reduction techniques were utilized for this examinat ion: 1. Automated exposure control 2. Adjustment of the mA and/or kV according to patient size 3. Use of iterative reconstruction technique. FINDINGS: There is new/increased hypoattenuation with loss of pina matter differentiation in the medial left oc cipital corresponding with the late acute infarct on MRI brain 09/18/2021. [place]-white matter different iation elsewhere is maintained. There is mild volume loss and mild chronic microvascular ischemic marco nges. No intracranial hemorrhage. The skull is intact. Paranasal sinuses and mastoid air cells are cl ear. Globes and orbits are intact. IMPRESSION: Hypoattenuation with loss of pina-white matter differentiation in the medial left occipit al lobe has increased from CT head 09/17/2021 and corresponds with a late subacute infarct in this reg ion on MRI brain 09/18/2021. This may all be related to the evolving known infarct. A superimposed acu te process or progression of the infarct cannot be excluded. MRI could be obtained to further evaluat e acuity if needed. Electronically signed by: Christine Merritt MD (10/20/2021 3:12 PM) [id number]
--- NOTE | 2021-10-20 15:19 | RAD ---
Exam: CT of chest with contrast INDICATION: Short of air, rule out PE TECHNIQUE: Sequential axial images through the chest obtained following the administration of 75 mL o f Isovue-370 IV contrast. Sagittal and coronal reformatted images were reconstructed from the axial d nacho and reviewed. 3-D reformatted images were reconstructed from the axial data and reviewed. Exposure: One or more of the following in the visualized dose reduction techniques were utilized for this examination: 1. Automated exposure control 2. Adjustment of the MA and/or KV according to patient size 3. Use of iterative of reconstructive technique Comparisons: 10/20/2021 FINDINGS: Visualized portions of the thyroid are unremarkable. No enlarged mediastinal lymph nodes are identifi ed. Heart size is normal. No pericardial effusion. Thoracic aorta has a normal course and caliber. Pulmon beltran artery is not enlarged. No pulmonary embolus identified within the main, lobar or segmental pulmo nary arteries. Airways are patent. No consolidation or pneumothorax. No suspicious lung nodules. No pleural effusion or thickening. Visualized upper abdomen is unremarkable. No suspicious osseous lesions or acute fractures. IMPRESSION: No pulmonary embolus identified within the main, lobar or segmental pulmonary arteries. Electronically signed by: Lakia Gautam MD (10/20/2021 3:17 PM) [facility]
[2021-10-20] MEDS ORDERED: MAGNESIUM SULFATE 1GM 100 ML IV ONE (15:30)
[2021-10-20] MEDS ORDERED: IV NORMAL SALINE 1000ML BAG 1,000 ML IV ONE (15:45)
--- NOTE | 2021-10-20 15:53 | EKG ---
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
--- NOTE | 2021-10-20 15:55 | EKG ---
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
[2021-10-20 17:24] LABS: BILIRUBIN,URINE NEGATIVE (NEG); CLARITY,URINE HAZY; COLOR,URINE YELLOW
[2021-10-20 17:26] LABS: NITRITE,URINE POSITIVE (NEG); PROTEIN,URINE NEGATIVE (NEG-TRACE); UROBILINOGEN,URINE 0.2 mg/dL (0.2 mg/dL)
[2021-10-20 17:28] LABS: BACTERIA,URINE MANY /HPF (0-FEW); WBC,URINE TNTC /HPF (0-4)
[2021-10-20 17:37] LABS: BARBITURATES NEG (NEG); BENZODIAZEPINES NEG (NEG); CANNABINOIDS NEG (NEG); COCAINE NEG (NEG); METHADONE NEG (NEG); OPIATES NEG (NEG); PHENCYCLIDINE NEG (NEG)
[2021-10-20 17:38] LABS: AMPHETAMINE/METHAMPHETAMINE NEG (NEG)
[2021-10-20] MEDS ORDERED: MORPHINE SULFATE 4 MG/ML INJ. IVP ONE (18:00)
[2021-10-20] MEDS ORDERED: ONDANSETRON PF 4 MG/2 ML VIAL. IVP ONE (18:00)
[2021-10-20] MEDS ORDERED: cefTRIAXone IV Push 1 GM VIAL. IVP ONE (18:00)
--- NOTE | 2021-10-20 19:30 | NUR ---
ADMIT NOTE patient admitted to 654 from ed. 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 dr. mendoza paged to alert of patient arrival. page not returned, however, new patient orders placed. patient able to answer orientation questions, however, noted to be restless and attempting to remove gown at times. equal strength in all extremities. able to ambulate with walker. history questions answered by patient. patient stated significant other and son aware of admission to hospital and no need to notify at this time. no belongings with patient other than kyree alfonso.
[2021-10-20 19:45] VITALS: BP 167/69
[2021-10-20] MEDS ORDERED: DIPH25CA58 PO (21:39)
--- NOTE | 2021-10-20 22:09 | PDOC1 ---
History and Physical Date of Service: DOS: DATE: 10/20/21 TIME: 22:09 Chief Complaint: Chief Complain: SOB History of Present Illness: HPI: HPI: 81-year-old female past medical history of CHF, breast cancer status post left mastectomy, hypertension, glaucoma and recent history of left MCA status post TPA, presents to the ED with complaints of "I can't breath," stating she has chest tightness for the past day and a half and shortness of breath x 1 day. No relief with son's inhaler or nebulizer treatment with EMS. Reports she is vaccinated for COVID and influenza. Is not on anticoagulants. Was recently hospitalized, "I had streptokinase," in the ICU for 2 days due to a stroke. Past Medical/Surgical History: PMH/PSH: Past Medical History: CHF, Hypertension, Pneumonia Additional Past Medical Histor: BREAST CA Past Surgical History: Appendectomy, , Hysterectomy Additional Past Surgical Histo: SKIN CA,TUMMY TUCK,RIGHT SHOULDER SURGERY,L MASTECTOMY Smoking Status: Never Smoker Alcohol Use: Heavy Drug Use: None Allergies: Allergies: Coded Allergies: ciprofloxacin (Verified Allergy, Intermediate, BROKE OUT WITH WELTS, 10/20/21) PATIENT NOT SURE IF IT'S CIPRO ? THAT WAS GIVEN codeine (Verified Allergy, Intermediate, Itching, 10/20/21) Family History: Family History: HTN Current Medications: Current Medications Current Medications Iohexol (Omnipaque 350 Mg/ml) 75 ml 1X ONCE IV Last administered on 10/20/21at 14:00; Start 10/20/21 at 14:00; Stop 10/20/21 at 14:01; Status DC Info (CONTRAST GIVEN -- Rx MONITORING) 1 each PRN DAILY PRN MC SEE COMMENTS; Start 10/20/21 at 14:00; Stop 10/22/21 at 13:59 Magnesium Sulfate/ Dextrose 100 ml @ 100 mls/hr 1X ONCE IV Last administered on 10/20/21at 15:53; Start 10/20/21 at 15:30; Stop 10/20/21 at 16:29; Status DC Sodium Chloride 1,000 ml @ 1,000 mls/hr 1X ONCE IV Last administered on 10/20/21at 15:54; Start 10/20/21 at 15:45; Stop 10/20/21 at 16:44; Status DC Ceftriaxone Sodium (Rocephin) 1 gm 1X ONCE IVP Last administered on 10/20/21at 18:12; Start 10/20/21 at 18:00; Stop 10/20/21 at 18:01; Status DC Ondansetron HCl (Zofran) 4 mg 1X ONCE IVP Last administered on 10/20/21at 18:11; Start 10/20/21 at 18:00; Stop 10/20/21 at 18:01; Status DC Morphine Sulfate (Morphine Sulfate) 4 mg 1X ONCE IVP Last administered on 10/20/21at 18:12; Start 10/20/21 at 18:00; Stop 10/20/21 at 18:01; Status DC Ceftriaxone Sodium (Rocephin) 1 gm Q24H IVP ; Start 10/21/21 at 18:00 Aspirin (Ecotrin) 81 mg DAILY PO ; Start 10/21/21 at 09:00; Status UNV Latanoprost (Xalatan) 1 drop QHS OU ; Start 10/21/21 at 21:00; Status UNV Losartan Potassium (Cozaar) 50 mg DAILY PO ; Start 10/21/21 at 09:00; Status UNV Tramadol HCl (Ultram) 50 mg PRN Q6HRS PRN PO PAIN; Start 10/20/21 at 22:15; Status UNV Non-Formulary Medication (Brimonidine Tartrate/Timolol (Combigan Eye Drops)) 1 drp BID OU ; Start 10/21/21 at 09:00; Status UNV Non-Formulary Medication (Metoprolol Tartrate (Lopressor)) 50 mg BID PO ; Start 10/21/21 at 09:00; Status UNV Non-Formulary Medication (Tamoxifen Citrate ) 1 tab DAILY PO ; Start 10/21/21 at 09:00; Status UNV Ondansetron HCl (Zofran) 4 mg PRN Q6HRS PRN IVP NAUSEA/VOMITING; Start 10/20/21 at 22:15; Status UNV Calcium Carbonate/ Glycine (Tums) 500 mg PRN Q3HRS PRN PO UPSET STOMACH; Start 10/20/21 at 22:15; Status UNV Zolpidem Tartrate (Ambien) 5 mg PRN QHS PRN PO INSOMNIA, MAY REPEAT IN 1HR; Start 10/20/21 at 22:15; Status UNV Info (Non-Icu Electrolyte Protocol) 1 ea PRN DAILY PRN MC SEE COMMENTS; Start 10/20/21 at 22:15; Status UNV Acetaminophen (Tylenol) 650 mg PRN Q6HRS PRN PO Headaches, Temp > 101.5F; Start 10/20/21 at 22:15; Status UNV Senna/Docusate Sodium (Senna Plus) 1 tab BID PO ; Start 10/21/21 at 09:00; Status UNV Heparin Sodium (Porcine) (Heparin Sodium) 5,000 unit Q8HRS SQ ; Start 10/21/21 at 06:00; Status UNV Active Scripts Active Aspirin Ec (Aspirin) 81 Mg Tablet.dr 1 Tab PO DAILY 30 Days Colace (Docusate Sodium) 100 Mg Capsule 100 Mg PO BID 30 Days Tramadol Hcl 50 Mg Tablet 50 Mg PO PRN Q6HRS PRN 14 Days Reported Benadryl (Diphenhydramine Hcl) 25 Mg Capsule 1 Cap PO QHS 30 Days Tamoxifen Citrate 20 Mg Tablet 1 Tab PO DAILY 30 Days Losartan Potassium 50 Mg Tablet 50 Mg PO DAILY Combigan Eye Drops (Brimonidine Tartrate/Timolol) 5 Ml Drops 1 Drp OU BID Lopressor (Metoprolol Tartrate) 100 Mg Tablet 50 Mg PO BID Latanoprost 2.5 Ml Drops 1 Drop EACHEYE QHS ROS: Review of Systems Review of System Unless noted in HPI 14 point review of systems was negative Physical Exam: Vital Signs: Vital Signs Date Time Temp Pulse Resp B/P (MAP) Pulse Ox O2 Delivery O2 Flow Rate FiO2 10/20/21 19:15 97 18 165/77 (106) 96 Room Air 10/20/21 18:09 98.5 98.5 Physcial Exam: GEN: No apparent distress. Alert but not really oriented HEENT: Normal cephalic, atraumatic, external auditory canals are patent EYES: Extraocular muscles are intact, pupil are equally round and reactive to light and accommodation MUSCULOSKELETAL: Well developed , well nourished, good range of motion ENDOCRINE: No thyromegaly was palpated LYMPHATICS: No cervical chain or axillary nodes were noted HEMATOPOIETIC: No bruising NECK: Supple, no JVD, no thyromegaly was noted LUNGS: Clear to auscultation in all lung betts without rhonchi or wheezing HEART: RRR, S!, S2 present. Peripheral pulses intact, no obvious murmurs noted ABDOMEN: Soft, nontender. Positive bowel sounds, no organomegaly, normal bowel sounds EXTREMITIES: Without clubbing, cyanosis, or edema. Pedal pulses intact. Negative Homans sign NEUROLOGIC: Normal speech and tone. A&O x 3, moves all extremities, no obvious focal deficits PSYCHIATRIC: Normal affect, normal mood. Stable SKIN: No ulcerations or rashes, good skin turgor, no jaundice VASCULAR: Good capillary refill, neurovascular bundle appears to be intact Labs: Labs: Laboratory Tests Test 10/20/21 12:46 10/20/21 15:35 10/20/21 17:05 10/20/21 18:30 White Blood Count 8.5 x10^3/uL (4.0-11.0) Red Blood Count 3.54 x10^6/uL (3.50-5.40) Hemoglobin 12.0 g/dL (12.0-15.5) Hematocrit 36.2 % (36.0-47.0) Mean Corpuscular Volume 102 fL (79-100) Mean Corpuscular Hemoglobin 34 pg (25-35) Mean Corpuscular Hemoglobin Concent 33 g/dL (31-37) Red Cell Distribution Width 12.8 % (11.5-14.5) Platelet Count 298 x10^3/uL (140-400) Neutrophils (%) (Auto) 79 % (31-73) Lymphocytes (%) (Auto) 12 % (24-48) Monocytes (%) (Auto) 5 % (0-9) Eosinophils (%) (Auto) 2 % (0-3) Basophils (%) (Auto) 2 % (0-3) Neutrophils # (Auto) 6.7 x10^3/uL (1.8-7.7) Lymphocytes # (Auto) 1.0 x10^3/uL (1.0-4.8) Monocytes # (Auto) 0.5 x10^3/uL (0.0-1.1) Eosinophils # (Auto) 0.2 x10^3/uL (0.0-0.7) Basophils # (Auto) 0.1 x10^3/uL (0.0-0.2) Sodium Level 136 mmol/L (136-145) Potassium Level 4.1 mmol/L (3.5-5.1) Chloride Level 97 mmol/L (98-107) Carbon Dioxide Level 26 mmol/L (21-32) Anion Gap 13 (6-14) Blood Urea Nitrogen 6 mg/dL (7-20) Creatinine 0.8 mg/dL (0.6-1.0) Estimated GFR (Cockcroft-Gault) 69.2 BUN/Creatinine Ratio 8 (6-20) Glucose Level 95 mg/dL (70-99) Calcium Level 9.0 mg/dL (8.5-10.1) Magnesium Level 1.4 mg/dL (1.8-2.4) Total Bilirubin 0.7 mg/dL (0.2-1.0) Aspartate Amino Transf (AST/SGOT) 30 U/L (15-37) Alanine Aminotransferase (ALT/SGPT) 24 U/L (14-59) Alkaline Phosphatase 62 U/L (46-116) Troponin I High Sensitivity 11 ng/L (4-50) 15 ng/L (4-50) 17 ng/L (4-50) VZ-Hho-P-Type Natriuretic Peptide 897 pg/mL (0-449) Total Protein 7.7 g/dL (6.4-8.2) Albumin 3.8 g/dL (3.4-5.0) Albumin/Globulin Ratio 1.0 (1.0-1.7) Urine Collection Type Unknown Urine Color Yellow Urine Clarity Hazy Urine pH 6.0 (<5.0-8.0) Urine Specific [place] >=1.030 (1.000-1.030) Urine Protein Negative mg/dL (NEG-TRACE) Urine Glucose (UA) Negative mg/dL (NEG) Urine Ketones (Stick) 15 mg/dL (NEG) Urine Blood Moderate (NEG) Urine Nitrite Positive (NEG) Urine Bilirubin Negative (NEG) Urine Urobilinogen Dipstick 0.2 mg/dL (0.2 mg/dL) Urine Leukocyte Esterase Small (NEG) Urine RBC 6-10 /HPF (0-2) Urine WBC Tntc /HPF (0-4) Urine Squamous Epithelial Cells Mod /LPF Urine Bacteria Many /HPF (0-FEW) Urine Opiates Screen Neg (NEG) Urine Methadone Screen Neg (NEG) Urine Barbiturates Neg (NEG) Urine Phencyclidine Screen Neg (NEG) Urine Amphetamine/Methamphetamine Neg (NEG) Urine Benzodiazepines Screen Neg (NEG) Urine Cocaine Screen Neg (NEG) Urine Cannabinoids Screen Neg (NEG) Urine Ethyl Alcohol Neg (NEG) Laboratory Tests Test 10/20/21 12:46 10/20/21 15:35 10/20/21 17:05 10/20/21 18:30 White Blood Count 8.5 x10^3/uL (4.0-11.0) Red Blood Count 3.54 x10^6/uL (3.50-5.40) Hemoglobin 12.0 g/dL (12.0-15.5) Hematocrit 36.2 % (36.0-47.0) Mean Corpuscular Volume 102 fL (79-100) Mean Corpuscular Hemoglobin 34 pg (25-35) Mean Corpuscular Hemoglobin Concent 33 g/dL (31-37) Red Cell Distribution Width 12.8 % (11.5-14.5) Platelet Count 298 x10^3/uL (140-400) Neutrophils (%) (Auto) 79 % (31-73) Lymphocytes (%) (Auto) 12 % (24-48) Monocytes (%) (Auto) 5 % (0-9) Eosinophils (%) (Auto) 2 % (0-3) Basophils (%) (Auto) 2 % (0-3) Neutrophils # (Auto) 6.7 x10^3/uL (1.8-7.7) Lymphocytes # (Auto) 1.0 x10^3/uL (1.0-4.8) Monocytes # (Auto) 0.5 x10^3/uL (0.0-1.1) Eosinophils # (Auto) 0.2 x10^3/uL (0.0-0.7) Basophils # (Auto) 0.1 x10^3/uL (0.0-0.2) Sodium Level 136 mmol/L (136-145) Potassium Level 4.1 mmol/L (3.5-5.1) Chloride Level 97 mmol/L (98-107) Carbon Dioxide Level 26 mmol/L (21-32) Anion Gap 13 (6-14) Blood Urea Nitrogen 6 mg/dL (7-20) Creatinine 0.8 mg/dL (0.6-1.0) Estimated GFR (Cockcroft-Gault) 69.2 BUN/Creatinine Ratio 8 (6-20) Glucose Level 95 mg/dL (70-99) Calcium Level 9.0 mg/dL (8.5-10.1) Magnesium Level 1.4 mg/dL (1.8-2.4) Total Bilirubin 0.7 mg/dL (0.2-1.0) Aspartate Amino Transf (AST/SGOT) 30 U/L (15-37) Alanine Aminotransferase (ALT/SGPT) 24 U/L (14-59) Alkaline Phosphatase 62 U/L (46-116) Troponin I High Sensitivity 11 ng/L (4-50) 15 ng/L (4-50) 17 ng/L (4-50) RX-Efy-N-Type Natriuretic Peptide 897 pg/mL (0-449) Total Protein 7.7 g/dL (6.4-8.2) Albumin 3.8 g/dL (3.4-5.0) Albumin/Globulin Ratio 1.0 (1.0-1.7) Urine Collection Type Unknown Urine Color Yellow Urine Clarity Hazy Urine pH 6.0 (<5.0-8.0) Urine Specific [place] >=1.030 (1.000-1.030) Urine Protein Negative mg/dL (NEG-TRACE) Urine Glucose (UA) Negative mg/dL (NEG) Urine Ketones (Stick) 15 mg/dL (NEG) Urine Blood Moderate (NEG) Urine Nitrite Positive (NEG) Urine Bilirubin Negative (NEG) Urine Urobilinogen Dipstick 0.2 mg/dL (0.2 mg/dL) Urine Leukocyte Esterase Small (NEG) Urine RBC 6-10 /HPF (0-2) Urine WBC Tntc /HPF (0-4) Urine Squamous Epithelial Cells Mod /LPF Urine Bacteria Many /HPF (0-FEW) Urine Opiates Screen Neg (NEG) Urine Methadone Screen Neg (NEG) Urine Barbiturates Neg (NEG) Urine Phencyclidine Screen Neg (NEG) Urine Amphetamine/Methamphetamine Neg (NEG) Urine Benzodiazepines Screen Neg (NEG) Urine Cocaine Screen Neg (NEG) Urine Cannabinoids Screen Neg (NEG) Urine Ethyl Alcohol Neg (NEG) Assessment/Plan Assessment/Plan Delirium altered mental status secondary to UTI self-reported shortness of breath history CHF hypertension Start empiric antibiotics for UTI. Adjust as needed based upon cultures Chest imaging pretty unremarkable. Head imaging normal DVT prophylaxis Home meds as indicated PT OT Delirium precautions Justifications for Admission Other Justification EMIR CASANOVA MD Oct 20, 2021 22:09
[2021-10-20] MEDS ORDERED: CALCIUM CARBONATE 500 MG TAB.CHEW PO PRN (22:15)
[2021-10-20] MEDS ORDERED: ACETAMINOPHEN 325 MG TABLET. PO PRN (22:15)
[2021-10-20] MEDS ORDERED: ELECTROLYTE (NON-ICU) PROTOCOL. MC PRN (22:15)
[2021-10-20] MEDS ORDERED: ONDANSETRON PF 4 MG/2 ML VIAL. IVP PRN (22:15)
[2021-10-20] MEDS ORDERED: traMADol 50 MG TABLET PO PRN (22:15)
[2021-10-20] MEDS: ZOLPIDEM 5 MG TABLET. PO PRN (22:57)
[2021-10-20] MEDS: TIMOLOL 0.5% OPHTH SOLUTION 5ML BOTTLE. OU SCH (22:57)
[2021-10-20] MEDS: LATANOPROST 0.005% OPHTH SOLUTION 2.5ML BOTTLE. OU SCH (22:57)
[2021-10-20] MEDS: BRIMONIDINE 0.2% OPHTH SOLUTION 5ML BOTTLE. OU SCH (22:57)
[2021-10-20] MEDS: METOPROLOL TART IMMED RELEASE 50 MG TABLET. PO SCH (22:57)
[2021-10-20 23:46] VITALS: BP 154/68
[2021-10-21 03:03] VITALS: BP 97/48
[2021-10-21] MEDS: HEPARIN for SUB-Q USE 5,000 UNIT/ML VIAL. SQ SCH ×3 (05:32→21:37)
[2021-10-21 07:00] VITALS: BP 152/65
[2021-10-21] MEDS: ASPIRIN ENTERIC COATED 81 MG TABLET.DR. PO SCH (08:11)
[2021-10-21] MEDS: SENNOSIDES/DOCUSATE 8.6/50MG TABLET. PO SCH ×2 (08:11→21:29)
[2021-10-21] MEDS: LOSARTAN POTASSIUM 50 MG TABLET. PO SCH (08:12)
[2021-10-21] MEDS: METOPROLOL TART IMMED RELEASE 50 MG TABLET. PO SCH ×2 (08:12→21:29)
[2021-10-21] MEDS: TAMOXIFEN 10 MG TABLET PO SCH (08:16)
[2021-10-21] MEDS: TIMOLOL 0.5% OPHTH SOLUTION 5ML BOTTLE. OU SCH ×2 (08:20→21:29)
[2021-10-21] MEDS: IPRATRPIUM/ALBUTEROL 0.5/2.5MG 3 ML NEBU. NEB SCH ×4 (08:25→21:00)
[2021-10-21] MEDS: BRIMONIDINE 0.2% OPHTH SOLUTION 5ML BOTTLE. OU SCH ×2 (09:00→21:29)
--- NOTE | 2021-10-21 10:49 | PDOC ---
[employer] PROGRESS NOTE Date of Service DOS: DATE: 10/21/21 TIME: 10:47 Chief Complaint Chief Complaint UTI Metabolic cephalopathy Delirium CHF History of the following; CHF, breast cancer status post left mastectomy, hypertension, glaucoma and recent history of left MCA status post TPA History of Present Illness History of Present Illness 10/21/2021 Patient seen and examined Discussed with RN Chart reviewed Vitals/I&O Vitals/I&O: Vital Signs Date Time Temp Pulse Resp B/P (MAP) Pulse Ox O2 Delivery O2 Flow Rate FiO2 10/21/21 08:27 90 10/21/21 08:12 69 152/65 10/21/21 07:00 98.5 18 Room Air 98.5 I & O 10/20/21 10/20/21 10/21/21 15:00 23:00 07:00 Intake Total 1300 ml Output Total 200 ml 75 ml Balance 1100 ml -75 ml Physical Exam General: No acute distress, Other (Pleasant somewhat confused) Heart: Regular rate Lungs: Clear, Crackles Abdomen: Normal bowel sounds Extremities: No clubbing Skin: No rashes Labs Labs: Laboratory Tests Test 10/20/21 12:46 10/20/21 15:35 10/20/21 17:05 10/20/21 18:30 White Blood Count 8.5 x10^3/uL (4.0-11.0) Red Blood Count 3.54 x10^6/uL (3.50-5.40) Hemoglobin 12.0 g/dL (12.0-15.5) Hematocrit 36.2 % (36.0-47.0) Mean Corpuscular Volume 102 fL (79-100) Mean Corpuscular Hemoglobin 34 pg (25-35) Mean Corpuscular Hemoglobin Concent 33 g/dL (31-37) Red Cell Distribution Width 12.8 % (11.5-14.5) Platelet Count 298 x10^3/uL (140-400) Neutrophils (%) (Auto) 79 % (31-73) Lymphocytes (%) (Auto) 12 % (24-48) Monocytes (%) (Auto) 5 % (0-9) Eosinophils (%) (Auto) 2 % (0-3) Basophils (%) (Auto) 2 % (0-3) Neutrophils # (Auto) 6.7 x10^3/uL (1.8-7.7) Lymphocytes # (Auto) 1.0 x10^3/uL (1.0-4.8) Monocytes # (Auto) 0.5 x10^3/uL (0.0-1.1) Eosinophils # (Auto) 0.2 x10^3/uL (0.0-0.7) Basophils # (Auto) 0.1 x10^3/uL (0.0-0.2) Sodium Level 136 mmol/L (136-145) Potassium Level 4.1 mmol/L (3.5-5.1) Chloride Level 97 mmol/L (98-107) Carbon Dioxide Level 26 mmol/L (21-32) Anion Gap 13 (6-14) Blood Urea Nitrogen 6 mg/dL (7-20) Creatinine 0.8 mg/dL (0.6-1.0) Estimated GFR (Cockcroft-Gault) 69.2 BUN/Creatinine Ratio 8 (6-20) Glucose Level 95 mg/dL (70-99) Calcium Level 9.0 mg/dL (8.5-10.1) Magnesium Level 1.4 mg/dL (1.8-2.4) Total Bilirubin 0.7 mg/dL (0.2-1.0) Aspartate Amino Transf (AST/SGOT) 30 U/L (15-37) Alanine Aminotransferase (ALT/SGPT) 24 U/L (14-59) Alkaline Phosphatase 62 U/L (46-116) Troponin I High Sensitivity 11 ng/L (4-50) 15 ng/L (4-50) 17 ng/L (4-50) JU-Pfz-G-Type Natriuretic Peptide 897 pg/mL (0-449) Total Protein 7.7 g/dL (6.4-8.2) Albumin 3.8 g/dL (3.4-5.0) Albumin/Globulin Ratio 1.0 (1.0-1.7) Urine Collection Type Unknown Urine Color Yellow Urine Clarity Hazy Urine pH 6.0 (<5.0-8.0) Urine Specific [place] >=1.030 (1.000-1.030) Urine Protein Negative mg/dL (NEG-TRACE) Urine Glucose (UA) Negative mg/dL (NEG) Urine Ketones (Stick) 15 mg/dL (NEG) Urine Blood Moderate (NEG) Urine Nitrite Positive (NEG) Urine Bilirubin Negative (NEG) Urine Urobilinogen Dipstick 0.2 mg/dL (0.2 mg/dL) Urine Leukocyte Esterase Small (NEG) Urine RBC 6-10 /HPF (0-2) Urine WBC Tntc /HPF (0-4) Urine Squamous Epithelial Cells Mod /LPF Urine Bacteria Many /HPF (0-FEW) Urine Opiates Screen Neg (NEG) Urine Methadone Screen Neg (NEG) Urine Barbiturates Neg (NEG) Urine Phencyclidine Screen Neg (NEG) Urine Amphetamine/Methamphetamine Neg (NEG) Urine Benzodiazepines Screen Neg (NEG) Urine Cocaine Screen Neg (NEG) Urine Cannabinoids Screen Neg (NEG) Urine Ethyl Alcohol Neg (NEG) Assessment and Plan Assessmemt and Plan Problems Medical Problems: (1) Delirium Status: Acute (2) Dyspnea Status: Acute (3) UTI (urinary tract infection) Status: Acute UTI Metabolic cephalopathy Delirium CHF History of the following; CHF, breast cancer status post left mastectomy, hypertension, glaucoma and recent history of left MCA status post TPA Plan Continue IV antibiotics Trend labs Encourage p.o. intake Home meds DVT prophylaxis Full code Discharge disposition pending (she states she lives at her boyfriend's home Shalom Schulz?) Comment Review of Relevant I have reviewed the following items pavithra (where applicable) has been applied. Medications: Current Medications Medications (Trade) Dose Ordered Sig/Chuckie Route PRN Reason Start Time Stop Time Status Last Admin Dose Admin Iohexol (Omnipaque 350 Mg/ml) 75 ml 1X ONCE IV 10/20/21 14:00 10/20/21 14:01 DC 10/20/21 14:00 Magnesium Sulfate/ Dextrose 100 ml @ 100 mls/hr 1X ONCE IV 10/20/21 15:30 10/20/21 16:29 DC 10/20/21 15:53 Sodium Chloride 1,000 ml @ 1,000 mls/hr 1X ONCE IV 10/20/21 15:45 10/20/21 16:44 DC 10/20/21 15:54 Ceftriaxone Sodium (Rocephin) 1 gm 1X ONCE IVP 10/20/21 18:00 10/20/21 18:01 DC 10/20/21 18:12 Ondansetron HCl (Zofran) 4 mg 1X ONCE IVP 10/20/21 18:00 10/20/21 18:01 DC 10/20/21 18:11 Morphine Sulfate (Morphine Sulfate) 4 mg 1X ONCE IVP 10/20/21 18:00 10/20/21 18:01 DC 10/20/21 18:12 Aspirin (Ecotrin) 81 mg DAILY08 PO 10/21/21 08:00 10/21/21 08:11 Latanoprost (Xalatan) 1 drop QHS OU 10/20/21 22:30 10/20/21 22:57 Losartan Potassium (Cozaar) 50 mg DAILY PO 10/21/21 09:00 10/21/21 08:12 Timolol Maleate (Timoptic 0.5% Oph) 1 drop BID OU 10/20/21 22:30 10/21/21 08:20 Metoprolol Tartrate (Lopressor) 50 mg BID PO 10/20/21 22:30 10/21/21 08:12 Tamoxifen Citrate (Nolvadex) 20 mg DAILY PO 10/21/21 09:00 10/21/21 08:16 Zolpidem Tartrate (Ambien) 5 mg PRN QHS PRN PO INSOMNIA, MAY REPEAT IN 1HR 10/20/21 22:15 10/20/21 22:57 Senna/Docusate Sodium (Senna Plus) 1 tab BID PO 10/21/21 09:00 10/21/21 08:11 Heparin Sodium (Porcine) (Heparin Sodium) 5,000 unit Q8HRS SQ 10/21/21 06:00 10/21/21 05:32 Albuterol/ Ipratropium (Duoneb) 3 ml RTQID NEB 10/21/21 08:00 10/21/21 08:25 Brimonidine Tartrate (Alphagan) 1 drop BID OU 10/20/21 22:30 10/20/21 22:57 Justifications for Admission Other Justification ILEANA INGRAM III DO Oct 21, 2021 10:49
[2021-10-21 11:00] VITALS: BP 172/80
[2021-10-21 15:00] VITALS: BP 159/70
[2021-10-21] MEDS ORDERED: cefTRIAXone IV Push 1 GM VIAL. IVP SCH (18:00)
[2021-10-21 18:54] VITALS: BP 147/84
[2021-10-21] MEDS: LATANOPROST 0.005% OPHTH SOLUTION 2.5ML BOTTLE. OU SCH (21:29)
[2021-10-21] MEDS: ZOLPIDEM 5 MG TABLET. PO PRN (21:30)
[2021-10-21 22:30] VITALS: BP 139/51
[2021-10-22 03:00] VITALS: BP 147/70
[2021-10-22 04:49] LABS: CALCIUM 8.2 mg/dL (8.5-10.1); CREATININE 0.7 mg/dL (0.6-1.0); GFR 80.7; POTASSIUM 3.4 mmol/L (3.5-5.1)
[2021-10-22] MEDS: HEPARIN for SUB-Q USE 5,000 UNIT/ML VIAL. SQ SCH ×3 (06:07→21:03)
[2021-10-22 06:37] VITALS: BP 175/85
[2021-10-22] MEDS: ASPIRIN ENTERIC COATED 81 MG TABLET.DR. PO SCH (07:57)
[2021-10-22] MEDS: LOSARTAN POTASSIUM 50 MG TABLET. PO SCH (07:57)
[2021-10-22] MEDS: METOPROLOL TART IMMED RELEASE 50 MG TABLET. PO SCH ×2 (07:57→19:55)
[2021-10-22] MEDS: SENNOSIDES/DOCUSATE 8.6/50MG TABLET. PO SCH ×2 (07:58→19:56)
[2021-10-22] MEDS: TIMOLOL 0.5% OPHTH SOLUTION 5ML BOTTLE. OU SCH ×2 (08:00→19:59)
[2021-10-22] MEDS: TAMOXIFEN 10 MG TABLET PO SCH (08:00)
[2021-10-22] MEDS: IPRATRPIUM/ALBUTEROL 0.5/2.5MG 3 ML NEBU. NEB SCH ×4 (08:00→20:00)
[2021-10-22] MEDS: BRIMONIDINE 0.2% OPHTH SOLUTION 5ML BOTTLE. OU SCH ×2 (08:00→20:00)
[2021-10-22 10:48] VITALS: BP 186/75
[2021-10-22] MEDS: hydrOXYzine 25 MG TABLET PO PRN ×2 (11:01→20:03)
[2021-10-22] MEDS: CEFDINIR 300 MG CAPSULE PO SCH ×2 (11:01→19:55)
--- NOTE | 2021-10-22 13:11 | PDOC ---
[employer] PROGRESS NOTE Date of Service DOS: DATE: 10/22/21 TIME: 13:11 Chief Complaint Chief Complaint UTI Metabolic cephalopathy Delirium CHF History of the following; CHF, breast cancer status post left mastectomy, hypertension, glaucoma and recent history of left MCA status post TPA History of Present Illness History of Present Illness 10/22/2021 Patient seen and examined Discussed with Chart reviewed We are changing her IV Rocephin to p.o. cefdinir in hopes of discharging tomorrow 10/21/2021 Patient seen and examined Discussed with RN Chart reviewed Vitals/I&O Vitals/I&O: Vital Signs Date Time Temp Pulse Resp B/P (MAP) Pulse Ox O2 Delivery O2 Flow Rate FiO2 10/22/21 11:11 98 10/22/21 10:48 99.1 68 18 186/75 (112) Room Air 99.1 I & O 10/21/21 10/21/21 10/22/21 15:00 23:00 07:00 Intake Total 600 ml 300 ml 200 ml Output Total 100 ml 150 ml 750 ml Balance 500 ml 150 ml -550 ml Physical Exam General: No acute distress, Other (Pleasant somewhat confused) Heart: Regular rate Lungs: Clear, Crackles Abdomen: Normal bowel sounds Extremities: No clubbing Skin: No rashes Labs Labs: Laboratory Tests Test 10/22/21 04:00 Sodium Level 134 mmol/L (136-145) Potassium Level 3.4 mmol/L (3.5-5.1) Chloride Level 98 mmol/L (98-107) Carbon Dioxide Level 27 mmol/L (21-32) Anion Gap 9 (6-14) Blood Urea Nitrogen 3 mg/dL (7-20) Creatinine 0.7 mg/dL (0.6-1.0) Estimated GFR (Cockcroft-Gault) 80.7 Glucose Level 97 mg/dL (70-99) Calcium Level 8.2 mg/dL (8.5-10.1) Assessment and Plan Assessmemt and Plan Problems Medical Problems: (1) Delirium Status: Acute (2) Dyspnea Status: Acute (3) UTI (urinary tract infection) Status: Acute UTI Metabolic cephalopathy Delirium CHF History of the following; CHF, breast cancer status post left mastectomy, hypertension, glaucoma and recent history of left MCA status post TPA Plan Change IV Rocephin to p.o. cefdinir Hope to discharge tomorrow if still Trend labs Encourage p.o. intake Home meds DVT prophylaxis Full code Discharge disposition pending (she states she lives at her boyfriend's home Shalom Schulz?) Comment Review of Relevant I have reviewed the following items pavithra (where applicable) has been applied. Medications: Current Medications Medications (Trade) Dose Ordered Sig/Chuckie Route PRN Reason Start Time Stop Time Status Last Admin Dose Admin Cefdinir (Omnicef) 300 mg BID PO 10/22/21 09:00 10/22/21 11:01 Hydroxyzine HCl (Atarax) 25 mg PRN Q6HRS PRN PO ITCHING 10/22/21 11:00 10/22/21 11:01 Justifications for Admission Other Justification ILEANA INGRAM III DO Oct 22, 2021 13:11
[2021-10-22 15:00] VITALS: BP 193/84
[2021-10-22 19:33] VITALS: BP 185/68
[2021-10-22] MEDS: LATANOPROST 0.005% OPHTH SOLUTION 2.5ML BOTTLE. OU SCH (20:00)
[2021-10-22 22:53] VITALS: BP 125/53
[2021-10-23 03:50] VITALS: BP 183/74
[2021-10-23] MEDS: LOPERAMIDE 2 MG CAPSULE PO PRN ×2 (04:28→05:33)
[2021-10-23] MEDS: HEPARIN for SUB-Q USE 5,000 UNIT/ML VIAL. SQ SCH (05:36)
[2021-10-23 07:00] VITALS: BP 148/72
[2021-10-23] MEDS: IPRATRPIUM/ALBUTEROL 0.5/2.5MG 3 ML NEBU. NEB SCH ×2 (07:12→11:25)
[2021-10-23] MEDS: BRIMONIDINE 0.2% OPHTH SOLUTION 5ML BOTTLE. OU SCH (07:39)
[2021-10-23] MEDS: TIMOLOL 0.5% OPHTH SOLUTION 5ML BOTTLE. OU SCH (07:39)
[2021-10-23] MEDS: TAMOXIFEN 10 MG TABLET PO SCH (07:41)
[2021-10-23] MEDS: ASPIRIN ENTERIC COATED 81 MG TABLET.DR. PO SCH (07:42)
[2021-10-23] MEDS: LOSARTAN POTASSIUM 50 MG TABLET. PO SCH (07:42)
[2021-10-23] MEDS: SENNOSIDES/DOCUSATE 8.6/50MG TABLET. PO SCH (07:43)
[2021-10-23] MEDS: METOPROLOL TART IMMED RELEASE 50 MG TABLET. PO SCH (07:43)
[2021-10-23] MEDS: CEFDINIR 300 MG CAPSULE PO SCH (07:43)
--- NOTE | 2021-10-23 10:09 | NUR ---
SS following for discharge planning. SS reviewed pt chart and discussed with pt RN. Pt is from home and is currently on room air. PT/OT recommended home with home healthcare. SS met with pt and discussed discharge planning and home healthcare services. Pt agreeable to home healthcare services with no preference of company. Referral sent to [facility], ; fax [phone]. SS will continue to follow for discharge planning. Addendum: 10/23/21 at 1111 by PITA SHEIKH SS Discharge orders received for home with home healthcare. Discharge orders and referral sent to [facility]. Pt's RN notified.
[2021-10-23 10:25] VITALS: BP 173/65
[2021-10-23] MEDS ORDERED: HYDR25TA PO (10:43)
[2021-10-23] MEDS ORDERED: CEFD300C PO (10:43)
--- NOTE | 2021-10-23 10:45 | SNU/HH DC ---
DISCHARGE WITH HOME HEALTH DISCHARGE INFORMATION: Final Diagnosis: Problems Medical Problems: (1) Delirium Status: Acute (2) Dyspnea Status: Acute (3) UTI (urinary tract infection) Status: Acute Condition on Discharge: Stable CODE STATUS: Code Status: Full HOME HEALTH: Face to Face: I certify this patient is under my care and that I, or a nurse practitioner or physician's librarian assistant working with me, had a face to face encounter that meets the physician face to face encounter requirements with this patient on []. 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 For: Community Resources Pt Meets Homebound Status: Unsteady balance w/ amb, POST DISCHARGE ORDERS: Activity Instructions for Disc: No restrictions Weight Bearing Status after Di: No restrictions Bathing Instructions: Shower-keep dressing dry DIET AFTER DISCHARGE: Cardiac Wound/Incision Care: Change dressing, May get incision wet CHECKS AFTER DISCHARGE: Checks after discharge: Check blood press - daily, Check your Temp as needed, Weigh Yourself Daily FOLLOW-UP: DC TO SNF LABS: CBC, CMP TREATMENT/EQUIPMENT ORDERS: Adaptive Equipment Issued: None, Front wheeled walker Discharge Respiratory Equipmen: Oxygen, Nebulizer CERTIFICATION STATEMENT: Certification Statement: Certification Statement: Based on the above finding, I certify that this patient is confined to the home and needs intermittent group home care, physical therapy and/or speech therapy, or continues to need occupational therapy.~ This patient is under my care, and I have initiated the establishment of the plan of care.~ This patient will be followed by myself or a community physician who will periodically review the plan of care. Home Meds Active Scripts Hydroxyzine Hcl (HYDROXYZINE HCL) 25 Mg Tablet, 25 MG PO PRN Q6HRS PRN for ITCHING for 10 Days, #20 TAB Prov:CASTLE,NIAL K III DO 10/23/21 Cefdinir (CEFDINIR) 300 Mg Capsule, 300 MG PO BID for . for 7 Days, #14 CAP Prov:CASTLE,NIAL K III DO 10/23/21 Aspirin (ASPIRIN EC) 81 Mg Tablet., 1 TAB PO DAILY for stroke prevention for 30 Days, #30 TAB 3 Refills Prov:NATACHA MEJIA MD 09/19/21 Docusate Sodium (COLACE) 100 Mg Capsule, 100 MG PO BID for PREVENT CONSTIPATION for 30 Days, #60 CAP Prov:LUI CELIS MD 02/22/19 Tramadol Hcl (TRAMADOL HCL) 50 Mg Tablet, 50 MG PO PRN Q6HRS PRN for PAIN for 14 Days, #30 TAB Prov:LUI CELIS MD 02/22/19 Reported Medications Diphenhydramine Hcl (BENADRYL) 25 Mg Capsule, 1 CAP PO QHS for sleep for 30 Days, #30 CAP 0 Refills 10/20/21 Tamoxifen Citrate (TAMOXIFEN CITRATE) 20 Mg Tablet, 1 TAB PO DAILY for breast cancer for 30 Days, #30 TAB 0 Refills 09/18/21 Losartan Potassium (LOSARTAN POTASSIUM) 50 Mg Tablet, 50 MG PO DAILY for HYPERT ENSION, TAB 02/10/19 Brimonidine Tartrate/Timolol (COMBIGAN EYE DROPS) 5 Ml Drops, 1 DRP OU BID for glaucoma, DROP 12/14/18 Metoprolol Tartrate (Lopressor) 100 Mg Tablet, 50 MG PO BID for htn, TAB 12/14/18 Latanoprost (LATANOPROST) 2.5 Ml Drops, 1 DROP EACHEYE QHS for glaucoma, #7.5 ML 3 Refills 12/14/18 ILEANA INGRAM III DO Oct 23, 2021 10:45
--- NOTE | 2021-10-23 10:47 | PDOC ---
[facility] PROGRESS NOTE Date of Service DOS: DATE: 10/23/21 TIME: 10:47 Chief Complaint Chief Complaint UTI Metabolic cephalopathy Delirium CHF History of the following; CHF, breast cancer status post left mastectomy, hypertension, glaucoma and recent history of left MCA status post TPA History of Present Illness History of Present Illness 10/23/2021 Patient seen and examined [place] she is at her baseline We will go ahead and discharge on p.o. cefdinir 10/22/2021 Patient seen and examined Discussed with Chart reviewed We are changing her IV Rocephin to p.o. cefdinir in hopes of discharging tomorrow 10/21/2021 Patient seen and examined Discussed with RN Chart reviewed Vitals/I&O Vitals/I&O: Vital Signs Date Time Temp Pulse Resp B/P (MAP) Pulse Ox O2 Delivery O2 Flow Rate FiO2 10/23/21 10:25 98.6 74 16 173/65 (101) 95 Room Air 98.6 I & O 10/22/21 10/22/21 10/23/21 15:00 23:00 07:00 Intake Total 660 ml 360 ml 100 ml Output Total 1400 ml Balance 660 ml -1040 ml 100 ml Physical Exam General: No acute distress, Other (Pleasant somewhat confused) Heart: Regular rate Lungs: Clear, Crackles Abdomen: Normal bowel sounds Extremities: No clubbing Skin: No rashes Assessment and Plan Assessmemt and Plan Problems Medical Problems: (1) Delirium Status: Acute (2) Dyspnea Status: Acute (3) UTI (urinary tract infection) Stat Resolving UTI Plan Discharge with home health See dictation Comment Review of Relevant I have reviewed the following items pavithra (where applicable) has been applied. Medications: Current Medications Medications (Trade) Dose Ordered Sig/Chuckie Route PRN Reason Start Time Stop Time Status Last Admin Dose Admin Hydroxyzine HCl (Atarax) 25 mg PRN Q6HRS PRN PO ITCHING 10/22/21 11:00 10/22/21 20:03 Loperamide HCl (Imodium) 2 mg PRN Q15MIN PRN PO DIARRHEA 10/23/21 04:15 10/23/21 05:33 Justifications for Admission Other Justification ILEANA INGRAM III DO Oct 23, 2021 10:47
--- NOTE | 2021-10-23 12:31 | NUR ---
Pt IV removed and provided with instructions on follow up and discharge medications. Pt taken by wheelchair to main entrance where her significant other was waiting to take her home
--- NOTE | 2021-10-23 12:55 | DS ---
DATE OF DISCHARGE: 10/23/2021 ADMITTING DIAGNOSIS: Urinary tract infection with metabolic encephalopathy. 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 HOSPITAL COURSE: The patient is a pleasant elderly female who presented with metabolic encephalopathy, was noted to have a UTI. We gave her IV antibiotics. Since she had a history of heart failure we did not give her any IV fluids, but rather encouraged her to drink p.o. Today, I saw her and examined her. She is at her baseline. We plan to discharge her on p.o. cefdinir. DISPOSITION: Home. ACTIVITY: As tolerated. DIET: Low sodium. MEDICATIONS: Please see the MRAD. Cefdinir 300 b.i.d. for 1 week, hydroxyzine 25 q.6 hours p.r.n., aspirin 81 a day, Combigan eyedrops, p.r.n. Benadryl, p.r.n. Colace, Latanoprost eyedrops, losartan 50 a day, metoprolol 50 b.i.d., tamoxifen 20 mg daily and Ultram 50 q 6 hours p.r.n. Total time 32 minutes. OLGA LIDIA/JERMAN DR: OLGA LIDIA/alex TID: [id number]
== END 2021-10-23 12:24 | disposition home health service (06) | DRG 871 ==
LOC: ER 12:09 → 6 SOUTH 18:01
PROVIDERS: ADMIT Student in an Organized Health Care Education/Training Program; ATTEND Student in an Organized Health Care Education/Training Program
DX: A41.9 Sepsis, unspecified organism (principal); G93.41 Metabolic encephalopathy; N39.0 Urinary tract infection, site not specified; I11.0 Hypertensive heart disease with heart failure; I50.9 Heart failure, unspecified; H40.9 Unspecified glaucoma; Z82.49 Family history of ischemic heart disease and other diseases of the circulatory system; Z85.3 Personal history of malignant neoplasm of breast; Z86.73 Personal history of transient ischemic attack (TIA), and cerebral infarction without residual deficits; Z90.12 Acquired absence of left breast and nipple; Z90.49 Acquired absence of other specified parts of digestive tract; Z90.710 Acquired absence of both cervix and uterus; Z87.01 Personal history of pneumonia (recurrent); Z88.1 Allergy status to other antibiotic agents; Z88.5 Allergy status to narcotic agent
CPT/HCPCS: 36415; 70450; 71045; 71275; 80048; 80053; 80307; 81001; 83735; 83880; 84484; 85025; 87077; 87086; 87186; 93005; 94640; 94760; 96361; 96374; 96375; J0696; J1644; J2270; J2405; J3475; J7030; Q9967; 97116-GP; 97530-GO; 99285-25; G0378